=== PATIENT | male | born 1975 | race Caucasian/White ===

== ENCOUNTER 2017-01-30 21:54 | Inpatient (IN) | payer SELFPAY ==
[2017-01-30] MEDS ORDERED: Aspirin TAB* 325 MG PO ONE (22:00)
[2017-01-30] MEDS ORDERED: Ticagrelor* 90 MG TAB PO ONE ×2 (22:01→22:02)
[2017-01-30] MEDS ORDERED: Heparin for STEMI(*) 5,000 UNITS/ML 1 ML VIAL IV ONE ×2 (22:01→22:02)
[2017-01-30] MEDS ORDERED: Nitroglycerin TAB 0.4 MG* 0.4 MG TAB ONE (22:01)
[2017-01-30] MEDS ORDERED: Aspirin Low Dose CHEW TAB* 81 MG ONE (22:01)
[2017-01-30] MEDS ORDERED: nitroGLYCERIN DRIP* 250 ML ONE ×2 (22:02→22:19)
[2017-01-30 22:14] LABS: Hematocrit 49 % (42-52); Hemoglobin 16.2 g/dl (14.0-18.0); Mean Corpuscular HGB Conc 33 g/dl (31-36); Mean Corpuscular Hemoglobin 29 pg (27-31); Mean Corpuscular Volume 89 fL (80-94); Mean Platelet Volume 10 um3 (7.4-10.4); Red Blood Count 5.51 10^6/ul (4.0-5.4); Red Cell Distribution Width 13 % (10.5-15)
[2017-01-30] MEDS ORDERED: Iohexol 350 (CONTRAST) 200 ML MDV IV ONE ×2 (22:18→23:18)
[2017-01-30] MEDS ORDERED: fentaNYL* 50 MCG/ML 2 ML VIAL (100 MCG VIAL) ONE (22:18)
[2017-01-30] MEDS ORDERED: Heparin 2 UNITS/ML IVPREMIX* 3,000 ML IV ONE (22:18)
[2017-01-30] MEDS ORDERED: Lidocaine 1% INJ* 10 MG/ML 30 ML SDV ONE (22:18)
[2017-01-30] MEDS ORDERED: Midazolam* 1 MG/ML 5 ML VIAL (5 MG) ONE (22:18)
[2017-01-30] MEDS ORDERED: Ondansetron INJ* 2 MG/ML VIAL IV ONE (22:26)
[2017-01-30] MEDS ORDERED: Morphine INJ* 4 MG/ML 1 ML SYRINGE IV ONE (22:26)
[2017-01-30 22:27] LABS: Albumin 4.3 g/dL (3.2-5.2); BUN/Creatinine Ratio 15.6 (8-20); Calcium 8.9 mg/dL (8.6-10.3); EGFR Non-African American 66.1 (>60); Globulin 2.6 g/dL (2-4); Potassium 3.5 mmol/L (3.5-5.0); Total Bilirubin 0.5 mg/dL (0.2-1.0); Total Protein 6.9 g/dL (6.4-8.9)
[2017-01-30 22:31] LABS: Troponin I 0.02 ng/mL (<0.04)
--- NOTE | 2017-01-30 22:52 | RAD ---
Indication: ST elevation myocardial infarction. Pain radiating to the LEFT arm. History of AK and stents. Comparison: January 21, 2016 CT. Technique: Upright AP 2225 hours Report: Prominent ill-defined central pulmonary vasculature, perihilar alveolar opacities, and prominence of the interstitial markings with subtle peripheral thickened interlobular septa. Clear LEFT costophrenic angle. The RIGHT costophrenic angle is incompletely included in the [id number] without gross abnormality. Negative for pneumothorax. Negative for cardiomegaly. IMPRESSION: Alveolar and interstitial pulmonary edema.
--- NOTE | 2017-01-30 22:53 | ED ---
Clau Rico Janilya, scribed for Nehal Mai MD on 01/30/17 at 2214 . HPI Chest Pain - HPI Summary HPI Summary: A 41 y/o male came in to [facility] presenting w/ a sudden onset of constant CP starting half an hour ago. Per nurse, pt was slumped over and started having severe sharp CP that radiated to his arm. FHx early MD. STEMI alert called at 2153 - History of Current Complaint Chief Complaint: EDChestPainROMI Hx Obtained From: Patient Onset/Duration: Started Minutes Ago, Atraumatic, Still Present Timing: Constant Initial Severity: Moderate Current Severity: Moderate Chest Pain Location: Diffuse Chest Pain Radiates: Yes Chest Pain Radiates To:: Arm Aggravating Factor(s): Nothing Alleviating Factor(s): Nothing Associated Signs and Symptoms: Positive: Chest Pain - Allergy/Home Medications Allergies/Adverse Reactions: Allergies Allergy/AdvReac Type Severity Reaction Status Date / Time No Known Allergies Allergy Verified 01/21/16 15:49 PMH/Surg Hx/FS Hx/Imm Hx Previously Healthy: Yes Endocrine/Hematology History: Denies: Hx Diabetes Cardiovascular History: Reports: Hx Angina, Hx Cardiac Arrest, Hx Coronary Artery Disease, Hx Hypercholesterolemia, Hx Hypertension - W/MEDS PER PT.HASN'T TAKEN MEDS IN QUITE A WHILE, Hx Myocardial Infarction - 2009 Respiratory History: Denies: Hx Asthma, Hx Chronic Obstructive Pulmonary Disease (COPD) GI History: Reports: Hx Hiatal Hernia - maybe Musculoskeletal History: Reports: Hx Arthritis, Hx Back Problems, Hx Orthopedic Injury - R arm, right ankle Neurological History: Denies: Hx Spinal Cord Injury Psychiatric History: Reports: Hx Depression, Hx Substance Abuse - ETOH - Surgical History Surgery Procedure, Year, and Place: appendectomy, left thumb reattached, left zygomatic bone and occipital bone fractured, repaired. - Immunization History Date of Tetanus Vaccine: unknown Infectious Disease History: Denies: Traveled Outside the [place] in Last 30 Days - Family History Known Family History: Positive: Cardiac Disease - early MD - Social History Alcohol Use: Occasionally Substance Use Type: Reports: Marijuana Substance Use Comment - Amount & Last Used: occasionally Hx Tobacco Use: Yes Smoking Status (MU): Heavy Every Day Tobacco Smoker Type: Cigarettes Amount Used/How Often: 1 PPD Length of Time of Smoking/Using Tobacco: 22 years Have You Smoked in the Last Year: No Review of Systems Positive: Chest Pain Positive: Arthralgia - arm pain, Myalgia - arm pain All Other Systems Reviewed And Are Negative: Yes Physical Exam Triage Information Reviewed: Yes Vital Signs On Initial Exam: Vital Signs (72 hours) 01/30/17 01/30/17 21:59 22:09 Temperature 97.3 F Pulse Rate 96 94 Respiratory 18 Rate Blood Pressure 149/97 (mmHg) O2 Sat by Pulse 99 Oximetry Vital Signs Reviewed: Yes Appearance: Positive: No Pain Distress, Ill-Appearing, Obese Skin: Positive: Warm, Skin Color Reflects Adequate Perfusion, Diaphoretic Eyes: Positive: EOMI, RUSSELL ENT: Positive: Pharynx normal, TMs normal Neck: Positive: Supple, Nontender Respiratory/Lung Sounds: Positive: Clear to Auscultation, Breath Sounds Present. Negative: Rales, Rhonchi, Wheezes Cardiovascular: Positive: RRR. Negative: Murmur, Rub, Other - no gallops Abdomen Description: Positive: Nontender, Soft. Negative: Distended, Guarding, Other: - no rebound Bowel Sounds: Positive: Present Musculoskeletal: Positive: Strength/ROM Intact. Negative: Edema Left, Edema Right Neurological: Positive: Sensory/Motor Intact, Alert, Oriented to Person Place, Time, CN Intact II-III Psychiatric: Positive: Affect/Mood Appropriate Diagnostics - Vital Signs Vital Signs Temp Pulse Resp BP Pulse Ox 01/30/17 22:37 95 22 146/100 98 01/30/17 22:30 22 01/30/17 22:25 18 99 01/30/17 22:09 94 01/30/17 21:59 97.3 F 96 18 149/97 99 - Laboratory Lab Results: Lab Results 01/30/17 01/30/17 01/30/17 Range/Units 22:00 22:00 22:00 WBC 12.0 H (3.5-10.8) 10^3/ul RBC 5.51 H (4.0-5.4) 10^6/ul Hgb 16.2 (14.0-18.0) g/dl Hct 49 (42-52) % MCV 89 (80-94) fL MCH 29 (27-31) pg MCHC 33 (31-36) g/dl RDW 13 (10.5-15) % Plt Count 237 (150-450) 10^3/ul MPV 10 (7.4-10.4) um3 Neut % (Auto) 61.4 (38-83) % Lymph % (Auto) 27.5 (25-47) % Vance % (Auto) 8.7 (1-9) % Eos % (Auto) 1.4 (0-6) % Baso % (Auto) 1.0 (0-2) % Absolute Neuts (auto) 7.3 (1.5-7.7) 10^3/ul Absolute Lymphs (auto) 3.3 (1.0-4.8) 10^3/ul Absolute Monos (auto) 1.0 H (0-0.8) 10^3/ul Absolute Eos (auto) 0.2 (0-0.6) 10^3/ul Absolute Basos (auto) 0.1 (0-0.2) 10^3/ul Absolute Nucleated RBC 0.01 10^3/ul Nucleated RBC % 0.1 INR (Anticoag Therapy) 0.82 L (0.89-1.11) APTT 25.7 L (26.0-36.3) seconds Sodium 136 (133-145) mmol/L Potassium 3.5 (3.5-5.0) mmol/L Chloride 101 (101-111) mmol/L Carbon Dioxide 25 (22-32) mmol/L Anion Gap 10 (2-11) mmol/L BUN 19 (6-24) mg/dL Creatinine 1.22 H (0.67-1.17) mg/dL Est GFR ( Amer) 85.0 (>60) Est GFR (Non-Af Amer) 66.1 (>60) BUN/Creatinine Ratio 15.6 (8-20) Glucose 153 H (70-100) mg/dL Lactic Acid (0.5-2.0) mmol/L Calcium 8.9 (8.6-10.3) mg/dL Total Bilirubin 0.50 (0.2-1.0) mg/dL AST 22 (13-39) U/L ALT 26 (7-52) U/L Alkaline Phosphatase 83 (34-104) U/L Total Creatine Kinase 161 (10-223) U/L CK-MB (CK-2) 3.2 (0.6-6.3) ng/mL Myoglobin 42.9 (17.4-105.7) ng/mL Troponin I 0.02 (<0.04) ng/mL B-Natriuretic Peptide ( - 100) pg/mL Total Protein 6.9 (6.4-8.9) g/dL Albumin 4.3 (3.2-5.2) g/dL Globulin 2.6 (2-4) g/dL Albumin/Globulin Ratio 1.7 (1-3) LDL Cholesterol Direct 146 mg/dL Blood Type Antibody Screen 01/30/17 01/30/17 01/30/17 Range/Units 22:00 22:00 22:00 WBC (3.5-10.8) 10^3/ul RBC (4.0-5.4) 10^6/ul Hgb (14.0-18.0) g/dl Hct (42-52) % MCV (80-94) fL MCH (27-31) pg MCHC (31-36) g/dl RDW (10.5-15) % Plt Count (150-450) 10^3/ul MPV (7.4-10.4) um3 Neut % (Auto) (38-83) % Lymph % (Auto) (25-47) % Vance % (Auto) (1-9) % Eos % (Auto) (0-6) % Baso % (Auto) (0-2) % Absolute Neuts (auto) (1.5-7.7) 10^3/ul Absolute Lymphs (auto) (1.0-4.8) 10^3/ul Absolute Monos (auto) (0-0.8) 10^3/ul Absolute Eos (auto) (0-0.6) 10^3/ul Absolute Basos (auto) (0-0.2) 10^3/ul Absolute Nucleated RBC 10^3/ul Nucleated RBC % INR (Anticoag Therapy) (0.89-1.11) APTT (26.0-36.3) seconds Sodium (133-145) mmol/L Potassium (3.5-5.0) mmol/L Chloride (101-111) mmol/L Carbon Dioxide (22-32) mmol/L Anion Gap (2-11) mmol/L BUN (6-24) mg/dL Creatinine (0.67-1.17) mg/dL Est GFR ( Amer) (>60) Est GFR (Non-Af Amer) (>60) BUN/Creatinine Ratio (8-20) Glucose (70-100) mg/dL Lactic Acid 2.8 H* (0.5-2.0) mmol/L Calcium (8.6-10.3) mg/dL Total Bilirubin (0.2-1.0) mg/dL AST (13-39) U/L ALT (7-52) U/L Alkaline Phosphatase (34-104) U/L Total Creatine Kinase (10-223) U/L CK-MB (CK-2) (0.6-6.3) ng/mL Myoglobin (17.4-105.7) ng/mL Troponin I (<0.04) ng/mL B-Natriuretic Peptide 44 ( - 100) pg/mL Total Protein (6.4-8.9) g/dL Albumin (3.2-5.2) g/dL Globulin (2-4) g/dL Albumin/Globulin Ratio (1-3) LDL Cholesterol Direct mg/dL Blood Type A Positive Antibody Screen Pending Result Diagrams: 01/30/17 22:00 01/30/17 22:00 Lab Statement: Any lab studies that have been ordered have been reviewed, and results considered in the medical decision making process. - EKG 215 Cardiac Rate: NL - 89 bpm EKG Rhythm: Sinus Rhythm EKG Interpretation: ST elevated in V1-V6 anterior laterally w/ mild depression inferiorly. EKG Comparison: Other - No ST elevations in 12/13/2014 2207 Cardiac Rate: NL - 92 bpm EKG Rhythm: Sinus Rhythm EKG Interpretation: ST elevated in V1-V6 anterior laterally w/ mild depression inferiorly. Chest Pain Course/Dx - Course Course Of Treatment: 41 yo with severe cad, arrived with 30 mins of cp with st elevations stemi called, heparin, brilinta and asa given. pt sent to [facility]. 30 mins of critical care time were spent - Diagnoses Provider Diagnoses: STEMI (ST elevation myocardial infarction) - Provider Notifications Discussed Care Of Patient With: Cardio at 2205: discussed pt care and EKG results. Discharge - Discharge Plan Condition: Stable Disposition: ADMITT[facility] TO [facility] The documentation as recorded by the Clau brice Janilya accurately reflects the service I personally performed and the decisions made by me, Nheal Mai MD.
[2017-01-30] MEDS ORDERED: Bivalirudin(*) 250 MG VIAL ONE (22:55)
--- NOTE | 2017-01-30 22:58 | CONSULT ---
Consult Consult: PCP: none Date/Time of Evaluation: 01/30/2017 0833 Reason for Consult: management of alcoholism & assistance w/ STEMI management HPI: Mr Guzman is a morbidly obese white male HX CAD/PA/stent x2, HTN, tobacco use disorder, & active alcoholism who reports sudden onset severe chest pressure while walking out of the [employer] in [place] at 2100. This was associated with nausea, SOB, and sweating. It felt like his previous PA and so he took a nitro and presented to [facility] where ECG confirmed anterolateral STEMI. Elio Vital MD interventional cardiology took him to cardiac cath finding the culprit lesion to be 100% occluded proximal LAD, now s/p stent. For details , see cardiac cath report. Mr Guzman self-D/C'd all of his medications >1 year ago because "they were making me sick and interfering with my drinking". He fired his PCP at the time and has not re-established with anyone. PMedHx CAD/stent x2 HTN pure hypercholesterolemia alcoholism, active w/ HX withdrawal w/o seizure morbid obesity tobacco use disorder Ambulatory Orders Nursing to reconcile. Cyclobenzaprine TAB* [Flexeril TAB*] 10 mg PO TID PRN #10 tab 01/21/16 HYDROcodone/ACETAMIN 5-325 MG* [[place]rie 5-325 TAB*] 1 tab PO Q6H PRN #10 tab MDD 5 01/21/16 Allergies No Known Allergies Allergy (Verified 01/21/16 15:49) PSurgHx cardiac stent x2 appendectomy SocHx: 1-2PPD cigarettes, 12 beers/day and 1-2 pints moonshine/week, occasional marijuana; works in [employer]; full code status FamHx: Mother: DM2; Father: pacer; strongly positive for early onset CAD ROS: as above, otherwise reviewed and all were negative Constitutional: NAD, normally developed, morbidly obese unkempt malodorous white male vitals: Vital Signs Temp 36.3 C 01/30/17 21:59 Pulse 95 01/30/17 22:37 Resp 22 01/30/17 22:37 BP 146/100 01/30/17 22:37 Pulse Ox 98 01/30/17 22:37 Intake & Output 01/29/17 01/30/17 01/30/17 23:59 11:59 23:59 Weight 122.47 kg HEENM: atraumatic; sclera/conjunctiva: non-icteric/clear; hearing: clinically intact; oropharynx: clear, mucosa moist Neck: soft tissue: non-tender; thyroid: normal Pulmonary: clear to auscultation bilaterally, good aeration, no accessory muscle use CV: RR/RR, normal S1S2, no carotid bruit, no jugular venous distention, 2+ B DP/ PT, no edema Abdominal: soft, non-distended, non-tender, no rebound/guarding/rigidity, normoactive bowel sounds, no hepatosplenomegaly or masses, no costovertebral angle tenderness Musculoskeletal: general: grossly intact; gait: currently non-ambulatory s/p cardiac cath Integumental: dirt crusting on hands, around navel, & on feet; otherwise normal appearance and texture Psychiatric orientation: AA&O to PPS affect: calm mood: cooperative eye contact: fair content: reliable responses: timely insight: poor Testing: Lab Results 01/30/17 01/30/17 01/30/17 Range/Units 22:00 22:00 22:00 WBC 12.0 H (3.5-10.8) 10^3/ul RBC 5.51 H (4.0-5.4) 10^6/ul Hgb 16.2 (14.0-18.0) g/dl Hct 49 (42-52) % MCV 89 (80-94) fL MCH 29 (27-31) pg MCHC 33 (31-36) g/dl RDW 13 (10.5-15) % Plt Count 237 (150-450) 10^3/ul MPV 10 (7.4-10.4) um3 Neut % (Auto) 61.4 (38-83) % Lymph % (Auto) 27.5 (25-47) % [place] % (Auto) 8.7 (1-9) % Eos % (Auto) 1.4 (0-6) % Baso % (Auto) 1.0 (0-2) % Absolute Neuts (auto) 7.3 (1.5-7.7) 10^3/ul Absolute Lymphs (auto) 3.3 (1.0-4.8) 10^3/ul Absolute Monos (auto) 1.0 H (0-0.8) 10^3/ul Absolute Eos (auto) 0.2 (0-0.6) 10^3/ul Absolute Basos (auto) 0.1 (0-0.2) 10^3/ul Absolute Nucleated RBC 0.01 10^3/ul Nucleated RBC % 0.1 INR (Anticoag Therapy) 0.82 L (0.89-1.11) APTT 25.7 L (26.0-36.3) seconds Sodium 136 (133-145) mmol/L Potassium 3.5 (3.5-5.0) mmol/L Chloride 101 (101-111) mmol/L Carbon Dioxide 25 (22-32) mmol/L Anion Gap 10 (2-11) mmol/L BUN 19 (6-24) mg/dL Creatinine 1.22 H (0.67-1.17) mg/dL Est GFR ( Amer) 85.0 (>60) Est GFR (Non-Af Amer) 66.1 (>60) BUN/Creatinine Ratio 15.6 (8-20) Glucose 153 H (70-100) mg/dL Lactic Acid (0.5-2.0) mmol/L Calcium 8.9 (8.6-10.3) mg/dL Total Bilirubin 0.50 (0.2-1.0) mg/dL AST 22 (13-39) U/L ALT 26 (7-52) U/L Alkaline Phosphatase 83 (34-104) U/L Total Creatine Kinase 161 (10-223) U/L CK-MB (CK-2) 3.2 (0.6-6.3) ng/mL Myoglobin 42.9 (17.4-105.7) ng/mL Troponin I 0.02 (<0.04) ng/mL B-Natriuretic Peptide ( - 100) pg/mL Total Protein 6.9 (6.4-8.9) g/dL Albumin 4.3 (3.2-5.2) g/dL Globulin 2.6 (2-4) g/dL Albumin/Globulin Ratio 1.7 (1-3) LDL Cholesterol Direct 146 mg/dL Blood Type Antibody Screen 01/30/17 01/30/17 01/30/17 Range/Units 22:00 22:00 22:00 WBC (3.5-10.8) 10^3/ul RBC (4.0-5.4) 10^6/ul Hgb (14.0-18.0) g/dl Hct (42-52) % MCV (80-94) fL MCH (27-31) pg MCHC (31-36) g/dl RDW (10.5-15) % Plt Count (150-450) 10^3/ul MPV (7.4-10.4) um3 Neut % (Auto) (38-83) % Lymph % (Auto) (25-47) % [place] % (Auto) (1-9) % Eos % (Auto) (0-6) % Baso % (Auto) (0-2) % Absolute Neuts (auto) (1.5-7.7) 10^3/ul Absolute Lymphs (auto) (1.0-4.8) 10^3/ul Absolute Monos (auto) (0-0.8) 10^3/ul Absolute Eos (auto) (0-0.6) 10^3/ul Absolute Basos (auto) (0-0.2) 10^3/ul Absolute Nucleated RBC 10^3/ul Nucleated RBC % INR (Anticoag Therapy) (0.89-1.11) APTT (26.0-36.3) seconds Sodium (133-145) mmol/L Potassium (3.5-5.0) mmol/L Chloride (101-111) mmol/L Carbon Dioxide (22-32) mmol/L Anion Gap (2-11) mmol/L BUN (6-24) mg/dL Creatinine (0.67-1.17) mg/dL Est GFR ( Amer) (>60) Est GFR (Non-Af Amer) (>60) BUN/Creatinine Ratio (8-20) Glucose (70-100) mg/dL Lactic Acid 2.8 H* (0.5-2.0) mmol/L Calcium (8.6-10.3) mg/dL Total Bilirubin (0.2-1.0) mg/dL AST (13-39) U/L ALT (7-52) U/L Alkaline Phosphatase (34-104) U/L Total Creatine Kinase (10-223) U/L CK-MB (CK-2) (0.6-6.3) ng/mL Myoglobin (17.4-105.7) ng/mL Troponin I (<0.04) ng/mL B-Natriuretic Peptide 44 ( - 100) pg/mL Total Protein (6.4-8.9) g/dL Albumin (3.2-5.2) g/dL Globulin (2-4) g/dL Albumin/Globulin Ratio (1-3) LDL Cholesterol Direct mg/dL Blood Type A Positive Antibody Screen Pending ECG, personally reviewed: acute anterolateral STEMI CXR, personally reviewed: IMPRESSION: Alveolar and interstitial pulmonary edema. Impression: 41M HX CAD/stent x2, HTN, morbid obesity, alcoholism, medication non -adherence presents with anterolateral STEMI DIAGNOSIS & PLAN Primary anterolateral STEMI : Elio Vital MD interventional cardiology to manage : dexmedetomidine GTT for light sedation particularly given heavy alcohol use, titrate to RASS zero hyperglycemia 2nd stress of STEMI : A1c 5.5 : ACHS glucometry and low dose correctional insulin to prevent further hyperglycemia in acute setting Secondary HTN : prevent tachycardia : goal to keep pressures low normal : co-management w/ cardiology alcoholism, active : last drank ~0300 Wednesday : WAM protocol with prophylaxis taper tobacco use disorder : cessation advised, low motivation Admission Rational: inpatient ICU for STEMI inappropriate for outpatient setting DVTp: heparin GTT Code Status: full
[2017-01-30] MEDS ORDERED: Acetaminophen TAB* 325 MG PO PRN (23:09)
[2017-01-30] MEDS ORDERED: Thiamine IV* 100 MG/ML 2 ML VIAL IM ONE (23:09)
[2017-01-30] MEDS ORDERED: Furosemide IV* 10 MG/ML VIAL (40 MG) ONE (23:15)
[2017-01-30] MEDS ORDERED: LORazepam INJ* 2 MG/ML 1 ML VIAL IV SCH (23:45)
[2017-01-31] MEDS ORDERED: Nitroglycerin TAB 0.4 MG* 0.4 MG TAB SL PRN (00:17)
[2017-01-31] MEDS ORDERED: Atorvastatin* 80 MG TAB PO ONE (00:28)
[2017-01-31] MEDS ORDERED: NS 0.9% 1000 ML* 1,000 ML IV SCH (00:30)
[2017-01-31] MEDS: LORazepam INJ* 2 MG/ML 1 ML VIAL IV SCH ×2 (00:35→09:33)
[2017-01-31] MEDS ORDERED: Captopril TAB* 12.5 MG PO ONE (00:40)
[2017-01-31] MEDS: Captopril TAB* 12.5 MG PO ONE ×2 (00:42→01:08)
[2017-01-31] MEDS: Dexmedetomidine* 50 ML IVPB SCH ×3 (01:13→07:23)
[2017-01-31 01:47] LABS: Urine Bacteria Absent (Absent); Urine Bilirubin Negative (Negative); Urine Glucose Negative (Negative); Urine Nitrite Negative (Negative)
[2017-01-31 01:59] LABS: Benzodiazepine Urine Screen None Detected (None Detect)
[2017-01-31] MEDS ORDERED: Metoprolol Tartrate TAB* 25 MG PO ONE (02:00)
[2017-01-31 06:44] LABS: Hematocrit 46 % (42-52); Hemoglobin 15.6 g/dl (14.0-18.0); Mean Corpuscular HGB Conc 34 g/dl (31-36); Mean Corpuscular Hemoglobin 30 pg (27-31); Mean Corpuscular Volume 89 fL (80-94); Mean Platelet Volume 10 um3 (7.4-10.4); Red Blood Count 5.22 10^6/ul (4.0-5.4); Red Cell Distribution Width 12 % (10.5-15); White Blood Count 12.5 10^3/ul (3.5-10.8)
[2017-01-31 06:45] LABS: Add Diff/Slide Review? Slide Review Added; Comments Flag Yes
[2017-01-31 07:17] LABS: ALT 131 U/L (7-52); AST 599 U/L (13-39); Albumin 3.8 g/dL (3.2-5.2); Alkaline Phosphatase 83 U/L (34-104); Anion Gap 9 mmol/L (2-11); BUN/Creatinine Ratio 16.2 (8-20); Blood Urea Nitrogen 19 mg/dL (6-24); CO2 Carbon Dioxide 25 mmol/L (22-32); Calcium 8.5 mg/dL (8.6-10.3); Chloride 103 mmol/L (101-111); Cholesterol 210 mg/dL; EGFR African American 89.3 (>60); EGFR Non-African American 69.4 (>60); Globulin 2.4 g/dL (2-4); Glucose 133 mg/dL (70-100); HDL Cholesterol 30.7 mg/dL; LDL Cholesterol 144 mg/dL; Potassium 4.5 mmol/L (3.5-5.0); Sodium 137 mmol/L (133-145); Total Protein 6.2 g/dL (6.4-8.9); Triglycerides 175 mg/dL
[2017-01-31] MEDS ORDERED: Insulin LISPRO* 1 UNITS UNIT SUBCUT SCH (07:30)
[2017-01-31 07:31] LABS: Troponin I > 85.00 ng/mL (<0.04)
[2017-01-31] MEDS ORDERED: Multivitamins/Minerals TAB PO SCH (09:00)
[2017-01-31] MEDS ORDERED: Captopril TAB* 12.5 MG PO SCH (09:00)
[2017-01-31 09:14] LABS: Creatine Kinase 7415 U/L (10-223)
[2017-01-31] MEDS: Ticagrelor* 90 MG TAB PO SCH ×2 (09:58→20:54)
[2017-01-31] MEDS: Aspirin Low Dose CHEW TAB* 81 MG PO SCH (09:58)
[2017-01-31] MEDS: Folic Acid TAB* 1 MG PO SCH (09:58)
[2017-01-31] MEDS: Thiamine TAB* 100 MG TAB PO SCH (09:58)
[2017-01-31] MEDS: Metoprolol Tartrate TAB* 25 MG PO SCH ×3 (09:59→20:54)
[2017-01-31] MEDS: Captopril TAB* 12.5 MG PO SCH ×3 (10:00→20:54)
--- NOTE | 2017-01-31 11:06 | RAD ---
Indication: CHF. Anterior OR. Comparison: January 21, 2016 CT and January 30, 2017 chest radiograph. Technique: Upright AP 1040 hours Report: Upper normal heart size. Prominent ill-defined central pulmonary vasculature and perihilar alveolar opacities as well as prominence of the interstitial markings. Grossly clear pleural spaces. Negative for pneumothorax. IMPRESSION: Persistent finding of alveolar and interstitial pulmonary edema without significant change.
[2017-01-31] MEDS ORDERED: LORazepam INJ* 2 MG/ML 1 ML VIAL IV PRN (11:14)
[2017-01-31 11:31] LABS: Magnesium 2.2 mg/dL (1.9-2.7)
[2017-01-31] MEDS ORDERED: Furosemide IV* 10 MG/ML 2 ML VIAL (20 MG) IV SLOW PU ONE (12:55)
[2017-01-31 13:12] LABS: Troponin I > 85.00 ng/mL (<0.04)
[2017-01-31 13:22] LABS: Creatine Kinase 5510 U/L (10-223)
--- NOTE | 2017-01-31 15:08 | HP ---
ADMISSION HISTORY AND PHYSICAL: DATE OF ADMISSION: 01/30/2017 CHIEF COMPLAINT: The patient presents with massive anterior wall myocardial infarction with history of coronary artery disease. HISTORY OF PRESENT ILLNESS: The patient is a 41-year-old gentleman with an extensive cardiac history (see below). He now presents stating that he has not been feeling well for the past couple of weeks with exertion-related chest discomfort. On the day of admission, he developed the onset of chest discomfort on and off becoming more persistent in nature with shortness of breath, diaphoresis, and nauseousness. A family relative was with him noticed that he was not doing well and at that point drove him to the emergency room. In the emergency room, an electrocardiogram was performed emergently revealing ST-segment elevation across the precordium and 1 and aVL with reciprocal depression in III and aVF with development of a right bundle branch block with Q waves already noted to some degree in V1 and V2 and minimally in V3. A STEMI alert was called. I came to see the patient, he was in acute distress, diaphoretic, short of breath, coughing. The risks and benefits of cardiac catheterization were explained to him. Prior to my arrival, he had received 4000 units of heparin. He had gotten Brilinta 180 mg and aspirin. He understood the risks and benefits and wished to proceed to the cardiovascular laboratory. The patient's prior cardiac history dates back to 2009 when he had a non-ST- segment elevation myocardial infarction at [facility]. At that point in time, on 03/02/10, he had coronary angiography revealing the left anterior descending artery to have [id number]-[id number] disease, the left circumflex was a trivial non- dominant vessel that tapered into a very small branch relatively short in distance. There was a moderate size ramus artery branch without significant disease. The right coronary artery was dominant, the proximal right coronary artery had an 80% focal lesion, beyond that there was short segment in the aorta with mild-to- moderate disease, the distal right coronary artery had a 70% stenosis. Balloon angioplasty and stenting of the proximal right coronary artery was carried out with placement of a 3.5 x 28 mm long Xience drug-eluting stent. The distal lesion was assessed by fractional flow reserve analysis and found to have a value of 0.75 and was stented with a 3.0 x 28 mm long drug-eluting stent. In 2014, the patient underwent cardiac catheterization after presenting with a non- ST elevation myocardial infarction. Cardiac catheterization was performed by Dr. Miri Salazar, who saw him in consultation at that time. At that point in time, the distal left main had a 10% to 15% narrowing. The left anterior descending artery had a 30% narrowing. There was a 55% non-critical lesion seen in the proximal to mid segment. Ramus intermediate branch had no disease, circumflex was a very small caliber vessel, diffusely diseased with 85 % stenosis, but supplying a very small trivial vessel. The right coronary artery was very large, it was dominant, and just after the initial proximal stent, was a mid 90% stenosis seen, the distal stent had up to 50% in-stent restenosis. He underwent successful stenting of the mid lesion with balloon angioplasty and placement of 3.0 x 38 mm long Promus PREMIER drug-eluting stent post dilated to 3.2 mm. PAST MEDICAL HISTORY: Other past medical history includes hyperlipidemia, triglyceridemia, obesity, alcohol excess, and smoking. CURRENT MEDICATIONS: None (the patient states that he was not compliant with the medications following last intervention). ALLERGIES: No known allergies. SOCIAL HISTORY: He smokes at least 1 pack a day. He drinks significantly on a routine basis. REVIEW OF SYSTEMS: Pertinent to proceeding with emergent procedure, includes no history of TIA or stroke, no history of excessive bleeding, no known history of renal insufficiency, and he is not allergic to dye. PHYSICAL EXAMINATION GENERAL: When I saw him in the emergency room revealed a gentleman in extreme distress. VITAL SIGNS: Reveal blood pressure 149/97, heart rate was 96, respirations 18, O2 saturation 99% on room air. Afebrile. NECK: Supple. I cannot assess for increased JVP. Thick neck. Carotids had no significant bruit, but was difficult to appreciate due to coarse breath sounds. LUNGS: Had marked decreased breath sounds bilaterally. Has a question of minimal crackles in the bases. HEART: Revealed no visible heaves, no palpable heaves or thrills. Heart sounds were markedly distant with no significant systolic or diastolic murmur. ABDOMEN: Soft, nontender without organomegaly, obese in nature. EXTREMITIES: Without pitting edema. Peripheral pulses were intact. Femoral pulses deep, but present without bruit. NEURO: Alert and oriented with normal mentation. MUSCULOSKELETAL: The patient moves all extremities appropriate. PSYCHOLOGICAL: The patient is appropriately anxious. DIAGNOSTIC STUDIES/LAB DATA: Laboratory results pending at this time. EKG revealed diffuse ST elevation throughout all the precordial leads with right bundle branch block with small Q waves noted in V1 and V2 as described above, ST elevation in 1 and aVL. OVERALL ASSESSMENT: Mr. Guzman presents with an acute massive anterior wall myocardial infarction in progress with probable congestive heart failure. Chest x- ray reveals mild congestive heart failure present as well. At this point in time, the risks and benefits were explained, he understood and wished to proceed to the cardiovascular laboratory. The patient had received heparin, Brilinta, and aspirin therapy. Further management will be made pending results of the cardiac catheterization. Of note, he has multiple issues that need to be addressed including medication compliance, alcohol cessation, smoking cessation, and these will be addressed in the postprocedure state. CC: Dr. Jerrod Fuentes, Dr. Miri Salazar* [id number]/CPS #: [id number] [facility]
--- NOTE | 2017-01-31 16:39 | CATH ---
CARDIAC CATHETERIZATION AND INTERVENTIONAL REPORT: DATE OF PROCEDURE/DICTATION: 01/31/17 - ROOM #ICU-05 INDICATION FOR THE PROCEDURE: The patient with a massive anterior wall myocardial infarction with a history of significant coronary artery disease. PROCEDURE: The procedure was coronary arteriography, thrombectomy and placement of a 4.0 x 16 mm long Synergy drug-eluting stent in proximal LAD with balloon angioplasty of the diagonal branch through the stent, left heart catheterization. DESCRIPTION OF PROCEDURE: The patient was interviewed and examined in the emergency room where he was in extreme distress. The risks and benefits were explained, he understood them and wished to proceed. He was brought to the cardiovascular laboratory where a formal time-out was performed. The patient was prepped and draped in the sterile fashion. The right groin area was anesthetized with 1% lidocaine. Right femoral artery was cannulated and a 6.5- curved Merit sheath was placed. Coronary arteriography was performed using a 5- [place] 4-Matty right coronary catheter and the left coronary artery was injected utilizing 6- [place] VL 3.5 curved catheter. Following this the decision was made to intervene into the subtotally occluded proximal LAD with UBALDO-1 flow. The patient had received 4000 units of heparin in the emergency room. The ACT was found to be subtherapeutic as such he was bloused with Angiomax and Angiomax drip was started. An 0.014 All Star wire was advanced down the left anterior descending artery. A Pronto extraction catheter was utilized to make passes to improve flow to the LAD. Of note attempts were then made to wire the diagonal branch but it had a retrograde take off and were unsuccessful. Decision was made to then stent the LAD with a 4.0 x 16 mm long Synergy drug-eluting stent. This was deployed and with it the first diagonal branch became totally occluded. After many different wires, the diagonal branch was able to be successfully rewired and balloon angioplasty was performed utilizing a 2.0 x 18 mm long Emerge balloon to the ostium where the point of obstruction was. Following this the artery was assessed both with wires in place and wires removed. Left heart catheterization was then performed utilizing a 5-[place] pigtail catheter advanced the ascending aorta with central air pressure was recorded. Catheter was then passed across the aortic valve and to the left ventricle where left ventricular pressure was recorded. Pull back was then obtained. Following this, an injection was made into the right femoral sheath to assess the eligibility to utilize a closure device. It was found to be acceptable for this and as such a 6/7 [place] Mynx closure device was deployed with good hemostasis. The patient was transported to the intensive care unit. The total contrast used was 300 cc of Omnipaque dye. The radiation exposure included 32.7 minutes of fluoro time. The air kerma radiation was 4490 milligray. The DAP radiation was 24,099 microgray per m2. Medication given during the cath labs have included the Angiomax bolus, the Angiomax drip, and 20 mg of Lasix in addition to intercoronary nitroglycerin. The patient had already received heparin therapy, aspirin, and Brilinta in the emergency room. RESULTS: HEMODYNAMIC DATA: Left heart catheterization - central aortic pressure recorded at 128/91 with a mean of 110 left ventricular pressure, 120 of left ventricular end- diastolic pressure of 22. CORONARY ARTERIOGRAPHY: A. Left coronary artery: 1. Left main - there was distal narrowing of the left main of 20% with calcium. 2. Left anterior descending artery - the left anterior descending artery had an ostial narrowing of what appeared to be a 35% to 40%. There was subtotal occlusion of the proximal LAD at the point of the first diagonal branch which appeared to have a retrograde take off to it. UBALDO-1 flow was noted. 3. Circumflex artery - a nondominant vessel with a high trifurcation marginal branch which traversed across the posterior wall. This may actually be a first diagonal branch. There was no significant lesion throughout this vessel although it did have compromise with a 40% ostial LAD narrowing. The circumflex proper with a small caliber mid to distal vessel with thread like vessels with diffuse narrowing noted. B. Right coronary artery - a dominant vessel supplying the PDA and a posterior left ventricular branch with extensive stenting noted throughout the vessel in its proximal and mid and distal segment. Of note there is mild areas of instent restenosis of about 20% seen in the mid stent. The distal right coronary artery just prior to the PDA had what appeared to be as much as a 60% to 65% narrowing noted. UBALDO-3 flow was seen throughout the vessel. INTERVENTION INTO PROXIMAL LAD AND FIRST DIAGONAL BRANCH: 1. Proximal LAD. Successful recannulization of subtotally occluded proximal LAD reducing 99% lesion to 0% with UBALDO-3 flow. No dissection seen. Utilizing thrombectomy and placement of a 4.0 x 16 mm Synergy drug-eluting stent post- dilated 4.2 mm with high pressure balloon inflations. 2. Successful balloon angioplasty of totally occluded first diagonal branch with ostial critical lesion utilizing a 2.0 x 8 mm long Emerge balloon with 20% residual narrowing noted at ostium area. OVERALL ASSESSMENT: Successful intervention into a subtotally occluded proximal LAD as described above. Of note on taking the patient's history it appears that this patient was significantly noncompliant in the past with medications. This will take a lengthy discussion with the patient as to how to proceed. We did discuss prior to placing a drug-eluting stent whether or not he would be willing to pursue one year minimum of dual antiplatelet and he said he would. We will work with him on this and we will have social service work as well with financial assistance as to how to get the medications and work with drug companies as well. In the meantime given this LV dysfunction, we will also plan on THOMAS inhibition, beta-dustin therapy. We did give furosemide in the cardiac cath rn to promote diuresis as the patient clearly has some degree of congestive heart failure on board at this time. Dual antiplatelet therapy is mandatory most likely for as long as 30 months. Smoking cessation will be critical as well. He does drink excessively and that will have to be addressed as well and I have consulted the hospitalist to provide management for his potential alcohol withdrawal. CC: Dr. Salazar; Dr. Wero Vital * [id number]/[facility] #: [id number] MTDD
[2017-01-31] MEDS: Atorvastatin* 80 MG TAB PO SCH (18:31)
[2017-01-31 19:02] LABS: Troponin I > 85.00 ng/mL (<0.04)
[2017-01-31 19:18] LABS: Creatine Kinase 3795 U/L (10-223)
[2017-02-01] MEDS ORDERED: LORazepam INJ* 2 MG/ML 1 ML VIAL IV PUSH PRN (02:14)
[2017-02-01 06:07] LABS: Hematocrit 46 % (42-52); Hemoglobin 15.3 g/dl (14.0-18.0); Mean Corpuscular HGB Conc 34 g/dl (31-36); Mean Corpuscular Hemoglobin 30 pg (27-31); Mean Corpuscular Volume 88 fL (80-94); Mean Platelet Volume 10 um3 (7.4-10.4); Red Cell Distribution Width 12 % (10.5-15); White Blood Count 14.5 10^3/ul (3.5-10.8)
[2017-02-01 07:16] LABS: Albumin 3.8 g/dL (3.2-5.2); BUN/Creatinine Ratio 15.5 (8-20); Calcium 8.8 mg/dL (8.6-10.3); EGFR African American 95.8 (>60); EGFR Non-African American 74.5 (>60); Globulin 2.7 g/dL (2-4); Potassium 3.8 mmol/L (3.5-5.0); Total Bilirubin 1.7 mg/dL (0.2-1.0); Total Protein 6.5 g/dL (6.4-8.9)
[2017-02-01] MEDS: Folic Acid TAB* 1 MG PO SCH (08:52)
[2017-02-01] MEDS: Metoprolol Tartrate TAB* 25 MG PO SCH ×3 (08:52→21:49)
[2017-02-01] MEDS: Captopril TAB* 12.5 MG PO SCH ×3 (08:53→21:48)
[2017-02-01] MEDS: Ticagrelor* 90 MG TAB PO SCH (08:53)
[2017-02-01] MEDS: Thiamine TAB* 100 MG TAB PO SCH (08:54)
[2017-02-01] MEDS: Aspirin Low Dose CHEW TAB* 81 MG PO SCH (08:54)
--- NOTE | 2017-02-01 11:51 | ECHO ---
Patient: JONNATHAN VASQUEZ [facility] Rec#: [id number] : 1975 Date: 02/01/2017 Age: 41y Height: 172.72 cm / 68.0 in Weight: 122.47 kg / 269.9 lbs Sex: M BSA: 2.32 Room#: [facility] Admit Date#: 01/30/2017 Type: Inpatient Referring: Wero Vital MD Reading: Pedro Dillard MD Wellness Guide: Jocelyne Mayes [facility] Wellness Guide: Kathy Diaz Transthoracic Echocardiogram Indication: S/P PCI BP: 112/71 HR: 116 Rhythm: Tachycardia Findings History: Anterior wall STEMI S/P PCI 01/31/17 and 2009, CAD, angina, cardiac arrest, HTN, HLD, Smoker, ETOH use. Technical Comments: The study quality is fair. The study is technically limited due to patient body habitus. Completed at 0845. Left Ventricle: The left ventricular chamber size is normal. There is no left ventricular hypertrophy. There is a focal wall motion abnormality present. There is moderately decreased left ventricular systolic function. The estimated ejection fraction is 30-35%. There is no consistent Doppler evidence of clinically significant diastolic dysfunction. The mid anteroseptal, mid anterior, mid anterolateral, apical septal, and apical lateral wall segments are hypokinetic (score 2). The apical anterior, and apical inferior wall segments are akinetic (score 3). Overall wallmotion score index is 2.29 Left Atrium: The left atrium is slightly dilated. Right Ventricle: Moderator Band present. The right ventricular cavity size is normal. The right ventricular global systolic function is mildly reduced. Right Atrium: The right atrial cavity size is normal. Aortic Valve: The aortic valve is trileaflet. There is no evidence of aortic valve thickening. There is no evidence of aortic regurgitation. There is no evidence of aortic stenosis. Mitral Valve: The mitral valve leaflets appear normal. There is a trace of mitral regurgitation. There is no evidence of mitral stenosis. Tricuspid Valve: The tricuspid valve leaflets are normal. There is a physiologic tricuspid regurgitation. No pulmonary hypertension is noted. There is no tricuspid stenosis. Pulmonic Valve: The pulmonic valve structure is not well visualized. There is no evidence of pulmonic regurgitation. There is no pulmonic stenosis. Pericardium: There is no significant pericardial effusion. Aorta: There is no dilatation of the ascending aorta. There is no dilatation of the aortic arch. There is no dilation of the aortic root. Pulmonary Artery: The main pulmonary artery is not well visualized. Venous: The inferior vena cava appears normal in size. There is a greater than 50% respiratory change in the inferior vena cava dimension. Conclusions There is moderately decreased left ventricular systolic function. The estimated ejection fraction is 30-35%. The mid anteroseptal, mid anterior, mid anterolateral, apical septal, and apical lateral wall segments are hypokinetic (score 2). The apical anterior, and apical inferior wall segments are akinetic (score 3). The right ventricular global systolic function is mildly reduced. There is no evidence of aortic regurgitation. There is no evidence of aortic stenosis. There is a trace of mitral regurgitation. There is a physiologic tricuspid regurgitation. No pulmonary hypertension is noted. There is no significant pericardial effusion. Compared to study of 12/14/14, the LV dysfunction is new. Valve structures are the same Measurements Name Value Normal Range RVIDd (AP) 2D 3.3 cm (0.9 - 2.6) RVDdMajor (2D) 3.9 cm (2.2 - 4.4) RAd ISD 4CH 4.8 cm (3.4 - 4.9) RA (A4C)W 4.3 cm (2.9 - 4.6) IVSd (2D) 0.9 cm (0.6 - 1) LVPWd (2D) 0.8 cm (0.6 - 1) LVIDd (2D) 4.7 cm (3.6 - 5.4) LVIDs (2D) 3.5 cm - LV FS (2D) 26 % (25 - 45) Aortic Annulus 2.3 cm (1.4 - 2.6) Ao root diameter (2D) 3 cm (2.1 - 3.5) Ascending Ao 2.9 cm (2.1 - 3.4) Aortic arch 2.6 cm (1.8 - 3.4) LA dimension (AP) 2D 4.4 cm (2.3 - 3.8) LAd ISD 4CH 5.8 cm (2.9 - 5.3) LA ISD 4CH W 4.6 cm (2.5 - 4.5) Name Value Normal Range LA ESV SP 4CH (A/L) 57 ml - LA ESV SP 2CH (A/L) 75 ml - LA ESV BP (A/L) 67 ml - LA ESV BP (A/L) index 28.93 ml/m2 - LA ESV SP 4CH (MOD) 53 ml - LA ESV SP 2CH (MOD) 72 ml - Name Value Normal Range MV E-wave Vmax 1.08 m/sec - MV deceleration time 110 msec - MV A-wave Vmax 0.61 m/sec - MV E:A ratio 1.77 ratio - LV septal e' Vmax 0.08 m/sec - LV lateral e' Vmax 0.07 m/sec - LV E:e' septal ratio 13.5 ratio - LV E:e' lateral ratio 15.43 ratio - Name Value Normal Range AV Vmax 1.14 m/sec - AV VTI 15.4 cm - AV peak gradient 5.15 mmHg - AV mean gradient 2.77 mmHg - LVOT Vmax 1 m/sec - LVOT VTI 16.5 cm - LVOT peak gradient 4.3 mmHg - LVOT mean gradient 2.34 mmHg - PARMJIT Vmax 0.56 m/sec - Name Value Normal Range TR Vmax 1.6 m/sec - TR peak gradient 10 mmHg - RAP 3 mmHg - RVSP 13 mmHg - IVC diameter 1.5 cm - Name Value Normal Range PV Vmax 0.79 m/sec - PV peak gradient 2.51 mmHg - Wallmotion BAS Not Seen BA Not Seen BAL Not Seen DEONTE Not Seen BI Not Seen BIS Not Seen MAS Hypokinetic MA Hypokinetic MAL Hypokinetic MIL Not Seen NE Not Seen MIS Not Seen Hypokinetic AA Akinetic AL Hypokinetic AI Akinetic APEX Akinetic
[2017-02-01] MEDS ORDERED: Furosemide IV* 10 MG/ML VIAL (40 MG) IV ONE (14:00)
[2017-02-01] MEDS: CMCS - Prasugrel (NF) 10 MG PO SCH (16:42)
[2017-02-01] MEDS: Atorvastatin* 80 MG TAB PO SCH (16:42)
[2017-02-01] MEDS: Nicotine PATCH 14 MG/24 HR* PATCH TRANSDERM SCH (16:42)
[2017-02-02] MEDS: Metoprolol Tartrate TAB* 25 MG PO SCH ×2 (03:07→08:53)
[2017-02-02] MEDS: Nicotine Patch Removal NOTE PATCH OFF SCH ×2 (07:26→20:57)
[2017-02-02] MEDS: Aspirin Low Dose CHEW TAB* 81 MG PO SCH (08:53)
[2017-02-02] MEDS: Thiamine TAB* 100 MG TAB PO SCH (08:54)
[2017-02-02] MEDS: Folic Acid TAB* 1 MG PO SCH (08:54)
[2017-02-02] MEDS: CMCS - Prasugrel (NF) 10 MG PO SCH (08:54)
[2017-02-02] MEDS: Nicotine PATCH 14 MG/24 HR* PATCH TRANSDERM SCH (08:54)
[2017-02-02] MEDS: Captopril TAB* 12.5 MG PO SCH ×4 (08:54→20:55)
[2017-02-02] MEDS: Metoprolol Tartrate TAB* 50 mg PO SCH ×2 (14:22→20:55)
[2017-02-02] MEDS: Atorvastatin* 80 MG TAB PO SCH (17:03)
[2017-02-03] MEDS: Metoprolol Tartrate TAB* 50 mg PO SCH ×3 (09:04→21:18)
[2017-02-03] MEDS: Captopril TAB* 12.5 MG PO SCH ×3 (09:05→21:18)
[2017-02-03] MEDS: Folic Acid TAB* 1 MG PO SCH (09:05)
[2017-02-03] MEDS: Thiamine TAB* 100 MG TAB PO SCH (09:05)
[2017-02-03] MEDS: Aspirin Low Dose CHEW TAB* 81 MG PO SCH (09:06)
[2017-02-03] MEDS: Nicotine PATCH 14 MG/24 HR* PATCH TRANSDERM SCH (09:06)
[2017-02-03] MEDS: CMCS - Prasugrel (NF) 10 MG PO SCH (10:01)
--- NOTE | 2017-02-03 13:37 | ECHO ---
Patient: JONNATHAN VASQUEZ [facility] Rec#: [id number] : 1975 Date: 02/03/2017 Age: 41y Height: 173 cm / 68.1 in Weight: 133.87 kg / 295.0 lbs Sex: M BSA: 2.41 Room#: 432 Admit Date#: 01/30/2017 Type: Inpatient Referring: Anabella Acuña MD Reading: Shonda Tabares MD Quality Assurance Monitor Chassis: Jocelyne Hutton RD,RDMS Quality Assurance Monitor Chassis: Kathy Diaz CC: Jerrod Fuentes MD Transthoracic Echocardiogram Indication: STEMI, s/p PCI BP: 112/63 HR: 95 Rhythm: NSR Indications Cardiac Disease Findings History: Anterior wall STEMI s/p PCI 01/31/17 and 2009, CAD, cardiac arrest, HTN, HLD, smoker, ETOH use. This is a LIMITED study to evaluate LV function. Technical Comments: The study quality is fair. The study is technically limited due to patient body habitus. Completed at 1235. Left Ventricle: The left ventricular chamber size is normal. There is global hypokinesis of the left ventricle with minor regional variation.Anterior wall and apex severely hypokinetic and akinetic. Lateral wall involved on short axis view, but in 4 chamber view lateral wall moves at the base. Septum hypokinetic. Base of the interior and posterior wall severely hypokinetic, apical portion of the inferior and posterior pack moves well. There is moderate to severely decreased left ventricular systolic function. Visually estimated EF: 30%. Right Ventricle: The right ventricular cavity size is normal. The right ventricular global systolic function is mildly to moderately reduced. Conclusions There is global hypokinesis of the left ventricle with minor regional variation.Anterior wall and apex severely hypokinetic and akinetic. Lateral wall involved on short axis view, but in 4 chamber view lateral wall moves at the base. Septum hypokinetic. Base of the interior and posterior wall severely hypokinetic, apical portion of the inferior and posterior pack moves well. There is moderate to severely decreased left ventricular systolic function. Visually estimated EF: 30%. The right ventricular global systolic function is mildly to moderately reduced.
[2017-02-03 14:50] LABS: BUN/Creatinine Ratio 17.9 (8-20); Calcium 9.3 mg/dL (8.6-10.3); EGFR African American 89.3 (>60); EGFR Non-African American 69.4 (>60); Magnesium 2.3 mg/dL (1.9-2.7); Potassium 4.3 mmol/L (3.5-5.0)
[2017-02-03] MEDS: Atorvastatin* 80 MG TAB PO SCH (16:54)
[2017-02-03] MEDS: Nicotine Patch Removal NOTE PATCH OFF SCH (21:25)
[2017-02-04] MEDS: CMCS - Prasugrel (NF) 10 MG PO SCH (08:58)
[2017-02-04] MEDS: Thiamine TAB* 100 MG TAB PO SCH (08:58)
[2017-02-04] MEDS: Aspirin Low Dose CHEW TAB* 81 MG PO SCH (08:58)
[2017-02-04] MEDS: Nicotine PATCH 14 MG/24 HR* PATCH TRANSDERM SCH ×2 (08:58→09:59)
[2017-02-04] MEDS: Folic Acid TAB* 1 MG PO SCH (08:58)
[2017-02-04] MEDS ORDERED: Metoprolol Tartrate TAB* 100 MG TAB PO SCH (09:00)
[2017-02-04] MEDS ORDERED: Lisinopril TAB* 10 MG PO SCH (09:00)
[2017-02-04] MEDS: Atorvastatin* 80 MG TAB PO SCH (16:52)
[2017-02-04 17:03] VITALS: BP 132/76
--- NOTE | 2017-02-05 03:10 | DS ---
DISCHARGE SUMMARY: DATE OF ADMISSION: 01/30/17 DATE OF DISCHARGE: 02/04/17 PRIMARY: Dr. Jerrod Fuentes. ELECTRICAL PROSPECTING OPERATOR: Dr. Salazar. DISCHARGE DIAGNOSES: 1. Anterior wall ST-elevation myocardial infarction. 2. Congestive heart failure, systolic, acute. 3. Morbid obesity. 4. Nonsustained ventricular tachycardia. 5. Hyperlipidemia. 6. Tobacco use. 7. Prior medication noncompliance. PROCEDURES: Cardiac cath; stent placement, LAD, 4.0 x 16 Synergy drug-eluting stent; balloon angioplasty of the jailed diagonal branch; echocardiography; telemetry. HISTORY: See the H and P. LABORATORY DATA: During his hospitalization, CBC remained stable, hemoglobin 15.3 on the 01 of February. Chemistry panel demonstrated a stable creatinine, 1.17 on Februaryh with GFR of 69.4. His admission creatinine was 1.22. His lactate normalized post admission. Direct LDL was 146, cholesterol 210, triglycerides 175, HDL 30.7. His CPK-MB peaked at 679.6 on the with a total CPK peak of 7415 on the . His LFTs elevated and then trended downward. On the 03 of February, electrolytes were normal, creatinine 1.17. His blood sugars ranged in the 117 to 133 range. BNP on admission was normal at 44. HOSPITAL COURSE: He presented with an extensive anterolateral ST elevation infarct with history of previous coronary artery disease with stenting. Previous right coronary intervention in [place]. He then had cath by Dr. Salazar in 2014, the RCA then was stented with a 3 x 38 Promus PREMIER drug- eluting stent. He subsequently, apparently, stopped all his medications. During his hospital stay, he was diuresed, continued on dual-antiplatelet therapy. There were no groin complications, he had no further angina. He had occasional PVCs, and had episodes of nonsustained VT. On February 03, he had a 4- beat run of nonsustained VT, on February 04, he had a 7-beat run of nonsustained VT with normal magnesium and electrolytes. Echocardiogram post infarct initially showed LVEF of 30% to 35% on February 01 with an anteroapical and anterolateral large area of hypokinesis. Repeat echo on started afterload reduction and beta blockade revealed persisting LV systolic dysfunction with LVEF of 30% on February 03. He, therefore, met criteria for LifeVest, even though there was some difficulty arranging the LifeVest because of problems with arranging Medicaid coverage, this was accomplished. He will be discharged with a LifeVest, with close outpatient followup. He during his stay was ambulatory, did have exertional dyspnea, but his resting dyspnea resolved with diuresis. On the day of discharge, he has no physical evidence of volume overload with clear lungs, no JVD, his S3 gallop has resolved. He has no murmur. He has no pitting edema , the right groin site is stable. His blood pressure is 95/49 with a heart rate in the 80s, sinus rhythm. He will weigh himself daily and follow his weights and call if he has more than a 3-pound weight gain with fluid retention , in which case, he may need a diuretic. I have emphasized him the need for dual-antiplatelet therapy without interruption, I provided him a card for a 30- day free supply, emphasized to him the importance of not interrupting dual- antiplatelet therapy. We also discussed repeatedly the critical importance of his afterload reduction and beta blockade to treat his LV systolic dysfunction, with close followup for medication titration with Dr. Salazar. We discussed smoking cessation, curtailing strenuous activity. He is disabled indefinitely until LV function compensates and he is stable from an electrophysiologic perspective. He does normally strenuous physical work. CC: Dr. Jerrod Fuentes; Dr. Salazar* [id number]/[facility] #: [id number] [facility]
== END 2017-02-04 18:00 | disposition home or self-care (01) | DRG 246 ==
LOC: ED 21:54 → ICU 22:47 → MEDTELE 02-02 14:35
PROVIDERS: ADMIT Internal Medicine Cardiovascular Disease; ATTEND Internal Medicine Cardiovascular Disease
PROC: 027034Z Dilation of Coronary Artery, One Artery with Drug-eluting Intraluminal Device, Percutaneous Approach (ICD-10-PCS; 2017-01-30)
PROC: 02703ZZ Dilation of Coronary Artery, One Artery, Percutaneous Approach (ICD-10-PCS; 2017-01-30)
PROC: 02C03ZZ Extirpation of Matter from Coronary Artery, One Artery, Percutaneous Approach (ICD-10-PCS; 2017-01-30)
PROC: 4A023N7 Measurement of Cardiac Sampling and Pressure, Left Heart, Percutaneous Approach (ICD-10-PCS; 2017-01-30)
PROC: 3E033PZ Introduction of Platelet Inhibitor into Peripheral Vein, Percutaneous Approach (ICD-10-PCS; 2017-01-30)
PROC: B2111ZZ Fluoroscopy of Multiple Coronary Arteries using Low Osmolar Contrast (ICD-10-PCS; principal; 2017-01-30 15:00)
DX: I21.09 ST elevation (STEMI) myocardial infarction involving other coronary artery of anterior wall (principal); I50.21 Acute systolic (congestive) heart failure; I47.2 Ventricular tachycardia; T82.855A Stenosis of coronary artery stent, initial encounter; Z68.41 Body mass index [BMI] 40.0-44.9, adult; I25.10 Atherosclerotic heart disease of native coronary artery without angina pectoris; E78.00 Pure hypercholesterolemia, unspecified; K44.9 Diaphragmatic hernia without obstruction or gangrene; M19.90 Unspecified osteoarthritis, unspecified site; F32.9 Major depressive disorder, single episode, unspecified; F17.210 Nicotine dependence, cigarettes, uncomplicated; F12.90 Cannabis use, unspecified, uncomplicated; E78.5 Hyperlipidemia, unspecified; E78.1 Pure hyperglyceridemia; I11.0 Hypertensive heart disease with heart failure; E66.01 Morbid (severe) obesity due to excess calories; I49.3 Ventricular premature depolarization; R73.9 Hyperglycemia, unspecified; F10.20 Alcohol dependence, uncomplicated; Y71.1 Therapeutic (nonsurgical) and rehabilitative cardiovascular devices associated with adverse incidents; Z82.49 Family history of ischemic heart disease and other diseases of the circulatory system; I25.2 Old myocardial infarction; Z83.3 Family history of diabetes mellitus; Z91.14 Patient's other noncompliance with medication regimen; Y92.9 Unspecified place or not applicable
CPT/HCPCS: 36415; 71010; 80048; 80053; 80061; 80307; 81003; 81015; 82550; 82553; 83036; 83605; 83721; 83735; 83874; 83880; 84484; 85025; 85610; 85730; 86850; 86900; 86901; 87641; 93005; 93306; 93308; A9270-GY; C1725; C1757; C1760; C1769; C1876; C1887; C9606-LD; J1644; J1940; J2001; J2060; J2250; J2270; J2405; J3010

== ENCOUNTER 2017-07-27 19:21 | Emergency (ER) | payer BC ==
[2017-07-28] MEDS ORDERED: Furosemide IV* 10 MG/ML VIAL (40 MG) IV ONE (04:30)
[2017-07-28 06:53] LABS: Hematocrit 41 % (42-52); Hemoglobin 13.1 g/dl (14.0-18.0); Mean Corpuscular HGB Conc 32 g/dl (31-36); Mean Corpuscular Hemoglobin 29 pg (27-31); Mean Corpuscular Volume 88 fL (80-94); Mean Platelet Volume 13 um3 (7.4-10.4); Red Blood Count 4.61 10^6/ul (4.0-5.4); Red Cell Distribution Width 13 % (10.5-15); White Blood Count 8.6 10^3/ul (3.5-10.8)
[2017-07-28 06:55] LABS: Comments Flag Yes
[2017-07-28 06:57] LABS: Add Diff/Slide Review? Slide Review Added
[2017-07-28 07:05] LABS: Albumin 3.8 g/dL (3.2-5.2); BUN/Creatinine Ratio 10.7 (8-20); C Reactive Protein 10.13 mg/L (< 5.00); Calcium 9.1 mg/dL (8.6-10.3); EGFR African American 84.6 (>60); EGFR Non-African American 65.8 (>60); Globulin 2.4 g/dL (2-4); Total Bilirubin 1.5 mg/dL (0.2-1.0); Total Protein 6.2 g/dL (6.4-8.9)
[2017-07-28 07:06] LABS: Troponin I 0.01 ng/mL (<0.04)
--- NOTE | 2017-07-28 07:58 | ED ---
Geoff Rico Abhishek, scribed for Julio Sanchez MD on 07/28/17 at 0308 . Complex/Multi-Sys Presentation - HPI Summary HPI Summary: This patient is a 42 year old M presenting [facility] accompanied by female with a chief complaint of edema in the LLE since about a week. The CC is described as bilateral. The patient rates the pain 8/10 in severity. Symptoms aggravated by nothing. Symptoms alleviated by nothing. Patient reports abd pain (bloating ) and SOB intermittent. Patient denies chest pain. PMHx includes [place], and CAD and disease kidney disease. - History Of Current Complaint Chief Complaint: EDGeneral Hx Obtained From: Patient Onset/Duration: Gradual Onset, Lasting Weeks - one week, Still Present Timing: Constant Severity Currently: Severe Severity Initially: Severe Aggravating Factor(s): nothing Alleviating Factor(s): nothing Associated Signs And Symptoms: Positive: SOB - intermittent, Abdominal Pain - ( "bloating"). Negative: Chest Pain - Allergies/Home Medications Allergies/Adverse Reactions: Allergies Allergy/AdvReac Type Severity Reaction Status Date / Time No Known Allergies Allergy Verified 07/27/17 20:03 PMH/Surg Hx/FS Hx/Imm Hx Endocrine/Hematology History: Denies: Hx Diabetes Cardiovascular History: Reports: Hx Angina, Hx Cardiac Arrest, Hx Congestive Heart Failure, Hx Coronary Artery Disease, Hx Hypercholesterolemia, Hx Hypertension - W/MEDS PER PT.HASN'T TAKEN MEDS IN QUITE A WHILE, Hx Myocardial Infarction - 2009 Respiratory History: Denies: Hx Asthma, Hx Chronic Obstructive Pulmonary Disease (COPD) GI History: Reports: Hx Hiatal Hernia - maybe Musculoskeletal History: Reports: Hx Arthritis, Hx Back Problems, Hx Orthopedic Injury - R arm, right ankle Sensory History: Denies: Hx Contacts or Glasses, Hx Hearing Aid Opthamlomology History: Denies: Hx Contacts or Glasses Neurological History: Denies: Hx Spinal Cord Injury Psychiatric History: Reports: Hx Depression, Hx Substance Abuse - ETOH - Surgical History Surgery Procedure, Year, and Place: appendectomy, left thumb reattached, left zygomatic bone and occipital bone fractured, repaired. - Immunization History Date of Tetanus Vaccine: 2010 Infectious Disease History: No Infectious Disease History: Denies: Traveled Outside the [place] in Last 30 Days - Family History Known Family History: Positive: Cardiac Disease - early [place];, Other - Social History Alcohol Use: Occasionally Alcohol Amount: last drink 2 nights ago Substance Use Type: Reports: Marijuana Substance Use Comment - Amount & Last Used: 07/27/2014 Hx Tobacco Use: Yes Smoking Status (MU): Former Smoker Type: Cigarettes Amount Used/How Often: 1 PPD Length of Time of Smoking/Using Tobacco: 22 years Have You Smoked in the Last Year: No Review of Systems Constitutional: Negative Eyes: Negative ENT: Negative Negative: Chest Pain Positive: Shortness Of Breath - intemittent Positive: Abdominal Pain - "bloating" Genitourinary: Negative Musculoskeletal: Negative Skin: Negative Neurological: Negative Psychological: Normal All Other Systems Reviewed And Are Negative: Yes Physical Exam - Summary Physical Exam Summary: Appearance: Well-appearing, Well-nourished Skin: Warm Eyes: Normal ENT: Normal Neck: Supple, nontender Respiratory: Respiratory diminished breath sounds bilaterally; mildly tachypnea Cardiovascular: Normal S1 and S2 heart sounds No murmurs, Normal pulses bilaterally in the radial and pedal areas Abdomen: Soft, nontender Bowel: Present Musculoskeletal: 2 -3 + bilaterally pitting edema in the feet Neurological: Normal, Alert, Oriented to Person Psychiatric: Normal Triage Information Reviewed: Yes Vital Signs On Initial Exam: Initial Vitals Temp Pulse Resp BP Pulse Ox 99.9 F 105 16 141/101 99 07/27/17 19:55 07/27/17 19:55 07/27/17 19:55 07/27/17 19:55 07/27/17 19:55 Vital Signs Reviewed: Yes - Leonardo Coma Scale Coma Scale Total: 15 Diagnostics - Vital Signs Vital Signs Temp Pulse Resp BP Pulse Ox 07/28/17 03:00 100 146/104 99 07/28/17 02:54 106 99 07/28/17 02:52 133/104 07/28/17 00:00 98.5 F 97 16 122/93 97 07/27/17 21:40 98.8 F 100 16 126/97 100 07/27/17 19:55 99.9 F 105 16 141/101 99 - Laboratory Lab Results: Lab Results 07/28/17 07/28/17 07/28/17 Range/Units 05:25 05:25 05:25 WBC (3.5-10.8) 10^3/ul RBC (4.0-5.4) 10^6/ul Hgb (14.0-18.0) g/dl Hct (42-52) % MCV (80-94) fL MCH (27-31) pg MCHC (31-36) g/dl RDW (10.5-15) % Plt Count (150-450) 10^3/ul MPV (7.4-10.4) um3 Neut % (Auto) (38-83) % Lymph % (Auto) (25-47) % Hawkins % (Auto) (1-9) % Eos % (Auto) (0-6) % Baso % (Auto) (0-2) % Absolute Neuts (auto) (1.5-7.7) 10^3/ul Absolute Lymphs (auto) (1.0-4.8) 10^3/ul Absolute Monos (auto) (0-0.8) 10^3/ul Absolute Eos (auto) (0-0.6) 10^3/ul Absolute Basos (auto) (0-0.2) 10^3/ul Absolute Nucleated RBC 10^3/ul Nucleated RBC % INR (Anticoag Therapy) 1.16 H (0.89-1.11) APTT 27.4 (26.0-36.3) seconds Sodium 139 (133-145) mmol/L Potassium Pending Chloride 107 (101-111) mmol/L Carbon Dioxide 24 (22-32) mmol/L Anion Gap Pending BUN 13 (6-24) mg/dL Creatinine 1.22 H (0.67-1.17) mg/dL Est GFR ( Amer) 84.6 (>60) Est GFR (Non-Af Amer) 65.8 (>60) BUN/Creatinine Ratio 10.7 (8-20) Glucose 99 (70-100) mg/dL Calcium 9.1 (8.6-10.3) mg/dL Total Bilirubin 1.50 H (0.2-1.0) mg/dL AST Pending ALT 17 (7-52) U/L Alkaline Phosphatase 71 (34-104) U/L CK-MB (CK-2) 1.5 (0.6-6.3) ng/mL Troponin I 0.01 (<0.04) ng/mL C-Reactive Protein 10.13 H (< 5.00) mg/L B-Natriuretic Peptide 558 H ( - 100) pg/mL Total Protein 6.2 L (6.4-8.9) g/dL Albumin 3.8 (3.2-5.2) g/dL Globulin 2.4 (2-4) g/dL Albumin/Globulin Ratio 1.6 (1-3) 07/28/17 Range/Units 05:25 WBC 8.6 (3.5-10.8) 10^3/ul RBC 4.61 (4.0-5.4) 10^6/ul Hgb 13.1 L (14.0-18.0) g/dl Hct 41 L (42-52) % MCV 88 (80-94) fL MCH 29 (27-31) pg MCHC 32 (31-36) g/dl RDW 13 (10.5-15) % Plt Count 174 (150-450) 10^3/ul MPV 13 H (7.4-10.4) um3 Neut % (Auto) 70.1 (38-83) % Lymph % (Auto) 21.0 L (25-47) % Hawkins % (Auto) 6.5 (1-9) % Eos % (Auto) 0.4 (0-6) % Baso % (Auto) 2.0 (0-2) % Absolute Neuts (auto) 6.1 (1.5-7.7) 10^3/ul Absolute Lymphs (auto) 1.8 (1.0-4.8) 10^3/ul Absolute Monos (auto) 0.6 (0-0.8) 10^3/ul Absolute Eos (auto) 0 (0-0.6) 10^3/ul Absolute Basos (auto) 0.2 (0-0.2) 10^3/ul Absolute Nucleated RBC 0.01 10^3/ul Nucleated RBC % 0.1 INR (Anticoag Therapy) (0.89-1.11) APTT (26.0-36.3) seconds Sodium (133-145) mmol/L Potassium Chloride (101-111) mmol/L Carbon Dioxide (22-32) mmol/L Anion Gap BUN (6-24) mg/dL Creatinine (0.67-1.17) mg/dL Est GFR ( Amer) (>60) Est GFR (Non-Af Amer) (>60) BUN/Creatinine Ratio (8-20) Glucose (70-100) mg/dL Calcium (8.6-10.3) mg/dL Total Bilirubin (0.2-1.0) mg/dL AST ALT (7-52) U/L Alkaline Phosphatase (34-104) U/L CK-MB (CK-2) (0.6-6.3) ng/mL Troponin I (<0.04) ng/mL C-Reactive Protein (< 5.00) mg/L B-Natriuretic Peptide ( - 100) pg/mL Total Protein (6.4-8.9) g/dL Albumin (3.2-5.2) g/dL Globulin (2-4) g/dL Albumin/Globulin Ratio (1-3) Result Diagrams: 07/28/17 05:25 07/28/17 05:25 Lab Statement: Any lab studies that have been ordered have been reviewed, and results considered in the medical decision making process. - Ultrasound No standard instances Ultrasound Interpretation Completed By: Radiologist - US lower extremity reveals no evidence for DVT bilaterial lower extremities. ED physician has reviewed this radiology report and agrees. Complex Multi-Symp Course/Dx Course Of Treatment: given 40mg lasix iv push, admitted for further treatment - Diagnoses Provider Diagnoses: CHF exacerbation Discharge - Discharge Plan Condition: Stable Disposition: ADMITTED TO [facility] documentation as recorded by the Geoff brice Abhishek accurately reflects the service I personally performed and the decisions made by Daniel english Dong, MD.
[2017-07-28 08:05] LABS: Potassium 4.1 mmol/L (3.5-5.0)
--- NOTE | 2017-07-28 08:11 | RAD ---
HISTORY: Evaluate for CHF, leg swelling COMPARISONS: January 31, 2017 VIEWS: 1: frontal portable view of the chest at 4:36 AM FINDINGS: LINES AND TUBES: None. CARDIOMEDIASTINAL SILHOUETTE: The cardiac silhouette is enlarged. The cardiomediastinal silhouette is otherwise normal for portable technique. PLEURA: The costophrenic angles are sharp. No pleural abnormalities are noted. LUNG PARENCHYMA: There is a diffuse reticular pattern with indistinct pulmonary vessels. ABDOMEN: The upper abdomen is clear. There is no subphrenic gas. BONES AND SOFT TISSUES: No bone or soft tissue abnormalities are noted. IMPRESSION: CARDIOMEGALY WITH PULMONARY INTERSTITIAL EDEMA.
--- NOTE | 2017-07-28 08:16 | RAD ---
Indication: Bilateral leg edema Duplex Doppler sonography of the deep venous system of both lower extremities was performed. Bilaterally the common femoral veins, proximal greater saphenous veins, proximal deep femoral veins, femoral veins, popliteal veins, posterior tibial veins and peroneal veins appear patent and compressible. IMPRESSION: NO EVIDENCE OF DEEP VENOUS THROMBOSIS OF EITHER LOWER EXTREMITY IS PRESENT. PERONEAL VEINS ARE NOT VISUALIZED BILATERALLY.
--- NOTE | 2017-07-28 11:00 | ED ---
Progress - Progress Note Progress Note: pt seen by hospitalist Dr. Bravo with a consult, pt ready to be discharged. Course/Dx - Course Course Of Treatment: given 40mg lasix iv push, admitted for further treatment - Diagnoses Provider Diagnoses: CHF exacerbation
[2017-07-28 11:35] VITALS: BP 138/100
--- NOTE | 2017-07-28 23:46 | CONS ---
CC: Dr. Salazar* CONSULTATION REPORT: DATE OF CONSULT: 07/28/2017. CHIEF COMPLAINT: Lower extremity swelling. HISTORY OF PRESENT ILLNESS: The patient is a 42-year-old gentleman who has a significant history of coronary artery disease, who presents today with a chief complaint of lower extremity swelling that has started over the last week. He admits he has not been taking his medications for the last couple of weeks because at one point he vomited up and it hurt his lips and throat. He feels his stomach has swollen up and his legs have swollen up at the same time. Apparently every time he eats, his belly gets swollen, but then it does eventually come down again. He feels bloated. He does get into shortness of breath with abdominal and leg swelling. He states he lives with chest pain all the time, so he does not think he has any new chest pain. He is also always short of breath, so that is not new either. He has put on some weight. The patient has in the past history of coronary artery disease and readily admits he does not take his medications as he is supposed to. PAST MEDICAL HISTORY: Significant for: 1. Non-STEMI in 2009, 2014 with STEMI in 2017. 2. He has had stents placed to the proximal RCA, distal RCA in 2009. Another stent to the RCA in 2014 and a stent placed in 2017 to the LAD. 3. Hyperlipidemia. 4. Triglyceridemia. 5. Obesity. 6. Alcohol abuse. 7. Tobacco abuse. MEDICATIONS: He is supposed to be on include: 1. Effient 10 mg daily. 2. Nicotine patch q.24. 3. Metoprolol tartrate 100 mg twice daily. 4. Lisinopril 20 mg daily. 5. Atorvastatin 80 mg daily. 6. Aspirin 81 mg daily. ALLERGIES: He has no known drug allergies. SOCIAL HISTORY: He did quit tobacco right before his last heart attack and he has not started again since. Alcohol, he still drinks a little. He is trying to get disability currently. He use no recreational drugs. He has 2 children. He has a girlfriend. FAMILY HISTORY: His mother had diabetes. Father had a pacemaker placed. REVIEW OF SYSTEMS: A 14-point review of systems was completed with the patient. All pertinent positives and negatives are in the history of present illness, otherwise is negative. PHYSICAL EXAMINATION: General: A pleasant gentleman, lying in bed, in no acute distress. Vital Signs: Heart rate 97 beats per minute, respiratory rate 26 breaths per minute, pulse ox 100% on room air, blood pressure 118/92, temperature 98.2 degrees. HEENT: Normocephalic, atraumatic. Pupils equal, round, reactive to light. He has got moist mucous membranes. Neck: Supple. No JVD, bruits, palpable thyroid, or lymphadenopathy. His chest is clear to auscultation and percussion bilaterally. Cardiovascular Exam: S1, S2 appreciated. Abdominal Exam: Positive bowel sounds in all 4 quadrants. Soft, nontender, and nondistended. Extremities: He has got bilateral lower extremity pitting edema. Neuro: He is alert and oriented x3. He moves all extremities. Skin: No rashes or abnormalities. DIAGNOSTIC STUDIES/LAB DATA: White count 8.6, hemoglobin 13.1, hematocrit 41, and platelets of 174. Sodium 139, potassium 4.1, chloride 107, CO2 24, BUN 13, creatinine 1.22, glucose 99. BNP is 558. Troponin 0.01. INR 1.16. Venous duplex was interpreted by Radiology as no evidence of DVT of either lower extremity present. Peroneal veins are not visualized bilaterally. Chest x-ray was interpreted by Radiology as cardiomegaly with pulmonary interstitial edema. ASSESSMENT AND PLAN: Likely congestive heart failure with some pulmonary edema and lower extremity edema. The patient does prefers not to stay and he is only diuresed quite a bit with just one dose of Lasix. He states his edema is way down. He is not short of breath at this time, surely no more so than unusual. He is oxygenating at 100% on room air. We attempted to contact his cotton chopper to make a followup appointment with him in 1-week, but unfortunately that they were unable to do so. The patient was instructed he needs to see his cotton chopper within 1 week. Furthermore, I was emphasized to the patient that it is critical that he takes all of his cardiac meds because he is literally putting his life in danger. He understands this now and says he will comply. We will give him a prescription for 40 mg of p.o. Lasix to take daily. He was instructed to keep his legs elevated when he is sitting down and it was also emphasized he needs to be more compliant not just with his meds, but will follow up with his PCP and cotton chopper, which he will do. The patient is anxious to be discharged and will be discharged home with close followup. TIME SPENT: Over 75 minutes were spent on this consult and more than 50 minutes were spent in direct [id number] contact with the patient in evaluation , physical exam, and counseling and coordination of care. Thank you very much for this consult. [id number] #: [id number] BRI
== END 2017-07-28 11:34 | disposition home or self-care (01) ==
LOC: ED 19:21
DX: I50.9 Heart failure, unspecified (principal); R60.0 Localized edema; R06.02 Shortness of breath; R14.0 Abdominal distension (gaseous); I25.119 Atherosclerotic heart disease of native coronary artery with unspecified angina pectoris; I10 Essential (primary) hypertension; I25.2 Old myocardial infarction; Z86.74 Personal history of sudden cardiac arrest; F32.9 Major depressive disorder, single episode, unspecified; Z87.891 Personal history of nicotine dependence
CPT/HCPCS: 36415; 71010; 80053; 82553; 83880; 84484; 85025; 85610; 85730; 86140; 93005; 93970; 96374; 99284; J1940

== ENCOUNTER 2017-09-07 15:11 | Emergency (ER) | payer BC ==
[2017-09-07 15:51] VITALS: BP 130/99
--- NOTE | 2017-09-07 16:09 | UC ---
UC General HPI - HPI Summary HPI Summary: 1.5 MONTHS OF WORSENING ABDOMINAL SWELLING AND BILATERAL LEG SWELING. PATIENT IS FREQUENTLY SHORT OF BREATH. WAS PRESCRIBED LASIX BUT HAS NOT BEEN TAKING THE MEDICATION DUE TO NAUSEA. NO FEVER. OCCASIONAL PAIN IN ABDOMEN. PAIN IN SHOULDERS AND THROAT WITH SUPINE POSITION. NO FEVER. - History of Current Complaint Hx Obtained From: Patient, Family/Rhinestone Setter Onset/Duration: Gradual Onset, Lasting Weeks, Worse Since - LAST TWO DAYS Timing: Constant Onset Severity: Moderate Current Severity: Severe Associated Signs & Symptoms: Positive: Edema, Other - ABDOMINAL DISTENSION; LEG EDEMA ; DYSPNEA, TACHYCARDIA. Negative: Fever <George Chan - Last Filed: 09/07/17 16:04> <Elisabeth Ryan - Last Filed: 09/07/17 16:48> - History of Current Complaint Chief Complaint: UCGeneralIllness Stated Complaint: abdominal and leg swelling Time Seen by Provider: 09/07/17 15:48 - Allergy/Home Medications Allergies/Adverse Reactions: Allergies Allergy/AdvReac Type Severity Reaction Status Date / Time No Known Allergies Allergy Verified 09/07/17 15:35 PMH/Surg Hx/FS Hx/Imm Hx Previously Healthy: Yes - Surgical History Surgical History: Yes Surgery Procedure, Year, and Place: appendectomy, left thumb reattached, left zygomatic bone and occipital bone fractured, repaired. - Family History Known Family History: Positive: Cardiac Disease - early [place];, Other - Social History Occupation: Employed Full-time Lives: With Family Alcohol Use: Weekly Alcohol Amount: 6-8 beers a week states "all in one night" Substance Use Type: Marijuana Substance Use Comment - Amount & Last Used: 07/27/2014 Smoking Status (MU): Former Smoker Type: Cigarettes Amount Used/How Often: 1 can a day Length of Time of Smoking/Using Tobacco: 22 years Have You Smoked in the Last Year: No Household Exposure Type: Cigarettes - Immunization History Most Recent Influenza Vaccination: 2013 Most Recent Tetanus Shot: 2012 Most Recent Pneumonia Vaccination: never <George Chan - Last Filed: 09/07/17 16:04> Review of Systems Constitutional: Negative Skin: Negative Eyes: Negative ENT: Negative Respiratory: Shortness Of Breath Cardiovascular: Negative Gastrointestinal: Abdominal Pain, Other - ABDOMINAL DISTENSION Genitourinary: Negative Motor: Negative Neurovascular: Negative Musculoskeletal: Edema - BILATERAL LEGS Neurological: Negative Psychological: Negative Is Patient Immunocompromised?: No All Other Systems Reviewed And Are Negative: Yes <George Chan - Last Filed: 09/07/17 16:04> Physical Exam Triage Information Reviewed: Yes Appearance: No Pain Distress, Well-Nourished, Ill-Appearing Vital Signs: Initial Vital Signs Temp 98.9 F 09/07/17 15:42 Pulse 101 09/07/17 15:42 Resp 26 09/07/17 15:42 BP 130/99 09/07/17 15:42 Pulse Ox 100 09/07/17 15:42 Vital Signs Reviewed: Yes Eye Exam: Normal ENT Exam: Normal ENT: Positive: Normal ENT inspection, Hearing grossly normal, Pharynx normal, TMs normal Dental Exam: Normal Neck exam: Normal Neck: Positive: Supple, Nontender, No Lymphadenopathy Respiratory Exam: Other - TACHYPNEA Respiratory: Positive: Chest non-tender, Lungs clear Cardiovascular: Positive: No Murmur, Pulses Normal, Brisk Capillary Refill, Tachycardia Abdomen Description: Positive: Distended. Negative: Nontender - RLQ TENDERNESS Musculoskeletal: Positive: Strength Intact, ROM Intact, Edema @ - BILATERAL 2+ PITTING EDEMA Neurological Exam: Normal Psychological Exam: Normal Psychological: Positive: Normal Response To Family Skin Exam: Normal <George Chan - Last Filed: 09/07/17 16:04> Vital Signs: Initial Vital Signs Temp 98.9 F 09/07/17 15:42 Pulse 101 09/07/17 15:42 Resp 26 09/07/17 15:42 BP 130/99 09/07/17 15:42 Pulse Ox 100 09/07/17 15:42 <Elisabeth Ryan - Last Filed: 09/07/17 16:48> Course/Dx - Course Course Of Treatment: PATIENT ADVISED TO SEEK HIGHER LEVEL OF CARE AT EMERGENCY DEPARTMENT. PATIENT REFUSED THE OFFER OF AMBULANCE TRANSPORT AND ELECTED TO GO TO THE EMERGENCY DEPARTMENT BY PRIVATE CAR. - Differential Dx - Multi-Symptom Differential Diagnoses: Metabolic Abnormality, Sepsis, Other - CHF; Provider Diagnoses: ABDOMINAL DISTENSION; BILATERAL LEG EDEMA; TACHYPNEA, DYSPNEA. - Physician Notifications Instructed by Provider To: MD Will See In ED <George Chan - Last Filed: 09/07/17 16:04> Discharge - Discharge Plan Discharge Disposition Comment: ADVISED TO GO TO ED, REFUSED AMBULANCE <George Chan - Last Filed: 09/07/17 16:04> - Discharge Plan Discharge Disposition Comment: ADVISED TO GO TO ED, REFUSED AMBULANCE <Elisabeth Ryan - Last Filed: 09/07/17 16:48> - Discharge Plan Condition: Stable Disposition: TRANS HIGHER LVL OF CARE FAC Patient Education Materials: Leg Edema (ED), Abdominal Pain (ED), Dyspnea (ED) , Tachycardia (ED) Referrals: Gina BARTON,Jerrod Johnson [Medical Doctor] - Additional Instructions: YOU HAVE REFUSED THE OFFER OF AMBULANCE TRANSPORT AND HAVE ELECTED TO GO TO THE EMERGENCY DEPARTMENT BY PRIVATE CAR. YOU ARE ADVISED TO PROCEED SAFELY, BUT DIRECTLY TO THE EMERGENCY DEPARTMENT FOR CONTINUED EVALUATION. Attestation Statement User Type: Provider - I was available for consult. This patient was seen by the YULIYA. The patient was not presented to, seen by, or examined by me. -Leah <Elisabeth Ryan - Last Filed: 09/07/17 16:48>
== END 2017-09-07 16:07 | disposition short-term general hospital (02) ==
LOC: UCEAST 15:11
DX: R14.0 Abdominal distension (gaseous) (principal); R60.0 Localized edema; R06.82 Tachypnea, not elsewhere classified; R06.00 Dyspnea, unspecified; Z87.891 Personal history of nicotine dependence
CPT/HCPCS: 99211; G0463

== ENCOUNTER 2017-09-07 16:37 | Inpatient (IN) | payer BC ==
[2017-09-07] MEDS ORDERED: Furosemide IV* 10 MG/ML VIAL (40 MG) IV ONE ×2 (16:55→16:58)
[2017-09-07] MEDS ORDERED: Furosemide IV* 10 MG/ML VIAL (40 MG) ONE (16:58)
[2017-09-07 17:27] LABS: Hematocrit 47 % (42-52); Hemoglobin 15.2 g/dl (14.0-18.0); Mean Corpuscular HGB Conc 32 g/dl (31-36); Mean Corpuscular Hemoglobin 28 pg (27-31); Mean Corpuscular Volume 87 fL (80-94); Mean Platelet Volume 12 um3 (7.4-10.4); Red Blood Count 5.47 10^6/ul (4.0-5.4); Red Cell Distribution Width 16 % (10.5-15)
[2017-09-07 17:28] LABS: Add Diff/Slide Review? Slide Review Added; Comments Flag Yes
--- NOTE | 2017-09-07 17:32 | RAD ---
Indication: Shortness of breath. Single frontal view of the chest performed at 1709 hours was reviewed. Comparison is made with previous exam dated July 28, 2017. No mediastinal shift is noted. Heart is enlarged. Lung clarke are clear. IMPRESSION: NO ACTIVE CARDIOPULMONARY DISEASE IS NOTED.
[2017-09-07 17:37] LABS: Albumin 4.3 g/dL (3.2-5.2); BUN/Creatinine Ratio 10.9 (8-20); Calcium 9.3 mg/dL (8.6-10.3); EGFR Non-African American 57.5 (>60); Globulin 2.4 g/dL (2-4); Potassium 4.1 mmol/L (3.5-5.0); Total Bilirubin 3.2 mg/dL (0.2-1.0); Total Protein 6.7 g/dL (6.4-8.9)
[2017-09-07 17:38] LABS: Troponin I 0.02 ng/mL (<0.04)
[2017-09-07 17:44] LABS: Platelet Morphology Large; RBC Morphology Normal (Normal)
[2017-09-07 18:10] LABS: T4 8.33 mcg/mL (6.09-12.23)
[2017-09-07 18:14] LABS: TSH (Thyroid Stimulating Horm) 7.62 mcIU/mL (0.34-5.60)
[2017-09-07] MEDS ORDERED: cefTRIAXone VIAL(*) 1,000 MG in NS 0.9% 50 ML* 50 ML IVPB ONE (18:48)
[2017-09-07] MEDS ORDERED: Iodixanol* (CONTRAST) 320 MG/ML 100 ML SDV IV ONE (19:08)
[2017-09-07] MEDS ORDERED: cefTRIAXone(*) 1 GM ADVAN/BAG ONE (19:22)
[2017-09-07] MEDS ORDERED: diPHENhydraMINE IV* 50 MG/ML 1 ml VIAL (BENADRYL) IV ONE (19:39)
[2017-09-07 19:58] LABS: Urine Bacteria Absent (Absent); Urine Bilirubin Negative (Negative); Urine Glucose Negative (Negative); Urine Nitrite Negative (Negative)
--- NOTE | 2017-09-07 21:48 | RAD ---
Indication: Abdominal pain. Contrast: Administered 141.0 ml of VISAPAQUE 320 mg/ml CT of the abdomen and pelvis was performed after oral and IV contrast administration. Coronal and sagittal reconstructed images were obtained. The lung bases demonstrate no pleural fluid, nodules or masses. Heart is normal size without evidence of pericardial effusion. Liver is normal in size. No focal lesions or intrahepatic duct dilatation is noted. The spleen is normal in size. There is ascites noted. The gallbladder demonstrates gallstones. No pericholecystic fluid is noted. Pancreas demonstrates no mass or pancreatic duct dilatation. Common duct is not dilated. No adrenal masses are noted. The kidneys demonstrate symmetric nephrograms without hydronephrosis. No retroperitoneal lymphadenopathy is noted. Contrast is noted in the colon. Diverticulosis without evidence of diverticulitis is noted. IMPRESSION: Moderate amount of ascites is noted. Cholelithiasis without biliary ductal dilatation
--- NOTE | 2017-09-07 22:13 | ED ---
Dino Rico Benjamin, scribed for Juliana Miller MD on 09/07/17 at 2154 . Progress - Progress Note Progress Note: Signout pt from Dr. Mckeon pending CT report. Pt is a 42 to male presenting to ED c/o SOB and LE swelling for the last few days. - Results/Orders Results/Orders: CT A/P W IMPRESSION: Moderate amount of ascites is noted. Cholelithiasis without biliary ductal dilatation ED physician has reviewed this radiology report and agrees. Course/Dx - Course Course Of Treatment: Consulted Dr. Bourgeois (Hospitalist) at 2205 hour regardin pt's case. Pt will be admitted for CHF and ascites. - Diagnoses Provider Diagnoses: CHF exacerbation, Ascites The documentation as recorded by the Dino brice Benjamin accurately reflects the service I personally performed and the decisions made by me, Juliana Miller MD.
[2017-09-07] MEDS ORDERED: Albuterol 2.5 MG/3 ML NEB.SOL* (0.083%) INH PRN (23:05)
[2017-09-07] MEDS ORDERED: Acetaminophen TAB* 325 MG PO PRN (23:05)
[2017-09-07] MEDS ORDERED: Ondansetron INJ* 2 MG/ML VIAL IV PRN (23:05)
[2017-09-07] MEDS ORDERED: CMCS: Melatonin (NF) 3 MG TAB PO PRN (23:05)
--- NOTE | 2017-09-07 23:11 | HP ---
H&P (Free Text) History and Physical: PCP: none Cardiology: Samantha Salazar MD Date/Time of Evaluation: 09/07/2017 2230 CC: SOB HPI: Mr Guzman is a morbidly obese white male HX CAD/TX/stent x2, HTN, tobacco use disorder, & active alcoholism who reports BLE swelling and cramping, abdominal swelling, & SOB over the last month. He admits to medication non- adherence and dietary sodium indiscretion, eating out daily. He has been prescribed furosemide at a previous ED visit, but states it only worked for a short while. He denies chest pain, N/V, palpitations, sweats, and light- headedness. PMedHx CAD/stent x2 ischemic cardiomyopathy EF 30% HTN pure hypercholesterolemia alcoholism, active w/ HX withdrawal w/o seizure morbid obesity tobacco use disorder Ambulatory Orders Nursing to reconcile. Aspirin Low Dose CHEW TAB* [Aspirin Low Dose TAB*] 81 mg PO DAILY tab.chew 01/18 Atorvastatin* [Lipitor 80 MG*] 80 mg PO 1700 #30 tab 02/04/17 Lisinopril TAB* [Prinivil TAB 10 MG*] 20 mg PO DAILY #30 tab 02/04/17 Metoprolol Tartrate TAB* [Lopressor TAB*] 100 mg PO BID #60 tab 02/04/17 Nicotine PATCH 14 MG/24 HR* 1 patch TRANSDERM Q24HR #30 patch 02/04/17 Prasugrel (NF) [Effient (NF)] 10 mg PO DAILY #30 tab 02/04/17 Furosemide TAB* [Lasix TAB*] 40 mg PO DAILY #30 tab 07/28/17 Allergies No Known Allergies Allergy (Verified 09/07/17 15:35) PSurgHx cardiac stent x2 appendectomy SocHx: 1-2PPD cigarettes, 12 beers/day and 1-2 pints moonshine/week, occasional marijuana; 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; 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 status FamHx: Mother: DM2; Father: pacer; strongly positive for early onset CAD ROS: as above, otherwise reviewed and all were negative Constitutional: NAD, normally developed, morbidly obese white male vitals: Vital Signs Temp 36.6 C 09/07/17 16:40 Pulse 97 09/07/17 20:30 Resp 15 09/07/17 20:30 BP 137/91 09/07/17 20:30 Pulse Ox 100 09/07/17 20:30 Intake & Output 09/06/17 09/07/17 09/07/17 23:59 11:59 23:59 Weight 133.81 kg HEENM: atraumatic; sclera/conjunctiva: non-icteric/clear; hearing: clinically intact; oropharynx: clear, mucosa moist Neck: soft tissue: non-tender; thyroid: normal Pulmonary: diminished but clear to auscultation bilaterally, fair to good aeration, no accessory muscle use CV: RR/RR, normal S1S2, no carotid bruit, jugular venous distention to the angle of the jaw at 45 degrees, 2+ B DP/PT, no edema Abdominal: soft, non-distended, non-tender, no rebound/guarding/rigidity, normoactive bowel sounds, no hepatosplenomegaly or masses, no costovertebral angle tenderness Musculoskeletal: general: grossly intact; gait: stable Integumental: normal appearance and texture of exposed skin Psychiatric orientation: AA&O to PPS affect: calm mood: cooperative eye contact: fair content: reliable responses: timely insight: poor Testing: Lab Results 09/07/17 09/07/17 09/07/17 Range/Units 17:09 17:09 17:09 WBC 10.0 (3.5-10.8) 10^3/ul RBC 5.47 H (4.0-5.4) 10^6/ul Hgb 15.2 (14.0-18.0) g/dl Hct 47 (42-52) % MCV 87 (80-94) fL MCH 28 (27-31) pg MCHC 32 (31-36) g/dl RDW 16 H (10.5-15) % Plt Count 182 (150-450) 10^3/ul MPV 12 H (7.4-10.4) um3 Neut % (Auto) 73.7 (38-83) % Lymph % (Auto) 14.8 L (25-47) % [place] % (Auto) 9.1 H (1-9) % Eos % (Auto) 1.4 (0-6) % Baso % (Auto) 1.0 (0-2) % Absolute Neuts (auto) 7.4 (1.5-7.7) 10^3/ul Absolute Lymphs (auto) 1.5 (1.0-4.8) 10^3/ul Absolute Monos (auto) 0.9 H (0-0.8) 10^3/ul Absolute Eos (auto) 0.1 (0-0.6) 10^3/ul Absolute Basos (auto) 0.1 (0-0.2) 10^3/ul Absolute Nucleated RBC 0.01 10^3/ul Nucleated RBC % 0.1 Platelet Morphology Large Normal RBC Morphology Normal (Normal) INR (Anticoag Therapy) 1.21 H (0.77-1.02) APTT 29.0 (26.0-36.3) seconds Sodium 136 (133-145) mmol/L Potassium 4.1 (3.5-5.0) mmol/L Chloride 102 (101-111) mmol/L Carbon Dioxide 25 (22-32) mmol/L Anion Gap 9 (2-11) mmol/L BUN 15 (6-24) mg/dL Creatinine 1.37 H (0.67-1.17) mg/dL Est GFR ( Amer) 74.0 (>60) Est GFR (Non-Af Amer) 57.5 (>60) BUN/Creatinine Ratio 10.9 (8-20) Glucose 121 H (70-100) mg/dL Lactic Acid (0.5-2.0) mmol/L Calcium 9.3 (8.6-10.3) mg/dL Total Bilirubin 3.20 H (0.2-1.0) mg/dL AST 20 (13-39) U/L ALT 18 (7-52) U/L Alkaline Phosphatase 80 (34-104) U/L Total Creatine Kinase 62 (10-223) U/L CK-MB (CK-2) 3.3 (0.6-6.3) ng/mL Troponin I 0.02 (<0.04) ng/mL B-Natriuretic Peptide ( - 100) pg/mL Total Protein 6.7 (6.4-8.9) g/dL Albumin 4.3 (3.2-5.2) g/dL Globulin 2.4 (2-4) g/dL Albumin/Globulin Ratio 1.8 (1-3) TSH 7.62 H (0.34-5.60) mcIU/mL Thyroxine (T4) 8.33 (6.09-12.23) mcg/mL Urine Color Urine Appearance Urine pH (5-9) Ur Specific [place] (1.010-1.030) Urine Protein (Negative) Urine Ketones (Negative) Urine Blood (Negative) Urine Nitrate (Negative) Urine Bilirubin (Negative) Urine Urobilinogen (Negative) Ur Leukocyte Esterase (Negative) Urine WBC (Auto) (Absent) Urine RBC (Auto) (Absent) Urine Bacteria (Absent) Urine Glucose (Negative) 09/07/17 09/07/17 09/07/17 Range/Units 17:09 17:09 19:40 WBC (3.5-10.8) 10^3/ul RBC (4.0-5.4) 10^6/ul Hgb (14.0-18.0) g/dl Hct (42-52) % MCV (80-94) fL MCH (27-31) pg MCHC (31-36) g/dl RDW (10.5-15) % Plt Count (150-450) 10^3/ul MPV (7.4-10.4) um3 Neut % (Auto) (38-83) % Lymph % (Auto) (25-47) % [place] % (Auto) (1-9) % Eos % (Auto) (0-6) % Baso % (Auto) (0-2) % Absolute Neuts (auto) (1.5-7.7) 10^3/ul Absolute Lymphs (auto) (1.0-4.8) 10^3/ul Absolute Monos (auto) (0-0.8) 10^3/ul Absolute Eos (auto) (0-0.6) 10^3/ul Absolute Basos (auto) (0-0.2) 10^3/ul Absolute Nucleated RBC 10^3/ul Nucleated RBC % Platelet Morphology Normal RBC Morphology (Normal) INR (Anticoag Therapy) (0.77-1.02) APTT (26.0-36.3) seconds Sodium (133-145) mmol/L Potassium (3.5-5.0) mmol/L Chloride (101-111) mmol/L Carbon Dioxide (22-32) mmol/L Anion Gap (2-11) mmol/L BUN (6-24) mg/dL Creatinine (0.67-1.17) mg/dL Est GFR ( Amer) (>60) Est GFR (Non-Af Amer) (>60) BUN/Creatinine Ratio (8-20) Glucose (70-100) mg/dL Lactic Acid 1.8 (0.5-2.0) mmol/L Calcium (8.6-10.3) mg/dL Total Bilirubin (0.2-1.0) mg/dL AST (13-39) U/L ALT (7-52) U/L Alkaline Phosphatase (34-104) U/L Total Creatine Kinase (10-223) U/L CK-MB (CK-2) (0.6-6.3) ng/mL Troponin I (<0.04) ng/mL B-Natriuretic Peptide 639 H ( - 100) pg/mL Total Protein (6.4-8.9) g/dL Albumin (3.2-5.2) g/dL Globulin (2-4) g/dL Albumin/Globulin Ratio (1-3) TSH (0.34-5.60) mcIU/mL Thyroxine (T4) (6.09-12.23) mcg/mL Urine Color Straw Urine Appearance Clear Urine pH 5.0 (5-9) Ur Specific [place] 1.003 L (1.010-1.030) Urine Protein Negative (Negative) Urine Ketones Negative (Negative) Urine Blood 1+ H (Negative) Urine Nitrate Negative (Negative) Urine Bilirubin Negative (Negative) Urine Urobilinogen Negative (Negative) Ur Leukocyte Esterase Negative (Negative) Urine WBC (Auto) Absent (Absent) Urine RBC (Auto) Trace(0-2/hpf) (Absent) Urine Bacteria Absent (Absent) Urine Glucose Negative (Negative) 09/07/17 Range/Units 20:42 WBC (3.5-10.8) 10^3/ul RBC (4.0-5.4) 10^6/ul Hgb (14.0-18.0) g/dl Hct (42-52) % MCV (80-94) fL MCH (27-31) pg MCHC (31-36) g/dl RDW (10.5-15) % Plt Count (150-450) 10^3/ul MPV (7.4-10.4) um3 Neut % (Auto) (38-83) % Lymph % (Auto) (25-47) % [place] % (Auto) (1-9) % Eos % (Auto) (0-6) % Baso % (Auto) (0-2) % Absolute Neuts (auto) (1.5-7.7) 10^3/ul Absolute Lymphs (auto) (1.0-4.8) 10^3/ul Absolute Monos (auto) (0-0.8) 10^3/ul Absolute Eos (auto) (0-0.6) 10^3/ul Absolute Basos (auto) (0-0.2) 10^3/ul Absolute Nucleated RBC 10^3/ul Nucleated RBC % Platelet Morphology Normal RBC Morphology (Normal) INR (Anticoag Therapy) (0.77-1.02) APTT (26.0-36.3) seconds Sodium (133-145) mmol/L Potassium (3.5-5.0) mmol/L Chloride (101-111) mmol/L Carbon Dioxide (22-32) mmol/L Anion Gap (2-11) mmol/L BUN (6-24) mg/dL Creatinine (0.67-1.17) mg/dL Est GFR ( Amer) (>60) Est GFR (Non-Af Amer) (>60) BUN/Creatinine Ratio (8-20) Glucose (70-100) mg/dL Lactic Acid (0.5-2.0) mmol/L Calcium (8.6-10.3) mg/dL Total Bilirubin (0.2-1.0) mg/dL AST (13-39) U/L ALT (7-52) U/L Alkaline Phosphatase (34-104) U/L Total Creatine Kinase (10-223) U/L CK-MB (CK-2) (0.6-6.3) ng/mL Troponin I 0.02 (<0.04) ng/mL B-Natriuretic Peptide ( - 100) pg/mL Total Protein (6.4-8.9) g/dL Albumin (3.2-5.2) g/dL Globulin (2-4) g/dL Albumin/Globulin Ratio (1-3) TSH (0.34-5.60) mcIU/mL Thyroxine (T4) (6.09-12.23) mcg/mL Urine Color Urine Appearance Urine pH (5-9) Ur Specific [place] (1.010-1.030) Urine Protein (Negative) Urine Ketones (Negative) Urine Blood (Negative) Urine Nitrate (Negative) Urine Bilirubin (Negative) Urine Urobilinogen (Negative) Ur Leukocyte Esterase (Negative) Urine WBC (Auto) (Absent) Urine RBC (Auto) (Absent) Urine Bacteria (Absent) Urine Glucose (Negative) ECG, personally reviewed: sinus tachycardia rate 103, no ischemia CXR, personally reviewed: IMPRESSION: NO ACTIVE CARDIOPULMONARY DISEASE IS NOTED. CT abd/pel W, personally reviewed: IMPRESSION: Moderate amount of ascites is noted. Cholelithiasis without biliary ductal dilatation ECHO (02/03/2017): Conclusions: There is global hypokinesis of the left ventricle with minor regional variation.Anterior wall and apex severely hypokinetic and akinetic. Lateral wall involved on short axis view, but in 4 chamber view lateral wall moves at the base. Septum hypokinetic. Base of the interior and posterior wall severely hypokinetic, apical portion of the inferior and posterior pack moves well. There is moderate to severely decreased left ventricular systolic function. Visually estimated EF: 30%. The right ventricular global systolic function is mildly to moderately reduced. Impression: 42M HX CAD/stent x2, HTN, morbid obesity, alcoholism, medication non -adherence presents with acute on chronic CHF 2nd medication non-adherence DIAGNOSIS & PLAN Primary acute on chronic systolic HF : telemetry : trend troponin : furosemide diuresis : strict I&Os : daily weights : supplemental oxygen : update ECHO in AM : supportive care Secondary HTN : prevent tachycardia : goal to keep pressures low normal : co-management w/ cardiology CAD : review meds once reconciled, plan to re-start alcoholism, active : WA protocol tobacco use disorder : cessation advised, low motivation Admission Rational: inpatient for HF not anticipated to be adequately resolved w /i 48h to allow for discharge DVTp: SCDs & heparin SQ Code Status: full
[2017-09-08] MEDS: traMADol TAB* 50 MG PO PRN ×2 (01:52→22:21)
[2017-09-08] MEDS ORDERED: diPHENhydraMINE IV* 50 MG/ML 1 ml VIAL (BENADRYL) SLOW PUSH ONE (01:54)
[2017-09-08] MEDS ORDERED: diPHENhydraMINE IV* 25 MG in NS 0.9% 50 ML* 50 ML IVPB ONE (01:54)
[2017-09-08] MEDS ORDERED: Thiamine IV* 100 MG/ML 2 ML VIAL IM ONE (04:17)
[2017-09-08] MEDS ORDERED: LORazepam INJ* 2 MG/ML 1 ML VIAL IM SCH (05:00)
[2017-09-08] MEDS ORDERED: Omeprazole CAP* 20 MG PO SCH (06:00)
[2017-09-08] MEDS: Heparin VIAL(*) 5000 UNITS/ML VIAL (FIVE THOUSAND) SUBCUT SCH ×3 (06:09→22:21)
[2017-09-08 07:28] LABS: BUN/Creatinine Ratio 9.9 (8-20); Calcium 9.2 mg/dL (8.6-10.3); EGFR African American 66.2 (>60); EGFR Non-African American 51.4 (>60); Potassium 3.7 mmol/L (3.5-5.0)
[2017-09-08] MEDS ORDERED: Perflutren Lipid Microsphere* 3 ML VIAL ONE (07:42)
[2017-09-08] MEDS ORDERED: Furosemide IV* 10 MG/ML VIAL (40 MG) IV SCH (08:00)
[2017-09-08] MEDS: Folic Acid TAB* 1 MG PO SCH (08:15)
[2017-09-08] MEDS: Multivitamins/Minerals TAB PO SCH (08:15)
[2017-09-08] MEDS: Thiamine TAB* 100 MG TAB PO SCH (08:15)
[2017-09-08] MEDS: Docusate CAP* 100 MG PO SCH ×3 (08:17→22:26)
[2017-09-08] MEDS ORDERED: Aspirin EC Low Dose* 81 MG TAB.EC PO SCH (14:00)
[2017-09-08] MEDS ORDERED: Clopidogrel TAB* 75 MG PO SCH (14:00)
--- NOTE | 2017-09-08 14:02 | ECHO ---
Patient: JONNATHAN VASQUEZ [facility] Rec#: [id number] : 1975 Date: 09/08/2017 Age: 42y Height: 172.72 cm / 68.0 in Weight: 132 kg / 290.9 lbs Sex: M BSA: 2.4 Room#: 408 Admit Date#: 09/07/2017 Type: Inpatient Referring: Chip Bourgeois MD Reading: Miri Salazar MD Division Merchandise Manager: Jocelyne Mayes [facility] Transthoracic Echocardiogram Indication: Systolic heart failure BP: 115/74 HR: 102 Rhythm: Tachycardia Findings History: CAD with CA and PCI in the past,HTN,smoker,bilateral lower extremity edema, ischemic cardiomyopathy,obesity,HLD,ETOH use, noncompliant with medications. Technical Comments: The study is technically limited due to patient body habitus. Completed at 0839. The study is technically limited due to the patient's smoking history. Definity was used to enhance images. Left Ventricle: The left ventricular chamber size is normal. There is evidence of an ischemic cardiomyopathy. The estimated ejection fraction is 20-25%. globally Abnormal left ventricular diastolic function is observed. Left Atrium: The left atrium is mildly dilated. Right Ventricle: The right ventricular cavity size is normal. The right ventricular global systolic function is moderately reduced. Right Atrium: The right atrium is mild to moderately dilated. Aortic Valve: The aortic valve is trileaflet. There is no evidence of aortic regurgitation. There is no evidence of aortic stenosis. Mitral Valve: The mitral valve leaflets are mildly thickened. There is mild mitral regurgitation. There is no evidence of mitral stenosis. Tricuspid Valve: The tricuspid valve leaflets are normal. There is no evidence of tricuspid valve regurgitation. Unable to estimate the right ventricular systolic pressure. Pulmonic Valve: The pulmonic valve appears normal. There is a trace pulmonic regurgitation. There is no pulmonic stenosis. Pericardium: The pericardium appears normal. Aorta: There is no dilatation of the ascending aorta. There is mild dilatation of the aortic arch. There is no dilation of the aortic root. Pulmonary Artery: The main pulmonary artery appears normal. Venous: The venous system is not well visualized. Contrast: Definity was used to optimize study. 4.5 ml used. Intravenous contrast was used to enhance endocardial border definition. Summary: There are changes noted when compared to the previous study done on 02/03/2017, LV EF still severly reduced , now 20-25 % , from 30% then.MR is mild instead of trace then. Conclusions The estimated ejection fraction is 20-25%. globally The left atrium is mildly dilated. The right atrium is mild to moderately dilated. There is mild mitral regurgitation. There is mild dilatation of the aortic arch. Measurements Name Value Normal Range RVIDd (AP) 2D 3.9 cm (0.9 - 2.6) RVDdMajor (2D) 3.9 cm (2.2 - 4.4) RAd ISD 4CH 5.9 cm (3.4 - 4.9) RA (A4C)W 5.9 cm (2.9 - 4.6) IVSd (2D) 0.9 cm (0.6 - 1) LVPWd (2D) 0.9 cm (0.6 - 1) LVIDd (2D) 5.1 cm (3.6 - 5.4) LVIDs (2D) 4.8 cm - LV FS (2D) 7 % (25 - 45) Aortic Annulus 2 cm (1.4 - 2.6) Ao root diameter (2D) 3.3 cm (2.1 - 3.5) Ascending Ao 2.8 cm (2.1 - 3.4) Aortic arch 3.5 cm (1.8 - 3.4) Descending Ao 0.5 cm - LA dimension (AP) 2D 5.2 cm (2.3 - 3.8) LAd ISD 4CH 6.6 cm (2.9 - 5.3) LA ISD 4CH W 5.2 cm (2.5 - 4.5) Name Value Normal Range LA ESV SP 4CH (A/L) 110 ml - LA ESV SP 2CH (A/L) 46 ml - LA ESV BP (A/L) 74 ml - LA ESV BP (A/L) index 30.73 ml/m2 - LA ESV SP 4CH (MOD) 100 ml - LA ESV SP 2CH (MOD) 44 ml - Name Value Normal Range MV E-wave Vmax 1 m/sec - MV deceleration time 80 msec - MV A-wave Vmax 0.4 m/sec - MV E:A ratio 2.56 ratio - Name Value Normal Range AV Vmax 0.9 m/sec - AV VTI 13.8 cm - AV peak gradient 3.54 mmHg - AV mean gradient 1.69 mmHg - LVOT Vmax 0.8 m/sec - LVOT VTI 11.2 cm - LVOT peak gradient 2.48 mmHg - LVOT mean gradient 1.24 mmHg - Name Value Normal Range MR Vmax 4.5 m/sec - MR VTI 112.9 cm - Name Value Normal Range PV Vmax 0.6 m/sec - PV peak gradient 1.61 mmHg -
[2017-09-08 14:43] LABS: Direct Bilirubin 0.7 mg/dL (0.03-0.18); Indirect Bilirubin 2.1 mg/dL (0.3-1.0); Total Bilirubin 2.8 mg/dL (0.2-1.0)
[2017-09-08 15:35] LABS: Hematocrit 45 % (42-52); Hemoglobin 14.6 g/dl (14.0-18.0); Mean Corpuscular HGB Conc 32 g/dl (31-36); Mean Corpuscular Hemoglobin 28 pg (27-31); Mean Corpuscular Volume 87 fL (80-94); Mean Platelet Volume 12 um3 (7.4-10.4); Red Cell Distribution Width 15 % (10.5-15); White Blood Count 8.2 10^3/ul (3.5-10.8)
[2017-09-08 15:36] LABS: Add Diff/Slide Review? Slide Review Added; Comments Flag Yes
[2017-09-08 15:50] LABS: Albumin 4.1 g/dL (3.2-5.2); BUN/Creatinine Ratio 10.7 (8-20); Calcium 8.9 mg/dL (8.6-10.3); EGFR African American 66.7 (>60); EGFR Non-African American 51.8 (>60); Globulin 2.5 g/dL (2-4); Total Bilirubin 2.2 mg/dL (0.2-1.0); Total Protein 6.6 g/dL (6.4-8.9)
[2017-09-08] MEDS ORDERED: Carvedilol TAB* 3.125 MG PO ONE (16:37)
[2017-09-08] MEDS ORDERED: Furosemide IV* 10 MG/ML 2 ML VIAL (20 MG) IV ONE (16:39)
[2017-09-08] MEDS ORDERED: Atorvastatin* 80 MG TAB PO SCH (17:00)
[2017-09-08] MEDS: Clopidogrel TAB* 75 MG PO SCH (17:05)
--- NOTE | 2017-09-08 17:26 | PN ---
Subjective Date of Service: 09/08/17 Interval History: Patient has significant SOB with a clear lung exam. Patient states that he drinks only 7-8 beers a week, and that he hasn't smoked cigarettes in 7 months. Patient stopped taking his medications several months ago due to nausea and severe vomiting while taking them and afterwards. Patient states that he has been having episodes where he vomits up mucus several times, then he starts vomiting green material, and after several episodes of green material he feels much better and his appetite is even restored. Patient states that he currently can't walk 20 feet without needing to catch his breath for several minutes. Patient states that he has been having increased swelling of his legs and abdomen and that his abdomen is now very swollen and painful superficially. Patient also complains of intermittent pain in upper abdomen. Patient denies dysuria, F/C, dizziness. Patient has had only 300ml dark tea colored urine out since he was in the ED yesterday despite 80mg IV lasix yesterday/today. Patient not interested in a pacemaker or otehr invasive procedure. Patient willing to reintroduce coreg and plavix tonight to see if he becomes nauseated and amenable to add on Lisinopril, Digoxin, and aspirin sequentially to try to isolate the cause of N/V and try alternative therapy. Family History: Unchanged from Admission Social History: Unchanged from Admission Past Medical History: Unchanged from Admission Objective Active Medications: Acetaminophen (Tylenol Tab*) 650 mg PO Q6H PRN PRN Reason: FEVER/PAIN Albuterol (Ventolin 2.5 Mg/3 Ml Neb.Janay*) 2.5 mg INH Q2H PRN PRN Reason: SOB/WHEEZING Carvedilol (Coreg Tab*) 3.125 mg PO BID [facility] Clopidogrel Bisulfate (Plavix Tab*) 75 mg PO DAILY [facility] Last Admin: 09/08/17 17:05 Dose: 75 mg Docusate Sodium (Colace Cap*) 200 mg PO BID [facility] Last Admin: 09/08/17 08:17 Dose: Not Given Folic Acid (Folvite Tab*) 1 mg PO DAILY [facility] Last Admin: 09/08/17 08:15 Dose: 1 mg Heparin Sodium (Porcine) (Heparin Vial(*)) 5,000 units SUBCUT Q8HR [facility] Last Admin: 09/08/17 14:55 Dose: 5,000 units Lorazepam (Ativan Inj*) 0 - 6 mg IM .PER [facility] PROTOCOL [facility] PRN Reason: Protocol Melatonin (Melatonin (Nf)) 3 mg PO BEDTIME PRN; Protocol PRN Reason: Sleep Multivitamins/Minerals (Theragran/Minerals Tab*) 1 tab PO DAILY [facility] Last Admin: 09/08/17 08:15 Dose: 1 tab Ondansetron HCl (Zofran Inj*) 4 mg IV Q6H PRN PRN Reason: NAUSEA Thiamine HCl (Vitamin B-1 Tab*) 100 mg PO DAILY [facility] Last Admin: 09/08/17 08:15 Dose: 100 mg Tramadol HCl (Ultram*) 50 mg PO Q6H PRN PRN Reason: PAIN Last Admin: 09/08/17 01:52 Dose: 50 mg Vital Signs - 8 hr 09/08/17 13:20 Pulse Rate 98 Respiratory 30 Rate Blood Pressure 138/100 (mmHg) Oxygen Devices in Use Now: None Appearance: Patient is a 42yo male who appears older than stated age and is sitting in the bed with mild increase in WOB. Eyes: No Scleral Icterus, PERRLA Ears/Nose/Mouth/Throat: NL Teeth, Lips, Gums, Clear Oropharnyx, Mucous Membranes Moist Neck: Trachea Midline, - - JVP to angle of jaw at 60 degrees. Respiratory: Symmetrical Chest Expansion and Respiratory Effort, Clear to Auscultation Cardiovascular: NL Sounds; No Murmurs; No JVD, - - Tachycardic, 1+ pitting edema in B/L LE Pulses 2+ in B/L Radial, DP/PT areas. Abdominal: No Hepatosplenomegaly, - - tender to palpation over lower abdomen without guarding. Describes as superficial. Sclerosis and warmth of skin in lower abdomen. Lymphatic: No Cervical Adenopathy Extremities: No Clubbing, Cyanosis Skin: No Nodules or Sclerosis, - - Rash with striae and erythema on lower abdomen. Neurological: Alert and Oriented x 3, NL Sensation, NL Gait, NL Muscle Strength and Tone, - - CN II-XII intact. Result Diagrams: 09/08/17 15:10 09/08/17 15:10 Assess/Plan/Problems-Billing Assessment: Patient is a 42yo male with a PMH significant for obesity, CHF with EF of 20-25 , alcohol and tobacco abuse, medical non-compliance who presents with increasing SOB and LE edema in the setting of paroxysms of N/V closely associated with his medications but continuing after they were discontinued. - Patient Problems (1) Systolic heart failure secondary to coronary artery disease Current Visit: Yes Status: Acute Code(s): I50.20 - UNSPECIFIED SYSTOLIC ( CONGESTIVE) HEART FAILURE; I25.10 - ATHSCL HEART DISEASE OF [place] CORONARY ARTERY W/O ANG PCTRS SNOMED Code(s): 440500204 Comment: Appreciate Cardiology consult. Patient has SOB and leg swelling in the setting of drastically reduced EF at 20-25% on most recent echo. Patient has been non- compliant with medications recently except for lasix 40mg daily. Patient claims severe N/V with medication administration leading to non- compliance. Will reintroduce Coreg and Plaxiv now. Will plan to reintroduce Lisinopril, Digoxin and Aspirin sequentially tomorrow to assess for cause of nausea. 90mg IV lasix to this point, only 300ml urine. Lungs sounds clear, but there is widespread edema in the LE and abdomen. Cret increased from 1.37 to 1.51. Will continue with Lasix and monitor cret tomorrow. (2) Nausea & vomiting Current Visit: Yes Status: Acute Code(s): R11.2 - NAUSEA WITH VOMITING, UNSPECIFIED SNOMED Code(s): 15004674 Comment: Unknown cause. Comes in paroxysms with upper abdominal pain which resolves after many episodes of vomiting with first mucus then green material followed by relief. Patient also complains of sticky and acholic stools. No LFT abnormalities except for unconjugated hyperbilirubinemia likely due to Gilbert' s syndrome which is improving. Cholelithiasis on CT, will order abdominal US to assess GB, Liver, and spleen in AM. (3) Hx of heart artery stent Current Visit: No Status: Chronic Priority: Medium Code(s): Z95.5 - PRESENCE OF CORONARY ANGIOPLASTY IMPLANT AND GRAFT SNOMED Code(s): 644935953 Comment: Drug Eluting stent in 01/2017. Non-compliant with plavix and asa. Will reintroduce. No Troponin elevation or ST changes on EKG. (4) Tobacco abuse Current Visit: No Status: Acute Priority: Medium Onset Date: 12/14/14 Code(s): Z72.0 - TOBACCO USE SNOMED Code(s): 952466339 Comment: Patient claims not to have smoked in 7 months. (5) Hx of coronary artery disease Current Visit: No Status: Chronic Priority: Medium Code(s): Z86.79 - PERSONAL HISTORY OF OTHER DISEASES OF THE CIRCULATORY SYSTEM SNOMED Code(s): 203901294 Comment: Several MIs with stenting and now severe CHF. (6) Alcohol abuse Current Visit: Yes Status: Acute Code(s): F10.10 - ALCOHOL ABUSE, UNCOMPLICATED SNOMED Code(s): 49786712 Comment: Previous heavy drinker, now drinks 8 beers a week. (7) DVT prophylaxis Current Visit: No Status: Acute Priority: Medium Onset Date: 12/14/14 Code(s): DVG9204 - SNOMED Code(s): 341571270 (8) Full code status Current Visit: No Status: Acute Priority: High Onset Date: 12/14/14 Code (s): Z78.9 - OTHER SPECIFIED HEALTH STATUS SNOMED Code(s): 365166223 Status and Disposition: Patient is admitted inpatient. Will discharge when medically stable.
--- NOTE | 2017-09-08 20:16 | CONS ---
CC: Hospitalist Service; Dr. Salazar; Dr. Jones * CARDIOLOGY CONSULT: DATE OF CONSULT: 09/08/17 HISTORY OF PRESENT ILLNESS: I was asked by hospitalist service to see this 42- year-old male patient who presented to the hospital with symptoms of 2 months or more of shortness of breath, abdominal swelling, and swelling of the lower extremities. The patient does have significant coronary artery disease, severe in nature and significant comorbidities. He is noncompliant with following up with his physicians, with his doctors and with his medications. He said 2 months ago, he started to not feeling well, having nausea and vomiting and he stopped all his medications on his own. He said he was a few ago one visit to the emergency room with shortness of breath, he was prescribed Lasix to be taken as an outpatient. His medical history is extensive including severe history of coronary artery disease. 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 Vital after he had ST elevation massive myocardial infarction. He had known history of coronary artery disease. He was found to have multivessel disease, subtotally occluded LAD and 20% distal left main and some in-stent restenosis of the RCA for medical treatment. He underwent successful angioplasty and stenting of subtotally occluded LAD with thrombectomy and also balloon angioplasty of the first diagonal. His EF in the hospital was 30%. He does have a history of drinking alcohol and tobacco consumption. He said for 2 months, he had no chest pain, but he had been having shortness of breath, abdominal swelling, nausea, vomiting, and swelling of the lower extremities. He stopped his medications on his own. He gives at the present time, no fever, no chills, no hematochezia, no skin rash. He has some abdominal pain. He has swelling of the lower extremities. He does have history of systemic arterial hypertension, hyperlipidemia, alcoholism. He is still doing active and morbid obesity and tobacco disorder. He was admitted to the hospital for a treatment of congestive heart failure. His BNP was in the 600 rage. His chest x- ray was reported to have no active cardiopulmonary disease. PAST MEDICAL HISTORY: As outlined above. His other medical history include right bundle-branch block. PAST SURGICAL HISTORY: He had a cardiac cath in December 2014 and January 2017. MEDICATIONS: His medications as an outpatient were supposed to be: 1. Lipitor 80 mg daily. 2. Lisinopril 20 mg daily. 3. Metoprolol 100 mg twice a day. 4. Effient 10 mg daily. 5. Aspirin 81 mg daily. ALLERGIES: He has no known drug allergies. FAMILY HISTORY: No family history of premature coronary artery disease. SOCIAL HISTORY: He is single. He lives alone. He is unemployed. He is still drinking alcohol at least moderately. He said he quit cigarettes. No drug abuse. REVIEW OF SYSTEMS: His review of all other systems essentially is negative. PHYSICAL EXAMINATION: On exam, he is awake, alert, and oriented. He had no symptoms of chest pain. He is complaining of some nausea and some abdominal pain and swelling of the abdomen. Vitals: Blood pressure is 122/87, pulse is 90, temperature 97.6. Head and Neck Exam: Ears, nose, and throat essentially benign. Neck is supple. JVP is not elevated. No carotid bruits. Chest: Diminished air entry at the bases. Heart: Normal. S1, S2. No added sounds. No gallops, no rubs. Abdomen: Obese, distended, normoactive bowel sounds. Extremities: +2 pitting edema. TURN SUPERVISOR: No focal deficits. Skin Exam: No acute disease. Psych: Normal affect and mood. DIAGNOSTIC STUDIES/LAB DATA: His echo from today showed his EF to be 20% to 25 % globally. White blood cells 8.2, hemoglobin 14.6, hematocrit 45, and platelets 157. Chemistry: Sodium 135, potassium 4, chloride 102, total CO2 23, BUN 16, creatinine 1.5, troponin 0.02, BNP 639. TSH 7.62. His echo showed him to have a global EF of 20% to 25%, severe in nature and mild mitral insufficiency, mild dilatation of the aortic arch. His EKG from today, sinus rhythm, heart rate 103, poor R-wave progression, nonspecific ST-T changes. He had a CTA of the abdomen and pelvis. CT scan that was reported moderate ascites is noted. Cholelithiasis without biliary ductal dilatation. Diverticulosis is appreciated. IMPRESSION: The patient is a 42-year-old male patient with extensive comorbidities and medical history with: 1. Known history of severe coronary artery disease, massive myocardial infarction in January 2017. 2. Angioplasty and stenting. Drug-eluting stent to the LAD. 3. History of alcoholism, active. 4. Abnormal EKG as described. 5. Obesity. 6. History of tobacco consumption. 7. Hyperlipidemia. 8. Severe ischemic cardiomyopathy with EF of 20% to 25%. 9. Mild mitral insufficiency. 10. Ascites. 11. Known history of stenting to the RCA in the past. 12. Noncompliance with medications on followup with his doctors. PLAN: I was very karl with the patient that he has to be compliant. I made him aware of his seriousness of his cardiac disease. At the present time, I have discussed him with the hospitalists. We will reinitiate his outpatient medications, especially low-dose beta-dustin, low-dose THOMAS and low-dose Lasix. I would add digoxin for his severe cardiomyopathy and watch him very closely for vitals as well as for his electrolytes and renal function. GI evaluation as per hospitalists recommendation. I have discussed frankly about ventricular arrhythmia, sudden , myocardial infarction, in-stent restenosis given he has stopped his medications for 2 months. I made him aware of the risks and sudden . I recommended ICD implantation, he declined. He is aware of the benefits and risks. He is definitely needs to quit smoking and to stop alcohol drinking. He is not overtly in congestive heart failure. I answered all his concerns and questions up to his satisfaction. TIME SPENT: More than half of at least 60 plus minutes was in the education and counseling mode, discussing all of the above [id number] with the patient as well as with the hospitalists service. [id number]/[facility] #: [id number] BRI
[2017-09-08] MEDS ORDERED: Metoprolol Tartrate TAB* 25 MG PO SCH (21:00)
[2017-09-09] MEDS: Heparin VIAL(*) 5000 UNITS/ML VIAL (FIVE THOUSAND) SUBCUT SCH ×3 (05:30→21:49)
[2017-09-09 06:27] LABS: Hematocrit 45 % (42-52); Hemoglobin 14.5 g/dl (14.0-18.0); Mean Corpuscular HGB Conc 33 g/dl (31-36); Mean Corpuscular Hemoglobin 28 pg (27-31); Mean Corpuscular Volume 86 fL (80-94); Mean Platelet Volume 13 um3 (7.4-10.4); Red Blood Count 5.18 10^6/ul (4.0-5.4); Red Cell Distribution Width 15 % (10.5-15); White Blood Count 7.8 10^3/ul (3.5-10.8)
[2017-09-09 06:29] LABS: Add Diff/Slide Review? Slide Review Added; Comments Flag Yes
[2017-09-09 06:38] LABS: Albumin 4.1 g/dL (3.2-5.2); BUN/Creatinine Ratio 11.6 (8-20); Calcium 9.6 mg/dL (8.6-10.3); EGFR African American 56.5 (>60); Globulin 2.5 g/dL (2-4); Magnesium 2.3 mg/dL (1.9-2.7); Total Bilirubin 1.7 mg/dL (0.2-1.0); Total Protein 6.6 g/dL (6.4-8.9)
[2017-09-09 07:04] LABS: Platelet Morphology Large
--- NOTE | 2017-09-09 08:12 | ED ---
Ben Rico Angela, scribed for Romeo Mckeon MD on 09/07/17 at 1652 . Shortness of Breath - HPI Summary HPI Summary: This pt is a 42 y/o male presenting [facility] c/o SOB and LE swelling for the last few days. Pt notes he has had LE swelling and abd swelling. He reports that he had a third heart surgery 6 months ago and had a stent put on his groin. 1.5 months ago pt noticed he was swollen and was given Lasix. Pt reports Lasix was working well for the first 3 weeks but a few days ago it has stopped working for him. He additionally c/o difficulty sleeping and has to sleep in sitting position. His SOB is aggravated in a supine position. PMHx includes CHF, HTN, IA, CAD. - History of Current Complaint Chief Complaint: EDShortnessOfBreath Time Seen by Provider: 09/07/17 16:47 Hx Obtained From: Patient Onset/Duration: Lasting Days, Still Present Timing: Constant Dyspnea At: Rest Aggrevating Factors: Recumbent Position Associated Signs & Symptoms: Edema - in bilateral legs and abd - Allergy/Home Medications Allergies/Adverse Reactions: Allergies Allergy/AdvReac Type Severity Reaction Status Date / Time No Known Allergies Allergy Verified 09/07/17 23:04 PMH/Surg Hx/FS Hx/Imm Hx Endocrine/Hematology History: Denies: Hx Diabetes Cardiovascular History: Reports: Hx Angina, Hx Cardiac Arrest, Hx Congestive Heart Failure, Hx Coronary Artery Disease, Hx Hypercholesterolemia, Hx Hypertension - W/MEDS PER PT.HASN'T TAKEN MEDS IN QUITE A WHILE, Hx Myocardial Infarction - 2009 Respiratory History: Denies: Hx Asthma, Hx Chronic Obstructive Pulmonary Disease (COPD) GI History: Reports: Hx Hiatal Hernia - maybe Musculoskeletal History: Reports: Hx Arthritis, Hx Back Problems, Hx Orthopedic Injury - R arm, right ankle Sensory History: Denies: Hx Contacts or Glasses, Hx Hearing Aid Opthamlomology History: Denies: Hx Contacts or Glasses Neurological History: Denies: Hx Spinal Cord Injury Psychiatric History: Reports: Hx Depression, Hx Substance Abuse - ETOH - Surgical History Surgery Procedure, Year, and Place: appendectomy, left thumb reattached, left zygomatic bone and occipital bone fractured, repaired. - Immunization History Date of Tetanus Vaccine: 2010 Infectious Disease History: No Infectious Disease History: Denies: Traveled Outside the [place] in Last 30 Days - Family History Known Family History: Positive: Cardiac Disease - early IA - Social History Alcohol Use: Weekly Alcohol Amount: 6-8 beers a week states "all in one night" Substance Use Type: Reports: Marijuana Substance Use Comment - Amount & Last Used: 07/27/2014 Hx Tobacco Use: Yes Smoking Status (MU): Former Smoker Type: Cigarettes Amount Used/How Often: 1 can a day Length of Time of Smoking/Using Tobacco: 22 years Have You Smoked in the Last Year: No Review of Systems Constitutional: Other - difficulty sleeping Negative: Fever, Chills Negative: Chest Pain Positive: Shortness Of Breath Genitourinary: Negative Positive: Edema - in bilateral legs and abd Skin: Negative Neurological: Negative All Other Systems Reviewed And Are Negative: Yes Physical Exam - Summary Physical Exam Summary: VITAL SIGNS: Reviewed. GENERAL: Patient is an obese male with respiratory distress, however he is able to speak in full sentences. HEAD AND FACE: No signs of trauma. No ecchymosis, hematomas or skull depressions. No sinus tenderness. EYES: PERRLA, EOMI x 2, No injected conjunctiva, no nystagmus. EARS: Hearing grossly intact. Ear canals and tympanic membranes are within normal limits. MOUTH: Oropharynx within normal limits. NECK: Supple, trachea is midline, no adenopathy, no JVD, no carotid bruit, no c- spine tenderness, neck with full ROM. CHEST: Symmetric, no tenderness at palpation LUNGS: Both lungs has crackles, slight wheezing in the apices of the lungs. CVS: Regular rate and rhythm, S1 and S2 present, no murmurs or gallops appreciated. ABDOMEN: Soft, non-tender. No signs of distention. No rebound no guarding, and no masses palpated. Bowel sounds are normal. EXTREMITIES: FROM in all major joints, no cyanosis or clubbing. Bilateral lower extremity edema 1+. NEURO: Alert and oriented x 3. No acute neurological deficits. Speech is normal and follows commands. SKIN: Dry and warm. There is abdominal erythema with a little bit of induration in the skin. Triage Information Reviewed: Yes Vital Signs On Initial Exam: Initial Vitals Temp Pulse Resp BP Pulse Ox 97.9 F 105 24 139/112 100 09/07/17 16:40 09/07/17 16:40 09/07/17 16:40 09/07/17 16:40 09/07/17 16:40 Vital Signs Reviewed: Yes Diagnostics - Vital Signs Vital Signs Temp Pulse Resp BP Pulse Ox 09/07/17 16:40 97.9 F 105 24 139/112 100 - Laboratory Lab Results: Lab Results 09/07/17 09/07/17 09/07/17 Range/Units 17:09 17:09 17:09 WBC 10.0 (3.5-10.8) 10^3/ul RBC 5.47 H (4.0-5.4) 10^6/ul Hgb 15.2 (14.0-18.0) g/dl Hct 47 (42-52) % MCV 87 (80-94) fL MCH 28 (27-31) pg MCHC 32 (31-36) g/dl RDW 16 H (10.5-15) % Plt Count 182 (150-450) 10^3/ul MPV 12 H (7.4-10.4) um3 Neut % (Auto) 73.7 (38-83) % Lymph % (Auto) 14.8 L (25-47) % Alcorn % (Auto) 9.1 H (1-9) % Eos % (Auto) 1.4 (0-6) % Baso % (Auto) 1.0 (0-2) % Absolute Neuts (auto) 7.4 (1.5-7.7) 10^3/ul Absolute Lymphs (auto) 1.5 (1.0-4.8) 10^3/ul Absolute Monos (auto) 0.9 H (0-0.8) 10^3/ul Absolute Eos (auto) 0.1 (0-0.6) 10^3/ul Absolute Basos (auto) 0.1 (0-0.2) 10^3/ul Absolute Nucleated RBC 0.01 10^3/ul Nucleated RBC % 0.1 Platelet Morphology Large Normal RBC Morphology Normal (Normal) INR (Anticoag Therapy) 1.21 H (0.77-1.02) APTT 29.0 (26.0-36.3) seconds Sodium 136 (133-145) mmol/L Potassium 4.1 (3.5-5.0) mmol/L Chloride 102 (101-111) mmol/L Carbon Dioxide 25 (22-32) mmol/L Anion Gap 9 (2-11) mmol/L BUN 15 (6-24) mg/dL Creatinine 1.37 H (0.67-1.17) mg/dL Est GFR ( Amer) 74.0 (>60) Est GFR (Non-Af Amer) 57.5 (>60) BUN/Creatinine Ratio 10.9 (8-20) Glucose 121 H (70-100) mg/dL Lactic Acid (0.5-2.0) mmol/L Calcium 9.3 (8.6-10.3) mg/dL Total Bilirubin 3.20 H (0.2-1.0) mg/dL AST 20 (13-39) U/L ALT 18 (7-52) U/L Alkaline Phosphatase 80 (34-104) U/L Total Creatine Kinase 62 (10-223) U/L CK-MB (CK-2) 3.3 (0.6-6.3) ng/mL Troponin I 0.02 (<0.04) ng/mL B-Natriuretic Peptide ( - 100) pg/mL Total Protein 6.7 (6.4-8.9) g/dL Albumin 4.3 (3.2-5.2) g/dL Globulin 2.4 (2-4) g/dL Albumin/Globulin Ratio 1.8 (1-3) TSH 7.62 H (0.34-5.60) mcIU/mL Thyroxine (T4) 8.33 (6.09-12.23) mcg/mL Urine Color Urine Appearance Urine pH (5-9) Ur Specific [place] (1.010-1.030) Urine Protein (Negative) Urine Ketones (Negative) Urine Blood (Negative) Urine Nitrate (Negative) Urine Bilirubin (Negative) Urine Urobilinogen (Negative) Ur Leukocyte Esterase (Negative) Urine WBC (Auto) (Absent) Urine RBC (Auto) (Absent) Urine Bacteria (Absent) Urine Glucose (Negative) 09/07/17 09/07/17 09/07/17 Range/Units 17:09 17:09 19:40 WBC (3.5-10.8) 10^3/ul RBC (4.0-5.4) 10^6/ul Hgb (14.0-18.0) g/dl Hct (42-52) % MCV (80-94) fL MCH (27-31) pg MCHC (31-36) g/dl RDW (10.5-15) % Plt Count (150-450) 10^3/ul MPV (7.4-10.4) um3 Neut % (Auto) (38-83) % Lymph % (Auto) (25-47) % Alcorn % (Auto) (1-9) % Eos % (Auto) (0-6) % Baso % (Auto) (0-2) % Absolute Neuts (auto) (1.5-7.7) 10^3/ul Absolute Lymphs (auto) (1.0-4.8) 10^3/ul Absolute Monos (auto) (0-0.8) 10^3/ul Absolute Eos (auto) (0-0.6) 10^3/ul Absolute Basos (auto) (0-0.2) 10^3/ul Absolute Nucleated RBC 10^3/ul Nucleated RBC % Platelet Morphology Normal RBC Morphology (Normal) INR (Anticoag Therapy) (0.77-1.02) APTT (26.0-36.3) seconds Sodium (133-145) mmol/L Potassium (3.5-5.0) mmol/L Chloride (101-111) mmol/L Carbon Dioxide (22-32) mmol/L Anion Gap (2-11) mmol/L BUN (6-24) mg/dL Creatinine (0.67-1.17) mg/dL Est GFR ( Amer) (>60) Est GFR (Non-Af Amer) (>60) BUN/Creatinine Ratio (8-20) Glucose (70-100) mg/dL Lactic Acid 1.8 (0.5-2.0) mmol/L Calcium (8.6-10.3) mg/dL Total Bilirubin (0.2-1.0) mg/dL AST (13-39) U/L ALT (7-52) U/L Alkaline Phosphatase (34-104) U/L Total Creatine Kinase (10-223) U/L CK-MB (CK-2) (0.6-6.3) ng/mL Troponin I (<0.04) ng/mL B-Natriuretic Peptide 639 H ( - 100) pg/mL Total Protein (6.4-8.9) g/dL Albumin (3.2-5.2) g/dL Globulin (2-4) g/dL Albumin/Globulin Ratio (1-3) TSH (0.34-5.60) mcIU/mL Thyroxine (T4) (6.09-12.23) mcg/mL Urine Color Straw Urine Appearance Clear Urine pH 5.0 (5-9) Ur Specific [place] 1.003 L (1.010-1.030) Urine Protein Negative (Negative) Urine Ketones Negative (Negative) Urine Blood 1+ H (Negative) Urine Nitrate Negative (Negative) Urine Bilirubin Negative (Negative) Urine Urobilinogen Negative (Negative) Ur Leukocyte Esterase Negative (Negative) Urine WBC (Auto) Absent (Absent) Urine RBC (Auto) Trace(0-2/hpf) (Absent) Urine Bacteria Absent (Absent) Urine Glucose Negative (Negative) 09/07/17 Range/Units 20:42 WBC (3.5-10.8) 10^3/ul RBC (4.0-5.4) 10^6/ul Hgb (14.0-18.0) g/dl Hct (42-52) % MCV (80-94) fL MCH (27-31) pg MCHC (31-36) g/dl RDW (10.5-15) % Plt Count (150-450) 10^3/ul MPV (7.4-10.4) um3 Neut % (Auto) (38-83) % Lymph % (Auto) (25-47) % Alcorn % (Auto) (1-9) % Eos % (Auto) (0-6) % Baso % (Auto) (0-2) % Absolute Neuts (auto) (1.5-7.7) 10^3/ul Absolute Lymphs (auto) (1.0-4.8) 10^3/ul Absolute Monos (auto) (0-0.8) 10^3/ul Absolute Eos (auto) (0-0.6) 10^3/ul Absolute Basos (auto) (0-0.2) 10^3/ul Absolute Nucleated RBC 10^3/ul Nucleated RBC % Platelet Morphology Normal RBC Morphology (Normal) INR (Anticoag Therapy) (0.77-1.02) APTT (26.0-36.3) seconds Sodium (133-145) mmol/L Potassium (3.5-5.0) mmol/L Chloride (101-111) mmol/L Carbon Dioxide (22-32) mmol/L Anion Gap (2-11) mmol/L BUN (6-24) mg/dL Creatinine (0.67-1.17) mg/dL Est GFR ( Amer) (>60) Est GFR (Non-Af Amer) (>60) BUN/Creatinine Ratio (8-20) Glucose (70-100) mg/dL Lactic Acid (0.5-2.0) mmol/L Calcium (8.6-10.3) mg/dL Total Bilirubin (0.2-1.0) mg/dL AST (13-39) U/L ALT (7-52) U/L Alkaline Phosphatase (34-104) U/L Total Creatine Kinase (10-223) U/L CK-MB (CK-2) (0.6-6.3) ng/mL Troponin I 0.02 (<0.04) ng/mL B-Natriuretic Peptide ( - 100) pg/mL Total Protein (6.4-8.9) g/dL Albumin (3.2-5.2) g/dL Globulin (2-4) g/dL Albumin/Globulin Ratio (1-3) TSH (0.34-5.60) mcIU/mL Thyroxine (T4) (6.09-12.23) mcg/mL Urine Color Urine Appearance Urine pH (5-9) Ur Specific [place] (1.010-1.030) Urine Protein (Negative) Urine Ketones (Negative) Urine Blood (Negative) Urine Nitrate (Negative) Urine Bilirubin (Negative) Urine Urobilinogen (Negative) Ur Leukocyte Esterase (Negative) Urine WBC (Auto) (Absent) Urine RBC (Auto) (Absent) Urine Bacteria (Absent) Urine Glucose (Negative) Result Diagrams: 09/09/17 05:40 09/09/17 05:40 Lab Statement: Any lab studies that have been ordered have been reviewed, and results considered in the medical decision making process. - Radiology Chest XR Xray Interpretation: No Acute Changes - IMPRESSION: No active cardiopulmonary disease is noted. ED physician has reviewed this radiology report and agrees. Radiology Interpretation Completed By: Radiologist - EKG 1657 Cardiac Rate: Tachycardia EKG Rhythm: Sinus Rhythm - at 103 bpm EKG Interpretation: No ST elevation EKG Comparison: No Significant Change - similar to prior EKG done on 07/28/17. Course/Dx - Course Assessment/Plan: This pt is a 42 y/o male presenting to [facility] c/o SOB and LE swelling for the last few days. Pt notes he has had LE swelling and abd swelling. He reports that he had a third heart surgery 6 months ago and had a stent put on his groin. 1.5 months ago pt noticed he was swollen and was given Lasix. Pt reports Lasix was working well for the first 3 weeks but a few days ago it has stopped working for him. He additionally c/o difficulty sleeping and has to sleep in sitting position. His SOB is aggravated in a supine position. PMHx includes CHF, HTN, IA, CAD. Test results without any significant abnormalities except for creatinine of 1.37, BNP 639,. Chest XR shows no active cardiopulmonary disease is noted. EKG shows sinus tachycardia at [address] elevations. The pt is saturated at 100%. Heart rate has decreased to 90 bpm. Blood pressure maintains well. Therefore, I believe the pt had a slight CHF exacerbation. I do not believe the pt has a PE since the pt is not hypoxic or tachycardic at this point. Im going to do an abdomen/pelvis CT to rule out an infection, Talisha Gangrene vs cellulitis. He will be started on Rocephin and is awaiting the abdomen/pelvis CT. The pt will be signed out to Dr. Miller to follow up on the abdomen/pelvis CT. - Diagnoses Differential Diagnosis/HQI/PQRI: Positive: Asthma, CHF, Chest Wall Pain, COPD Exacerbation, Pneumonia Provider Diagnoses: CHF exacerbation Discharge - Discharge Plan Condition: Stable Disposition: ADMITTED TO [facility] Discharge Disposition Comment: signed out to Dr. Miller, pending dispo, awaiting CT abd/pel The documentation as recorded by the Ben brice Angela accurately reflects the service I personally performed and the decisions made by me, Romeo Mckeon MD.
[2017-09-09] MEDS ORDERED: Furosemide IV* 10 MG/ML 2 ML VIAL (20 MG) IV ONE (09:45)
[2017-09-09] MEDS: Clopidogrel TAB* 75 MG PO SCH (11:33)
[2017-09-09] MEDS: Multivitamins/Minerals TAB PO SCH (11:33)
[2017-09-09] MEDS: Carvedilol TAB* 3.125 MG PO SCH ×2 (11:33→21:01)
[2017-09-09] MEDS: Folic Acid TAB* 1 MG PO SCH (11:34)
[2017-09-09] MEDS: traMADol TAB* 50 MG PO PRN ×2 (11:34→21:00)
[2017-09-09] MEDS: Thiamine TAB* 100 MG TAB PO SCH (11:34)
[2017-09-09] MEDS: Docusate CAP* 100 MG PO SCH ×2 (11:35→21:01)
[2017-09-09] MEDS: Digoxin TAB* 0.125 MG PO SCH (12:33)
--- NOTE | 2017-09-09 12:47 | RAD ---
HISTORY: Acholic stool COMPARISONS: CT dated September 07, 2017 TECHNIQUE: Multiple transverse and longitudinal ultrasound images were obtained of the abdomen using grayscale, color Doppler, and spectral Doppler imaging. FINDINGS: The study is limited by patient body habitus. LIVER: The liver is normal in shape, size, contour, and echogenicity. The liver measures up to 18.1 cm as. There are no focal parenchymal masses. There is normal hepatopedal flow of the portal vein on Doppler imaging. BILIARY TREE: There is no intrahepatic or extrahepatic biliary dilatation. The common duct measures 0.5 cm. GALLBLADDER: The gallbladder is distended. Multiple shadowing echogenic foci consistent with gallstones are noted. The gallbladder wall is thickened up to 0.8 cm. There is no sonographic Burger sign.. PANCREAS: The head of the pancreas is unremarkable. The tail of the pancreas is not well visualized secondary to overlying bowel gas. SPLEEN: The spleen is normal in shape, size, contour, and echotexture. A splenule is noted. The spleen measures 12.6 x 5.9 x 5.8 cm. RIGHT KIDNEY: The right kidney is normal in shape, size, contour, and echogenicity. There is no hydronephrosis or nephrolithiasis. The right kidney measures 12.2 x 5 x 6.1 cm. LEFT KIDNEY: The left kidney is normal in shape, size, contour, and echogenicity. The cyst reported on the technologist's notes is felt to represent an extrarenal pelvis, and corresponds to the CT appearance. There is no hydronephrosis or nephrolithiasis. The left kidney measures 12.2 x 5.2 x 4.6 cm. AORTA AND IVC: The aorta and IVC are unremarkable. Normal arterial waveforms are noted within the aorta on spectral Doppler imaging. FLUID: There are no pleural effusions. There is no free fluid within the hepatorenal recess. OTHER FINDINGS: There is a small area of ascites. IMPRESSION: 1. ASCITES. 2. CHOLELITHIASIS WITH GALLBLADDER WALL THICKENING.
--- NOTE | 2017-09-09 15:53 | PN ---
Subjective Date of Service: 09/09/17 Interval History: Patient states he was not nauseated with the PM administration of his medications yesterday. However, he did vomit later in the night last night. Patient states that he often got nauseated with lying flat and exercise, but cannot identify any other triggers for nausea/vomiting. States he usually feels much better after vomiting. Patient states that he had 3 days without nausea or vomiting before he came into the hospital. Patient denies CP, dysuria, oliguria , F/C, or other pain. Patient able to tolerate digoxin without nausea. Family History: Unchanged from Admission Social History: Unchanged from Admission Past Medical History: Unchanged from Admission Objective Active Medications: Acetaminophen (Tylenol Tab*) 650 mg PO Q6H PRN PRN Reason: FEVER/PAIN Albuterol (Ventolin 2.5 Mg/3 Ml Neb.Janay*) 2.5 mg INH Q2H PRN PRN Reason: SOB/WHEEZING Aspirin (Aspirin Ec Low Dose*) 81 mg PO DAILY [facility] Carvedilol (Coreg Tab*) 3.125 mg PO BID [facility] Last Admin: 09/09/17 11:33 Dose: 3.125 mg Clopidogrel Bisulfate (Plavix Tab*) 75 mg PO DAILY [facility] Last Admin: 09/09/17 11:33 Dose: 75 mg Digoxin (Lanoxin Tab*) 0.125 mg PO DAILY [facility] Last Admin: 09/09/17 12:33 Dose: 0.125 mg Docusate Sodium (Colace Cap*) 200 mg PO BID [facility] Last Admin: 09/09/17 11:35 Dose: Not Given Folic Acid (Folvite Tab*) 1 mg PO DAILY [facility] Last Admin: 09/09/17 11:34 Dose: 1 mg Heparin Sodium (Porcine) (Heparin Vial(*)) 5,000 units SUBCUT Q8HR [facility] Last Admin: 09/09/17 12:36 Dose: Not Given Melatonin (Melatonin (Nf)) 3 mg PO BEDTIME PRN; Protocol PRN Reason: Sleep Multivitamins/Minerals (Theragran/Minerals Tab*) 1 tab PO DAILY [facility] Last Admin: 09/09/17 11:33 Dose: 1 tab Ondansetron HCl (Zofran Inj*) 4 mg IV Q6H PRN PRN Reason: NAUSEA Last Admin: 09/08/17 23:53 Dose: 4 mg Thiamine HCl (Vitamin B-1 Tab*) 100 mg PO DAILY [facility] Last Admin: 09/09/17 11:34 Dose: 100 mg Tramadol HCl (Ultram*) 50 mg PO Q6H PRN PRN Reason: PAIN Last Admin: 09/09/17 11:34 Dose: 50 mg Vital Signs - 8 hr 09/09/17 09/09/17 09/09/17 08:17 11:34 12:33 Temperature 98.0 F Pulse Rate 90 88 Respiratory 18 14 Rate Blood Pressure 119/81 (mmHg) O2 Sat by Pulse 98 Oximetry 09/09/17 14:00 Temperature Pulse Rate 100 Respiratory 26 Rate Blood Pressure 138/90 (mmHg) O2 Sat by Pulse Oximetry Oxygen Devices in Use Now: None Appearance: Patient is a 42yo male who appears older than stated age and is sitting in the bed with mild increased WOB. Eyes: No Scleral Icterus, PERRLA Ears/Nose/Mouth/Throat: NL Teeth, Lips, Gums, Clear Oropharnyx, Mucous Membranes Moist Neck: NL Appearance and Movements; NL JVP, Trachea Midline Respiratory: Symmetrical Chest Expansion and Respiratory Effort, Clear to Auscultation, - - Single wheeze in RUL Cardiovascular: RRR, - - JVD to angle of jaw at 60 degrees. Stable 2+ pitting edema in B/L LE. Pulses 2+ in B/L radial, PT/DP areas. Abdominal: No Hepatosplenomegaly, - - BS present and normoactive in all 4 quadrants. Dull to percussion throughout. Obese without fluid wave. Striae in Lower abdomen with skin thickening and mild warmth. superficial pain with palpation. Burger's sign positive. Pain with deep palpation over RUQ and LUQ. Lymphatic: No Cervical Adenopathy Extremities: No Clubbing, Cyanosis Skin: No Nodules or Sclerosis Neurological: Alert and Oriented x 3, NL Sensation, NL Gait, NL Muscle Strength and Tone Result Diagrams: 09/09/17 05:40 09/09/17 05:40 Additional Lab and Data: Lab Results Assess/Plan/Problems-Billing Assessment: Patient is a 42yo male with a PMH significant for obesity, CHF with EF of 20-25 , alcohol and tobacco abuse, medical non-compliance who presents with increasing SOB and LE edema in the setting of paroxysms of N/V closely associated with his medications but continuing after they were discontinued. - Patient Problems (1) Systolic heart failure secondary to coronary artery disease Current Visit: Yes Status: Acute Code(s): I50.20 - UNSPECIFIED SYSTOLIC ( CONGESTIVE) HEART FAILURE; I25.10 - ATHSCL HEART DISEASE OF [place] CORONARY ARTERY W/O ANG PCTRS SNOMED Code(s): 465412427 Comment: Appreciate Cardiology consult. Patient has SOB and leg swelling in the setting of drastically reduced EF at 20-25% on most recent echo. Patient has been non- compliant with medications recently except for lasix 40mg daily. Patient claims severe N/V with medication administration leading to non- compliance. No Nausea temporally associated with medication administration. Now on Coreg, Plavix, Digoxin, and Aspirin without N/V at time of administration. 100mg IV lasix to this point, Cret up to 1.71. If continuing to rise in AM, consult nephrology. Will not begin Lasix at this time. Lungs sounds clear, but there is widespread edema in the LE and abdomen. (2) Nausea & vomiting Current Visit: Yes Status: Acute Code(s): R11.2 - NAUSEA WITH VOMITING, UNSPECIFIED SNOMED Code(s): 66657228 Comment: Unknown cause. Comes in paroxysms with upper abdominal pain which resolves after many episodes of vomiting with first mucus then green material followed by relief. Patient also complains of sticky and acholic stools. No LFT abnormalities except for unconjugated hyperbilirubinemia likely due to Gilbert' s syndrome which is improving. Cholelithiasis on CT. Admoninal US showed ascites and GB wall edema. Surgery consulted, HIDA ordered to assess for cholecystitis. Surgery saw no benefit to Paracentesis. (3) Hx of heart artery stent Current Visit: No Status: Chronic Priority: Medium Code(s): Z95.5 - PRESENCE OF CORONARY ANGIOPLASTY IMPLANT AND GRAFT SNOMED Code(s): 999734513 Comment: Drug Eluting stent in 01/2017. Back on Plavix and ASA. No Troponin elevation or ST changes on EKG. (4) Tobacco abuse Current Visit: No Status: Acute Priority: Medium Onset Date: 12/14/14 Code(s): Z72.0 - TOBACCO USE SNOMED Code(s): 622415560 Comment: Patient claims not to have smoked in 7 months. (5) Hx of coronary artery disease Current Visit: No Status: Chronic Priority: Medium Code(s): Z86.79 - PERSONAL HISTORY OF OTHER DISEASES OF THE CIRCULATORY SYSTEM SNOMED Code(s): 831279226 Comment: Several MIs with stenting and now severe CHF. (6) Alcohol abuse Current Visit: Yes Status: Acute Code(s): F10.10 - ALCOHOL ABUSE, UNCOMPLICATED SNOMED Code(s): 07568578 Comment: Previous heavy drinker, now drinks 8 beers a week. WAM protocol discontinued. (7) DVT prophylaxis Current Visit: No Status: Acute Priority: Medium Onset Date: 12/14/14 Code(s): PPH0791 - SNOMED Code(s): 893320383 Comment: Heparin SubQ (8) Full code status Current Visit: No Status: Acute Priority: High Onset Date: 12/14/14 Code (s): Z78.9 - OTHER SPECIFIED HEALTH STATUS SNOMED Code(s): 131502454 Status and Disposition: Patient is admitted inpatient. Will discharge when medically stable.
[2017-09-09] MEDS: Aspirin EC Low Dose* 81 MG TAB.EC PO SCH (16:36)
[2017-09-09] MEDS: diPHENhydraMINE PO* 25 MG PO PRN ×2 (16:52→21:02)
[2017-09-10] MEDS: diPHENhydraMINE PO* 25 MG PO PRN ×2 (03:08→09:05)
[2017-09-10] MEDS: Heparin VIAL(*) 5000 UNITS/ML VIAL (FIVE THOUSAND) SUBCUT SCH ×3 (06:25→21:34)
[2017-09-10 08:05] LABS: Hematocrit 45 % (42-52); Hemoglobin 14.5 g/dl (14.0-18.0); Mean Corpuscular HGB Conc 32 g/dl (31-36); Mean Corpuscular Hemoglobin 28 pg (27-31); Mean Corpuscular Volume 86 fL (80-94); Mean Platelet Volume 12 um3 (7.4-10.4); Red Blood Count 5.22 10^6/ul (4.0-5.4); Red Cell Distribution Width 15 % (10.5-15); White Blood Count 8.9 10^3/ul (3.5-10.8)
[2017-09-10 08:06] LABS: Add Diff/Slide Review? Slide Review Added; Comments Flag Yes
[2017-09-10 08:09] LABS: BUN/Creatinine Ratio 13.2 (8-20); Calcium 9.5 mg/dL (8.6-10.3); EGFR African American 56.2 (>60); EGFR Non-African American 43.7 (>60); Magnesium 2.2 mg/dL (1.9-2.7); Potassium 4.6 mmol/L (3.5-5.0)
[2017-09-10 09:00] LABS: Platelet Morphology Large; Polychromasia 1+
[2017-09-10] MEDS: Thiamine TAB* 100 MG TAB PO SCH (09:04)
[2017-09-10] MEDS: Multivitamins/Minerals TAB PO SCH (09:04)
[2017-09-10] MEDS: Docusate CAP* 100 MG PO SCH ×2 (09:04→21:32)
[2017-09-10] MEDS: Clopidogrel TAB* 75 MG PO SCH (09:04)
[2017-09-10] MEDS: Folic Acid TAB* 1 MG PO SCH (09:05)
[2017-09-10] MEDS: Aspirin EC Low Dose* 81 MG TAB.EC PO SCH (09:05)
[2017-09-10] MEDS: Carvedilol TAB* 3.125 MG PO SCH ×2 (09:06→21:31)
[2017-09-10] MEDS: traMADol TAB* 50 MG PO PRN ×2 (09:06→21:32)
[2017-09-10] MEDS: Digoxin TAB* 0.125 MG PO SCH (09:07)
--- NOTE | 2017-09-10 11:25 | PN ---
Subjective Date of Service: 09/10/17 Interval History: This is a 42 yo male with history of alcoholism and CAD who presented with c/o SOB, found to be in acute heart failure with severely depressed EF. Patient had discontinued his cardiac medications several months ago d/t c/o n/v. Patient has been c/o abd pain and diffuse itching with elevated Tbili. Surgery consult requested and HIDA ordered. Today, patient is still complaining of abd pain, rather diffuse and feels like a "pressure" sensation, he just "wants to poke a hole to relieve the pressure". Denies SOB at rest. He feels a pressure and pulsating sensation in his head. No CP. Still somewhat nauseated. Family History: Unchanged from Admission Social History: Unchanged from Admission Past Medical History: Unchanged from Admission Objective Active Medications: Acetaminophen (Tylenol Tab*) 650 mg PO Q6H PRN PRN Reason: FEVER/PAIN Albuterol (Ventolin 2.5 Mg/3 Ml Neb.Janay*) 2.5 mg INH Q2H PRN PRN Reason: SOB/WHEEZING Aspirin (Aspirin Ec Low Dose*) 81 mg PO DAILY [facility] Last Admin: 09/10/17 09:05 Dose: 81 mg Carvedilol (Coreg Tab*) 3.125 mg PO BID [facility] Last Admin: 09/10/17 09:06 Dose: 3.125 mg Clopidogrel Bisulfate (Plavix Tab*) 75 mg PO DAILY [facility] Last Admin: 09/10/17 09:04 Dose: 75 mg Digoxin (Lanoxin Tab*) 0.125 mg PO DAILY [facility] Last Admin: 09/10/17 09:07 Dose: 0.125 mg Diphenhydramine HCl (Benadryl Po*) 25 mg PO Q4H PRN PRN Reason: ITCHING Last Admin: 09/10/17 09:05 Dose: 25 mg Docusate Sodium (Colace Cap*) 200 mg PO BID [facility] Last Admin: 09/10/17 09:04 Dose: 200 mg Folic Acid (Folvite Tab*) 1 mg PO DAILY [facility] Last Admin: 09/10/17 09:05 Dose: 1 mg Furosemide (Lasix Iv*) 40 mg IV DAILY [facility] Heparin Sodium (Porcine) (Heparin Vial(*)) 5,000 units SUBCUT Q8HR [facility] Last Admin: 09/10/17 06:25 Dose: 5,000 units Melatonin (Melatonin (Nf)) 3 mg PO BEDTIME PRN; Protocol PRN Reason: Sleep Multivitamins/Minerals (Theragran/Minerals Tab*) 1 tab PO DAILY [facility] Last Admin: 09/10/17 09:04 Dose: 1 tab Ondansetron HCl (Zofran Inj*) 4 mg IV Q6H PRN PRN Reason: NAUSEA Last Admin: 09/08/17 23:53 Dose: 4 mg Thiamine HCl (Vitamin B-1 Tab*) 100 mg PO DAILY [facility] Last Admin: 09/10/17 09:04 Dose: 100 mg Tramadol HCl (Ultram*) 50 mg PO Q6H PRN PRN Reason: PAIN Last Admin: 09/10/17 09:06 Dose: 50 mg Vital Signs: Temp Pulse Resp BP Pulse Ox 97.8 F 88 18 134/102 100 09/10/17 07:21 09/10/17 11:11 09/10/17 09:06 09/10/17 11:11 09/10/17 11:11 Appearance: Mildly ill appearing middle aged gentleman who appears somewhat anxious. Respiratory: Symmetrical Chest Expansion and Respiratory Effort, Clear to Auscultation Cardiovascular: NL Sounds; No Murmurs; No JVD, RRR Abdominal: - - distended abdomen, diffusely tender to palpation Extremities: - - 2+ LE edema bilaterally Skin: - - skin over abd is thickened with extensive excoriation Neurological: Alert and Oriented x 3 Result Diagrams: 09/10/17 07:25 09/10/17 07:25 Additional Lab and Data: Lab Results Assess/Plan/Problems-Billing Assessment: Patient is a 42yo male with a PMH significant for obesity, CHF with EF of 20-25 , alcohol and tobacco abuse, medical non-compliance who presents with increasing SOB and LE edema in the setting of paroxysms of N/V closely associated with his medications but continuing after they were discontinued. - Patient Problems (1) Systolic heart failure secondary to coronary artery disease Comment: Acute on chronic Biventricular failure with LVEF 20-25% with moderately reduced RV function Patient declined ICD implantation Appreciate Cardiology consult Now on Coreg, Plavix, Digoxin, and Aspirin Lungs sounds clear, but there is widespread edema in the LE and abdomen, assume that his c/o abd pain and pruritis is atleast partially due to his gross edema Will trial continued diuresis with IV Lasix (2) Nausea & vomiting Comment: Unclear etiology HIDA pending and surgery consult appreciated Elevated Tbili noted without transaminitis which may be due to hepatic congestion Consider gastritis with his h/o alcoholism, start bid PPI therapy (3) Alcohol abuse Comment: H/o of abuse, reports moderate consumption prior to admission No evidence of active withdrawal (4) DVT prophylaxis Comment: Heparin SubQ (5) Full code status Status and Disposition: Inpatient. Anticipate additional 2-3d LOS
[2017-09-10] MEDS: Furosemide IV* 10 MG/ML VIAL (40 MG) IV SCH (12:07)
--- NOTE | 2017-09-10 13:38 | CONS ---
CONSULTATION REPORT: DATE OF CONSULT: 09/10/17 PATIENT OF: Chip Bourgeois MD. REFERRED TO: Joey Herbert MD REASON FOR CONSULTATION: Right upper quadrant pain. HISTORY OF PRESENT ILLNESS: Mr. Guzman is a pleasant 42-year-old gentleman who was admitted to the [facility] 3 days ago with what appears to be a congestive heart failure. The patient has a known medic al history of coronary artery disease, myocardial infarction with 2 placement of stents, as well as h ypertension and morbid obesity. He has been admitted before due to a congestive heart failure and he continues to consume alcohol and smoke on a daily basis. Apparently, the patient had noticed bilate ral lower extremity swelling and cramping as well as abdominal distention, for which he presented to the emergency room. He was found to be in congestive heart failure for which he was admitted under edical services. The patient describes some occasional abdominal discomfort, localized to the epigast carline and right upper quadrant area as well as chronic nausea and vomiting when he takes his blood pres sure and diuretics, for which he has been noncompliant with medication. He also described some episo kris of yellowish color sclerae, but denies any changes in the color of stool or urine. He had a righ t upper quadrant ultrasound yesterday that revealed evidence of cholelithiasis as well as thickening of the gallbladder wall and also increased amount of ascites fluid. The patient himself denies any f ever, chills or postprandial pain. Given his new complaints of upper abdominal pain, we were asked t o see the patient for further evaluation of possible gallbladder disease. PAST MEDICAL HISTORY: As mentioned above, significant for coronary artery disease, status post cardi ac catheterization with stent placement x2. He also had history of ischemic cardiomyopathy with ejec tion fraction as low as 25%. He also has history of hypertension, hypercholesterolemia, alcoholism, morbid obesity and tobacco use disorder. PAST SURGICAL HISTORY: Significant for appendectomy when he was a teenager. CURRENT MEDICATIONS: His medications at home include: 1. Aspirin 81 mg daily. 2. Lipitor 80 mg p.o. daily. 3. Lisinopril 20 mg p.o. daily. 4. Metoprolol 100 mg p.o. b.i.d. 5. Nicotine patch 14 mg q.24 hours 1 patch transdermal daily. 6. Effient 10 mg p.o. daily. 7. Lasix 40 mg p.o. daily. ALLERGIES: He has no known drug allergies. FAMILY HISTORY: He denies any family history of gallbladder disease or colorectal malignancies. SOCIAL HISTORY: The patient is on disability. He used to work in [employer] business. He smokes 1 to 2 packs of cigarettes per day and consumes on average 7 to 8 beers per week and this is down from 12 beers per day and 1 to 2 pints of moonshine per week. He also admits to occasional marijuana use. REVIEW OF SYSTEMS: See HPI. Otherwise negative. He denies any headache, dizziness, blurred vision or double vision. He reports dyspnea on exertion, orthopnea, and occasional wheezing. He denies any chest pain, palpitations, but admits to ankle swelling that gets worse upon standing for prolonged t britni. He denies any back pain, flank pain, dysuria, hematuria or urinary frequency. He admits to inc reased abdominal girth and distention as well as occasional generalized abdominal cramping and right upper quadrant abdominal discomfort. He also admits to occasional nausea and vomiting usually trigge red by taking his medication. He denies any fever, chills, night sweats or recent weight loss. PHYSICAL EXAM: General: He is a morbidly obese, middle aged gentleman sitting up on his bed, appear s comfortable and in no acute distress or discomfort at the time of consultation. Vitals: His vital s this morning revealed temperature of 97.8, pulse of 84, respirations of 16, blood pressure of 115/7 9, and O2 sat of 98% on room air. HEENT: Head is normocephalic, atraumatic. Sclerae anicteric. PE RRLA. EOMs intact. Oropharynx is pink, moist with no exudate. Neck: Supple. Trachea midline. No cervical adenopathy or thyromegaly. Lungs: Clear to auscultation bilaterally. There is decreased b reath sounds throughout. No rales, wheezes or rhonchi noted. Heart: Regular rate and rhythm. Norm al S1 and S2 without murmurs. Back with normal curvature. No CVA tenderness. Breasts exam deferred at this time. Abdomen: Soft and moderately distended. There is [id number] right upper quadra nt tenderness noted on deep palpation. There is no guarding, rigidity, or rebound tenderness. A sma ll healed scar at lower midline from prior appendectomy years ago. There is no hernia, masses or hep atosplenomegaly noted. Burger sign was slightly positive. Extremities: 2+ pitting edema was noted a t the bilateral lower extremities with some deeply pigmented skin along the tibial surface consistent with venous stasis. There is no clubbing noted. Neurologic: Grossly intact. Rectal exam deferred at this time. LABORATORY DATA: CBC today was normal white count of 9000, hemoglobin 14.5, hematocrit 45, and plate lets of 152,000. His LFTs yesterday revealed a total bilirubin of 1.7, normal AST and ALT and normal alkaline phosphatase. Sodium today is 134, potassium 4.6, chloride 100, CO2 27, BUN 23, and creatin ine of 1.7. His glucose has been running in 110 to 120 value. ACCESSORY DIAGNOSTIC DATA: The patient is scheduled to under a HIDA scan later this afternoon for fu rther evaluation of gallbladder disease. He had a right upper quadrant ultrasound that was consisten t with cholelithiasis and thickening of gallbladder wall. It also indicates the presence of ascites within the abdomen. IMPRESSION: A 42-year-old gentleman with multiple comorbidities and history of multiple medical prob lems who presented with acute on chronic heart failure and was found to have some upper abdominal ilene n as well as cholelithiasis and gallbladder wall thickening on ultrasound. PLAN: I went on and discussed with the patient his physical exam and ultrasound findings from yester day. He appears to be stable at this point from a surgical standpoint. His LFTs actually have been normal and total bilirubin has returned back to almost normal values today. We will await the result s of the HIDA scan for further evaluation. I also expressed to the patient that he is not the best s urgical candidate at this time given his multiple comorbidities and if anything needs to be done rega rding a cholecystitis management, he will likely need a cholecystostomy tube placement by IR if indic ated. The case will be discussed with Dr. Herbert regarding recommendation about his care and again, we will await the results of the HIDA scan later this afternoon. Thank you for this consultation. ZACARIAS COPE [id number]/[facility] #: [id number]
--- NOTE | 2017-09-10 15:36 | RAD ---
Indication: Nausea, RIGHT upper quadrant pain. Acholic stools. Comparison: September 09, 2017 RIGHT upper quadrant ultrasound. Technique: 6.100 mCi of Tc-99m Choletec was injected IV. Due to patient discomfort and atypical protocol was followed. Sequential anterior scintiphotos were obtained from 40 through 60 minutes postinjection on 5 minute intervals. Additional anterior images were obtained out to 90 minutes postinjection. Report: There is grossly normal hepatic uptake and excretion of the radiopharmaceutical. Bowel activity visualized on the initial anterior image at 40 minutes. No activity visualized at the gallbladder through 1.5 hours post injection at which time no significant remaining radiopharmaceutical evident at the liver. IMPRESSION: Normal hepatic uptake and excretion of radiopharmaceutical and patent common bile duct documented. Cystic duct obstruction consistent with acute cholecystitis in the appropriate clinical context.
[2017-09-10] MEDS ORDERED: Piperacillin/Tazobac ADVAN(*) 3.375 GM in NS 0.9% 100 ML* 100 ML IVPB ONE (15:55)
[2017-09-10] MEDS ORDERED: hydrOXYzine HCL TAB* 25 MG ONE (15:59)
[2017-09-10] MEDS ORDERED: Zosyn per Pharmacy* NOTE FOLLOW UP SCH (16:00)
[2017-09-10] MEDS: hydrOXYzine HCL TAB* 25 MG PO PRN ×2 (16:04→21:33)
[2017-09-10] MEDS ORDERED: Piperacillin/Tazobac ADVAN(*) 3.375 GM in D5W 100 ML BAG* 100 ML IVPB ONE (16:15)
[2017-09-10] MEDS: Piperacillin/Tazobac ADVAN(*) 3.375 GM in D5W 100 ML BAG* 100 ML IVPB SCH (21:28)
[2017-09-10] MEDS: CMCS:Pantoprazole TAB (NF) 40 MG TAB PO SCH (21:32)
[2017-09-11] MEDS: traMADol TAB* 50 MG PO PRN ×3 (02:48→20:33)
[2017-09-11] MEDS: hydrOXYzine HCL TAB* 25 MG PO PRN ×4 (02:49→20:33)
[2017-09-11] MEDS: Heparin VIAL(*) 5000 UNITS/ML VIAL (FIVE THOUSAND) SUBCUT SCH ×3 (04:37→21:17)
[2017-09-11] MEDS: Piperacillin/Tazobac ADVAN(*) 3.375 GM in D5W 100 ML BAG* 100 ML IVPB SCH ×2 (04:37→13:13)
[2017-09-11 07:56] LABS: Albumin 3.8 g/dL (3.2-5.2); BUN/Creatinine Ratio 15.9 (8-20); Calcium 9.4 mg/dL (8.6-10.3); EGFR African American 60.1 (>60); EGFR Non-African American 46.8 (>60); Globulin 2.2 g/dL (2-4); Potassium 4.1 mmol/L (3.5-5.0); Total Bilirubin 2.7 mg/dL (0.2-1.0)
[2017-09-11] MEDS: Clopidogrel TAB* 75 MG PO SCH (08:53)
[2017-09-11] MEDS: Digoxin TAB* 0.125 MG PO SCH (08:53)
[2017-09-11] MEDS: Aspirin EC Low Dose* 81 MG TAB.EC PO SCH (08:54)
[2017-09-11] MEDS: Multivitamins/Minerals TAB PO SCH (08:54)
[2017-09-11] MEDS: Carvedilol TAB* 3.125 MG PO SCH ×2 (08:54→21:11)
[2017-09-11] MEDS: Thiamine TAB* 100 MG TAB PO SCH (08:54)
[2017-09-11] MEDS: Docusate CAP* 100 MG PO SCH ×2 (08:54→21:11)
[2017-09-11] MEDS: Furosemide IV* 10 MG/ML VIAL (40 MG) IV SCH (08:55)
[2017-09-11] MEDS: CMCS:Pantoprazole TAB (NF) 40 MG TAB PO SCH ×2 (08:55→21:11)
[2017-09-11] MEDS: Folic Acid TAB* 1 MG PO SCH (08:55)
--- NOTE | 2017-09-11 10:23 | PN ---
Subjective Date of Service: 09/11/17 Interval History: Patient reports some improvement in abd pain and itching today. No further n/ v. Objective Active Medications: Acetaminophen (Tylenol Tab*) 650 mg PO Q6H PRN PRN Reason: FEVER/PAIN Albuterol (Ventolin 2.5 Mg/3 Ml Neb.Janay*) 2.5 mg INH Q2H PRN PRN Reason: SOB/WHEEZING Aspirin (Aspirin Ec Low Dose*) 81 mg PO DAILY [facility] Last Admin: 09/11/17 08:54 Dose: 81 mg Carvedilol (Coreg Tab*) 3.125 mg PO BID [facility] Last Admin: 09/11/17 08:54 Dose: 3.125 mg Clopidogrel Bisulfate (Plavix Tab*) 75 mg PO DAILY [facility] Last Admin: 09/11/17 08:53 Dose: 75 mg Digoxin (Lanoxin Tab*) 0.125 mg PO DAILY [facility] Last Admin: 09/11/17 08:53 Dose: 0.125 mg Docusate Sodium (Colace Cap*) 200 mg PO BID [facility] Last Admin: 09/11/17 08:54 Dose: 200 mg Folic Acid (Folvite Tab*) 1 mg PO DAILY [facility] Last Admin: 09/11/17 08:55 Dose: 1 mg Furosemide (Lasix Iv*) 40 mg IV DAILY [facility] Last Admin: 09/11/17 08:55 Dose: 40 mg Heparin Sodium (Porcine) (Heparin Vial(*)) 5,000 units SUBCUT Q8HR [facility] Last Admin: 09/11/17 04:37 Dose: 5,000 units Hydroxyzine HCl (Atarax Tab*) 25 mg PO Q4H PRN PRN Reason: itching Last Admin: 09/11/17 08:54 Dose: 25 mg Piperacillin Sod/Tazobactam (Sod 3.375 gm/ Dextrose) 100 mls @ 25 mls/hr IVPB Q8H [facility] Last Admin: 09/11/17 04:37 Dose: 25 mls/hr Melatonin (Melatonin (Nf)) 3 mg PO BEDTIME PRN; Protocol PRN Reason: Sleep Multivitamins/Minerals (Theragran/Minerals Tab*) 1 tab PO DAILY [facility] Last Admin: 09/11/17 08:54 Dose: 1 tab Ondansetron HCl (Zofran Inj*) 4 mg IV Q6H PRN PRN Reason: NAUSEA Last Admin: 09/08/17 23:53 Dose: 4 mg Pantoprazole Sodium (Protonix Tab (Nf)) 40 mg PO BID [facility] Last Admin: 09/11/17 08:55 Dose: 40 mg Pharmacy Consult (Zosyn Per Pharmacy*) 1 note FOLLOW UP .ZOSYN PER PHARMACY [facility] Thiamine HCl (Vitamin B-1 Tab*) 100 mg PO DAILY [facility] Last Admin: 09/11/17 08:54 Dose: 100 mg Tramadol HCl (Ultram*) 50 mg PO Q6H PRN PRN Reason: PAIN Last Admin: 09/11/17 02:48 Dose: 50 mg Vital Signs: Temp Pulse Resp BP Pulse Ox 97.6 F 87 25 114/79 100 09/10/17 23:53 09/11/17 08:53 09/11/17 04:37 09/10/17 23:53 09/10/17 23:53 Oxygen Devices in Use Now: None Appearance: Chronically ill appearing 42 yo male in NAD. Accompanied by his girlfriend Respiratory: Symmetrical Chest Expansion and Respiratory Effort, Clear to Auscultation Cardiovascular: NL Sounds; No Murmurs; No JVD, RRR Abdominal: - - mild distention, improved Extremities: - - 1-2+ non-pitting edema Skin: - - some hyperemia, skin thickness over his abdomen is improved Neurological: Alert and Oriented x 3 Result Diagrams: 09/10/17 07:25 09/11/17 07:21 Additional Lab and Data: Lab Results Assess/Plan/Problems-Billing Assessment: Patient is a 42yo male with a PMH significant for obesity, CHF with EF of 20-25 , alcohol and tobacco abuse, medical non-compliance who presents with increasing SOB and LE edema in the setting of paroxysms of N/V closely associated with his medications but continuing after they were discontinued. - Patient Problems (1) Systolic heart failure secondary to coronary artery disease Comment: Acute on chronic Biventricular failure with LVEF 20-25% with moderately reduced RV function Patient declined ICD implantation Appreciate Cardiology consult Now on Coreg, Plavix, Digoxin, and Aspirin Add low dose lisinopril Lungs sounds clear, but there is widespread edema in the LE and abdomen which does appear to be improving with diuresis Cont IV Lasix (2) Acute cholecystitis Comment: HIDA positive No fever or leukocytosis Surgery consult appreciated Poor surgical candidate due to current cardiac status Zosyn started New transaminitis noted this on repeat labs this am but clinically improving Plan to trend liver enzymes and consider cholecystostomy tube if no improvement (3) Alcohol abuse Comment: H/o of abuse, reports moderate consumption prior to admission No evidence of active withdrawal Stop WAM monitoring (4) DVT prophylaxis Comment: Heparin SubQ (5) Full code status Status and Disposition: Inpatient. Anticipate additional 2-3d LOS
--- NOTE | 2017-09-11 16:54 | PN ---
Progress Note - Progress Note Date of Service: 09/11/17 SOAP: Subjective: Pt seen and examined earlier today. Chart reviewed and case d/w hospitalist service Pt is feeling better, still with abdo pain. positive appetite. Objective: af vss abdo: soft/ obese/ tender diffusely, neg rebound; neg. Burger's Labs noted, LFT increasing Hida report reviewed Assessment: Cholecystitis with symptom improvement, but with obstructed cystic duct and increasing LFTs Plan: abx minimal diet repeat labs in am possible tube cholecystostomy if clinically worsens or LFTs remain elevated. will follow
[2017-09-11] MEDS: Piperacillin/Tazobac ADVAN(*) 3.375 GM in NS 0.9% 100 ML* 100 ML IVPB SCH (21:11)
--- NOTE | 2017-09-11 21:18 | RAD ---
INDICATION: RIGHT lower extremity edema. COMPARISON: July 28, 2017 TECHNIQUE: Bryant scale, color Doppler, and spectral analysis of the deep veins of the RIGHT lower extremity. Vessel compression, phasicity, and augmentation assessed. REPORT: The RIGHT common femoral, great saphenous, profunda femoral, femoral, popliteal, peroneal, and posterior tibial veins are patent. Patency of the LEFT common femoral vein documented. IMPRESSION: No evidence for RIGHT lower extremity deep venous thrombosis.
[2017-09-12] MEDS: hydrOXYzine HCL TAB* 25 MG PO PRN ×5 (01:23→20:49)
[2017-09-12 05:39] LABS: Hematocrit 42 % (42-52); Mean Corpuscular HGB Conc 33 g/dl (31-36); Mean Corpuscular Hemoglobin 28 pg (27-31); Mean Corpuscular Volume 86 fL (80-94); Mean Platelet Volume 12 um3 (7.4-10.4); Red Blood Count 4.95 10^6/ul (4.0-5.4); Red Cell Distribution Width 15 % (10.5-15); White Blood Count 7.7 10^3/ul (3.5-10.8)
[2017-09-12] MEDS: traMADol TAB* 50 MG PO PRN ×2 (05:40→13:21)
[2017-09-12] MEDS: Heparin VIAL(*) 5000 UNITS/ML VIAL (FIVE THOUSAND) SUBCUT SCH ×3 (05:41→21:48)
[2017-09-12] MEDS: Piperacillin/Tazobac ADVAN(*) 3.375 GM in NS 0.9% 100 ML* 100 ML IVPB SCH ×3 (05:41→21:35)
[2017-09-12 05:56] LABS: Albumin 3.7 g/dL (3.2-5.2); BUN/Creatinine Ratio 15.7 (8-20); Calcium 8.8 mg/dL (8.6-10.3); EGFR African American 59.3 (>60); EGFR Non-African American 46.1 (>60); Globulin 2.4 g/dL (2-4); Potassium 3.5 mmol/L (3.5-5.0); Total Bilirubin 1.9 mg/dL (0.2-1.0); Total Protein 6.1 g/dL (6.4-8.9)
[2017-09-12] MEDS: Carvedilol TAB* 3.125 MG PO SCH ×2 (08:58→20:50)
[2017-09-12] MEDS: Docusate CAP* 100 MG PO SCH ×2 (08:58→21:41)
[2017-09-12] MEDS: CMCS:Pantoprazole TAB (NF) 40 MG TAB PO SCH ×2 (08:58→20:50)
[2017-09-12] MEDS: Furosemide IV* 10 MG/ML VIAL (40 MG) IV SCH (08:58)
[2017-09-12] MEDS: Lisinopril TAB* 5 MG PO SCH (08:59)
[2017-09-12] MEDS: Multivitamins/Minerals TAB PO SCH (08:59)
[2017-09-12] MEDS: Folic Acid TAB* 1 MG PO SCH (08:59)
[2017-09-12] MEDS: Clopidogrel TAB* 75 MG PO SCH (08:59)
[2017-09-12] MEDS: Aspirin EC Low Dose* 81 MG TAB.EC PO SCH (08:59)
[2017-09-12] MEDS: Digoxin TAB* 0.125 MG PO SCH (08:59)
[2017-09-12] MEDS: Thiamine TAB* 100 MG TAB PO SCH (08:59)
--- NOTE | 2017-09-12 09:37 | PN ---
Subjective Date of Service: 09/12/17 Interval History: Patient continues to complain of abd pain, SOB. No n/v. No CP. Noted his oral liquid intake is quite large and his weight has not changed significantly despite diuresis. He complains of significant orthopnea. Objective Active Medications: Acetaminophen (Tylenol Tab*) 650 mg PO Q6H PRN PRN Reason: FEVER/PAIN Albuterol (Ventolin 2.5 Mg/3 Ml Neb.Janay*) 2.5 mg INH Q2H PRN PRN Reason: SOB/WHEEZING Aspirin (Aspirin Ec Low Dose*) 81 mg PO DAILY [facility] Last Admin: 09/12/17 08:59 Dose: 81 mg Carvedilol (Coreg Tab*) 3.125 mg PO BID [facility] Last Admin: 09/12/17 08:58 Dose: 3.125 mg Clopidogrel Bisulfate (Plavix Tab*) 75 mg PO DAILY [facility] Last Admin: 09/12/17 08:59 Dose: 75 mg Digoxin (Lanoxin Tab*) 0.125 mg PO DAILY [facility] Last Admin: 09/12/17 08:59 Dose: 0.125 mg Docusate Sodium (Colace Cap*) 200 mg PO BID [facility] Last Admin: 09/12/17 08:58 Dose: 200 mg Folic Acid (Folvite Tab*) 1 mg PO DAILY [facility] Last Admin: 09/12/17 08:59 Dose: 1 mg Furosemide (Lasix Iv*) 40 mg IV DAILY [facility] Last Admin: 09/12/17 08:58 Dose: 40 mg Heparin Sodium (Porcine) (Heparin Vial(*)) 5,000 units SUBCUT Q8HR [facility] Last Admin: 09/12/17 05:41 Dose: 5,000 units Hydroxyzine HCl (Atarax Tab*) 25 mg PO Q4H PRN PRN Reason: itching Last Admin: 09/12/17 08:59 Dose: 25 mg Piperacillin Sod/Tazobactam (Sod 3.375 gm/ Sodium Chloride) 100 mls @ 25 mls/ hr IVPB 0500,1300,2100 [facility] Last Admin: 09/12/17 05:41 Dose: 25 mls/hr Lisinopril (Prinivil Tab*) 5 mg PO DAILY [facility] Last Admin: 09/12/17 08:59 Dose: 5 mg Melatonin (Melatonin (Nf)) 3 mg PO BEDTIME PRN; Protocol PRN Reason: Sleep Multivitamins/Minerals (Theragran/Minerals Tab*) 1 tab PO DAILY [facility] Last Admin: 09/12/17 08:59 Dose: 1 tab Ondansetron HCl (Zofran Inj*) 4 mg IV Q6H PRN PRN Reason: NAUSEA Last Admin: 09/08/17 23:53 Dose: 4 mg Pantoprazole Sodium (Protonix Tab (Nf)) 40 mg PO BID [facility] Last Admin: 09/12/17 08:58 Dose: 40 mg Pharmacy Consult (Zosyn Per Pharmacy*) 1 note FOLLOW UP .ZOSYN PER PHARMACY [facility] Thiamine HCl (Vitamin B-1 Tab*) 100 mg PO DAILY [facility] Last Admin: 09/12/17 08:59 Dose: 100 mg Tramadol HCl (Ultram*) 50 mg PO Q6H PRN PRN Reason: PAIN Last Admin: 09/12/17 05:40 Dose: 50 mg Vital Signs: Temp Pulse Resp BP Pulse Ox 97.9 F 80 20 134/91 97 09/12/17 08:53 09/12/17 08:59 09/12/17 08:59 09/12/17 08:53 09/12/17 08:53 Oxygen Devices in Use Now: None Appearance: Chronically ill appearing, short of breath when lying flat for abd exam Respiratory: Symmetrical Chest Expansion and Respiratory Effort, Clear to Auscultation Cardiovascular: NL Sounds; No Murmurs; No JVD, RRR Abdominal: - - distended, seems slightly larger than yesterday with diffuse TTP Extremities: - - 2+ non-pitting LE edema Skin: - - hyperemeia, diffuse excoriation Neurological: Alert and Oriented x 3 Result Diagrams: 09/12/17 05:13 09/12/17 05:13 Additional Lab and Data: Lab Results Assess/Plan/Problems-Billing Assessment: Patient is a 42yo male with a PMH significant for obesity, CHF with EF of 20-25 , alcohol and tobacco abuse, medical non-compliance who presents with increasing SOB and LE edema in the setting of paroxysms of N/V closely associated with his medications but continuing after they were discontinued. - Patient Problems (1) Systolic heart failure secondary to coronary artery disease Comment: Acute on chronic Biventricular failure with LVEF 20-25% with moderately reduced RV function Patient declined ICD implantation Appreciate Cardiology consult Now on Coreg, Plavix, Digoxin, and Aspirin Added low dose lisinopril Lungs sounds clear, but there is widespread edema in the LE and abdomen Cont IV Lasix, start fluid restriction (2) Acute cholecystitis Comment: HIDA positive No fever or leukocytosis Surgery consult appreciated Poor surgical candidate due to current cardiac status Zosyn started Transaminitis improving Plan to trend liver enzymes and consider cholecystostomy tube if no improvement (3) Alcohol abuse Comment: H/o of abuse, reports moderate consumption prior to admission No evidence of active withdrawal Stop WAM monitoring (4) DVT prophylaxis Comment: Heparin SubQ (5) Full code status Status and Disposition: Inpatient. Anticipate additional 2-3d LOS
[2017-09-12] MEDS ORDERED: Alteplase (CATHFLO)* 2 MG VIAL IV ONE (17:20)
[2017-09-13] MEDS: hydrOXYzine HCL TAB* 25 MG PO PRN ×3 (02:35→13:08)
[2017-09-13] MEDS: Piperacillin/Tazobac ADVAN(*) 3.375 GM in NS 0.9% 100 ML* 100 ML IVPB SCH ×3 (04:51→21:35)
[2017-09-13] MEDS: Heparin VIAL(*) 5000 UNITS/ML VIAL (FIVE THOUSAND) SUBCUT SCH ×3 (05:52→21:29)
[2017-09-13] MEDS: CMCS:Pantoprazole TAB (NF) 40 MG TAB PO SCH ×2 (08:54→21:28)
[2017-09-13] MEDS: Folic Acid TAB* 1 MG PO SCH (08:55)
[2017-09-13] MEDS: Thiamine TAB* 100 MG TAB PO SCH (08:55)
[2017-09-13] MEDS: Digoxin TAB* 0.125 MG PO SCH (08:55)
[2017-09-13] MEDS: Lisinopril TAB* 5 MG PO SCH (08:55)
[2017-09-13] MEDS: Carvedilol TAB* 3.125 MG PO SCH ×2 (08:55→21:28)
[2017-09-13] MEDS: Multivitamins/Minerals TAB PO SCH (08:55)
[2017-09-13] MEDS: Docusate CAP* 100 MG PO SCH ×2 (08:55→21:27)
[2017-09-13] MEDS: Aspirin EC Low Dose* 81 MG TAB.EC PO SCH (08:55)
[2017-09-13] MEDS: Clopidogrel TAB* 75 MG PO SCH (08:55)
[2017-09-13] MEDS: Furosemide IV* 10 MG/ML VIAL (40 MG) IV SCH ×2 (09:02→16:09)
[2017-09-13] MEDS: traMADol TAB* 50 MG PO PRN ×3 (09:02→23:42)
[2017-09-13 11:07] LABS: Albumin 4.2 g/dL (3.2-5.2); BUN/Creatinine Ratio 14.7 (8-20); Calcium 9.4 mg/dL (8.6-10.3); EGFR African American 66.7 (>60); EGFR Non-African American 51.8 (>60); Globulin 2.6 g/dL (2-4); Potassium 3.4 mmol/L (3.5-5.0); Total Protein 6.8 g/dL (6.4-8.9)
[2017-09-13 11:26] LABS: Magnesium 2.1 mg/dL (1.9-2.7)
[2017-09-13] MEDS: Potassium Chlor TAB* 20 MEQ TAB.ER PO SCH (13:08)
[2017-09-13] MEDS ORDERED: Benzocaine/Menthol LOZ* 1 LOZENGE PO PRN (13:13)
--- NOTE | 2017-09-13 13:21 | PN ---
Progress Note - Progress Note Date of Service: 09/13/17 SOAP: Subjective: This is a 42 yo male with a history of CAD, CHF, obesity, and alcohol and tobacco use who presented to the ED on 09/07 c/o SOB and LE swelling. Patient has been non-compliant with medical therapy for CAD and CHF and states that the medications only worked initially. The patient was admitted for a CHF exacerbation. Today, the patient stated many frustrations and feels as though he's going backwards instead of getting better. The patient complains of orthopnea, discomfort associated with abdominal swelling as well as LE swelling, intermittent abdominal pain and nausea, and a significant pruritic rash. The patient denies chest pain, chest tightness, or palpitations. Denies vomiting or diarrhea. Objective: Vital Signs Temp Pulse Resp BP Pulse Ox 97.5 F 85 16 101/63 93 09/13/17 07:44 09/13/17 11:44 09/13/17 11:44 09/13/17 07:44 09/13/17 11:44 Laboratory Last Values WBC 7.7 10^3/ul (3.5-10.8) 09/12/17 05:13 RBC 4.95 10^6/ul (4.0-5.4) 09/12/17 05:13 Hgb 14.0 g/dl (14.0-18.0) 09/12/17 05:13 Hct 42 % (42-52) 09/12/17 05:13 MCV 86 fL (80-94) 09/12/17 05:13 MCH 28 pg (27-31) 09/12/17 05:13 MCHC 33 g/dl (31-36) 09/12/17 05:13 RDW 15 % (10.5-15) 09/12/17 05:13 Plt Count 140 10^3/ul (150-450) L 09/12/17 05:13 MPV 12 um3 (7.4-10.4) H 09/12/17 05:13 Neut % (Auto) 62.9 % (38-83) 09/12/17 05:13 Lymph % (Auto) 19.8 % (25-47) L 09/12/17 05:13 [place] % (Auto) 13.3 % (1-9) H 09/12/17 05:13 Eos % (Auto) 3.4 % (0-6) 09/12/17 05:13 Baso % (Auto) 0.6 % (0-2) 09/12/17 05:13 Absolute Neuts (auto) 4.8 10^3/ul (1.5-7.7) 09/12/17 05:13 Absolute Lymphs (auto) 1.5 10^3/ul (1.0-4.8) 09/12/17 05:13 Absolute Monos (auto) 1.0 10^3/ul (0-0.8) H 09/12/17 05:13 Absolute Eos (auto) 0.3 10^3/ul (0-0.6) 09/12/17 05:13 Absolute Basos (auto) 0 10^3/ul (0-0.2) 09/12/17 05:13 Absolute Nucleated RBC 0.01 10^3/ul 09/12/17 05:13 Nucleated RBC % 0.2 09/12/17 05:13 Platelet Morphology Large 09/10/17 07:25 Normal RBC Morphology Not Reportable 09/10/17 07:25 Polychromasia 1+ 09/10/17 07:25 INR (Anticoag Therapy) 1.21 (0.77-1.02) H 09/07/17 17:09 APTT 29.0 seconds (26.0-36.3) 09/07/17 17:09 Sodium 139 mmol/L (133-145) 09/13/17 09:59 Potassium 3.4 mmol/L (3.5-5.0) L 09/13/17 09:59 Chloride 98 mmol/L (101-111) L 09/13/17 09:59 Carbon Dioxide 32 mmol/L (22-32) 09/13/17 09:59 Anion Gap 9 mmol/L (2-11) 09/13/17 09:59 BUN 22 mg/dL (6-24) 09/13/17 09:59 Creatinine 1.50 mg/dL (0.67-1.17) H 09/13/17 09:59 Est GFR ( Amer) 66.7 (>60) 09/13/17 09:59 Est GFR (Non-Af Amer) 51.8 (>60) 09/13/17 09:59 BUN/Creatinine Ratio 14.7 (8-20) 09/13/17 09:59 Glucose 124 mg/dL (70-100) H 09/13/17 09:59 Hemoglobin A1c 5.7 % (4.0-5.6) H 09/08/17 15:10 Lactic Acid 1.8 mmol/L (0.5-2.0) 09/07/17 17:09 Calcium 9.4 mg/dL (8.6-10.3) 09/13/17 09:59 Magnesium 2.1 mg/dL (1.9-2.7) 09/13/17 09:59 Total Bilirubin 2.00 mg/dL (0.2-1.0) H 09/13/17 09:59 Direct Bilirubin 0.70 mg/dL (0.03-0.18) H 09/08/17 06:12 Indirect Bilirubin 2.1 mg/dL (0.3-1.0) H 09/08/17 06:12 AST 171 U/L (13-39) H 09/13/17 09:59 ALT 347 U/L (7-52) H 09/13/17 09:59 Alkaline Phosphatase 92 U/L (34-104) 09/13/17 09:59 Total Creatine Kinase 62 U/L (10-223) 09/07/17 17:09 CK-MB (CK-2) 3.3 ng/mL (0.6-6.3) 09/07/17 17:09 Troponin I 0.02 ng/mL (<0.04) 09/07/17 20:42 B-Natriuretic Peptide 639 pg/mL (-100) H 09/07/17 17:09 Total Protein 6.8 g/dL (6.4-8.9) 09/13/17 09:59 Albumin 4.2 g/dL (3.2-5.2) 09/13/17 09:59 Globulin 2.6 g/dL (2-4) 09/13/17 09:59 Albumin/Globulin Ratio 1.6 (1-3) 09/13/17 09:59 Lipase 29 U/L (11.0-82.0) 09/08/17 15:10 TSH 7.62 mcIU/mL (0.34-5.60) H 09/07/17 17:09 Thyroxine (T4) 8.33 mcg/mL (6.09-12.23) 09/07/17 17:09 Urine Color Straw 09/07/17 19:40 Urine Appearance Clear 09/07/17 19:40 Urine pH 5.0 (5-9) 09/07/17 19:40 Ur Specific [place] 1.003 (1.010-1.030) L 09/07/17 19:40 Urine Protein Negative (Negative) 09/07/17 19:40 Urine Ketones Negative (Negative) 09/07/17 19:40 Urine Blood 1+ (Negative) H 09/07/17 19:40 Urine Nitrate Negative (Negative) 09/07/17 19:40 Urine Bilirubin Negative (Negative) 09/07/17 19:40 Urine Urobilinogen Negative (Negative) 09/07/17 19:40 Ur Leukocyte Esterase Negative (Negative) 09/07/17 19:40 Urine WBC (Auto) Absent (Absent) 09/07/17 19:40 Urine RBC (Auto) Trace(0-2/hpf) (Absent) 09/07/17 19:40 Urine Bacteria Absent (Absent) 09/07/17 19:40 Urine Glucose Negative (Negative) 09/07/17 19:40 Active Medications Acetaminophen (Tylenol Tab*) 650 mg PO Q6H PRN PRN Reason: FEVER/PAIN Albuterol (Ventolin 2.5 Mg/3 Ml Neb.Janay*) 2.5 mg INH Q2H PRN PRN Reason: SOB/WHEEZING Aspirin (Aspirin Ec Low Dose*) 81 mg PO DAILY [facility] Last Admin: 09/13/17 08:55 Dose: 81 mg Carvedilol (Coreg Tab*) 3.125 mg PO BID [facility] Last Admin: 09/13/17 08:55 Dose: 3.125 mg Clopidogrel Bisulfate (Plavix Tab*) 75 mg PO DAILY [facility] Last Admin: 09/13/17 08:55 Dose: 75 mg Digoxin (Lanoxin Tab*) 0.125 mg PO DAILY [facility] Last Admin: 09/13/17 08:55 Dose: 0.125 mg Docusate Sodium (Colace Cap*) 200 mg PO BID [facility] Last Admin: 09/13/17 08:55 Dose: 200 mg Folic Acid (Folvite Tab*) 1 mg PO DAILY [facility] Last Admin: 09/13/17 08:55 Dose: 1 mg Furosemide (Lasix Iv*) 40 mg IV 0800,1500 [facility] Heparin Sodium (Porcine) (Heparin Vial(*)) 5,000 units SUBCUT Q8HR [facility] Last Admin: 09/13/17 05:52 Dose: 5,000 units Hydroxyzine HCl (Atarax Tab*) 25 mg PO Q4H PRN PRN Reason: itching Last Admin: 09/13/17 09:02 Dose: 25 mg Piperacillin Sod/Tazobactam (Sod 3.375 gm/ Sodium Chloride) 100 mls @ 25 mls/ hr IVPB 0500,1300,2100 [facility] Last Admin: 09/13/17 04:51 Dose: 25 mls/hr Lisinopril (Prinivil Tab*) 5 mg PO DAILY [facility] Last Admin: 09/13/17 08:55 Dose: 5 mg Melatonin (Melatonin (Nf)) 3 mg PO BEDTIME PRN; Protocol PRN Reason: Sleep Multivitamins/Minerals (Theragran/Minerals Tab*) 1 tab PO DAILY [facility] Last Admin: 09/13/17 08:55 Dose: 1 tab Ondansetron HCl (Zofran Inj*) 4 mg IV Q6H PRN PRN Reason: NAUSEA Last Admin: 09/08/17 23:53 Dose: 4 mg Pantoprazole Sodium (Protonix Tab (Nf)) 40 mg PO BID [facility] Last Admin: 09/13/17 08:54 Dose: 40 mg Pharmacy Consult (Zosyn Per Pharmacy*) 1 note FOLLOW UP .ZOSYN PER PHARMACY [facility] Potassium Chloride (Klor Con Er Tab*) 20 meq PO DAILY [facility] Thiamine HCl (Vitamin B-1 Tab*) 100 mg PO DAILY [facility] Last Admin: 09/13/17 08:55 Dose: 100 mg Tramadol HCl (Ultram*) 50 mg PO Q6H PRN PRN Reason: PAIN Last Admin: 09/13/17 09:02 Dose: 50 mg General: WDWN male in NAD. CV: RRR w/o MRG. Respiratory: CTA BL w/o RRW. GI: Abdomen is warm, erythematous, distended, and firm; tender to palpation throughout, especially in the umbilical area. LE: 2+ pitting edema BL. Skin: Diffuse pruritic rash with excoriation. Assessment: This is a 42 yo male with HTN, CAD, CHF, obesity, medical non- compliance, and tobacco and alcohol use who was admitted for a CHF exacerbation. Plan: 1. CHF: Cardiology consulted, pt. denied ICD implantation. Continue plavix, ASA , digoxin, carvedilol, lisinopril, lasix. Continue fluid restriction. 2. Acute cholecystitis: Liver enzymes are continuing to improve. No fever or leukocytosis. Surgery group consulted. Continue abx therapy. 3. DVT Prophylaxis: Heparin SQ.
--- NOTE | 2017-09-13 13:25 | PN ---
Subjective Date of Service: 09/13/17 Interval History: Patient reports no further episodes of n/v. Still complains of diffuse itching and feels that his edema is slightly worse despite a documented 1kg loss and significant diuresis. He still has abd pain, but symptoms are diffuse, not localizing to a specific area. Family History: Unchanged from Admission Social History: Unchanged from Admission Past Medical History: Unchanged from Admission Objective Active Medications: Acetaminophen (Tylenol Tab*) 650 mg PO Q6H PRN PRN Reason: FEVER/PAIN Albuterol (Ventolin 2.5 Mg/3 Ml Neb.Janay*) 2.5 mg INH Q2H PRN PRN Reason: SOB/WHEEZING Aspirin (Aspirin Ec Low Dose*) 81 mg PO DAILY [facility] Last Admin: 09/13/17 08:55 Dose: 81 mg Carvedilol (Coreg Tab*) 3.125 mg PO BID [facility] Last Admin: 09/13/17 08:55 Dose: 3.125 mg Clopidogrel Bisulfate (Plavix Tab*) 75 mg PO DAILY [facility] Last Admin: 09/13/17 08:55 Dose: 75 mg Digoxin (Lanoxin Tab*) 0.125 mg PO DAILY [facility] Last Admin: 09/13/17 08:55 Dose: 0.125 mg Docusate Sodium (Colace Cap*) 200 mg PO BID [facility] Last Admin: 09/13/17 08:55 Dose: 200 mg Folic Acid (Folvite Tab*) 1 mg PO DAILY [facility] Last Admin: 09/13/17 08:55 Dose: 1 mg Furosemide (Lasix Iv*) 40 mg IV 0800,1500 [facility] Heparin Sodium (Porcine) (Heparin Vial(*)) 5,000 units SUBCUT Q8HR [facility] Last Admin: 09/13/17 13:10 Dose: 5,000 units Hydrocortisone (Hytone Cream 1%*) 1 applic TOPICAL QID [facility] Hydroxyzine HCl (Atarax Tab*) 25 mg PO Q4H PRN PRN Reason: itching Last Admin: 09/13/17 13:08 Dose: 25 mg Piperacillin Sod/Tazobactam (Sod 3.375 gm/ Sodium Chloride) 100 mls @ 25 mls/ hr IVPB 0500,1300,2100 [facility] Last Admin: 09/13/17 13:10 Dose: 25 mls/hr Lisinopril (Prinivil Tab*) 5 mg PO DAILY [facility] Last Admin: 09/13/17 08:55 Dose: 5 mg Melatonin (Melatonin (Nf)) 3 mg PO BEDTIME PRN; Protocol PRN Reason: Sleep Multivitamins/Minerals (Theragran/Minerals Tab*) 1 tab PO DAILY [facility] Last Admin: 09/13/17 08:55 Dose: 1 tab Ondansetron HCl (Zofran Inj*) 4 mg IV Q6H PRN PRN Reason: NAUSEA Last Admin: 09/08/17 23:53 Dose: 4 mg Pantoprazole Sodium (Protonix Tab (Nf)) 40 mg PO BID [facility] Last Admin: 09/13/17 08:54 Dose: 40 mg Pharmacy Consult (Zosyn Per Pharmacy*) 1 note FOLLOW UP .ZOSYN PER PHARMACY [facility] Potassium Chloride (Klor Con Er Tab*) 20 meq PO DAILY [facility] Last Admin: 09/13/17 13:08 Dose: 20 meq Thiamine HCl (Vitamin B-1 Tab*) 100 mg PO DAILY [facility] Last Admin: 09/13/17 08:55 Dose: 100 mg Throat Lozenges (Chloraseptic Usama*) 1 usama PO Q2H PRN PRN Reason: SORE THROAT Tramadol HCl (Ultram*) 50 mg PO Q6H PRN PRN Reason: PAIN Last Admin: 09/13/17 09:02 Dose: 50 mg Zinc Acetate/Diphenhydramine (Banophen 2 % Cream (Nf)) 1 applic TOPICAL TID [facility] PRN Reason: Protocol Vital Signs: Temp Pulse Resp BP Pulse Ox 97.5 F 85 16 101/63 93 09/13/17 07:44 09/13/17 11:44 09/13/17 11:44 09/13/17 07:44 09/13/17 11:44 Oxygen Devices in Use Now: None Appearance: Relatively well appearing, chronically ill. Accompanied by girlfriend. In NAD Respiratory: Symmetrical Chest Expansion and Respiratory Effort, Clear to Auscultation Cardiovascular: NL Sounds; No Murmurs; No JVD, RRR Abdominal: - - slightly distended, diffusely TTP. Soft. BS present Extremities: - - 1-2+ non-pitting edema. Appears slightly improved Skin: - - diffuse hyperemeia and excoriation Neurological: Alert and Oriented x 3 Result Diagrams: 09/12/17 05:13 09/13/17 09:59 Additional Lab and Data: Lab Results Assess/Plan/Problems-Billing Assessment: Patient is a 42yo male with a PMH significant for obesity, CHF with EF of 20-25 , alcohol and tobacco abuse, medical non-compliance who presents with increasing SOB and LE edema in the setting of paroxysms of N/V closely associated with his medications but continuing after they were discontinued. - Patient Problems (1) Systolic heart failure secondary to coronary artery disease Comment: Acute on chronic Biventricular failure with LVEF 20-25% with moderately reduced RV function Patient declined ICD implantation Appreciate Cardiology consult Now on Coreg, Plavix, Digoxin, and Aspirin Added low dose lisinopril Lungs sounds clear, but there is widespread edema in the LE and abdomen Cont fluid restriction, increase Lasix to bid (2) Acute cholecystitis Comment: HIDA positive No fever or leukocytosis Surgery consult appreciated Poor surgical candidate due to current cardiac status Zosyn started Transaminitis improving, no need to consider cholecystostomy tube placement at this tme Cont to trend liver enzymes (3) Alcohol abuse Comment: H/o of abuse, reports moderate consumption prior to admission No evidence of active withdrawal Stop WAM monitoring (4) DVT prophylaxis Comment: Heparin SubQ (5) Full code status Status and Disposition: Inpatient. Anticipate additional 2-3d LOS
[2017-09-13] MEDS ORDERED: diPHENhydraMINE CREAM 2%(NF) 28 gm TUBE TOPICAL SCH (14:00)
[2017-09-13] MEDS: Hydrocortisone 1% CREAM* 30 GM TUBE TOPICAL SCH ×2 (16:09→21:39)
[2017-09-14] MEDS: Piperacillin/Tazobac ADVAN(*) 3.375 GM in NS 0.9% 100 ML* 100 ML IVPB SCH ×2 (06:04→17:40)
[2017-09-14] MEDS: Heparin VIAL(*) 5000 UNITS/ML VIAL (FIVE THOUSAND) SUBCUT SCH ×3 (06:05→21:53)
[2017-09-14 07:11] LABS: Albumin 3.7 g/dL (3.2-5.2); BUN/Creatinine Ratio 15.4 (8-20); EGFR African American 63.7 (>60); EGFR Non-African American 49.5 (>60); Globulin 2.3 g/dL (2-4); Potassium 3.6 mmol/L (3.5-5.0); Total Bilirubin 1.5 mg/dL (0.2-1.0)
[2017-09-14] MEDS: Clopidogrel TAB* 75 MG PO SCH (09:00)
[2017-09-14] MEDS: Digoxin TAB* 0.125 MG PO SCH (09:01)
[2017-09-14] MEDS: Docusate CAP* 100 MG PO SCH ×2 (09:01→22:31)
[2017-09-14] MEDS: Aspirin EC Low Dose* 81 MG TAB.EC PO SCH (09:01)
[2017-09-14] MEDS: Thiamine TAB* 100 MG TAB PO SCH (09:01)
[2017-09-14] MEDS: hydrOXYzine HCL TAB* 25 MG PO PRN ×3 (09:01→20:04)
[2017-09-14] MEDS: traMADol TAB* 50 MG PO PRN ×3 (09:02→21:52)
[2017-09-14] MEDS: Lisinopril TAB* 5 MG PO SCH (09:02)
[2017-09-14] MEDS: Carvedilol TAB* 3.125 MG PO SCH ×2 (09:02→20:04)
[2017-09-14] MEDS: CMCS:Pantoprazole TAB (NF) 40 MG TAB PO SCH ×2 (09:03→21:52)
[2017-09-14] MEDS: Multivitamins/Minerals TAB PO SCH (09:03)
[2017-09-14] MEDS: Furosemide IV* 10 MG/ML VIAL (40 MG) IV SCH ×2 (09:08→14:30)
[2017-09-14] MEDS: Folic Acid TAB* 1 MG PO SCH (09:08)
[2017-09-14] MEDS: Hydrocortisone 1% CREAM* 30 GM TUBE TOPICAL SCH ×4 (09:08→20:06)
[2017-09-14] MEDS: Potassium Chlor TAB* 20 MEQ TAB.ER PO SCH (09:08)
--- NOTE | 2017-09-14 11:38 | PN ---
Progress Note - Progress Note Date of Service: 09/14/17 SOAP: Subjective: Mr. Guzman is a 42 yo male with a history of CAD, CHF, obesity, and alcohol and tobacco use who presented to the ED on 09/07 c/o SOB and LE swelling. Patient has been non-compliant with medical therapy for CAD and CHF and states that the medications only worked initially. The patient was admitted for a CHF exacerbation. Today, the patient feels better and stated that he felt like a "million bucks" last night and explained that he hasn't felt that good in a long time. Patient still complains of orthopnea, and LE and abdominal swelling. Patient denies CP, chest tightness, SOB, coughing, wheezing, N/V/D. Objective: Vital Signs Temp Pulse Resp BP Pulse Ox 97.5 F 76 18 112/73 98 09/14/17 08:13 09/14/17 08:13 09/14/17 10:56 09/14/17 08:13 09/14/17 08:13 Laboratory Last Values WBC 7.7 10^3/ul (3.5-10.8) 09/12/17 05:13 RBC 4.95 10^6/ul (4.0-5.4) 09/12/17 05:13 Hgb 14.0 g/dl (14.0-18.0) 09/12/17 05:13 Hct 42 % (42-52) 09/12/17 05:13 MCV 86 fL (80-94) 09/12/17 05:13 MCH 28 pg (27-31) 09/12/17 05:13 MCHC 33 g/dl (31-36) 09/12/17 05:13 RDW 15 % (10.5-15) 09/12/17 05:13 Plt Count 140 10^3/ul (150-450) L 09/12/17 05:13 MPV 12 um3 (7.4-10.4) H 09/12/17 05:13 Neut % (Auto) 62.9 % (38-83) 09/12/17 05:13 Lymph % (Auto) 19.8 % (25-47) L 09/12/17 05:13 [place] % (Auto) 13.3 % (1-9) H 09/12/17 05:13 Eos % (Auto) 3.4 % (0-6) 09/12/17 05:13 Baso % (Auto) 0.6 % (0-2) 09/12/17 05:13 Absolute Neuts (auto) 4.8 10^3/ul (1.5-7.7) 09/12/17 05:13 Absolute Lymphs (auto) 1.5 10^3/ul (1.0-4.8) 09/12/17 05:13 Absolute Monos (auto) 1.0 10^3/ul (0-0.8) H 09/12/17 05:13 Absolute Eos (auto) 0.3 10^3/ul (0-0.6) 09/12/17 05:13 Absolute Basos (auto) 0 10^3/ul (0-0.2) 09/12/17 05:13 Absolute Nucleated RBC 0.01 10^3/ul 09/12/17 05:13 Nucleated RBC % 0.2 09/12/17 05:13 Platelet Morphology Large 09/10/17 07:25 Normal RBC Morphology Not Reportable 09/10/17 07:25 Polychromasia 1+ 09/10/17 07:25 INR (Anticoag Therapy) 1.21 (0.77-1.02) H 09/07/17 17:09 APTT 29.0 seconds (26.0-36.3) 09/07/17 17:09 Sodium 140 mmol/L (133-145) 09/14/17 06:12 Potassium 3.6 mmol/L (3.5-5.0) 09/14/17 06:12 Chloride 99 mmol/L (101-111) L 09/14/17 06:12 Carbon Dioxide 31 mmol/L (22-32) 09/14/17 06:12 Anion Gap 10 mmol/L (2-11) 09/14/17 06:12 BUN 24 mg/dL (6-24) 09/14/17 06:12 Creatinine 1.56 mg/dL (0.67-1.17) H 09/14/17 06:12 Est GFR ( Amer) 63.7 (>60) 09/14/17 06:12 Est GFR (Non-Af Amer) 49.5 (>60) 12/12/17 06:12 BUN/Creatinine Ratio 15.4 (8-20) 09/14/17 06:12 Glucose 93 mg/dL (70-100) 09/14/17 06:12 Hemoglobin A1c 5.7 % (4.0-5.6) H 09/08/17 15:10 Lactic Acid 1.8 mmol/L (0.5-2.0) 09/07/17 17:09 Calcium 9.0 mg/dL (8.6-10.3) 09/14/17 06:12 Magnesium 2.1 mg/dL (1.9-2.7) 09/13/17 09:59 Total Bilirubin 1.50 mg/dL (0.2-1.0) H 09/14/17 06:12 Direct Bilirubin 0.70 mg/dL (0.03-0.18) H 09/08/17 06:12 Indirect Bilirubin 2.1 mg/dL (0.3-1.0) H 09/08/17 06:12 AST 115 U/L (13-39) H 09/14/17 06:12 ALT 244 U/L (7-52) H 09/14/17 06:12 Alkaline Phosphatase 78 U/L (34-104) 09/14/17 06:12 Total Creatine Kinase 62 U/L (10-223) 09/07/17 17:09 CK-MB (CK-2) 3.3 ng/mL (0.6-6.3) 09/07/17 17:09 Troponin I 0.02 ng/mL (<0.04) 09/07/17 20:42 B-Natriuretic Peptide 639 pg/mL (-100) H 09/07/17 17:09 Total Protein 6.0 g/dL (6.4-8.9) L 09/14/17 06:12 Albumin 3.7 g/dL (3.2-5.2) 09/14/17 06:12 Globulin 2.3 g/dL (2-4) 09/14/17 06:12 Albumin/Globulin Ratio 1.6 (1-3) 09/14/17 06:12 Lipase 29 U/L (11.0-82.0) 09/08/17 15:10 TSH 7.62 mcIU/mL (0.34-5.60) H 09/07/17 17:09 Thyroxine (T4) 8.33 mcg/mL (6.09-12.23) 09/07/17 17:09 Urine Color Straw 09/07/17 19:40 Urine Appearance Clear 09/07/17 19:40 Urine pH 5.0 (5-9) 09/07/17 19:40 Ur Specific [place] 1.003 (1.010-1.030) L 09/07/17 19:40 Urine Protein Negative (Negative) 09/07/17 19:40 Urine Ketones Negative (Negative) 09/07/17 19:40 Urine Blood 1+ (Negative) H 09/07/17 19:40 Urine Nitrate Negative (Negative) 09/07/17 19:40 Urine Bilirubin Negative (Negative) 09/07/17 19:40 Urine Urobilinogen Negative (Negative) 09/07/17 19:40 Ur Leukocyte Esterase Negative (Negative) 09/07/17 19:40 Urine WBC (Auto) Absent (Absent) 09/07/17 19:40 Urine RBC (Auto) Trace(0-2/hpf) (Absent) 09/07/17 19:40 Urine Bacteria Absent (Absent) 09/07/17 19:40 Urine Glucose Negative (Negative) 09/07/17 19:40 Active Medications Acetaminophen (Tylenol Tab*) 650 mg PO Q6H PRN PRN Reason: FEVER/PAIN Albuterol (Ventolin 2.5 Mg/3 Ml Neb.Janay*) 2.5 mg INH Q2H PRN PRN Reason: SOB/WHEEZING Aspirin (Aspirin Ec Low Dose*) 81 mg PO DAILY [facility] Last Admin: 09/14/17 09:01 Dose: 81 mg Carvedilol (Coreg Tab*) 3.125 mg PO BID [facility] Last Admin: 09/14/17 09:02 Dose: 3.125 mg Clopidogrel Bisulfate (Plavix Tab*) 75 mg PO DAILY [facility] Last Admin: 09/14/17 09:00 Dose: 75 mg Digoxin (Lanoxin Tab*) 0.125 mg PO DAILY [facility] Last Admin: 09/14/17 09:01 Dose: 0.125 mg Docusate Sodium (Colace Cap*) 200 mg PO BID [facility] Last Admin: 09/14/17 09:01 Dose: 200 mg Folic Acid (Folvite Tab*) 1 mg PO DAILY [facility] Last Admin: 09/14/17 09:08 Dose: 1 mg Furosemide (Lasix Iv*) 40 mg IV 0800,1500 [facility] Last Admin: 09/14/17 09:08 Dose: 40 mg Heparin Sodium (Porcine) (Heparin Vial(*)) 5,000 units SUBCUT Q8HR [facility] Last Admin: 09/14/17 06:05 Dose: 5,000 units Hydrocortisone (Hytone Cream 1%*) 1 applic TOPICAL QID [facility] Last Admin: 09/14/17 09:08 Dose: 1 applic Hydroxyzine HCl (Atarax Tab*) 25 mg PO Q4H PRN PRN Reason: itching Last Admin: 09/14/17 09:01 Dose: 25 mg Piperacillin Sod/Tazobactam (Sod 3.375 gm/ Sodium Chloride) 100 mls @ 25 mls/ hr IVPB 0100,0900,1700 [facility] Lisinopril (Prinivil Tab*) 5 mg PO DAILY [facility] Last Admin: 09/14/17 09:02 Dose: 5 mg Melatonin (Melatonin (Nf)) 3 mg PO BEDTIME PRN; Protocol PRN Reason: Sleep Multivitamins/Minerals (Theragran/Minerals Tab*) 1 tab PO DAILY [facility] Last Admin: 09/14/17 09:03 Dose: 1 tab Ondansetron HCl (Zofran Inj*) 4 mg IV Q6H PRN PRN Reason: NAUSEA Last Admin: 09/08/17 23:53 Dose: 4 mg Pantoprazole Sodium (Protonix Tab (Nf)) 40 mg PO BID [facility] Last Admin: 09/14/17 09:03 Dose: 40 mg Pharmacy Consult (Zosyn Per Pharmacy*) 1 note FOLLOW UP .ZOSYN PER PHARMACY [facility] Potassium Chloride (Klor Con Er Tab*) 20 meq PO DAILY [facility] Last Admin: 09/14/17 09:08 Dose: 20 meq Thiamine HCl (Vitamin B-1 Tab*) 100 mg PO DAILY [facility] Last Admin: 09/14/17 09:01 Dose: 100 mg Throat Lozenges (Chloraseptic Usama*) 1 usama PO Q2H PRN PRN Reason: SORE THROAT Tramadol HCl (Ultram*) 50 mg PO Q6H PRN PRN Reason: PAIN Last Admin: 09/14/17 09:02 Dose: 50 mg HEENT: [place] and moist mucous membranes. CV: RRR w/o MRG. Respiratory: CTA BL w/o RRW. GI: BS present throughout. Abdominal firmness and fullness appreciated. Tender upon palpation. Extremities: Edema BL. Skin: Diffuse pruritic rash with excoriation. Assessment: This is a 42 yo male with HTN, CAD, CHF, obesity, medical non- compliance, and tobacco and alcohol use who was admitted for a CHF exacerbation. Plan: 1. CHF: Cardiology consulted, pt. denied ICD implantation. Continue plavix, ASA , digoxin, carvedilol, lisinopril, lasix. Continue fluid restriction. 2. Acute cholecystitis: Liver enzymes are continuing to improve. No fever or leukocytosis. Surgery group consulted. Continue abx therapy. 3. DVT Prophylaxis: Heparin SQ. 4. Pruritic rash: Continue antihistamine and hydrocortisone cream. Disposition: Patient continues to feel better and diurese appropriately. Discharge within 1-2 days.
--- NOTE | 2017-09-14 13:16 | PN ---
Subjective Date of Service: 09/14/17 Interval History: Patient reports improvement in edema and abdominal pain. N/v have resolved. No new complaints. Down one more 1kg. Family History: Unchanged from Admission Social History: Unchanged from Admission Past Medical History: Unchanged from Admission Objective Active Medications: Acetaminophen (Tylenol Tab*) 650 mg PO Q6H PRN PRN Reason: FEVER/PAIN Albuterol (Ventolin 2.5 Mg/3 Ml Neb.Janay*) 2.5 mg INH Q2H PRN PRN Reason: SOB/WHEEZING Aspirin (Aspirin Ec Low Dose*) 81 mg PO DAILY [facility] Last Admin: 09/14/17 09:01 Dose: 81 mg Carvedilol (Coreg Tab*) 3.125 mg PO BID [facility] Last Admin: 09/14/17 09:02 Dose: 3.125 mg Clopidogrel Bisulfate (Plavix Tab*) 75 mg PO DAILY [facility] Last Admin: 09/14/17 09:00 Dose: 75 mg Digoxin (Lanoxin Tab*) 0.125 mg PO DAILY [facility] Last Admin: 09/14/17 09:01 Dose: 0.125 mg Docusate Sodium (Colace Cap*) 200 mg PO BID [facility] Last Admin: 09/14/17 09:01 Dose: 200 mg Folic Acid (Folvite Tab*) 1 mg PO DAILY [facility] Last Admin: 09/14/17 09:08 Dose: 1 mg Furosemide (Lasix Iv*) 40 mg IV 0800,1500 [facility] Last Admin: 09/14/17 09:08 Dose: 40 mg Heparin Sodium (Porcine) (Heparin Vial(*)) 5,000 units SUBCUT Q8HR [facility] Last Admin: 09/14/17 06:05 Dose: 5,000 units Hydrocortisone (Hytone Cream 1%*) 1 applic TOPICAL QID [facility] Last Admin: 09/14/17 09:08 Dose: 1 applic Hydroxyzine HCl (Atarax Tab*) 25 mg PO Q4H PRN PRN Reason: itching Last Admin: 09/14/17 09:01 Dose: 25 mg Piperacillin Sod/Tazobactam (Sod 3.375 gm/ Sodium Chloride) 100 mls @ 25 mls/ hr IVPB 0100,0900,1700 [facility] Lisinopril (Prinivil Tab*) 5 mg PO DAILY [facility] Last Admin: 09/14/17 09:02 Dose: 5 mg Melatonin (Melatonin (Nf)) 3 mg PO BEDTIME PRN; Protocol PRN Reason: Sleep Multivitamins/Minerals (Theragran/Minerals Tab*) 1 tab PO DAILY [facility] Last Admin: 09/14/17 09:03 Dose: 1 tab Ondansetron HCl (Zofran Inj*) 4 mg IV Q6H PRN PRN Reason: NAUSEA Last Admin: 09/08/17 23:53 Dose: 4 mg Pantoprazole Sodium (Protonix Tab (Nf)) 40 mg PO BID [facility] Last Admin: 09/14/17 09:03 Dose: 40 mg Pharmacy Consult (Zosyn Per Pharmacy*) 1 note FOLLOW UP .ZOSYN PER PHARMACY [facility] Potassium Chloride (Klor Con Er Tab*) 20 meq PO DAILY [facility] Last Admin: 09/14/17 09:08 Dose: 20 meq Thiamine HCl (Vitamin B-1 Tab*) 100 mg PO DAILY [facility] Last Admin: 09/14/17 09:01 Dose: 100 mg Throat Lozenges (Chloraseptic Usama*) 1 usama PO Q2H PRN PRN Reason: SORE THROAT Tramadol HCl (Ultram*) 50 mg PO Q6H PRN PRN Reason: PAIN Last Admin: 09/14/17 09:02 Dose: 50 mg Vital Signs: Temp Pulse Resp BP Pulse Ox 97.5 F 76 18 112/73 98 09/14/17 08:13 09/14/17 08:13 09/14/17 10:56 09/14/17 08:13 09/14/17 08:13 Oxygen Devices in Use Now: None Appearance: Well appearing, in NAD Respiratory: Symmetrical Chest Expansion and Respiratory Effort, Clear to Auscultation Cardiovascular: NL Sounds; No Murmurs; No JVD, RRR Abdominal: - - mild distention, but softer, still some diffuse TTP Extremities: - - 1-2+ non-pitting edema, improving Skin: - - improving hyperemia Neurological: Alert and Oriented x 3 Result Diagrams: 09/12/17 05:13 09/14/17 06:12 Additional Lab and Data: Lab Results Assess/Plan/Problems-Billing Assessment: Patient is a 42yo male with a PMH significant for obesity, CHF with EF of 20-25 , alcohol and tobacco abuse, medical non-compliance who presents with increasing SOB and LE edema in the setting of paroxysms of N/V closely associated with his medications but continuing after they were discontinued. - Patient Problems (1) Systolic heart failure secondary to coronary artery disease Comment: Acute on chronic Biventricular failure with LVEF 20-25% with moderately reduced RV function Patient declined ICD implantation Appreciate Cardiology consult Now on Coreg, Plavix, Digoxin, and Aspirin Added low dose lisinopril Lungs sounds clear, but there is widespread edema in the LE and abdomen Cont fluid restriction and aggressive diuresis Neg fluid balance for 2d and down 2kg (2) Acute cholecystitis Comment: Improving HIDA positive No fever or leukocytosis Surgery consult appreciated Poor surgical candidate due to current cardiac status Cont Zosyn Transaminitis improving, no need to consider cholecystostomy tube placement at this tme Cont to trend liver enzymes (3) Alcohol abuse Comment: H/o of abuse, reports moderate consumption prior to admission No evidence of withdrawal during hospitalization WAM monitoring discontinued (4) DVT prophylaxis Comment: Heparin SubQ (5) Full code status Status and Disposition: Inpatient. Anticipate additional 2-3d LOS
[2017-09-15] MEDS: Piperacillin/Tazobac ADVAN(*) 3.375 GM in NS 0.9% 100 ML* 100 ML IVPB SCH ×3 (01:53→16:29)
[2017-09-15] MEDS: traMADol TAB* 50 MG PO PRN ×2 (06:00→16:28)
[2017-09-15] MEDS: hydrOXYzine HCL TAB* 25 MG PO PRN ×4 (06:00→21:44)
[2017-09-15] MEDS: Heparin VIAL(*) 5000 UNITS/ML VIAL (FIVE THOUSAND) SUBCUT SCH ×3 (06:02→21:44)
[2017-09-15 06:49] LABS: Albumin 3.6 g/dL (3.2-5.2); BUN/Creatinine Ratio 15.6 (8-20); Calcium 9.2 mg/dL (8.6-10.3); EGFR African American 68.2 (>60); EGFR Non-African American 53.1 (>60); Globulin 2.5 g/dL (2-4); Potassium 3.5 mmol/L (3.5-5.0); Total Bilirubin 1.6 mg/dL (0.2-1.0); Total Protein 6.1 g/dL (6.4-8.9)
[2017-09-15] MEDS: Docusate CAP* 100 MG PO SCH ×2 (09:16→21:44)
[2017-09-15] MEDS: Carvedilol TAB* 3.125 MG PO SCH ×2 (09:16→21:44)
[2017-09-15] MEDS: Potassium Chlor TAB* 20 MEQ TAB.ER PO SCH (09:16)
[2017-09-15] MEDS: Furosemide IV* 10 MG/ML VIAL (40 MG) IV SCH ×2 (09:16→16:28)
[2017-09-15] MEDS: Folic Acid TAB* 1 MG PO SCH (09:17)
[2017-09-15] MEDS: CMCS:Pantoprazole TAB (NF) 40 MG TAB PO SCH ×2 (09:17→21:44)
[2017-09-15] MEDS: Lisinopril TAB* 5 MG PO SCH (09:17)
[2017-09-15] MEDS: Thiamine TAB* 100 MG TAB PO SCH (09:17)
[2017-09-15] MEDS: Digoxin TAB* 0.125 MG PO SCH (09:17)
[2017-09-15] MEDS: Aspirin EC Low Dose* 81 MG TAB.EC PO SCH (09:17)
[2017-09-15] MEDS: Multivitamins/Minerals TAB PO SCH (09:17)
[2017-09-15] MEDS: Clopidogrel TAB* 75 MG PO SCH (09:17)
[2017-09-15] MEDS: Hydrocortisone 1% CREAM* 30 GM TUBE TOPICAL SCH ×4 (09:18→21:46)
--- NOTE | 2017-09-15 11:24 | PN ---
Progress Note - Progress Note Date of Service: 09/15/17 SOAP: Subjective: Patient continues to feel better, and has no new complaints. Patient is down another five lbs. since yesterday. Patient still complains of orthopnea, but denies CP, palpitations, chest tightness, SOB, coughing, wheezing , abdominal pain, N/V/D, Objective: Vital Signs Temp Pulse Resp BP Pulse Ox 97.9 F 80 18 106/78 98 09/15/17 07:57 09/15/17 09:17 09/15/17 09:20 09/15/17 07:57 09/15/17 07:57 Laboratory Last Values WBC 7.7 10^3/ul (3.5-10.8) 09/12/17 05:13 RBC 4.95 10^6/ul (4.0-5.4) 09/12/17 05:13 Hgb 14.0 g/dl (14.0-18.0) 09/12/17 05:13 Hct 42 % (42-52) 09/12/17 05:13 MCV 86 fL (80-94) 09/12/17 05:13 MCH 28 pg (27-31) 09/12/17 05:13 MCHC 33 g/dl (31-36) 09/12/17 05:13 RDW 15 % (10.5-15) 09/12/17 05:13 Plt Count 140 10^3/ul (150-450) L 09/12/17 05:13 MPV 12 um3 (7.4-10.4) H 09/12/17 05:13 Neut % (Auto) 62.9 % (38-83) 09/12/17 05:13 Lymph % (Auto) 19.8 % (25-47) L 09/12/17 05:13 [place] % (Auto) 13.3 % (1-9) H 09/12/17 05:13 Eos % (Auto) 3.4 % (0-6) 09/12/17 05:13 Baso % (Auto) 0.6 % (0-2) 09/12/17 05:13 Absolute Neuts (auto) 4.8 10^3/ul (1.5-7.7) 09/12/17 05:13 Absolute Lymphs (auto) 1.5 10^3/ul (1.0-4.8) 09/12/17 05:13 Absolute Monos (auto) 1.0 10^3/ul (0-0.8) H 09/12/17 05:13 Absolute Eos (auto) 0.3 10^3/ul (0-0.6) 09/12/17 05:13 Absolute Basos (auto) 0 10^3/ul (0-0.2) 09/12/17 05:13 Absolute Nucleated RBC 0.01 10^3/ul 09/12/17 05:13 Nucleated RBC % 0.2 09/12/17 05:13 Platelet Morphology Large 09/10/17 07:25 Normal RBC Morphology Not Reportable 09/10/17 07:25 Polychromasia 1+ 09/10/17 07:25 INR (Anticoag Therapy) 1.21 (0.77-1.02) H 09/07/17 17:09 APTT 29.0 seconds (26.0-36.3) 09/07/17 17:09 Sodium 138 mmol/L (133-145) 09/15/17 05:49 Potassium 3.5 mmol/L (3.5-5.0) 09/15/17 05:49 Chloride 100 mmol/L (101-111) L 09/15/17 05:49 Carbon Dioxide 29 mmol/L (22-32) 09/15/17 05:49 Anion Gap 9 mmol/L (2-11) 09/15/17 05:49 BUN 23 mg/dL (6-24) 09/15/17 05:49 Creatinine 1.47 mg/dL (0.67-1.17) H 09/15/17 05:49 Est GFR ( Amer) 68.2 (>60) 09/15/17 05:49 Est GFR (Non-Af Amer) 53.1 (>60) 09/15/17 05:49 BUN/Creatinine Ratio 15.6 (8-20) 09/15/17 05:49 Glucose 87 mg/dL (70-100) 09/15/17 05:49 Hemoglobin A1c 5.7 % (4.0-5.6) H 09/08/17 15:10 Lactic Acid 1.8 mmol/L (0.5-2.0) 09/07/17 17:09 Calcium 9.2 mg/dL (8.6-10.3) 09/15/17 05:49 Magnesium 2.1 mg/dL (1.9-2.7) 09/13/17 09:59 Total Bilirubin 1.60 mg/dL (0.2-1.0) H 09/15/17 05:49 Direct Bilirubin 0.70 mg/dL (0.03-0.18) H 09/08/17 06:12 Indirect Bilirubin 2.1 mg/dL (0.3-1.0) H 09/08/17 06:12 AST 94 U/L (13-39) H 09/15/17 05:49 ALT 203 U/L (7-52) H 09/15/17 05:49 Alkaline Phosphatase 76 U/L (34-104) 09/15/17 05:49 Total Creatine Kinase 62 U/L (10-223) 09/07/17 17:09 CK-MB (CK-2) 3.3 ng/mL (0.6-6.3) 09/07/17 17:09 Troponin I 0.02 ng/mL (<0.04) 09/07/17 20:42 B-Natriuretic Peptide 639 pg/mL (-100) H 09/07/17 17:09 Total Protein 6.1 g/dL (6.4-8.9) L 09/15/17 05:49 Albumin 3.6 g/dL (3.2-5.2) 09/15/17 05:49 Globulin 2.5 g/dL (2-4) 09/15/17 05:49 Albumin/Globulin Ratio 1.4 (1-3) 09/15/17 05:49 Lipase 29 U/L (11.0-82.0) 09/08/17 15:10 TSH 7.62 mcIU/mL (0.34-5.60) H 09/07/17 17:09 Thyroxine (T4) 8.33 mcg/mL (6.09-12.23) 09/07/17 17:09 Urine Color Straw 09/07/17 19:40 Urine Appearance Clear 09/07/17 19:40 Urine pH 5.0 (5-9) 09/07/17 19:40 Ur Specific [place] 1.003 (1.010-1.030) L 09/07/17 19:40 Urine Protein Negative (Negative) 09/07/17 19:40 Urine Ketones Negative (Negative) 09/07/17 19:40 Urine Blood 1+ (Negative) H 09/07/17 19:40 Urine Nitrate Negative (Negative) 09/07/17 19:40 Urine Bilirubin Negative (Negative) 09/07/17 19:40 Urine Urobilinogen Negative (Negative) 09/07/17 19:40 Ur Leukocyte Esterase Negative (Negative) 09/07/17 19:40 Urine WBC (Auto) Absent (Absent) 09/07/17 19:40 Urine RBC (Auto) Trace(0-2/hpf) (Absent) 09/07/17 19:40 Urine Bacteria Absent (Absent) 09/07/17 19:40 Urine Glucose Negative (Negative) 09/07/17 19:40 Active Medications Acetaminophen (Tylenol Tab*) 650 mg PO Q6H PRN PRN Reason: FEVER/PAIN Albuterol (Ventolin 2.5 Mg/3 Ml Neb.Janay*) 2.5 mg INH Q2H PRN PRN Reason: SOB/WHEEZING Aspirin (Aspirin Ec Low Dose*) 81 mg PO DAILY [facility] Last Admin: 09/15/17 09:17 Dose: 81 mg Carvedilol (Coreg Tab*) 3.125 mg PO BID [facility] Last Admin: 09/15/17 09:16 Dose: 3.125 mg Clopidogrel Bisulfate (Plavix Tab*) 75 mg PO DAILY [facility] Last Admin: 09/15/17 09:17 Dose: 75 mg Digoxin (Lanoxin Tab*) 0.125 mg PO DAILY [facility] Last Admin: 09/15/17 09:17 Dose: 0.125 mg Docusate Sodium (Colace Cap*) 200 mg PO BID [facility] Last Admin: 09/15/17 09:16 Dose: 200 mg Folic Acid (Folvite Tab*) 1 mg PO DAILY [facility] Last Admin: 09/15/17 09:17 Dose: 1 mg Furosemide (Lasix Iv*) 40 mg IV 0800,1500 [facility] Last Admin: 09/15/17 09:16 Dose: 40 mg Heparin Sodium (Porcine) (Heparin Vial(*)) 5,000 units SUBCUT Q8HR [facility] Last Admin: 09/15/17 06:02 Dose: 5,000 units Hydrocortisone (Hytone Cream 1%*) 1 applic TOPICAL QID [facility] Last Admin: 09/15/17 09:18 Dose: 1 applic Hydroxyzine HCl (Atarax Tab*) 25 mg PO Q4H PRN PRN Reason: itching Last Admin: 09/15/17 10:48 Dose: 25 mg Piperacillin Sod/Tazobactam (Sod 3.375 gm/ Sodium Chloride) 100 mls @ 25 mls/ hr IVPB 0100,0900,1700 [facility] Last Admin: 09/15/17 09:17 Dose: 25 mls/hr Lisinopril (Prinivil Tab*) 5 mg PO DAILY [facility] Last Admin: 09/15/17 09:17 Dose: 5 mg Melatonin (Melatonin (Nf)) 3 mg PO BEDTIME PRN; Protocol PRN Reason: Sleep Multivitamins/Minerals (Theragran/Minerals Tab*) 1 tab PO DAILY [facility] Last Admin: 09/15/17 09:17 Dose: 1 tab Ondansetron HCl (Zofran Inj*) 4 mg IV Q6H PRN PRN Reason: NAUSEA Last Admin: 09/08/17 23:53 Dose: 4 mg Pantoprazole Sodium (Protonix Tab (Nf)) 40 mg PO BID [facility] Last Admin: 09/15/17 09:17 Dose: 40 mg Pharmacy Consult (Zosyn Per Pharmacy*) 1 note FOLLOW UP .ZOSYN PER PHARMACY [facility] Potassium Chloride (Klor Con Er Tab*) 20 meq PO DAILY [facility] Last Admin: 09/15/17 09:16 Dose: 20 meq Thiamine HCl (Vitamin B-1 Tab*) 100 mg PO DAILY [facility] Last Admin: 09/15/17 09:17 Dose: 100 mg Throat Lozenges (Chloraseptic Usama*) 1 usama PO Q2H PRN PRN Reason: SORE THROAT Tramadol HCl (Ultram*) 50 mg PO Q6H PRN PRN Reason: PAIN Last Admin: 09/15/17 06:00 Dose: 50 mg General: WDWN male in NAD. HEENT: Moist and pink mucous membranes. CV: RRR w/o MRG. Respiratory: CTA BL w/o RRW. GI: Abdomen is soft, non-distended, and non-tender to palpation. Extremities: Trace edema Assessment: This is a 42 yo male with a history of obesity, CHF, non-compliance with medical therapy, and tobacco and alcohol abuse who has been admitted for a CHF exacerbation likely d/t abrupt cessation of medications as well as acute cholecystitis w/o surgical intervention as he is not a surgical candidate at this time. Plan: 1. Systolic HF: EF is 20-25%, patient declined ICD implantation. Continue carvedilol, plavix, digoxin, ASA, lisinopril. 2. Acute Cholecystitis: Surgery consulted, not a surgical candidate d/t cardiac status. Zosyn initiated, and LFTs have been improving. Pt. asymptomatic at this point. 3. DVT Prophylaxis: Heparin SQ. Disposition: Likely discharge within 1-2 days.
--- NOTE | 2017-09-15 11:59 | PN ---
Subjective Date of Service: 09/15/17 Interval History: Patient continues to diuress well with associated improvement in symptoms. His legs and abd still feel tight, but are improving. No n/v, SOB, CP. Maybe some improvement in orthopnea. Family History: Unchanged from Admission Social History: Unchanged from Admission Past Medical History: Unchanged from Admission Objective Active Medications: Acetaminophen (Tylenol Tab*) 650 mg PO Q6H PRN PRN Reason: FEVER/PAIN Albuterol (Ventolin 2.5 Mg/3 Ml Neb.Janay*) 2.5 mg INH Q2H PRN PRN Reason: SOB/WHEEZING Aspirin (Aspirin Ec Low Dose*) 81 mg PO DAILY [facility] Last Admin: 09/15/17 09:17 Dose: 81 mg Carvedilol (Coreg Tab*) 3.125 mg PO BID [facility] Last Admin: 09/15/17 09:16 Dose: 3.125 mg Clopidogrel Bisulfate (Plavix Tab*) 75 mg PO DAILY [facility] Last Admin: 09/15/17 09:17 Dose: 75 mg Digoxin (Lanoxin Tab*) 0.125 mg PO DAILY [facility] Last Admin: 09/15/17 09:17 Dose: 0.125 mg Docusate Sodium (Colace Cap*) 200 mg PO BID [facility] Last Admin: 09/15/17 09:16 Dose: 200 mg Folic Acid (Folvite Tab*) 1 mg PO DAILY [facility] Last Admin: 09/15/17 09:17 Dose: 1 mg Furosemide (Lasix Iv*) 40 mg IV 0800,1500 [facility] Last Admin: 09/15/17 09:16 Dose: 40 mg Heparin Sodium (Porcine) (Heparin Vial(*)) 5,000 units SUBCUT Q8HR [facility] Last Admin: 09/15/17 06:02 Dose: 5,000 units Hydrocortisone (Hytone Cream 1%*) 1 applic TOPICAL QID [facility] Last Admin: 09/15/17 09:18 Dose: 1 applic Hydroxyzine HCl (Atarax Tab*) 25 mg PO Q4H PRN PRN Reason: itching Last Admin: 09/15/17 10:48 Dose: 25 mg Piperacillin Sod/Tazobactam (Sod 3.375 gm/ Sodium Chloride) 100 mls @ 25 mls/ hr IVPB 0100,0900,1700 [facility] Last Admin: 09/15/17 09:17 Dose: 25 mls/hr Lisinopril (Prinivil Tab*) 5 mg PO DAILY [facility] Last Admin: 09/15/17 09:17 Dose: 5 mg Melatonin (Melatonin (Nf)) 3 mg PO BEDTIME PRN; Protocol PRN Reason: Sleep Multivitamins/Minerals (Theragran/Minerals Tab*) 1 tab PO DAILY [facility] Last Admin: 09/15/17 09:17 Dose: 1 tab Ondansetron HCl (Zofran Inj*) 4 mg IV Q6H PRN PRN Reason: NAUSEA Last Admin: 09/08/17 23:53 Dose: 4 mg Pantoprazole Sodium (Protonix Tab (Nf)) 40 mg PO BID [facility] Last Admin: 09/15/17 09:17 Dose: 40 mg Pharmacy Consult (Zosyn Per Pharmacy*) 1 note FOLLOW UP .ZOSYN PER PHARMACY [facility] Potassium Chloride (Klor Con Er Tab*) 20 meq PO DAILY [facility] Last Admin: 09/15/17 09:16 Dose: 20 meq Thiamine HCl (Vitamin B-1 Tab*) 100 mg PO DAILY [facility] Last Admin: 09/15/17 09:17 Dose: 100 mg Throat Lozenges (Chloraseptic Usama*) 1 usama PO Q2H PRN PRN Reason: SORE THROAT Tramadol HCl (Ultram*) 50 mg PO Q6H PRN PRN Reason: PAIN Last Admin: 09/15/17 06:00 Dose: 50 mg Vital Signs: Temp Pulse Resp BP Pulse Ox 97.9 F 80 18 106/78 98 09/15/17 07:57 09/15/17 09:17 09/15/17 09:20 09/15/17 07:57 09/15/17 07:57 Oxygen Devices in Use Now: None Appearance: 42 yo male who appears chronically ill, but in NAD Respiratory: Symmetrical Chest Expansion and Respiratory Effort, Clear to Auscultation Cardiovascular: NL Sounds; No Murmurs; No JVD, RRR Abdominal: NL Sounds; No Tenderness; No Distention Extremities: - - 1-2+ non-pitting edema Neurological: Alert and Oriented x 3 Result Diagrams: 09/12/17 05:13 09/15/17 05:49 Additional Lab and Data: Lab Results Assess/Plan/Problems-Billing Assessment: Patient is a 42yo male with a PMH significant for obesity, CHF with EF of 20-25 , alcohol and tobacco abuse, medical non-compliance who presents with increasing SOB and LE edema in the setting of paroxysms of N/V closely associated with his medications but continuing after they were discontinued. - Patient Problems (1) Systolic heart failure secondary to coronary artery disease Comment: Acute on chronic Biventricular failure with LVEF 20-25% with moderately reduced RV function Patient declined ICD implantation Appreciate Cardiology consult Now on Coreg, Plavix, Digoxin, and Aspirin Added low dose lisinopril Lungs sounds clear, but there is widespread edema in the LE and abdomen Cont fluid restriction and aggressive diuresis Neg fluid balance for 2d and down 4kg (2) Acute cholecystitis Comment: Improving HIDA positive No fever or leukocytosis Surgery consult appreciated Poor surgical candidate due to current cardiac status Cont Zosyn Transaminitis improving, no need to consider cholecystostomy tube placement at this tme Cont to trend liver enzymes (3) Alcohol abuse Comment: H/o of abuse, reports moderate consumption prior to admission No evidence of withdrawal during hospitalization WAM monitoring discontinued (4) DVT prophylaxis Comment: Heparin SubQ (5) Full code status Status and Disposition: Inpatient. Anticipate additional 2-3d LOS
[2017-09-16] MEDS: Piperacillin/Tazobac ADVAN(*) 3.375 GM in NS 0.9% 100 ML* 100 ML IVPB SCH ×3 (00:39→18:00)
[2017-09-16] MEDS: Heparin VIAL(*) 5000 UNITS/ML VIAL (FIVE THOUSAND) SUBCUT SCH ×3 (06:09→20:08)
[2017-09-16 07:02] LABS: Albumin 3.8 g/dL (3.2-5.2); BUN/Creatinine Ratio 16.2 (8-20); Calcium 9.4 mg/dL (8.6-10.3); EGFR Non-African American 55.2 (>60); Globulin 2.5 g/dL (2-4); Potassium 3.9 mmol/L (3.5-5.0); Total Bilirubin 1.6 mg/dL (0.2-1.0); Total Protein 6.3 g/dL (6.4-8.9)
[2017-09-16] MEDS: Furosemide IV* 10 MG/ML VIAL (40 MG) IV SCH ×2 (09:22→14:12)
[2017-09-16] MEDS: Folic Acid TAB* 1 MG PO SCH (09:25)
[2017-09-16] MEDS: Digoxin TAB* 0.125 MG PO SCH (09:26)
[2017-09-16] MEDS: Clopidogrel TAB* 75 MG PO SCH (09:26)
[2017-09-16] MEDS: Aspirin EC Low Dose* 81 MG TAB.EC PO SCH (09:27)
[2017-09-16] MEDS: Multivitamins/Minerals TAB PO SCH (09:27)
[2017-09-16] MEDS: Docusate CAP* 100 MG PO SCH ×2 (09:27→20:08)
[2017-09-16] MEDS: CMCS:Pantoprazole TAB (NF) 40 MG TAB PO SCH ×2 (09:28→20:08)
[2017-09-16] MEDS: Lisinopril TAB* 5 MG PO SCH (09:28)
[2017-09-16] MEDS: Thiamine TAB* 100 MG TAB PO SCH (09:28)
[2017-09-16] MEDS: Potassium Chlor TAB* 20 MEQ TAB.ER PO SCH (09:29)
[2017-09-16] MEDS: hydrOXYzine HCL TAB* 25 MG PO PRN ×3 (09:29→20:08)
[2017-09-16] MEDS: Carvedilol TAB* 3.125 MG PO SCH ×2 (09:29→20:08)
[2017-09-16] MEDS: traMADol TAB* 50 MG PO PRN ×2 (09:29→18:00)
[2017-09-16] MEDS: Hydrocortisone 1% CREAM* 30 GM TUBE TOPICAL SCH ×4 (10:02→20:17)
--- NOTE | 2017-09-16 15:32 | PN ---
Subjective Date of Service: 09/16/17 Interval History: HOSPITALIST PROGRESS NOTE Patient seen and examined at bedside. He feels a little better today. LE edema is improved, but still severe and legs are sore. Still has abdominal pain, but less intense. Tolerating low fat diet. Family History: Unchanged from Admission Social History: Unchanged from Admission Past Medical History: Unchanged from Admission Objective Active Medications: Acetaminophen (Tylenol Tab*) 650 mg PO Q6H PRN PRN Reason: FEVER/PAIN Albuterol (Ventolin 2.5 Mg/3 Ml Neb.Janay*) 2.5 mg INH Q2H PRN PRN Reason: SOB/WHEEZING Aspirin (Aspirin Ec Low Dose*) 81 mg PO DAILY [facility] Last Admin: 09/16/17 09:27 Dose: 81 mg Carvedilol (Coreg Tab*) 3.125 mg PO BID [facility] Last Admin: 09/16/17 09:29 Dose: 3.125 mg Clopidogrel Bisulfate (Plavix Tab*) 75 mg PO DAILY [facility] Last Admin: 09/16/17 09:26 Dose: 75 mg Digoxin (Lanoxin Tab*) 0.125 mg PO DAILY [facility] Last Admin: 09/16/17 09:26 Dose: 0.125 mg Docusate Sodium (Colace Cap*) 200 mg PO BID [facility] Last Admin: 09/16/17 09:27 Dose: 200 mg Folic Acid (Folvite Tab*) 1 mg PO DAILY [facility] Last Admin: 09/16/17 09:25 Dose: 1 mg Furosemide (Lasix Iv*) 40 mg IV 0800,1500 [facility] Last Admin: 09/16/17 14:12 Dose: 40 mg Heparin Sodium (Porcine) (Heparin Vial(*)) 5,000 units SUBCUT Q8HR [facility] Last Admin: 09/16/17 14:11 Dose: 5,000 units Hydrocortisone (Hytone Cream 1%*) 1 applic TOPICAL QID [facility] Last Admin: 09/16/17 14:13 Dose: 1 applic Hydroxyzine HCl (Atarax Tab*) 25 mg PO Q4H PRN PRN Reason: itching Last Admin: 09/16/17 14:12 Dose: 25 mg Piperacillin Sod/Tazobactam (Sod 3.375 gm/ Sodium Chloride) 100 mls @ 25 mls/ hr IVPB 0100,0900,1700 [facility] Last Admin: 09/16/17 10:00 Dose: 25 mls/hr Lisinopril (Prinivil Tab*) 5 mg PO DAILY [facility] Last Admin: 09/16/17 09:28 Dose: 5 mg Melatonin (Melatonin (Nf)) 3 mg PO BEDTIME PRN; Protocol PRN Reason: Sleep Multivitamins/Minerals (Theragran/Minerals Tab*) 1 tab PO DAILY [facility] Last Admin: 09/16/17 09:27 Dose: 1 tab Ondansetron HCl (Zofran Inj*) 4 mg IV Q6H PRN PRN Reason: NAUSEA Last Admin: 09/08/17 23:53 Dose: 4 mg Pantoprazole Sodium (Protonix Tab (Nf)) 40 mg PO BID [facility] Last Admin: 09/16/17 09:28 Dose: 40 mg Pharmacy Consult (Zosyn Per Pharmacy*) 1 note FOLLOW UP .ZOSYN PER PHARMACY [facility] Potassium Chloride (Klor Con Er Tab*) 20 meq PO DAILY [facility] Last Admin: 09/16/17 09:29 Dose: 20 meq Thiamine HCl (Vitamin B-1 Tab*) 100 mg PO DAILY [facility] Last Admin: 09/16/17 09:28 Dose: 100 mg Throat Lozenges (Chloraseptic Usama*) 1 usama PO Q2H PRN PRN Reason: SORE THROAT Tramadol HCl (Ultram*) 50 mg PO Q6H PRN PRN Reason: PAIN Last Admin: 09/16/17 09:29 Dose: 50 mg Vital Signs - 8 hr 09/16/17 09/16/17 09/16/17 07:59 08:00 09:26 Temperature 98.2 F Pulse Rate 85 80 Respiratory 16 18 Rate Blood Pressure 113/79 (mmHg) O2 Sat by Pulse 96 Oximetry Oxygen Devices in Use Now: None Appearance: Pleasant obese male sitting up in bed in NAD. Eyes: No Scleral Icterus Ears/Nose/Mouth/Throat: Mucous Membranes Moist Neck: Trachea Midline Respiratory: Symmetrical Chest Expansion and Respiratory Effort, Clear to Auscultation Cardiovascular: RRR - Normal S1 and S2 Abdominal: - - Obese, soft, mild RUQ tenderness, ND, BS+ Extremities: - - Bilateral lower extremities moderate edema Neurological: Alert and Oriented x 3 Result Diagrams: 09/12/17 05:13 09/16/17 06:23 Assess/Plan/Problems-Billing Assessment: Mr. Guzman is a 42yo male with a PMH significant for obesity, CHF with EF of 20- 25%, alcohol and tobacco abuse, medical non-compliance who presents with increasing SOB and LE edema in the setting of paroxysms of N/V, found to have acute CHF exacerbation and acute cholecystitis. - Patient Problems (1) Acute systolic CHF (congestive heart failure) Comment: - Acute on chronic systolic CHF. - Echo showed EF 20-25% with moderately reduced RV function. - Patient declined ICD implantation. - Continue Coreg, Plavix, Digoxin, Lisinopril, and Aspirin - Continue fluid restriction and aggressive diuresis - has lost 10lbs so far. (2) Acute cholecystitis Comment: - Improving - pain is less intense, tolerating diet, afebrile, with normal white cell count. - HIDA compatible with acute cholecystitis. - Surgery input appreciated - poor surgical candidate due to current cardiac status. Cholecystostomy not indicated at this time as he's showing signs of improvement. - Continue Zosyn #6. (3) Alcohol abuse Comment: - Completed [facility] protocol. - Continue Thiamine. (4) DVT prophylaxis Comment: - SQ Heparin. (5) Full code status Status and Disposition: Inpatient.
[2017-09-17] MEDS: Piperacillin/Tazobac ADVAN(*) 3.375 GM in NS 0.9% 100 ML* 100 ML IVPB SCH ×3 (02:42→17:03)
[2017-09-17] MEDS: traMADol TAB* 50 MG PO PRN (02:42)
[2017-09-17] MEDS: hydrOXYzine HCL TAB* 25 MG PO PRN (02:43)
[2017-09-17] MEDS: Heparin VIAL(*) 5000 UNITS/ML VIAL (FIVE THOUSAND) SUBCUT SCH (06:48)
[2017-09-17 07:37] LABS: Hematocrit 43 % (42-52); Mean Corpuscular HGB Conc 32 g/dl (31-36); Mean Corpuscular Hemoglobin 28 pg (27-31); Mean Corpuscular Volume 86 fL (80-94); Mean Platelet Volume 11 um3 (7.4-10.4); Red Blood Count 5.03 10^6/ul (4.0-5.4); Red Cell Distribution Width 16 % (10.5-15); White Blood Count 6.3 10^3/ul (3.5-10.8)
[2017-09-17 07:38] LABS: Add Diff/Slide Review? Slide Review Added; Comments Flag Yes
[2017-09-17 07:49] LABS: BUN/Creatinine Ratio 16.1 (8-20); Calcium 9.7 mg/dL (8.6-10.3); EGFR African American 70.4 (>60); EGFR Non-African American 54.8 (>60); Potassium 3.7 mmol/L (3.5-5.0)
[2017-09-17 08:14] LABS: Platelet Morphology Large; RBC Morphology Normal (Normal)
--- NOTE | 2017-09-17 08:36 | PN ---
Subjective Date of Service: 09/17/17 Interval History: HOSPITALIST PROGRESS NOTE Patient seen and examined at bedside. He feels better today. Denies dyspnea, THOMAS wraps to LE helped with pain and edema. Abdominal pain is less intense and he's tolerating diet well. Family History: Unchanged from Admission Social History: Unchanged from Admission Past Medical History: Unchanged from Admission Objective Active Medications: Acetaminophen (Tylenol Tab*) 650 mg PO Q6H PRN PRN Reason: FEVER/PAIN Albuterol (Ventolin 2.5 Mg/3 Ml Neb.Janay*) 2.5 mg INH Q2H PRN PRN Reason: SOB/WHEEZING Aspirin (Aspirin Ec Low Dose*) 81 mg PO DAILY [facility] Last Admin: 09/16/17 09:27 Dose: 81 mg Carvedilol (Coreg Tab*) 3.125 mg PO BID [facility] Last Admin: 09/16/17 20:08 Dose: 3.125 mg Clopidogrel Bisulfate (Plavix Tab*) 75 mg PO DAILY [facility] Last Admin: 09/16/17 09:26 Dose: 75 mg Digoxin (Lanoxin Tab*) 0.125 mg PO DAILY [facility] Last Admin: 09/16/17 09:26 Dose: 0.125 mg Docusate Sodium (Colace Cap*) 200 mg PO BID [facility] Last Admin: 09/16/17 20:08 Dose: 200 mg Folic Acid (Folvite Tab*) 1 mg PO DAILY [facility] Last Admin: 09/16/17 09:25 Dose: 1 mg Furosemide (Lasix Iv*) 40 mg IV 0800,1500 [facility] Last Admin: 09/16/17 14:12 Dose: 40 mg Hydrocortisone (Hytone Cream 1%*) 1 applic TOPICAL QID [facility] Last Admin: 09/16/17 20:17 Dose: 1 applic Hydroxyzine HCl (Atarax Tab*) 25 mg PO Q4H PRN PRN Reason: itching Last Admin: 09/17/17 02:43 Dose: 25 mg Piperacillin Sod/Tazobactam (Sod 3.375 gm/ Sodium Chloride) 100 mls @ 25 mls/ hr IVPB 0100,0900,1700 [facility] Last Admin: 09/17/17 02:42 Dose: 25 mls/hr Lisinopril (Prinivil Tab*) 5 mg PO DAILY [facility] Last Admin: 09/16/17 09:28 Dose: 5 mg Melatonin (Melatonin (Nf)) 3 mg PO BEDTIME PRN; Protocol PRN Reason: Sleep Multivitamins/Minerals (Theragran/Minerals Tab*) 1 tab PO DAILY [facility] Last Admin: 09/16/17 09:27 Dose: 1 tab Ondansetron HCl (Zofran Inj*) 4 mg IV Q6H PRN PRN Reason: NAUSEA Last Admin: 09/08/17 23:53 Dose: 4 mg Pantoprazole Sodium (Protonix Tab (Nf)) 40 mg PO BID [facility] Last Admin: 09/16/17 20:08 Dose: 40 mg Pharmacy Consult (Zosyn Per Pharmacy*) 1 note FOLLOW UP .ZOSYN PER PHARMACY [facility] Potassium Chloride (Klor Con Er Tab*) 20 meq PO DAILY [facility] Last Admin: 09/16/17 09:29 Dose: 20 meq Thiamine HCl (Vitamin B-1 Tab*) 100 mg PO DAILY [facility] Last Admin: 09/16/17 09:28 Dose: 100 mg Throat Lozenges (Chloraseptic Usama*) 1 usama PO Q2H PRN PRN Reason: SORE THROAT Tramadol HCl (Ultram*) 50 mg PO Q6H PRN PRN Reason: PAIN Last Admin: 09/17/17 02:42 Dose: 50 mg Vital Signs - 8 hr 09/17/17 09/17/17 07:14 07:26 Temperature 97.7 F Pulse Rate 80 Respiratory 16 16 Rate Blood Pressure 118/88 (mmHg) O2 Sat by Pulse 99 Oximetry Oxygen Devices in Use Now: None Appearance: Pleasant gentleman sitting up in bed in [facility]. Eyes: No Scleral Icterus Ears/Nose/Mouth/Throat: Mucous Membranes Moist Neck: Trachea Midline Respiratory: Symmetrical Chest Expansion and Respiratory Effort, Clear to Auscultation Cardiovascular: RRR - Normal S1 and S2 Abdominal: - - Obese, soft, mild diffuse tenderness, NG, NR, BS+ Extremities: - - Mild to moderate LE pitting edema Neurological: Alert and Oriented x 3, NL Muscle Strength and Tone Result Diagrams: 09/17/17 07:06 09/17/17 07:06 Assess/Plan/Problems-Billing Assessment: Mr. Guzman is a 42yo male with a PMH significant for obesity, CHF with EF of 20- 25%, alcohol and tobacco abuse, medical non-compliance who presents with increasing SOB and LE edema in the setting of paroxysms of N/V, found to have acute CHF exacerbation and acute cholecystitis. - Patient Problems (1) Acute systolic CHF (congestive heart failure) Comment: - Acute on chronic systolic CHF. - Echo showed EF 20-25% with moderately reduced RV function. - Patient declined ICD implantation. - Continue Coreg, Plavix, Digoxin, Lisinopril, and Aspirin - Continue fluid restriction and aggressive diuresis - has lost almost 20lbs so far. (2) Acute cholecystitis Comment: - Improving - pain is less intense, tolerating diet, afebrile, with normal white cell count. - HIDA compatible with acute cholecystitis. - Surgery input appreciated - poor surgical candidate due to current cardiac status. Cholecystostomy not indicated at this time as he's showing signs of improvement. - Continue Zosyn #7. (3) Alcohol abuse Comment: - Completed [facility] protocol. - Continue Thiamine. (4) Thrombocytopenia Comment: - Platelets down to 138k today, were normal on admission. - Stop heparin and check PF4 Ab. (5) DVT prophylaxis Comment: - Hold Heparin in the setting of progressive thrombocytopenia. - SCDs. (6) Full code status Status and Disposition: Inpatient. Anticipate d/c in 1-2 days to complete 14 days of antibiotics as outpatient.
[2017-09-17] MEDS: Aspirin EC Low Dose* 81 MG TAB.EC PO SCH (08:43)
[2017-09-17] MEDS: Thiamine TAB* 100 MG TAB PO SCH (08:43)
[2017-09-17] MEDS: Multivitamins/Minerals TAB PO SCH (08:43)
[2017-09-17] MEDS: Folic Acid TAB* 1 MG PO SCH (08:44)
[2017-09-17] MEDS: Docusate CAP* 100 MG PO SCH ×2 (08:44→21:00)
[2017-09-17] MEDS: Lisinopril TAB* 5 MG PO SCH (08:44)
[2017-09-17] MEDS: Potassium Chlor TAB* 20 MEQ TAB.ER PO SCH (08:44)
[2017-09-17] MEDS: Clopidogrel TAB* 75 MG PO SCH (08:44)
[2017-09-17] MEDS: Carvedilol TAB* 3.125 MG PO SCH ×2 (08:45→21:00)
[2017-09-17] MEDS: Digoxin TAB* 0.125 MG PO SCH (08:45)
[2017-09-17] MEDS: Furosemide IV* 10 MG/ML VIAL (40 MG) IV SCH ×2 (08:45→15:48)
[2017-09-17] MEDS: Hydrocortisone 1% CREAM* 30 GM TUBE TOPICAL SCH ×4 (08:50→21:00)
[2017-09-17] MEDS: CMCS:Pantoprazole TAB (NF) 40 MG TAB PO SCH ×2 (08:52→21:00)
[2017-09-18] MEDS: Piperacillin/Tazobac ADVAN(*) 3.375 GM in NS 0.9% 100 ML* 100 ML IVPB SCH ×2 (02:16→09:17)
[2017-09-18 07:59] VITALS: BP 114/77
[2017-09-18] MEDS: Furosemide IV* 10 MG/ML VIAL (40 MG) IV SCH (08:00)
[2017-09-18] MEDS: Docusate CAP* 100 MG PO SCH (08:03)
[2017-09-18] MEDS: Clopidogrel TAB* 75 MG PO SCH (08:03)
[2017-09-18] MEDS: Aspirin EC Low Dose* 81 MG TAB.EC PO SCH (08:03)
[2017-09-18] MEDS: CMCS:Pantoprazole TAB (NF) 40 MG TAB PO SCH (08:03)
[2017-09-18] MEDS: Folic Acid TAB* 1 MG PO SCH (08:03)
[2017-09-18] MEDS: Potassium Chlor TAB* 20 MEQ TAB.ER PO SCH (08:03)
[2017-09-18] MEDS: Digoxin TAB* 0.125 MG PO SCH (08:03)
[2017-09-18] MEDS: Multivitamins/Minerals TAB PO SCH (08:03)
[2017-09-18] MEDS: Hydrocortisone 1% CREAM* 30 GM TUBE TOPICAL SCH ×2 (08:03→13:06)
[2017-09-18] MEDS: Carvedilol TAB* 3.125 MG PO SCH (08:03)
[2017-09-18] MEDS: Thiamine TAB* 100 MG TAB PO SCH (08:04)
[2017-09-18] MEDS: Lisinopril TAB* 5 MG PO SCH (08:04)
[2017-09-18 09:51] LABS: Hematocrit 43 % (42-52); Hemoglobin 13.7 g/dl (14.0-18.0); Mean Corpuscular HGB Conc 32 g/dl (31-36); Mean Corpuscular Hemoglobin 28 pg (27-31); Mean Corpuscular Volume 86 fL (80-94); Mean Platelet Volume 11 um3 (7.4-10.4); Red Blood Count 4.98 10^6/ul (4.0-5.4); Red Cell Distribution Width 16 % (10.5-15)
[2017-09-18 09:54] LABS: Add Diff/Slide Review? Slide Review Added; Comments Flag Yes
[2017-09-18 10:04] LABS: Albumin 4.3 g/dL (3.2-5.2); BUN/Creatinine Ratio 18.8 (8-20); Calcium 9.9 mg/dL (8.6-10.3); EGFR African American 73.4 (>60); EGFR Non-African American 57.1 (>60); Globulin 2.9 g/dL (2-4); Potassium 3.6 mmol/L (3.5-5.0); Total Bilirubin 1.5 mg/dL (0.2-1.0); Total Protein 7.2 g/dL (6.4-8.9)
--- NOTE | 2017-09-18 10:20 | PN ---
Subjective Date of Service: 09/18/17 Interval History: . Interviewed and examined patient at bedside; Discussed case with Dr. Salvador ; Reviewed previous notes and radiology results; Patient eager to go home. Sleeping in room with girlfriend as I entered; I rounded with RN. No PCP; saw someone ~4 years ago- no current provider relationship. Was admitted on 09/07 for Acute on Chronic Systolic heart failure Refuses ICD though qualifies given EF. Has been losing substantial weight in setting of IV diuresis. Known medication non-adherence During admission, known LFT increases and HIDA showing cholecystitis; non- surgical treatment opted --> patient improving with antibiotics. But, needs follow up when more stable. I recall him from admission back in 2014 when he had cath and JENNIFER to [facility]...was afflicted by etoh abuse at that time as well. there were also concerns about depression and he was seen by psychiatry before discharge. Family History: Unchanged from Admission Social History: Unchanged from Admission Past Medical History: Unchanged from Admission Objective Active Medications: . Acetaminophen (Tylenol Tab*) 650 mg PO Q6H PRN PRN Reason: FEVER/PAIN Albuterol (Ventolin 2.5 Mg/3 Ml Neb.Janay*) 2.5 mg INH Q2H PRN PRN Reason: SOB/WHEEZING Aspirin (Aspirin Ec Low Dose*) 81 mg PO DAILY [facility] Last Admin: 09/18/17 08:03 Dose: 81 mg Carvedilol (Coreg Tab*) 3.125 mg PO BID [facility] Last Admin: 09/18/17 08:03 Dose: 3.125 mg Clopidogrel Bisulfate (Plavix Tab*) 75 mg PO DAILY [facility] Last Admin: 09/18/17 08:03 Dose: 75 mg Digoxin (Lanoxin Tab*) 0.125 mg PO DAILY [facility] Last Admin: 09/18/17 08:03 Dose: 0.125 mg Docusate Sodium (Colace Cap*) 200 mg PO BID [facility] Last Admin: 09/18/17 08:03 Dose: 200 mg Folic Acid (Folvite Tab*) 1 mg PO DAILY [facility] Last Admin: 09/18/17 08:03 Dose: 1 mg Furosemide (Lasix Iv*) 40 mg IV 0800,1500 [facility] Last Admin: 09/18/17 08:00 Dose: 40 mg Hydrocortisone (Hytone Cream 1%*) 1 applic TOPICAL QID [facility] Last Admin: 09/18/17 08:03 Dose: 1 applic Hydroxyzine HCl (Atarax Tab*) 25 mg PO Q4H PRN PRN Reason: itching Last Admin: 09/17/17 02:43 Dose: 25 mg Piperacillin Sod/Tazobactam (Sod 3.375 gm/ Sodium Chloride) 100 mls @ 25 mls/ hr IVPB 0100,0900,1700 [facility] Last Admin: 09/18/17 09:17 Dose: 25 mls/hr Lisinopril (Prinivil Tab*) 5 mg PO DAILY [facility] Last Admin: 09/18/17 08:04 Dose: 5 mg Melatonin (Melatonin (Nf)) 3 mg PO BEDTIME PRN; Protocol PRN Reason: Sleep Multivitamins/Minerals (Theragran/Minerals Tab*) 1 tab PO DAILY [facility] Last Admin: 09/18/17 08:03 Dose: 1 tab Ondansetron HCl (Zofran Inj*) 4 mg IV Q6H PRN PRN Reason: NAUSEA Last Admin: 09/08/17 23:53 Dose: 4 mg Pantoprazole Sodium (Protonix Tab (Nf)) 40 mg PO BID [facility] Last Admin: 09/18/17 08:03 Dose: 40 mg Pharmacy Consult (Zosyn Per Pharmacy*) 1 note FOLLOW UP .ZOSYN PER PHARMACY [facility] Potassium Chloride (Klor Con Er Tab*) 20 meq PO DAILY [facility] Last Admin: 09/18/17 08:03 Dose: 20 meq Thiamine HCl (Vitamin B-1 Tab*) 100 mg PO DAILY [facility] Last Admin: 09/18/17 08:04 Dose: 100 mg Throat Lozenges (Chloraseptic Usama*) 1 usama PO Q2H PRN PRN Reason: SORE THROAT Tramadol HCl (Ultram*) 50 mg PO Q6H PRN PRN Reason: PAIN Last Admin: 09/17/17 02:42 Dose: 50 mg . Vital Signs - 8 hr 09/18/17 09/18/17 09/18/17 04:02 07:48 08:00 Temperature 98.1 F 97.8 F Pulse Rate 76 87 Respiratory 16 18 16 Rate Blood Pressure 103/68 114/77 (mmHg) O2 Sat by Pulse 100 99 Oximetry 09/18/17 09/18/17 08:03 09:00 Temperature Pulse Rate 90 16 Respiratory 94 Rate Blood Pressure (mmHg) O2 Sat by Pulse 91 Oximetry Oxygen Devices in Use Now: None Appearance: mid-aged, NAD, A&Ox3. Eyes: No Scleral Icterus Ears/Nose/Mouth/Throat: Clear Oropharnyx Neck: NL Appearance and Movements; NL JVP Respiratory: Symmetrical Chest Expansion and Respiratory Effort Cardiovascular: NL Sounds; No Murmurs; No JVD Abdominal: NL Sounds; No Tenderness; No Distention, - - minimal RUQ pain -> fairly benign exam Lymphatic: No Cervical Adenopathy Extremities: - - still edematous but less than reported on previous exams Skin: No Rash or Ulcers Neurological: Alert and Oriented x 3 Lines/Tubes/Other Access: Clean, Dry and Intact Peripheral IV Nutrition: Taking PO's Result Diagrams: 09/18/17 09:36 09/18/17 09:36 Additional Lab and Data: Lab Results Assess/Plan/Problems-Billing . Assessment: Mr. Guzman is a 42yo male with a PMH significant for obesity, CHF with EF of 20- 25%, alcohol and tobacco abuse, medical non-compliance who presents with increasing SOB and LE edema in the setting of paroxysms of N/V, found to have Acute CHF exacerbation and Acute Cholecystitis. Current Medications: - Acetaminophen (Tylenol Tab) 650 mg PO Q6H PRN FEVER/PAIN - Albuterol (Ventolin 2.5 Mg/3 Ml Neb.Janay) 2.5 mg INH Q2H PRN SOB/WHEEZING - Aspirin (Aspirin Ec Low Dose) 81 mg PO DAILY [facility] - Carvedilol (Coreg Tab) 3.125 mg PO BID [facility] - Clopidogrel Bisulfate (Plavix Tab) 75 mg PO DAILY [facility] - Digoxin (Lanoxin Tab) 0.125 mg PO DAILY - Docusate Sodium (Colace Cap) 200 mg PO BID - Folic Acid (Folvite Tab) 1 mg PO DAILY - Furosemide (Lasix Iv) 40 mg IV 0800,1500 - Hydrocortisone (Hytone Cream 1%*) 1 applic TOPICAL QID - Hydroxyzine HCl (Atarax Tab) 25 mg PO Q4H PRN itching - Piperacillin Sod/Tazobactam (Sod 3.375 gm/ Sodium Chloride) 100 mls @ 25 mls/ hr IVPB 0100,0900,1700 - Lisinopril (Prinivil Tab) 5 mg PO DAILY - Melatonin (Melatonin) 3 mg PO BEDTIME PRN; Sleep - Multivitamins/Minerals (Theragran/Minerals Tab) 1 tab PO DAILY - Ondansetron HCl (Zofran Inj) 4 mg IV Q6H PRN NAUSEA - Pantoprazole Sodium (Protonix Tab) 40 mg PO BID - Potassium Chloride (Klor Con Er Tab) 20 meq PO DAILY - Thiamine HCl (Vitamin B-1 Tab) 100 mg PO DAILY - Throat Lozenges (Chloraseptic Usama) 1 usama PO Q2H PRN SORE THROAT - Tramadol HCl (Ultram) 50 mg PO Q6H PRN PAIN - Patient Problems (1) Acute cholecystitis Current Visit: Yes Status: Acute Priority: High Code(s): K81.0 - ACUTE CHOLECYSTITIS Comment: - Improving - pain is less intense, tolerating diet, afebrile, with normal white cell count. - HIDA compatible with acute cholecystitis. - Surgery input appreciated - poor surgical candidate due to current cardiac status. Cholecystostomy not indicated at this time as he's improving. - s/p Zosyn 7 days, complete 14 days total (switch to Augmentin as outpatient) (2) Acute systolic CHF (congestive heart failure) Current Visit: Yes Status: Acute Priority: High Code(s): I50.21 - ACUTE SYSTOLIC (CONGESTIVE) HEART FAILURE Comment: - Acute on chronic systolic CHF. - Echo showed EF 20-25% with moderately reduced RV function (worse than prior) - Patient declined ICD implantation. - Continue Coreg, Plavix, Digoxin, Lisinopril, and Aspirin - Continue fluid restriction and aggressive diuresis - has lost almost 20 lbs so far. - oral lasix 40 mg PO daily --> was on 40 IV BID inpatient. - follow up labs within 5 days at [facility]. - needs PCP! He insists on leaving today, and he is medically stable, but I fear follow-up adequacy. I will implore him to establish care with PCP and follow up with criminalist next week. . (3) Alcohol abuse Current Visit: Yes Status: Acute Code(s): F10.10 - ALCOHOL ABUSE, UNCOMPLICATED SNOMED Code(s): 63763909 Comment: - Completed [place] protocol. - Continue Thiamine. - Encouraged Abstinence directly (4) Systolic heart failure secondary to coronary artery disease Current Visit: Yes Status: Acute Priority: High Code(s): I50.20 - UNSPECIFIED SYSTOLIC (CONGESTIVE) HEART FAILURE; I25.10 - ATHSCL HEART DISEASE OF [place] CORONARY ARTERY W/O ANG PCTRS Comment: - multiple coronary stents in past - ischemic cardiomyopathy noted; on multiple important cardiac meds, importance of each will be stressed by me directly. - contributing direct myocardial damage secondary to etoh abuse. Malnutrition and electrolyte challenges with ETOH use doesn't help...stressed all these points to patient and sig other at bedside. still insists on going home, and clearly undertands there are risks with doing so...mainly around non-compliance ; now he promises to be compliant, though I am not sure...tough spot. (5) Thrombocytopenia Current Visit: Yes Status: Acute Code(s): D69.6 - THROMBOCYTOPENIA, UNSPECIFIED SNOMED Code(s): 567935771 Comment: - Platelets stable in 140K range; doubt HIT-II, cancel PF4 Ab which would only be an issue in HIT-I, with much more profound thrombocytopenia relative to her already-low baseline. (6) Marijuana use Current Visit: No Status: Chronic Priority: Medium Code(s): F12.10 - CANNABIS ABUSE, UNCOMPLICATED Comment: - encouraged abstinence. Status and Disposition: Inpatient. Anticipate d/c in 1-2 days to complete 14 days of antibiotics as outpatient.
--- NOTE | 2017-09-20 06:28 | DS ---
CC: Dr. Salazar * DISCHARGE SUMMARY: DATE OF ADMISSION: 09/07/17 DATE OF DISCHARGE: 09/18/17 STATUS DURING HOSPITALIZATION: Inpatient. OUTPATIENT RISK CONTROL ANALYST/CONSULTING RISK CONTROL ANALYST: Dr. Miri Salazar. PRIMARY CARE PHYSICIAN: [facility] phone number [phone] - [phone]. PRINCIPAL DISCHARGE DIAGNOSES: 1. Acute on chronic systolic heart failure with massive fluid retention and substantial diuresis during hospitalization. 2. Medical noncompliance despite multiple appeals overtime for critical medications to be observed. 3. Acute cholecystitis - resolved without surgical intervention. 4. Ongoing alcohol use/abuse. SECONDARY DIAGNOSES: 1. Right bundle branch block. 2. Cardiac catheterization in December 2014 and January 2017 with drug-eluting stents placed in both times. 3. Ischemic cardiomyopathy, ejection fraction 30% with diminishment this hospitalization documented by echocardiogram. 4. Hypertension. 5. Pure hypercholesterolemia. 6. Obesity/morbid obesity. 7. Tobacco use disorder. DISCHARGE MEDICATION REGIMEN: All these medications were prescribed: 1. Augmentin 875 mg by mouth twice daily - 10 days, then stop (for cholecystitis). 2. Aspirin enteric coated 81 mg by mouth daily. 3. Lipitor 20 mg by mouth q.h.s. 4. Carvedilol/Coreg 3.125 mg by mouth twice daily. 5. Clopidogrel/Plavix 75 mg by mouth daily. 6. Digoxin 0.125 mg by mouth daily. 7. Folic acid 1 mg by mouth daily. 8. Lasix 40 mg by mouth daily. 9. Lisinopril 5 mg by mouth daily. 10. Multivitamin with minerals 1 tab by mouth once daily. 11. Potassium chloride 20 mEq by mouth daily. 12. Thiamine B1 100 mg by mouth daily. HISTORY OF PRESENT ILLNESS AND HOSPITAL COURSE: Please see the H and P by Dr. Chip Bourgeois on 09/07/17 in the late evening as well as the cardiology consultation and surgical consultations on subsequent days. The cardiology consultation was by Dr. Miri Salazar who knows the patient from the outpatient setting. In brief, Mr. Guzman is a morbidly obese white man, who came to the emergency room with bilateral lower extremity swelling and cramping, abdominal swelling, and shortness of breath over the preceding months. The patient admitted to medication nonadherence and dietary sodium indiscretion eating out daily and high-salt containing foods, in particular. The patient was prescribed furosemide with a previous ED visit in July, but he stopped taking it. He stopped taking other medications that were deemed critical because of nauseousness and vomiting. He did not coordinate his cessation of these medications with any medical authority. The patient was admitted to the hospital and aggressively diuresed. He was started on telemetry monitoring. His troponins were trended. He did not rule in for myocardial infarction. The patient was monitored with daily weights, and an echo-cardiogram was done to assess his ejection fraction. In particular , his echocardiogram demonstrated LVEF severely reduced now 20% to 25% down from 30%. The mitral regurgitation was mild instead of trace. The left atrium was still mildly dilated. The right atrium [id number] dilated with mild dilatation of the patient's aortic arch. The patient was seen in consultation by Dr. Miri Salazar of Cardiology, who agreed that compliance is a major issue at this point. He was reinitiated on low-dose beta dustin, low-dose THOMAS, and low-dose Lasix. Digoxin was added for a severe cardiomyopathy and he was watched very closely for electrolytes and renal function. Dr. Salazar had a karl discussion about ventricular arrhythmia, sudden , myocardial infarction, in-stent restenosis (given he had stopped his medications for 2 months). There was a recommendation for ICD implantation but the patient clearly declined. I myself made the same recommendation, making the patient aware of risks and benefits associated with this therapy and the patient declined my request as well. The patient was given smoking cessation counseling by me along with alcohol cessation counseling , and the patient accepted these recommendations. During the hospitalization, the patient described right upper quadrant abdominal pain and right upper quadrant ultrasound was done which showed ascites and cholelithiasis with gallbladder wall thickening. He proceeded with a HIDA scan which showed no tracer in the gallbladder consistent with cystic duct dysfunction/swelling/ infection - the patient was diagnosed with cholecystitis and seen by Surgery, although given his cardiac state was treated medically with antibiotics. He defervesced with a downward trending of his LFTs. He resolved with respect to this problem by the point of admission and I continued antibiotics for a couple of days after admission with instructions to follow up with a primary care doctor and back to the emergency room if he had any worrisome problems. He should be reevaluated when he is optimized from a cardiac standpoint, although I am not sure the patient's outpatient compliance will change given his answers to my appeals for compliance. The patient is stable for discharge at this time. He is eager for discharge. This was the first day I met him following a 10-day hospitalization, so I did my best to review all of the major medical problems and I reviewed them with the patient as best I could. The patient is accompanied by his female significant other who agrees to help him with med compliance and I implored them both to call the hospital back and ask for me in particular if he has any problems filling his medications. All medications were transcribed electronically to his outpatient pharmacy and I spoke directly with the pharmacist to ensure these medications were received. TIME SPENT: Total time taken to discharge Mr. Guzman was 60 minutes, greater than half that time was spent going over the discharge instructions face-to- face with the patient and speaking with him and his significant other. [id number]/CPS #: [id number] MTDD
== END 2017-09-18 13:15 | disposition home or self-care (01) | DRG 194 ==
LOC: ED 16:37 → MED 23:01
PROVIDERS: ADMIT Hospitalist; ATTEND Internal Medicine
DX: I11.0 Hypertensive heart disease with heart failure (principal); R18.8 Other ascites; D69.6 Thrombocytopenia, unspecified; E66.01 Morbid (severe) obesity due to excess calories; K80.01 Calculus of gallbladder with acute cholecystitis with obstruction; Z68.41 Body mass index [BMI] 40.0-44.9, adult; I25.10 Atherosclerotic heart disease of native coronary artery without angina pectoris; I25.5 Ischemic cardiomyopathy; E78.00 Pure hypercholesterolemia, unspecified; F17.210 Nicotine dependence, cigarettes, uncomplicated; F12.90 Cannabis use, unspecified, uncomplicated; I50.23 Acute on chronic systolic (congestive) heart failure; M19.90 Unspecified osteoarthritis, unspecified site; E80.6 Other disorders of bilirubin metabolism; F10.10 Alcohol abuse, uncomplicated; L29.9 Pruritus, unspecified; I34.0 Nonrheumatic mitral (valve) insufficiency; Z56.0 Unemployment, unspecified; Z79.82 Long term (current) use of aspirin; Z79.02 Long term (current) use of antithrombotics/antiplatelets; I25.2 Old myocardial infarction; Z95.5 Presence of coronary angioplasty implant and graft; Z91.11 Patient's noncompliance with dietary regimen; Z91.14 Patient's other noncompliance with medication regimen; Z83.3 Family history of diabetes mellitus; Z82.49 Family history of ischemic heart disease and other diseases of the circulatory system
CPT/HCPCS: 36415; 71010; 74177; 76700; 78226; 80048; 80053; 81003; 81015; 82247; 82248; 82550; 82553; 83036; 83605; 83690; 83735; 83880; 84436; 84443; 84484; 85025; 85610; 85730; 93005; 93306; 99211; A9270-GY; A9537; C8929; G0463; J0696; J1200; J1644; J1940; J2405; J2543; J2997; J3411; Q9967

== ENCOUNTER 2017-10-30 20:33 | Emergency (ER) | payer BC ==
[2017-10-30 21:30] VITALS: BP 0/0
--- NOTE | 2017-10-31 05:29 | ED ---
Ignacio Rico Tecjoon, scribed for Joaquim Daniel MD on 10/30/17 at 2108 . Complex/Multi-Sys Presentation - HPI Summary HPI Summary: This patient is a 42 year old male presenting to [facility] accompanied by with a chief complaint of prescription refill since 10 days or so. Doctor put patient on several medications, but the pharmacy did not refill medication because of problems with his insurance. Other than chief complaint, patient has no other complaints and no significant symptoms, apart from mild pedal edema - History Of Current Complaint Chief Complaint: EDPrescriptionNeeded Time Seen by Provider: 10/30/17 21:01 Hx Obtained From: Patient Onset/Duration: Still Present Timing: Constant Severity Currently: None - Allergies/Home Medications Allergies/Adverse Reactions: Allergies Allergy/AdvReac Type Severity Reaction Status Date / Time No Known Allergies Allergy Verified 09/07/17 23:04 PMH/Surg Hx/FS Hx/Imm Hx Previously Healthy: No Endocrine/Hematology History: Denies: Hx Diabetes Cardiovascular History: Reports: Hx Angina, Hx Cardiac Arrest, Hx Congestive Heart Failure, Hx Coronary Artery Disease, Hx Hypercholesterolemia, Hx Hypertension - W/MEDS PER PT.HASN'T TAKEN MEDS IN QUITE A WHILE, Hx Myocardial Infarction - 2009 Respiratory History: Denies: Hx Asthma, Hx Chronic Obstructive Pulmonary Disease (COPD) GI History: Reports: Hx Hiatal Hernia - maybe History: Denies: Hx Renal Disease Musculoskeletal History: Reports: Hx Arthritis, Hx Back Problems, Hx Orthopedic Injury - R arm, right ankle Sensory History: Denies: Hx Contacts or Glasses, Hx Hearing Aid Opthamlomology History: Denies: Hx Contacts or Glasses Neurological History: Denies: Hx Spinal Cord Injury Psychiatric History: Reports: Hx Depression, Hx Substance Abuse - ETOH - Surgical History Surgery Procedure, Year, and Place: appendectomy, left thumb reattached, left zygomatic bone and occipital bone fractured, repaired. - Immunization History Date of Tetanus Vaccine: 2010 Infectious Disease History: No Infectious Disease History: Denies: Traveled Outside the [place] in Last 30 Days - Family History Known Family History: Positive: Cardiac Disease - early [place], Other - Social History Alcohol Use: states he quit recently Substance Use Type: Reports: Marijuana Substance Use Comment - Amount & Last Used: 07/27/2014 Hx Tobacco Use: Yes Smoking Status (MU): Former Smoker Type: Cigarettes Amount Used/How Often: 1 can a day Length of Time of Smoking/Using Tobacco: 22 years Have You Smoked in the Last Year: No Review of Systems Negative: Fever Negative: Chest Pain Negative: Shortness Of Breath, Cough Negative: Vomiting Positive: Other - lower extremity edema Negative: Headache, Weakness All Other Systems Reviewed And Are Negative: Yes Physical Exam - Summary Physical Exam Summary: Appearance: Well appearing, no pain distress Skin: warm, dry, reflects adequate perfusion Head/face: normal Eyes: EOMI, RUSSELL ENT: normal Neck: supple, non-tender Respiratory: CTA, breath sounds present Cardiovascular: RRR, pulses symmetrical Abdomen: non-tender, soft Bowel: present Musculoskeletal: 1+ lower extremity edema Neuro: normal, sensory motor intact, A&Ox3 Triage Information Reviewed: Yes Vital Signs On Initial Exam: Initial Vitals Temp Pulse Resp BP Pulse Ox 98.3 F 100 16 141/99 99 10/30/17 20:35 10/30/17 20:35 10/30/17 20:35 10/30/17 20:35 10/30/17 20:35 Vital Signs Reviewed: Yes Diagnostics - Vital Signs Vital Signs Temp Pulse Resp BP Pulse Ox 10/30/17 20:35 98.3 F 100 16 141/99 99 - Laboratory Lab Statement: Any lab studies that have been ordered have been reviewed, and results considered in the medical decision making process. Complex Multi-Symp Course/Dx Course Of Treatment: pt unable to refill meds he was Rx out of hospital ~1mo ago. Hasnt been able to get PMD appt. All non-narcotic, non-controlled. All meds refilled. - Diagnoses Provider Diagnoses: Chronic congestive heart failure, Medication refill Discharge - Discharge Plan Condition: Good Disposition: HOME Prescriptions: Aspirin EC Low Dose* [Ecotrin EC Low Dose 81 MG*] 81 mg PO DAILY #30 tab.ec Atorvastatin* [Lipitor 20 MG*] 20 mg PO 1700 #30 tab Carvedilol TAB* [Coreg TAB*] 3.125 mg PO BID #60 tab Clopidogrel TAB* [Plavix TAB*] 75 mg PO DAILY #30 tab Digoxin TAB* [Lanoxin TAB*] 0.125 mg PO DAILY #30 tab Folic Acid TAB* [Folvite TAB*] 1 mg PO DAILY #30 tab Furosemide TAB* [Lasix TAB*] 40 mg PO DAILY #30 tab Lisinopril TAB* [Prinivil TAB 5 MG*] 5 mg PO DAILY #30 tab Multivitamins/Minerals TAB* [Theragran/minerals TAB*] 1 tab PO DAILY #30 tab Potassium Chlor TAB* [Potassium Chlor TAB 20 MEQ*] 20 meq PO DAILY #30 tab.er Thiamine TAB* [Vitamin B-1 TAB 100 MG*] 100 mg PO DAILY #30 tab Patient Education Materials: Medicine Refill (ED) Referrals: [facility] [Outside] Additional Instructions: You must be seen by a primary care doctor. Call the referral line. Return if worse, new symptoms or other concerns. The documentation as recorded by the Ignacio brice Tecjoon accurately reflects the service I personally performed and the decisions made by me, Joaquim Daniel MD.
== END 2017-10-30 21:28 | disposition home or self-care (01) ==
LOC: ED 20:33
DX: I50.23 Acute on chronic systolic (congestive) heart failure (principal); Z76.0 Encounter for issue of repeat prescription
CPT/HCPCS: 99281

== ENCOUNTER 2018-04-18 18:27 | Inpatient (IN) | payer BC ==
[2018-04-18 19:07] LABS: Hematocrit 42 % (42-52); Hemoglobin 14.1 g/dl (14.0-18.0); Mean Corpuscular HGB Conc 34 g/dl (31-36); Mean Corpuscular Hemoglobin 32 pg (27-31); Mean Corpuscular Volume 94 fL (80-94); Mean Platelet Volume 11.6 um3 (7.4-10.4); Platelet Count 171 10^3/ul (150-450); Red Cell Distribution Width 13 % (10.5-15); White Blood Count 10.1 10^3/ul (3.5-10.8)
[2018-04-18 19:08] LABS: ABS Basophils 0.1 10^3/ul (0-0.2); ABS Eosinophils 0.1 10^3/ul (0-0.6); ABS Lymphocytes 1.6 10^3/ul (1.0-4.8); ABS Neutrophils 7.3 10^3/ul (1.5-7.7); ABS Nucleated RBC 0 10^3/ul
[2018-04-18 19:24] LABS: EGFR Non-African American 64.8 (>60)
[2018-04-18] MEDS ORDERED: Diltiazem IV VIAL* 5 MG/ML 10 ML VIAL IV SLOW PU ONE (19:37)
--- NOTE | 2018-04-18 19:39 | RAD ---
INDICATION: Short of breath COMPARISON: September 07, 2017 TECHNIQUE: PA and lateral dual-energy views were obtained. FINDINGS: Bones/Soft Tissues: There are no acute bony findings. Cardiomediastinal: The cardiomediastinal silhouette is mildly enlarged. The central pulmonary vessels are prominent. There is likely a component of mild vascular congestion. Lungs: There are no infiltrates. Pleura: There are no pleural effusions. Other: None IMPRESSION: SUSPECT MILD VASCULAR CONGESTION.
[2018-04-18] MEDS ORDERED: Diltiazem DRIP* 100 MG/100 ML ADDV.BAG IVPB SCH (20:00)
--- NOTE | 2018-04-18 20:19 | ED ---
Shortness of Breath - HPI Summary HPI Summary: Complains of acute on chronic SOB worse in the past 3-4 days with associated chest squeezing, nausea, diaphoresis and sensation of "throat pressure". SOB described as intermittent, worse with exertion and lying flat. States history of PNA 3-1/2 weeks ago, with sx clearing after course of doxycycline. Complains of abdominal pain, states last time he felt this way he was admitted for some unknown abdominal dilated diagnosis with multiple courses of IV antibiotics. No history of this on file. Patient also complains of chronic N/ V daily times months. Denies active CP or SOB here in the ED now. Also denies fever, cough, sore throat, V/D, change in urinary BM. Medical history COPD, CHF , A. fib, CO with 5 stents, HTN. Last stress test unknown. Abdominal/pelvic surgical history is appendectomy. Nonsmoker. States Daily EtOH. Denies illegal stimulants, energy drinks. On Plavix - History of Current Complaint Chief Complaint: EDShortnessOfBreath Time Seen by Provider: 04/18/18 18:53 Hx Obtained From: Patient Onset/Duration: Gradual Onset Timing: Intermittent Episodes Lasting: Current Severity: Moderate Dyspnea At: Orthopena Alleviating Factors: Upright Position Associated Signs & Symptoms: Chest Pain Unrelated to Cough, Diaphoresis - Allergy/Home Medications Allergies/Adverse Reactions: Allergies Allergy/AdvReac Type Severity Reaction Status Date / Time No Known Allergies Allergy Verified 04/18/18 18:37 Home Medications: Home Medications Aspirin EC TAB* [Ecotrin EC Low Dose 81 MG*] 81 mg PO DAILY 04/18/18 [History Confirmed 04/18/18] Atorvastatin* [Lipitor*] 40 mg PO DAILY 04/18/18 [History Confirmed 04/18/18] Carvedilol TAB* [Coreg TAB*] 3.125 mg PO DAILY 04/18/18 [History Confirmed 04/18] Clopidogrel TAB* [Plavix TAB*] 75 mg PO DAILY 04/18/18 [History Confirmed ] Digoxin TAB* [Lanoxin TAB*] 0.125 mg PO DAILY 04/18/18 [History Confirmed ] Folic Acid TAB* [Folvite TAB*] 1 mg PO DAILY 04/18/18 [History Confirmed ] Furosemide TAB* [Lasix TAB*] 40 mg PO DAILY 04/18/18 [History Confirmed 04/18/18 ] Lisinopril TAB* [Prinivil TAB*] 5 mg PO DAILY 04/18/18 [History Confirmed ] Multivitamins/Minerals TAB* [Theragran/minerals TAB*] 1 tab PO DAILY 04/18/18 [ History Confirmed 04/18/18] Potassium Chlor TAB* [Klor Con ER TAB*] 20 meq PO DAILY 04/18/18 [History Confirmed 04/18/18] PMH/Surg Hx/FS Hx/Imm Hx Endocrine/Hematology History: Denies: Hx Diabetes Cardiovascular History: Reports: Hx Angina, Hx Cardiac Arrest, Hx Congestive Heart Failure, Hx Coronary Artery Disease, Hx Hypercholesterolemia, Hx Hypertension - W/MEDS PER PT.HASN'T TAKEN MEDS IN QUITE A WHILE, Hx Myocardial Infarction - 2009 Respiratory History: Denies: Hx Asthma, Hx Chronic Obstructive Pulmonary Disease (COPD) GI History: Reports: Hx Hiatal Hernia - maybe History: Denies: Hx Renal Disease Musculoskeletal History: Reports: Hx Arthritis, Hx Back Problems, Hx Orthopedic Injury - R arm, right ankle Sensory History: Denies: Hx Contacts or Glasses, Hx Hearing Aid Opthamlomology History: Denies: Hx Contacts or Glasses Neurological History: Denies: Hx Spinal Cord Injury Psychiatric History: Reports: Hx Depression, Hx Substance Abuse - ETOH - Surgical History Surgery Procedure, Year, and Place: appendectomy, left thumb reattached, left zygomatic bone and occipital bone fractured, repaired. - Immunization History Date of Tetanus Vaccine: 2010 Infectious Disease History: No Infectious Disease History: Denies: Traveled Outside the US in Last 30 Days - Family History Known Family History: Positive: Cardiac Disease - early [place], Other - Social History Alcohol Use: Occasionally Alcohol Amount: 6-8 beers a week states "all in one night" Substance Use Type: Reports: Marijuana Substance Use Comment - Amount & Last Used: 07/27/2014 Hx Tobacco Use: Yes Smoking Status (MU): Former Smoker Type: Cigarettes Amount Used/How Often: 1 can a day Length of Time of Smoking/Using Tobacco: 22 years Have You Smoked in the Last Year: No Review of Systems Positive: Skin Diaphoresis Eyes: Negative Positive: Sore Throat Positive: Chest Pain Positive: Shortness Of Breath Positive: Abdominal Pain, Nausea Genitourinary: Negative Musculoskeletal: Negative Skin: Negative Neurological: Negative Psychological: Normal All Other Systems Reviewed And Are Negative: Yes Physical Exam Triage Information Reviewed: Yes Vital Signs On Initial Exam: Initial Vitals Temp Pulse Resp BP Pulse Ox 97.8 F 110 28 142/99 100 04/18/18 18:29 04/18/18 18:29 04/18/18 18:29 04/18/18 18:29 04/18/18 18:29 Vital Signs Reviewed: Yes Appearance: Positive: Well-Appearing Skin: Positive: Warm Head/Face: Positive: Normal Head/Face Inspection Eyes: Positive: Normal ENT: Positive: Normal ENT inspection Neck: Positive: Supple Respiratory/Lung Sounds: Positive: Clear to Auscultation Cardiovascular: Positive: IRR Abdomen Description: Positive: Nontender Musculoskeletal: Positive: Normal Neurological: Positive: Normal Psychiatric: Positive: Normal AVPU Assessment: Alert - Leonardo Coma Scale Best Eye Response: 4 - Spontaneous Best Motor Response: 6 - Obeys Commands Best Verbal Response: 5 - Oriented Coma Scale Total: 15 Diagnostics - Vital Signs Vital Signs Temp Pulse Resp BP Pulse Ox 04/18/18 20:01 113 38 108/86 96 04/18/18 20:00 117 34 96 04/18/18 19:54 125 30 137/103 99 04/18/18 19:45 123 18 126/96 98 04/18/18 19:17 129 120/95 100 04/18/18 19:00 208 23 100 04/18/18 18:45 136 35 135/104 100 04/18/18 18:29 97.8 F 110 28 142/99 100 - Laboratory Lab Results: Lab Results 04/18/18 04/18/18 04/18/18 Range/Units 18:51 18:51 18:51 WBC 10.1 (3.5-10.8) 10^3/ul RBC 4.40 (4.00-5.40) 10^6/ul Hgb 14.1 (14.0-18.0) g/dl Hct 42 (42-52) % MCV 94 (80-94) fL MCH 32 H (27-31) pg MCHC 34 (31-36) g/dl RDW 13 (10.5-15) % Plt Count 171 (150-450) 10^3/ul MPV 11.6 H (7.4-10.4) um3 Neut % (Auto) Pending Lymph % (Auto) Pending [place] % (Auto) Pending Eos % (Auto) Pending Baso % (Auto) Pending Absolute Neuts (auto) 7.3 (1.5-7.7) 10^3/ul Absolute Lymphs (auto) 1.6 (1.0-4.8) 10^3/ul Absolute Monos (auto) 1.0 H (0-0.8) 10^3/ul Absolute Eos (auto) 0.1 (0-0.6) 10^3/ul Absolute Basos (auto) 0.1 (0-0.2) 10^3/ul Absolute Nucleated RBC 0 10^3/ul Nucleated RBC % Pending Sodium 139 (135-145) mmol/L Potassium 4.0 (3.5-5.0) mmol/L Chloride 105 (101-111) mmol/L Carbon Dioxide 24 (22-32) mmol/L Anion Gap 10 (2-11) mmol/L BUN 14 (6-24) mg/dL Creatinine 1.23 H (0.67-1.17) mg/dL Est GFR ( Amer) 78.5 (>60) Est GFR (Non-Af Amer) 64.8 (>60) BUN/Creatinine Ratio 11.4 (8-20) Glucose 111 H (70-100) mg/dL Lactic Acid 2.1 H* (0.5-2.0) mmol/L Calcium 9.1 (8.6-10.3) mg/dL Total Bilirubin 1.00 (0.2-1.0) mg/dL AST 32 (13-39) U/L ALT 53 H (7-52) U/L Alkaline Phosphatase 91 (34-104) U/L Troponin I 0.03 (<0.04) ng/mL B-Natriuretic Peptide ( - 100) pg/mL Total Protein 6.8 (6.4-8.9) g/dL Albumin 4.2 (3.2-5.2) g/dL Globulin 2.6 (2-4) g/dL Albumin/Globulin Ratio 1.6 (1-3) /16/18 Range/Units 18:51 WBC (3.5-10.8) 10^3/ul RBC (4.00-5.40) 10^6/ul Hgb (14.0-18.0) g/dl Hct (42-52) % MCV (80-94) fL MCH (27-31) pg MCHC (31-36) g/dl RDW (10.5-15) % Plt Count (150-450) 10^3/ul MPV (7.4-10.4) um3 Neut % (Auto) Lymph % (Auto) [place] % (Auto) Eos % (Auto) Baso % (Auto) Absolute Neuts (auto) (1.5-7.7) 10^3/ul Absolute Lymphs (auto) (1.0-4.8) 10^3/ul Absolute Monos (auto) (0-0.8) 10^3/ul Absolute Eos (auto) (0-0.6) 10^3/ul Absolute Basos (auto) (0-0.2) 10^3/ul Absolute Nucleated RBC 10^3/ul Nucleated RBC % Sodium (135-145) mmol/L Potassium (3.5-5.0) mmol/L Chloride (101-111) mmol/L Carbon Dioxide (22-32) mmol/L Anion Gap (2-11) mmol/L BUN (6-24) mg/dL Creatinine (0.67-1.17) mg/dL Est GFR ( Amer) (>60) Est GFR (Non-Af Amer) (>60) BUN/Creatinine Ratio (8-20) Glucose (70-100) mg/dL Lactic Acid (0.5-2.0) mmol/L Calcium (8.6-10.3) mg/dL Total Bilirubin (0.2-1.0) mg/dL AST (13-39) U/L ALT (7-52) U/L Alkaline Phosphatase (34-104) U/L Troponin I (<0.04) ng/mL B-Natriuretic Peptide 361 H ( - 100) pg/mL Total Protein (6.4-8.9) g/dL Albumin (3.2-5.2) g/dL Globulin (2-4) g/dL Albumin/Globulin Ratio (1-3) Result Diagrams: 04/18/18 18:51 04/18/18 18:51 Lab Statement: Any lab studies that have been ordered have been reviewed, and results considered in the medical decision making process. - Radiology cxr Xray Interpretation: Positive (See Comments) - Mild vascular congestion Radiology Interpretation Completed By: Radiologist - EKG 1 Cardiac Rate: Tachycardia EKG Rhythm: Atrial Fibrillation ST Segment: Non-Specific Ectopy: None Re-Evaluation - Re-Evaluation 1 Re-Evaluation Time: 20:27 Comment: Heart rate was fluctuating 115-130, now down to 80bpm after Cardizem bolus 20 MG IV, and Cardizem 10 mg per hour drip. Course/Dx - Course Course Of Treatment: Complains of acute on chronic SOB worse in the past 3-4 days with associated chest squeezing, nausea, diaphoresis and sensation of "throat pressure". SOB described as intermittent, worse with exertion and lying flat. States history of PNA 3-1/2 weeks ago, with sx clearing after course of doxycycline. Complains of abdominal pain, states last time he felt this way he was admitted for some unknown abdominal dilated diagnosis with multiple courses of IV antibiotics. No history of this on file. Patient also complains of chronic N/V daily times months. Denies active CP or SOB here in the ED now. Also denies fever, cough, sore throat, V/D, change in urinary BM. Medical history COPD, CHF, A. fib, CO with 5 stents, HTN. Last stress test unknown. Abdominal/pelvic surgical history is appendectomy. Nonsmoker. States Daily EtOH. Denies illegal stimulants, energy drinks. On Plavix. Elevated lactic acid. Elevated BNP mild congestion on chest x-ray. A. fib rate controlled with diltiazem IV bolus of 20 mg, and 10 mg per hour drip. Patient states he feels much improved after rate control. Discussed patient with hospitalist. - Diagnoses Provider Diagnoses: Atrial fibrillation, CHF (congestive heart failure) - Physician Notifications Discussed Care of Patient With: Betina Fernandez Discharge - Sign-Out/Discharge Documenting (check all that apply): Patient Departure - Discharge Plan Condition: Stable Disposition: ADMITTED TO [facility] Referrals: No Primary Care Phys,NOPCP [Primary Care Provider] - - Billing Disposition and Condition Condition: STABLE Disposition: Admitted to [facility]
[2018-04-18 20:27] LABS: Lymphocyte % 16.3 % (25-47); Nucleated Red Blood Cells % 0.1
[2018-04-18] MEDS ORDERED: Iodixanol* (CONTRAST) 320 MG/ML 100 ML SDV IV ONE (20:38)
[2018-04-18] MEDS ORDERED: Acetaminophen TAB* 325 MG PO PRN (22:26)
[2018-04-18] MEDS ORDERED: Furosemide IV* 10 MG/ML 2 ML VIAL (20 MG) IV ONE (22:32)
[2018-04-18] MEDS ORDERED: Metoprolol Tartrate IV* 1 MG/ML 5 ML VIAL IV PRN (22:33)
[2018-04-18] MEDS ORDERED: Thiamine IV* 100 MG/ML 2 ML VIAL IM ONE (23:01)
[2018-04-18] MEDS ORDERED: Al Hydrox/Mg Hydrox/Simet LIQ* 30 ML UDC PO PRN (23:08)
[2018-04-18] MEDS: Heparin VIAL(*) 5000 UNITS/ML VIAL (FIVE THOUSAND) SUBCUT SCH (23:33)
[2018-04-18] MEDS: Carvedilol TAB* 3.125 MG PO SCH (23:33)
[2018-04-18] MEDS: LORazepam TAB(*) 1 MG PO SCH (23:55)
[2018-04-19] MEDS: LORazepam TAB(*) 1 MG PO SCH (02:17)
--- NOTE | 2018-04-19 04:23 | HP ---
CC: Dr. Azar; Dr. Stallworth * HISTORY AND PHYSICAL: DATE OF ADMISSION: 04/18/18 PROVIDER: Jadyn Salvador NP. ATTENDING PHYSICIAN: Dr. Betina Fernandez * (dictated by Jadyn Salvador NP). CHIEF COMPLAINT: 1. Shortness of breath. 2. Swelling. HISTORY OF PRESENT ILLNESS: Mr. Guzman is 43-year-old gentleman with past medical history significant for coronary artery disease, DE with stenting, hypertension, ischemic cardiomyopathy with an EF of 20-25% (09/19), hyperlipidemia, obesity, and atrial fibrillation, who presented to the emergency room with increased swelling in his stomach and lower extremities x3- 4 days, increased shortness of breath x3-4 days which is progressively getting worse. He also complains of vomiting that was progressively worse over the past 3 to 4 days; he states it is clear secretions, no food and that he is able to eat meals without difficulty. He does report orthopnea, has been sleeping on 3 to 4 pillows at night and normally sleeps on 2. Due to his increased shortness of breath, he presented to the emergency room for further evaluation. While in the emergency room, he had routine lab work drawn. His BNP was mildly elevated at 361. His troponin was negative at 0.03. The patient denies any fever or chills. Denies any chest pain. He does report bilateral lower extremity edema and swelling to the abdomen and weight gain. He does report productive cough x2 weeks with clear secretions. He does report increased shortness of breath over the past 3 to 4 days. He does report vomiting that has been consistent for 3 months, but worse over the last 3 to 4 days. Denies any diarrhea. Does report abdominal pressure and tightness. Denies any hematuria or dysuria. He also does report some constipation. Denies any focal weakness, sensory loss. Denies any visual complaints. Denies any dysphagia. Denies any arthralgias or myalgias. Denies any rashes or lesions. Denies any psychosis or anxiety. He also reports non compliance with his medications. States that he has missed doses of lasix and other medications. He does report that these symptoms are similar to his previous episodes of congestive heart failure, so he presented to the emergency room for further evaluation. PAST MEDICAL HISTORY: Significant for: 1. Coronary artery disease. 2. DE with stenting. 3. Hypertension. 4. Ischemic cardiomyopathy with EF of 20-25%. 5. Hyperlipidemia. 6. Obesity. 7. Atrial fibrillation. PAST SURGICAL HISTORY: 1. Appendectomy. 2. Cardiac stent placement x5. MEDICATIONS: Home medications include: 1. Aspirin 81 mg p.o. daily. 2. Lipitor 40 mg p.o. daily. 3. Lisinopril 5 mg p.o. daily. 4. Lasix 40 mg p.o. daily. 5. Multivitamin one tablet p.o. daily. 6. Carvedilol 3.125 mg p.o. daily. 7. Potassium 20 mEq p.o. daily. 8. Folic acid 1 mg p.o. daily. 9. Digoxin 0.125 mg p.o. daily. 10. Clopidogrel 75 mg p.o. daily. ALLERGIES: Has no known drug allergies. FAMILY HISTORY: Father with a history of cardiomyopathy, grandmother with a history of an DE in her 80s, diabetes, mother who in her mid 60s of unknown cause, suspected diabetes. No reported history of cancer within the family. SOCIAL HISTORY: Patient quit smoking in January 2017, prior to that he smoked for 22 years, 2 packs per day. He does report daily alcohol use, between 6 and 30 beers per day. He also reports marijuana use. He is disabled. He is single. Surrogate decision maker in the event he is unable to make his own decisions is his cousin, Gabriela. Her phone number is [phone]. He is a full code. REVIEW OF SYSTEMS: There was no documented fever. There has been no significant weight change. There was no double vision. There was no ear drainage. Denies any rhinorrhea. Denies any sore throat. No fever or chills. Denies any chest pain. He does report bilateral lower extremity edema and swelling to his abdomen. He does report productive cough x2 weeks of clear secretions. Denies any hemoptysis. He does report increased shortness of breath , progressively worsening over the past 3 to 4 days and nocturnal dyspnea and orthopnea requiring him to sleep on 3 to 4 pillows instead of 2 pillows at night. He denies any nausea, does report some vomiting of clear secretions that has progressively worsened over the past 3 months, more so on the last 3 to 4 days. Denies any diarrhea. He does report constipation. He does report abdominal pressure. Denies any hematuria, dysuria. Denies any focal weakness or sensory loss. Denies any visual complaints. Denies any dysphagia. Denies any arthralgias or myalgias. Denies any rashes or lesions. Denies any psychosis or anxiety. PHYSICAL EXAMINATION GENERAL: At this time, Mr. Guzman is a 43-year-old male, he appears in no acute distress, sitting on the stretcher in the emergency room. VITAL SIGNS: Blood pressure is 114/89, heart rate is 98, respirations are 18, O2 saturation 97% on room air, temperature was 99.2. HEENT: Head is atraumatic, normocephalic. Eyes: EOMs are intact. Sclerae anicteric and not pale. Oral mucosa appears to be moist. NECK: Supple. LUNGS: Diminished bilaterally. There are no wheezes, rales, or rhonchi. CARDIAC: S1, S2. Irregular rate. There are no rubs or gallops. ABDOMEN: Obese, nontender, soft. Bowel sounds are present x4. EXTREMITIES: Pulses are +2 throughout. He has got +1 pitting edema to bilateral lower extremities. He is able to move all 4 extremities and 5/5 strength. NEUROLOGIC: He is awake, alert, and oriented x3. Speech is clear. There is no gross focal deficit. SKIN: Intact. DIAGNOSTIC STUDIES AND LABORATORY DATA: WBCs are 10.1, RBCs 4.40, hemoglobin is 14.1, hematocrit was 42, platelet count was 171. Sodium 139, potassium 4.0, chloride 105, carbon dioxide was 24, anion gap was 10. BUN was 14, creatinine 1.23 which appears to be slightly lower than his baseline. Glucose is 111. Lactic acid was 2.1. Calcium was 9.1. Magnesium is currently pending. ALTs were 53, ASTs were 32. Troponin was 0.03. BNP was 361. Lipase was 20. Digoxin level was also currently pending. EKG shows atrial fibrillation at a rate of 119. Chest x-ray, radiologist impression, suspected mild vascular congestion. CT of the abdomen and pelvis is pending. ASSESSMENT AND PLAN: Mr. Guzman is a 43-year-old gentleman that presented to the emergency room today with complaints of increased shortness of breath and swelling. We were asked to see and evaluate him due to his congestive heart failure, tachycardia, and increased swelling. He will be admitted under observation status for: 1. Shortness of breath. I suspect this is related to congestive heart failure as the patient reports the need to sleep up on 3 to 4 pillows, increased shortness of breath and increased lower extremity swelling, weight gain, along with abdominal swelling. He also has an elevated BNP at 361. I will give him a dose of Lasix 20 mg IV x1. We will continue his daily Lasix at 40 mg p.o. daily. I will add strict I's and O's and daily weight. He does report he was recently treated for pneumonia with doxycycline and finished a full course of antibiotics. The chest x-ray does not show any signs of infiltrate. I suspect his swelling is related to the congestive heart failure as the patient does have ischemic cardiomyopathy with an EF of 20 to 25%. 2. Atrial fibrillation. He was on Cardizem in the emergency room; this was stopped. We will continue him on his Coreg. He does report some noncompliance with his Coreg. We will continue his digoxin. I will add digoxin level to the lab work, we will give him Lopressor 5 mg q. 6 hours as needed for heart rate greater than 120. We will continue him on Plavix 75 mg p.o. daily. 3. Hypertension. We will continue him on lisinopril 5 mg p.o. daily. 4. Hyperlipidemia. We will continue him on atorvastatin 40 mg p.o. daily. This is an increased dose that he was instructed to start today. 5. Alcohol abuse. The patient will be placed on WA protocol and monitor for withdrawal symptoms as he does report drinking 6 to 30 beers daily. 6. FEN. He will be placed on a heart-healthy, decaf okay diet. 7. Code status. He is a full code. 8. DVT prophylaxis. I will place him on heparin. 9. Disposition. He will be placed on observation. TIME SPENT: Time spent on this admission was approximately 60 minutes, greater than half the time was spent [id number] with the patient obtaining my history and physical, the other half the time was spent going over my plan of care and implementing my plan of care. I have discussed this with my attending, Dr. Betina Fernandez; she is in agreement with my plan. JADYN SALVADOR, [employer] [id number]/[facility] #: [id number] [facility] HOSPITALKobe
[2018-04-19] MEDS: Heparin VIAL(*) 5000 UNITS/ML VIAL (FIVE THOUSAND) SUBCUT SCH ×3 (05:24→22:15)
[2018-04-19 06:07] LABS: ABS Basophils 0.1 10^3/ul (0-0.2); ABS Eosinophils 0.1 10^3/ul (0-0.6); ABS Lymphocytes 1.8 10^3/ul (1.0-4.8); ABS Neutrophils 6.4 10^3/ul (1.5-7.7); ABS Nucleated RBC 0 10^3/ul; Eosinophil % 1.3 % (0-6); Hematocrit 39 % (42-52); Hemoglobin 13.3 g/dl (14.0-18.0); Lymphocyte % 18.6 % (25-47); Mean Corpuscular HGB Conc 34 g/dl (31-36); Mean Corpuscular Hemoglobin 32 pg (27-31); Mean Corpuscular Volume 94 fL (80-94); Mean Platelet Volume 11.4 um3 (7.4-10.4); Nucleated Red Blood Cells % 0; Platelet Count 153 10^3/ul (150-450); Red Blood Count 4.14 10^6/ul (4.00-5.40); Red Cell Distribution Width 13 % (10.5-15); White Blood Count 9.4 10^3/ul (3.5-10.8)
[2018-04-19 06:25] LABS: EGFR Non-African American 68.7 (>60)
--- NOTE | 2018-04-19 07:52 | RAD ---
INDICATION: Abdominal bloating. Post appendectomy. Cardiac disease. COMPARISON: September 07, 2017 TECHNIQUE: Multidetector CT images were obtained from the lung bases to the ischial tuberosities with 141 mL Visipaque 320 IV and oral contrast. Multiplanar reformation. REPORT: Probable RIGHT coronary artery stent noted. Clear lung bases. Unremarkable liver. Normally distended gallbladder with cholelithiasis extending to the neck. Mild soft tissue edema at the kaushal hepatis and around the neck of the gallbladder. Negative for biliary dilatation. Unremarkable pancreas. Small splenule at the hilum of the 16.3 cm cephalocaudal enlarged dominant spleen. Negative for CT abnormality of the upper GI or small bowel. Appendix not visualized consistent with surgical history. Mild colonic diverticulosis primarily at the sigmoid colon without findings of acute diverticulitis. Trace free pelvic fluid. Negative for free air or hernias. Mild edema in the retroperitoneal fat along the LEFT pelvic sidewall of uncertain significance. Normal adrenal glands. Symmetric enhancement of the kidneys. No focal renal lesions or hydronephrosis. Unremarkable nondilated ureters. Largely decompressed urinary bladder limiting assessment without gross abnormality. Symmetric seminal vesicles and unremarkable prostate. Negative for lymphadenopathy. Normal diameter abdominal aorta and iliac arteries. Physiologic distention of the IVC. Negative for suspicious osseous lesions. Mild bilateral hip joint osteoarthritis. IMPRESSION: #. The constellation of findings is concerning for potential acute calculus cholecystitis. Correlate with clinical assessment and consider RIGHT upper quadrant ultrasound is suggested for further evaluation. #. Mild colonic diverticulosis without findings of acute diverticulitis. #. 16.3 cm cephalocaudal enlarged spleen. #. Trace ascites. Negative for free air. Results discussed with charge nurse Radha in the ED 04/19/2018 7:48 AM EDT
[2018-04-19] MEDS ORDERED: Perflutren Lipid Microsphere* 3 ML VIAL ONE (08:11)
[2018-04-19] MEDS ORDERED: Furosemide TAB* 40 MG PO SCH (09:00)
[2018-04-19] MEDS: Multivitamins/Minerals TAB PO SCH (09:19)
[2018-04-19] MEDS: Thiamine TAB* 100 MG TAB PO SCH (09:19)
[2018-04-19] MEDS: Carvedilol TAB* 3.125 MG PO SCH ×2 (09:19→20:45)
[2018-04-19] MEDS: Digoxin TAB* 0.125 MG PO SCH (09:19)
[2018-04-19] MEDS: Clopidogrel TAB* 75 MG PO SCH (09:19)
[2018-04-19] MEDS: Folic Acid TAB* 1 MG PO SCH (09:20)
[2018-04-19] MEDS: Aspirin EC TAB* 81 MG TAB.EC PO SCH (09:20)
[2018-04-19] MEDS: Potassium Chlor TAB* 20 MEQ TAB.ER PO SCH (09:20)
[2018-04-19] MEDS: Lisinopril TAB* 5 MG PO SCH (09:20)
[2018-04-19] MEDS: CMCS: Pantoprazole TAB (NF) 40 MG TAB PO SCH (09:20)
--- NOTE | 2018-04-19 10:26 | ECHO ---
Patient: JONNATHAN VASQUEZ [facility] Rec#: [id number] : 1975 Date: 04/19/2018 Age: 43y Height: 173 cm / 68.1 in Weight: 135 kg / 297.5 lbs Sex: M BSA: 2.42 Room#: [facility] Admit Date#: 04/18/2018 Type: Inpatient Referring: Jadyn Salvador Reading: Wero Vital MD Waste Chopper: [facility] Indication: Edema, dyspnea BP: 113/82 HR: 106 Rhythm: A-Fib Findings History: CAD w/ TN and PCI, HTN, ischemic cardiomyopathy, HLD, obesity, a-fib, former smoker, ETOH use. Technical Comments: The study is technically limited due to patient body habitus. Completed at 0915. Left Ventricle: The left ventricular size is mild to moderately dilated. There is no left ventricular hypertrophy. There are multiple regional wall motion abnormalities. The whole anterior wall, anteroseptal wall, anterolateral wall, and apical region are akinetic. The other areas are hypokinetic. The estimated ejection fraction is 20-25%. There is septal flattening of the interventricular septum consistent with right ventricular volume or pressure overload. The assessment of diastolic function is non-diagnostic. Left Atrium: The left atrium is moderately dilated. Right Ventricle: Moderator Band present. The right ventricle is moderate to severely dilated. The right ventricular global systolic function is severely reduced. Right Atrium: The right atrium is moderately dilated. Aortic Valve: The aortic valve is trileaflet. The aortic valve leaflets are mildly thickened. There is no evidence of aortic regurgitation. There is no evidence of aortic stenosis. Mitral Valve: The mitral valve leaflets are mildly thickened. There is mild to moderate mitral regurgitation. The mitral regurgitant jet is posteriorly directed. There is no evidence of mitral stenosis. Tricuspid Valve: The tricuspid valve leaflets are normal. There is mild tricuspid regurgitation. The right ventricular systolic pressure is estimated at 35 mmHg. There is evidence that pulmonary hypertension may be underestimated. There is no tricuspid stenosis. Pulmonic Valve: The pulmonic valve appears normal. There is a trace pulmonic regurgitation. There is no pulmonic stenosis. Pericardium: There is no significant pericardial effusion. A pericardial fat pad is visualized. Aorta: There is borderline dilatation of the ascending aorta. There is no dilatation of the aortic arch. The aortic root is normal in size. Pulmonary Artery: The main pulmonary artery appears normal. Venous: The inferior vena cava is dilated. There is a greater than 50% respiratory change in the inferior vena cava dimension. Contrast: Definity was used to optimize study. 5 mL of diluted Definity was utilized. Intravenous contrast was used to enhance endocardial border definition. Conclusions The left ventricular size is mild to moderately dilated. The whole anterior wall, anteroseptal wall, anterolateral wall, and apical region are akinetic. The other areas are hypokinetic. The estimated ejection fraction is 20-25%. There is septal flattening of the interventricular septum consistent with right ventricular volume or pressure overload. The left atrium is moderately dilated. The right ventricle is moderate to severely dilated. The right ventricular global systolic function is severely reduced. The right atrium is moderately dilated. There is mild to moderate mitral regurgitation. The mitral regurgitant jet is posteriorly directed. There is mild tricuspid regurgitation. The right ventricular systolic pressure is estimated at 35 mmHg. There is evidence that pulmonary hypertension may be underestimated. There is borderline dilatation of the ascending aorta. Compared to report of study from 09/07/2017the RV, and both atria have increased in size. LVEF is similar. the degree of mitral regurgitation has increased (was mild), the tricuspid regurgitation is new. The patient appears to be in atrial fibrillation during this study. Measurements Name Value Normal Range RVIDd (AP) 2D 4.9 cm (0.9 - 2.6) RVDdMajor (2D) 6.4 cm (2.2 - 4.4) RAd ISD 4CH 6.9 cm (3.4 - 4.9) RA (A4C)W 6.1 cm (2.9 - 4.6) IVSd (2D) 0.8 cm (0.6 - 1) LVPWd (2D) 1 cm (0.6 - 1) LVIDd (2D) 5.9 cm (3.6 - 5.4) LVIDs (2D) 5.2 cm - LV FS (2D) 12 % (25 - 45) Aortic Annulus 2.2 cm (1.4 - 2.6) Ao root diameter (2D) 3.3 cm (2.1 - 3.5) Ascending Ao 3.4 cm (2.1 - 3.4) Aortic arch 2.5 cm (1.8 - 3.4) LA dimension (AP) 2D 4.9 cm (2.3 - 3.8) LAd ISD 4CH 7.4 cm (2.9 - 5.3) LA ISD 4CH W 5.6 cm (2.5 - 4.5) Name Value Normal Range LA ESV BP (A/L) index 50 ml/m2 - Name Value Normal Range MV E-wave Vmax 0.93 m/sec - MV A-wave Vmax 155 m/sec - LV septal e' Vmax 0.05 m/sec - LV lateral e' Vmax 0.09 m/sec - LV E:e' septal ratio 18.6 ratio - LV E:e' lateral ratio 10.33 ratio - Name Value Normal Range AV Vmax 0.81 m/sec - AV VTI 11.4 cm - AV peak gradient 3 mmHg - AV mean gradient 1 mmHg - LVOT Vmax 0.73 m/sec - LVOT VTI 10.4 cm - LVOT peak gradient 2 mmHg - LVOT mean gradient 1 mmHg - PARMJIT Vmax 0.74 m/sec - Name Value Normal Range MR Vmax 4.4 m/sec - MR VTI 124 cm - MR flow (PISA) 49.1 ml/sec - MR ERO 0.11 cm2 - MR PISA radius 0.5 cm - MR alias Vmax 31.3 cm/sec - Name Value Normal Range TR Vmax 2.6 m/sec - TR peak gradient 27 mmHg - RAP 8 mmHg - RVSP 35 mmHg - IVC diameter 3.4 cm - Name Value Normal Range PV Vmax 0.48 m/sec - PV peak gradient 1 mmHg -
--- NOTE | 2018-04-19 12:16 | PN ---
Subjective Date of Service: 04/19/18 Interval History: Pt states he is generally feeling better now than yesterday but his breathing is still quite short compared to baseline. He had to sleep essentially sitting up last night. He does state he has been coughing up some mucous. He denies any abdominal pain but states his pain threshold is high. He does state he has an uncomfortable feeling in his abdomen but it is a bloated feeling. Eating does not seem to make the discomfort worse. Objective Active Medications: Acetaminophen (Tylenol Tab*) 650 mg PO Q4H PRN PRN Reason: FEVER/PAIN Al Hydrox/Mg Hydrox/Simethicone (Maalox Plus*) 30 ml PO Q4H PRN PRN Reason: HEARTBURN Aspirin (Aspirin Ec Tab*) 81 mg PO DAILY [facility] Last Admin: 04/19/18 09:20 Dose: 81 mg Atorvastatin Calcium (Lipitor*) 40 mg PO 2100 [facility] Carvedilol (Coreg Tab*) 3.125 mg PO BID [facility] Clopidogrel Bisulfate (Plavix Tab*) 75 mg PO DAILY [facility] Last Admin: 04/19/18 09:19 Dose: 75 mg Digoxin (Lanoxin Tab*) 0.125 mg PO DAILY [facility] Last Admin: 04/19/18 09:19 Dose: 0.125 mg Folic Acid (Folvite Tab*) 1 mg PO DAILY [facility] Last Admin: 04/19/18 09:20 Dose: 1 mg Furosemide (Lasix Iv*) 40 mg IV DAILY [facility] Heparin Sodium (Porcine) (Heparin Vial(*)) 5,000 units SUBCUT Q8HR [facility] Last Admin: 04/19/18 05:24 Dose: 5,000 units Lisinopril (Prinivil Tab*) 5 mg PO DAILY [facility] Last Admin: 04/19/18 09:20 Dose: 5 mg Lorazepam (Ativan Tab(*)) 0 - 6 mg PO .[facility] PROTOCOL [facility]; Protocol Last Admin: 04/19/18 02:17 Dose: 2 mg Metoprolol Tartrate (Lopressor Iv*) 5 mg IV Q6H PRN PRN Reason: HEART RATE/PULSE GREATER THAN: Multivitamins/Minerals (Theragran/Minerals Tab*) 1 tab PO DAILY [facility] Last Admin: 04/19/18 09:19 Dose: 1 tab Pantoprazole Sodium (Protonix Tab (Nf)) 40 mg PO DAILY [facility] Last Admin: 04/19/18 09:20 Dose: 40 mg Potassium Chloride (Klor Con Er Tab*) 20 meq PO DAILY [facility] Last Admin: 04/19/18 09:20 Dose: 20 meq Thiamine HCl (Vitamin B-1 Tab*) 100 mg PO DAILY [facility] Last Admin: 04/19/18 09:19 Dose: 100 mg Vital Signs - 8 hr 04/19/18 04/19/18 04/19/18 04:20 06:00 06:02 Temperature Pulse Rate 74 Respiratory 16 22 22 Rate Blood Pressure 113/85 (mmHg) O2 Sat by Pulse Oximetry 04/19/18 04/19/18 04/19/18 08:58 09:19 09:54 Temperature 98.2 F 98.7 F Pulse Rate 116 108 113 Respiratory 16 16 Rate Blood Pressure 130/88 138/80 (mmHg) O2 Sat by Pulse 100 97 Oximetry Oxygen Devices in Use Now: None Appearance: Middle aged obese male sitting up in bed, NAD Eyes: No Scleral Icterus Ears/Nose/Mouth/Throat: Mucous Membranes Moist Respiratory: Symmetrical Chest Expansion and Respiratory Effort, Clear to Auscultation Cardiovascular: NL Sounds; No Murmurs; No JVD, - - irregularly irregular, mildly tachycardic, 1-2+ LE edema Abdominal: - - BS+ soft, ND, mildly tender to palpation in the RUQ, negative vera's sign Extremities: No Clubbing, Cyanosis Skin: No Nodules or Sclerosis Neurological: Alert and Oriented x 3 Result Diagrams: 04/19/18 05:51 04/19/18 05:51 Additional Lab and Data: Lab Results 04/18/18 04/18/18 04/18/18 Range/Units 18:51 18:51 18:51 WBC 10.1 (3.5-10.8) 10^3/ul RBC 4.40 (4.00-5.40) 10^6/ul Hgb 14.1 (14.0-18.0) g/dl Hct 42 (42-52) % MCV 94 (80-94) fL MCH 32 H (27-31) pg MCHC 34 (31-36) g/dl RDW 13 (10.5-15) % Plt Count 171 (150-450) 10^3/ul MPV 11.6 H (7.4-10.4) um3 Neut % (Auto) Pending Lymph % (Auto) Pending Walton % (Auto) Pending Eos % (Auto) Pending Baso % (Auto) Pending Absolute Neuts (auto) 7.3 (1.5-7.7) 10^3/ul Absolute Lymphs (auto) 1.6 (1.0-4.8) 10^3/ul Absolute Monos (auto) 1.0 H (0-0.8) 10^3/ul Absolute Eos (auto) 0.1 (0-0.6) 10^3/ul Absolute Basos (auto) 0.1 (0-0.2) 10^3/ul Absolute Nucleated RBC 0 10^3/ul Nucleated RBC % Pending Sodium 139 (135-145) mmol/L Potassium 4.0 (3.5-5.0) mmol/L Chloride 105 (101-111) mmol/L Carbon Dioxide 24 (22-32) mmol/L Anion Gap 10 (2-11) mmol/L BUN 14 (6-24) mg/dL Creatinine 1.23 H (0.67-1.17) mg/dL Est GFR ( Amer) 78.5 (>60) Est GFR (Non-Af Amer) 64.8 (>60) BUN/Creatinine Ratio 11.4 (8-20) Glucose 111 H (70-100) mg/dL Lactic Acid 2.1 H* (0.5-2.0) mmol/L Calcium 9.1 (8.6-10.3) mg/dL Total Bilirubin 1.00 (0.2-1.0) mg/dL AST 32 (13-39) U/L ALT 53 H (7-52) U/L Alkaline Phosphatase 91 (34-104) U/L Troponin I 0.03 (<0.04) ng/mL B-Natriuretic Peptide ( - 100) pg/mL Total Protein 6.8 (6.4-8.9) g/dL Albumin 4.2 (3.2-5.2) g/dL Globulin 2.6 (2-4) g/dL Albumin/Globulin Ratio 1.6 (1-3) /16/18 Range/Units 18:51 WBC (3.5-10.8) 10^3/ul RBC (4.00-5.40) 10^6/ul Hgb (14.0-18.0) g/dl Hct (42-52) % MCV (80-94) fL MCH (27-31) pg MCHC (31-36) g/dl RDW (10.5-15) % Plt Count (150-450) 10^3/ul MPV (7.4-10.4) um3 Neut % (Auto) Lymph % (Auto) Walton % (Auto) Eos % (Auto) Baso % (Auto) Absolute Neuts (auto) (1.5-7.7) 10^3/ul Absolute Lymphs (auto) (1.0-4.8) 10^3/ul Absolute Monos (auto) (0-0.8) 10^3/ul Absolute Eos (auto) (0-0.6) 10^3/ul Absolute Basos (auto) (0-0.2) 10^3/ul Absolute Nucleated RBC 10^3/ul Nucleated RBC % Sodium (135-145) mmol/L Potassium (3.5-5.0) mmol/L Chloride (101-111) mmol/L Carbon Dioxide (22-32) mmol/L Anion Gap (2-11) mmol/L BUN (6-24) mg/dL Creatinine (0.67-1.17) mg/dL Est GFR ( Amer) (>60) Est GFR (Non-Af Amer) (>60) BUN/Creatinine Ratio (8-20) Glucose (70-100) mg/dL Lactic Acid (0.5-2.0) mmol/L Calcium (8.6-10.3) mg/dL Total Bilirubin (0.2-1.0) mg/dL AST (13-39) U/L ALT (7-52) U/L Alkaline Phosphatase (34-104) U/L Troponin I (<0.04) ng/mL B-Natriuretic Peptide 361 H ( - 100) pg/mL Total Protein (6.4-8.9) g/dL Albumin (3.2-5.2) g/dL Globulin (2-4) g/dL Albumin/Globulin Ratio (1-3) Assess/Plan/Problems-Billing Mr Guzman is a 43 yo M who has a h/o severe ischemic cardiomyopathy with an EF of 20-25%, ventricular tachycardia follow STEMI in 01/2017, atrial fibrillation and HLD who presented to the ER with c/o SOB and was admitted for decompensated systolic CHF. - Patient Problems (1) Heart failure, systolic, with acute decompensation Current Visit: Yes Status: Acute Code(s): I50.23 - ACUTE ON CHRONIC SYSTOLIC (CONGESTIVE) HEART FAILURE SNOMED Code(s): 567864446 Comment: The patient's weight is up about 20lb from 09/2017 when he was last admitted here. He has a h/o non-compliance. I will stop his oral lasix and continue IV lasix daily. Monitor electrolytes, renal function, weight and symptoms. He will continue coreg (increase to BID), lisinopril and digoxin. Will try to diurese pt as much as possible. (2) Acute cholecystitis Current Visit: No Status: Acute Priority: High Code(s): K81.0 - ACUTE CHOLECYSTITIS SNOMED Code(s): 82315817 Comment: CT concerning for acute cholecystitis. He was treated for cholecystitis 09/2017 with IV Abx. At that time he had a HIDA scal and surgical evaluation. He was felt to be a poor candidate for cholecystectomy due to his cardiac status. Will get RUQ US now. Pt does have mild pain on exam but no fever , leukocytosis or other features c/w acute cholecystitis. May consider starting zosyn. (3) Atrial fibrillation Current Visit: Yes Status: Acute Code(s): I48.91 - UNSPECIFIED ATRIAL FIBRILLATION SNOMED Code(s): 35295013 Comment: Pt is chronic afib. HR is mildly elevated. Increase coreg to BID to try to achieve improved HR control. Continue digoxin at current dose. Unclear if the patient has been compliant with his medications. He is not on anticoagulation but this should be discussed with him as his CHADS2-VASc score is 2. Will discuss with patient this afternoon. (4) Alcohol abuse Current Visit: No Status: Acute Code(s): F10.10 - ALCOHOL ABUSE, UNCOMPLICATED SNOMED Code(s): 52251003 Comment: Pt reported to Rita Salvador NP on admission that he drinks 6-30 beers/ day. Encourage abstinence. Continue WAM protocol. (5) Tobacco abuse Current Visit: Yes Status: Acute Onset Date: 12/14/14 Code(s): Z72.0 - TOBACCO USE SNOMED Code(s): 917072304 Comment: Pt reportedly quit smoking in 01/2017. He does use marijuana. (6) DVT prophylaxis Current Visit: Yes Status: Acute Onset Date: 12/14/14 Code(s): YRC5917 - SNOMED Code(s): 663688019 Comment: SQ heparin (7) Full code status Current Visit: Yes Status: Acute Onset Date: 12/14/14 Code(s): Z78.9 - OTHER SPECIFIED HEALTH STATUS SNOMED Code(s): 206907265
[2018-04-19] MEDS: Furosemide IV* 10 MG/ML VIAL (40 MG) IV SCH (12:17)
--- NOTE | 2018-04-19 14:28 | RAD ---
Indication: Evaluate for cholecystitis. Real-time sonography of the right upper quadrant was performed. The liver is enlarged measuring 21 cm in length. No focal lesions or intrahepatic ductal dilatation is noted. The gallbladder demonstrates multiple echogenic foci consistent with cholelithiasis. Gallbladder wall thickening measuring up to 5 mm is noted although the gallbladder is partially contracted. Common duct measures 0.3 cm. Trace amount of ascites is noted. The right kidney measures 12.1 x 5.3 x 5.6 cm. No hydronephrosis is noted. The pancreas is limited due to overlying gas. Aorta and inferior vena cava where visualized is unremarkable. IMPRESSION: Cholelithiasis with gallbladder wall thickening measuring up to 0.5 cm in a partially contracted gallbladder. Hepatomegaly. Trace amount of ascites.
[2018-04-19] MEDS: Atorvastatin* 40 MG TAB PO SCH (20:44)
[2018-04-20] MEDS ORDERED: Furosemide IV* 10 MG/ML VIAL (40 MG) IV ONE (00:44)
--- NOTE | 2018-04-20 02:28 | PN ---
Progress Note - Progress Note Date of Service: 04/20/18 Note: Paged for SOB, Tachypnea - ordered Lasix 40 mg IV x 1. On my arrival patient up walking around on room air. NO longer tachypneic or c/o SOB. Lung sounds clear.
[2018-04-20] MEDS: Heparin VIAL(*) 5000 UNITS/ML VIAL (FIVE THOUSAND) SUBCUT SCH ×3 (06:14→21:36)
[2018-04-20] MEDS: Digoxin TAB* 0.125 MG PO SCH (08:25)
[2018-04-20] MEDS: Furosemide IV* 10 MG/ML VIAL (40 MG) IV SCH (08:25)
[2018-04-20] MEDS: Potassium Chlor TAB* 20 MEQ TAB.ER PO SCH (08:25)
[2018-04-20] MEDS: CMCS: Pantoprazole TAB (NF) 40 MG TAB PO SCH (08:26)
[2018-04-20] MEDS: Carvedilol TAB* 3.125 MG PO SCH ×2 (08:26→21:36)
[2018-04-20] MEDS: Aspirin EC TAB* 81 MG TAB.EC PO SCH (08:26)
[2018-04-20] MEDS: Thiamine TAB* 100 MG TAB PO SCH (08:27)
[2018-04-20] MEDS: Lisinopril TAB* 5 MG PO SCH (08:27)
[2018-04-20] MEDS: Clopidogrel TAB* 75 MG PO SCH (08:27)
[2018-04-20] MEDS: Multivitamins/Minerals TAB PO SCH (08:28)
[2018-04-20] MEDS: Folic Acid TAB* 1 MG PO SCH (08:28)
--- NOTE | 2018-04-20 09:36 | PN ---
Subjective Date of Service: 04/20/18 Interval History: Had some chest pain overnight that is now resolved. He still feels short of breath with exertion--felt "horrible" when he walked to the bathroom this morning. No chest pain, no nausea, +orthopnea, + abdominal swelling Family History: Unchanged from Admission Social History: Unchanged from Admission Past Medical History: Unchanged from Admission Objective Active Medications: Acetaminophen (Tylenol Tab*) 650 mg PO Q4H PRN PRN Reason: FEVER/PAIN Al Hydrox/Mg Hydrox/Simethicone (Maalox Plus*) 30 ml PO Q4H PRN PRN Reason: HEARTBURN Aspirin (Aspirin Ec Tab*) 81 mg PO DAILY [facility] Last Admin: 04/20/18 08:26 Dose: 81 mg Atorvastatin Calcium (Lipitor*) 40 mg PO 2100 [facility] Last Admin: 04/19/18 20:44 Dose: 40 mg Carvedilol (Coreg Tab*) 3.125 mg PO BID [facility] Last Admin: 04/20/18 08:26 Dose: 3.125 mg Clopidogrel Bisulfate (Plavix Tab*) 75 mg PO DAILY [facility] Last Admin: 04/20/18 08:27 Dose: 75 mg Digoxin (Lanoxin Tab*) 0.125 mg PO DAILY [facility] Last Admin: 04/20/18 08:25 Dose: 0.125 mg Folic Acid (Folvite Tab*) 1 mg PO DAILY [facility] Last Admin: 04/20/18 08:28 Dose: 1 mg Furosemide (Lasix Iv*) 40 mg IV DAILY [facility] Last Admin: 04/20/18 08:25 Dose: 40 mg Heparin Sodium (Porcine) (Heparin Vial(*)) 5,000 units SUBCUT Q8HR [facility] Last Admin: 04/20/18 06:14 Dose: 5,000 units Lisinopril (Prinivil Tab*) 5 mg PO DAILY [facility] Last Admin: 04/20/18 08:27 Dose: 5 mg Lorazepam (Ativan Tab(*)) 0 - 6 mg PO .PER [facility] PROTOCOL [facility]; Protocol Last Admin: 04/19/18 02:17 Dose: 2 mg Metoprolol Tartrate (Lopressor Iv*) 5 mg IV Q6H PRN PRN Reason: HEART RATE/PULSE GREATER THAN: Last Admin: 04/20/18 00:14 Dose: 5 mg Multivitamins/Minerals (Theragran/Minerals Tab*) 1 tab PO DAILY [facility] Last Admin: 04/20/18 08:28 Dose: 1 tab Pantoprazole Sodium (Protonix Tab (Nf)) 40 mg PO DAILY [facility] Last Admin: 04/20/18 08:26 Dose: 40 mg Potassium Chloride (Klor Con Er Tab*) 20 meq PO DAILY [facility] Last Admin: 04/20/18 08:25 Dose: 20 meq Thiamine HCl (Vitamin B-1 Tab*) 100 mg PO DAILY [facility] Last Admin: 04/20/18 08:27 Dose: 100 mg Vital Signs - 8 hr 04/20/18 04/20/18 04/20/18 02:06 04:04 06:19 Temperature 97.7 F 98.3 F 98.3 F Pulse Rate 79 108 41 Respiratory 24 20 24 Rate Blood Pressure 122/85 126/94 111/92 (mmHg) O2 Sat by Pulse 97 98 95 Oximetry 04/20/18 04/20/18 08:03 08:25 Temperature 98.0 F Pulse Rate 80 115 Respiratory 16 Rate Blood Pressure 122/94 (mmHg) O2 Sat by Pulse 98 Oximetry Oxygen Devices in Use Now: None Appearance: alert, no distress, comfortable and speaking in full sentences but unable to lie flat Eyes: No Scleral Icterus Ears/Nose/Mouth/Throat: NL Teeth, Lips, Gums Neck: - - JVP 14cm Respiratory: Symmetrical Chest Expansion and Respiratory Effort Cardiovascular: - - tachycardic, irregularly irregular Abdominal: NL Sounds; No Tenderness; No Distention, - - distended, nontender, negative vera's sign Lymphatic: No Cervical Adenopathy Extremities: - - 2+ leg edema Skin: No Rash or Ulcers Neurological: Alert and Oriented x 3 Result Diagrams: 04/19/18 05:51 04/20/18 12:34 Additional Lab and Data: Lab Results 04/18/18 04/18/18 04/18/18 Range/Units 18:51 18:51 18:51 WBC 10.1 (3.5-10.8) 10^3/ul RBC 4.40 (4.00-5.40) 10^6/ul Hgb 14.1 (14.0-18.0) g/dl Hct 42 (42-52) % MCV 94 (80-94) fL MCH 32 H (27-31) pg MCHC 34 (31-36) g/dl RDW 13 (10.5-15) % Plt Count 171 (150-450) 10^3/ul MPV 11.6 H (7.4-10.4) um3 Neut % (Auto) Pending Lymph % (Auto) Pending [place]oll[place] % (Auto) Pending Eos % (Auto) Pending Baso % (Auto) Pending Absolute Neuts (auto) 7.3 (1.5-7.7) 10^3/ul Absolute Lymphs (auto) 1.6 (1.0-4.8) 10^3/ul Absolute Monos (auto) 1.0 H (0-0.8) 10^3/ul Absolute Eos (auto) 0.1 (0-0.6) 10^3/ul Absolute Basos (auto) 0.1 (0-0.2) 10^3/ul Absolute Nucleated RBC 0 10^3/ul Nucleated RBC % Pending Sodium 139 (135-145) mmol/L Potassium 4.0 (3.5-5.0) mmol/L Chloride 105 (101-111) mmol/L Carbon Dioxide 24 (22-32) mmol/L Anion Gap 10 (2-11) mmol/L BUN 14 (6-24) mg/dL Creatinine 1.23 H (0.67-1.17) mg/dL Est GFR ( Amer) 78.5 (>60) Est GFR (Non-Af Amer) 64.8 (>60) BUN/Creatinine Ratio 11.4 (8-20) Glucose 111 H (70-100) mg/dL Lactic Acid 2.1 H* (0.5-2.0) mmol/L Calcium 9.1 (8.6-10.3) mg/dL Total Bilirubin 1.00 (0.2-1.0) mg/dL AST 32 (13-39) U/L ALT 53 H (7-52) U/L Alkaline Phosphatase 91 (34-104) U/L Troponin I 0.03 (<0.04) ng/mL B-Natriuretic Peptide ( - 100) pg/mL Total Protein 6.8 (6.4-8.9) g/dL Albumin 4.2 (3.2-5.2) g/dL Globulin 2.6 (2-4) g/dL Albumin/Globulin Ratio 1.6 (1-3) 04/18/18 Range/Units 18:51 WBC (3.5-10.8) 10^3/ul RBC (4.00-5.40) 10^6/ul Hgb (14.0-18.0) g/dl Hct (42-52) % MCV (80-94) fL MCH (27-31) pg MCHC (31-36) g/dl RDW (10.5-15) % Plt Count (150-450) 10^3/ul MPV (7.4-10.4) um3 Neut % (Auto) Lymph % (Auto) [place]oll[place] % (Auto) Eos % (Auto) Baso % (Auto) Absolute Neuts (auto) (1.5-7.7) 10^3/ul Absolute Lymphs (auto) (1.0-4.8) 10^3/ul Absolute Monos (auto) (0-0.8) 10^3/ul Absolute Eos (auto) (0-0.6) 10^3/ul Absolute Basos (auto) (0-0.2) 10^3/ul Absolute Nucleated RBC 10^3/ul Nucleated RBC % Sodium (135-145) mmol/L Potassium (3.5-5.0) mmol/L Chloride (101-111) mmol/L Carbon Dioxide (22-32) mmol/L Anion Gap (2-11) mmol/L BUN (6-24) mg/dL Creatinine (0.67-1.17) mg/dL Est GFR ( Amer) (>60) Est GFR (Non-Af Amer) (>60) BUN/Creatinine Ratio (8-20) Glucose (70-100) mg/dL Lactic Acid (0.5-2.0) mmol/L Calcium (8.6-10.3) mg/dL Total Bilirubin (0.2-1.0) mg/dL AST (13-39) U/L ALT (7-52) U/L Alkaline Phosphatase (34-104) U/L Troponin I (<0.04) ng/mL B-Natriuretic Peptide 361 H ( - 100) pg/mL Total Protein (6.4-8.9) g/dL Albumin (3.2-5.2) g/dL Globulin (2-4) g/dL Albumin/Globulin Ratio (1-3) Microbiology and Other Data: Microbiology 04/18/18 18:51 Aerobic Blood Culture - Preliminary Blood Venous No Growth Day 1 Anaerobic Blood Culture - Preliminary No Growth Day 1 04/18/18 18:51 Aerobic Blood Culture - Preliminary Blood Venous No Growth Day 1 Anaerobic Blood Culture - Preliminary No Growth Day 1 Assess/Plan/Problems-Billing Mr Guzman is a 43 yo M who has a h/o severe ischemic cardiomyopathy with an EF of 20-25%, ventricular tachycardia follow STEMI in 01/2017, atrial fibrillation and HLD who presented to the ER with c/o SOB and was admitted for decompensated systolic CHF. - Patient Problems (1) Heart failure, systolic, with acute decompensation Current Visit: Yes Status: Acute Code(s): I50.23 - ACUTE ON CHRONIC SYSTOLIC (CONGESTIVE) HEART FAILURE SNOMED Code(s): 683027587 Comment: Up 20-30lbs from last admission He is unsure why this happened, reports adherence to outpatient regimen, but also admits he does not monitor his weight at home and does not watch what he eats Coreg doubled at admission, still with tachycardia--he will benefit from improved HR control Continue IV lasix--increase dose today Continue THOMAS He should have an AICD and I discussed this with him today--he cites wanting to weld as a reason he will not agree to one I will continue this discussion with him. He clearly explained to me the risk of sudden due to a fatal arrhythmia without an AICD and still says he does not want one. (2) Atrial fibrillation Current Visit: Yes Status: Acute Code(s): I48.91 - UNSPECIFIED ATRIAL FIBRILLATION SNOMED Code(s): 57918484 Comment: Continue dig and coreg (at increased dose) CHADS2-VASc score is 2 He tells me he is on anticoagulation, but it appears he is not--I suspect misunderstanding on his part and this will need to be discussed with him (3) Hx of coronary artery disease Current Visit: No Status: Chronic Priority: Medium Code(s): Z86.79 - PERSONAL HISTORY OF OTHER DISEASES OF THE CIRCULATORY SYSTEM SNOMED Code(s): 005753300 Comment: continue bb, asa, statin
[2018-04-20 13:10] LABS: EGFR Non-African American 63.7 (>60)
[2018-04-20] MEDS: Furosemide IV* 10 MG/ML VIAL (40 MG) IV ONE ×2 (14:44→14:47)
[2018-04-20] MEDS ORDERED: Potassium Chlor TAB* 20 MEQ TAB.ER PO ONE (15:13)
[2018-04-20] MEDS ORDERED: Magnesium Oxide TAB* 400 MG PO ONE (15:14)
[2018-04-20] MEDS: Atorvastatin* 40 MG TAB PO SCH (21:36)
[2018-04-21] MEDS: Melatonin 3 MG TAB PO PRN ×2 (01:25→22:21)
[2018-04-21] MEDS: Heparin VIAL(*) 5000 UNITS/ML VIAL (FIVE THOUSAND) SUBCUT SCH ×3 (06:05→22:21)
[2018-04-21 06:42] LABS: EGFR Non-African American 68.7 (>60)
[2018-04-21 06:58] LABS: ABS Basophils 0.1 10^3/ul (0-0.2); ABS Eosinophils 0.2 10^3/ul (0-0.6); ABS Lymphocytes 1.8 10^3/ul (1.0-4.8); ABS Neutrophils 6.6 10^3/ul (1.5-7.7); ABS Nucleated RBC 0 10^3/ul; Eosinophil % 1.9 % (0-6); Hematocrit 41 % (42-52); Mean Corpuscular HGB Conc 35 g/dl (31-36); Mean Corpuscular Hemoglobin 32 pg (27-31); Mean Corpuscular Volume 94 fL (80-94); Nucleated Red Blood Cells % 0.1; Platelet Count 128 10^3/ul (150-450); Red Blood Count 4.33 10^6/ul (4.00-5.40); Red Cell Distribution Width 13 % (10.5-15); White Blood Count 9.7 10^3/ul (3.5-10.8)
[2018-04-21] MEDS ORDERED: Furosemide IV* 10 MG/ML VIAL (40 MG) IV SCH (09:00)
[2018-04-21] MEDS: Furosemide IV* 10 MG/ML 10 ML VIAL (100 MG) IV SCH ×2 (09:19→22:20)
[2018-04-21] MEDS: Lisinopril TAB* 5 MG PO SCH (09:20)
[2018-04-21] MEDS: Thiamine TAB* 100 MG TAB PO SCH (09:20)
[2018-04-21] MEDS: Carvedilol TAB* 3.125 MG PO SCH ×2 (09:20→22:21)
[2018-04-21] MEDS: Folic Acid TAB* 1 MG PO SCH (09:20)
[2018-04-21] MEDS: CMCS: Pantoprazole TAB (NF) 40 MG TAB PO SCH (09:20)
[2018-04-21] MEDS: Multivitamins/Minerals TAB PO SCH (09:20)
[2018-04-21] MEDS: Clopidogrel TAB* 75 MG PO SCH (09:20)
[2018-04-21] MEDS: Potassium Chlor TAB* 20 MEQ TAB.ER PO SCH (09:20)
[2018-04-21] MEDS: Digoxin TAB* 0.125 MG PO SCH (09:21)
[2018-04-21] MEDS: Aspirin EC TAB* 81 MG TAB.EC PO SCH (09:21)
--- NOTE | 2018-04-21 16:57 | PN ---
Subjective Date of Service: 04/21/18 Interval History: No overnight events, no tele events. Wants to increase the rate of diuresis. No chest pain, no palpitations. Still very short of breath when he exerts himself. Family History: Unchanged from Admission Social History: Unchanged from Admission Past Medical History: Unchanged from Admission Objective Active Medications: Acetaminophen (Tylenol Tab*) 650 mg PO Q4H PRN PRN Reason: FEVER/PAIN Al Hydrox/Mg Hydrox/Simethicone (Maalox Plus*) 30 ml PO Q4H PRN PRN Reason: HEARTBURN Aspirin (Aspirin Ec Tab*) 81 mg PO DAILY [facility] Last Admin: 04/21/18 09:21 Dose: 81 mg Atorvastatin Calcium (Lipitor*) 40 mg PO 2100 [facility] Last Admin: 04/20/18 21:36 Dose: 40 mg Carvedilol (Coreg Tab*) 3.125 mg PO BID [facility] Last Admin: 04/21/18 09:20 Dose: 3.125 mg Clopidogrel Bisulfate (Plavix Tab*) 75 mg PO DAILY [facility] Last Admin: 04/21/18 09:20 Dose: 75 mg Digoxin (Lanoxin Tab*) 0.125 mg PO DAILY [facility] Last Admin: 04/21/18 09:21 Dose: 0.125 mg Folic Acid (Folvite Tab*) 1 mg PO DAILY [facility] Last Admin: 04/21/18 09:20 Dose: 1 mg Furosemide (Lasix Iv*) 80 mg IV BID [facility] Last Admin: 04/21/18 09:19 Dose: 80 mg Heparin Sodium (Porcine) (Heparin Vial(*)) 5,000 units SUBCUT Q8HR [facility] Last Admin: 04/21/18 14:28 Dose: 5,000 units Lisinopril (Prinivil Tab*) 5 mg PO DAILY [facility] Last Admin: 04/21/18 09:20 Dose: 5 mg Lorazepam (Ativan Tab(*)) 0 - 6 mg PO .PER [facility] PROTOCOL [facility]; Protocol Last Admin: 04/19/18 02:17 Dose: 2 mg Melatonin (Melatonin) 3 mg PO BEDTIME PRN PRN Reason: SLEEP Last Admin: 04/21/18 01:25 Dose: 3 mg Metoprolol Tartrate (Lopressor Iv*) 5 mg IV Q6H PRN PRN Reason: HEART RATE/PULSE GREATER THAN: Last Admin: 04/20/18 00:14 Dose: 5 mg Multivitamins/Minerals (Theragran/Minerals Tab*) 1 tab PO DAILY [facility] Last Admin: 04/21/18 09:20 Dose: 1 tab Pantoprazole Sodium (Protonix Tab (Nf)) 40 mg PO DAILY [facility] Last Admin: 04/21/18 09:20 Dose: 40 mg Potassium Chloride (Klor Con Er Tab*) 20 meq PO DAILY [facility] Last Admin: 04/21/18 09:20 Dose: 20 meq Thiamine HCl (Vitamin B-1 Tab*) 100 mg PO DAILY [facility] Last Admin: 04/21/18 09:20 Dose: 100 mg Vital Signs - 8 hr 04/21/18 04/21/18 04/21/18 09:21 10:43 11:11 Temperature 98.7 F Pulse Rate 98 124 Respiratory 16 18 Rate Blood Pressure 121/99 (mmHg) O2 Sat by Pulse 99 Oximetry Oxygen Devices in Use Now: None Appearance: alert, resting in bed in no distress Eyes: No Scleral Icterus Ears/Nose/Mouth/Throat: NL Teeth, Lips, Gums Neck: - - JVP 14cm Respiratory: Symmetrical Chest Expansion and Respiratory Effort Cardiovascular: - - PMI laterally displaced. irregular rhythm and tachycaric. Abdominal: - - distended, no fluid wave Lymphatic: No Cervical Adenopathy Skin: No Rash or Ulcers Neurological: Alert and Oriented x 3 Result Diagrams: 04/21/18 06:05 04/21/18 06:05 Additional Lab and Data: Lab Results 04/18/18 04/18/18 04/18/18 Range/Units 18:51 18:51 18:51 WBC 10.1 (3.5-10.8) 10^3/ul RBC 4.40 (4.00-5.40) 10^6/ul Hgb 14.1 (14.0-18.0) g/dl Hct 42 (42-52) % MCV 94 (80-94) fL MCH 32 H (27-31) pg MCHC 34 (31-36) g/dl RDW 13 (10.5-15) % Plt Count 171 (150-450) 10^3/ul MPV 11.6 H (7.4-10.4) um3 Neut % (Auto) Pending Lymph % (Auto) Pending [place] % (Auto) Pending Eos % (Auto) Pending Baso % (Auto) Pending Absolute Neuts (auto) 7.3 (1.5-7.7) 10^3/ul Absolute Lymphs (auto) 1.6 (1.0-4.8) 10^3/ul Absolute Monos (auto) 1.0 H (0-0.8) 10^3/ul Absolute Eos (auto) 0.1 (0-0.6) 10^3/ul Absolute Basos (auto) 0.1 (0-0.2) 10^3/ul Absolute Nucleated RBC 0 10^3/ul Nucleated RBC % Pending Sodium 139 (135-145) mmol/L Potassium 4.0 (3.5-5.0) mmol/L Chloride 105 (101-111) mmol/L Carbon Dioxide 24 (22-32) mmol/L Anion Gap 10 (2-11) mmol/L BUN 14 (6-24) mg/dL Creatinine 1.23 H (0.67-1.17) mg/dL Est GFR ( Amer) 78.5 (>60) Est GFR (Non-Af Amer) 64.8 (>60) BUN/Creatinine Ratio 11.4 (8-20) Glucose 111 H (70-100) mg/dL Lactic Acid 2.1 H* (0.5-2.0) mmol/L Calcium 9.1 (8.6-10.3) mg/dL Total Bilirubin 1.00 (0.2-1.0) mg/dL AST 32 (13-39) U/L ALT 53 H (7-52) U/L Alkaline Phosphatase 91 (34-104) U/L Troponin I 0.03 (<0.04) ng/mL B-Natriuretic Peptide ( - 100) pg/mL Total Protein 6.8 (6.4-8.9) g/dL Albumin 4.2 (3.2-5.2) g/dL Globulin 2.6 (2-4) g/dL Albumin/Globulin Ratio 1.6 (1-3) / Range/Units 18:51 WBC (3.5-10.8) 10^3/ul RBC (4.00-5.40) 10^6/ul Hgb (14.0-18.0) g/dl Hct (42-52) % MCV (80-94) fL MCH (27-31) pg MCHC (31-36) g/dl RDW (10.5-15) % Plt Count (150-450) 10^3/ul MPV (7.4-10.4) um3 Neut % (Auto) Lymph % (Auto) [place] % (Auto) Eos % (Auto) Baso % (Auto) Absolute Neuts (auto) (1.5-7.7) 10^3/ul Absolute Lymphs (auto) (1.0-4.8) 10^3/ul Absolute Monos (auto) (0-0.8) 10^3/ul Absolute Eos (auto) (0-0.6) 10^3/ul Absolute Basos (auto) (0-0.2) 10^3/ul Absolute Nucleated RBC 10^3/ul Nucleated RBC % Sodium (135-145) mmol/L Potassium (3.5-5.0) mmol/L Chloride (101-111) mmol/L Carbon Dioxide (22-32) mmol/L Anion Gap (2-11) mmol/L BUN (6-24) mg/dL Creatinine (0.67-1.17) mg/dL Est GFR ( Amer) (>60) Est GFR (Non-Af Amer) (>60) BUN/Creatinine Ratio (8-20) Glucose (70-100) mg/dL Lactic Acid (0.5-2.0) mmol/L Calcium (8.6-10.3) mg/dL Total Bilirubin (0.2-1.0) mg/dL AST (13-39) U/L ALT (7-52) U/L Alkaline Phosphatase (34-104) U/L Troponin I (<0.04) ng/mL B-Natriuretic Peptide 361 H ( - 100) pg/mL Total Protein (6.4-8.9) g/dL Albumin (3.2-5.2) g/dL Globulin (2-4) g/dL Albumin/Globulin Ratio (1-3) Microbiology and Other Data: Microbiology 04/18/18 18:51 Aerobic Blood Culture - Preliminary Blood Venous No Growth Day 1 Anaerobic Blood Culture - Preliminary No Growth Day 1 04/18/18 18:51 Aerobic Blood Culture - Preliminary Blood Venous No Growth Day 1 Anaerobic Blood Culture - Preliminary No Growth Day 1 Assess/Plan/Problems-Billing Mr Guzman is a 43 yo M who has a h/o severe ischemic cardiomyopathy with an EF of 20-25%, ventricular tachycardia follow STEMI in 01/2017, atrial fibrillation and HLD who presented to the ER with c/o SOB and was admitted for decompensated systolic CHF. - Patient Problems (1) Heart failure, systolic, with acute decompensation Current Visit: Yes Status: Acute Code(s): I50.23 - ACUTE ON CHRONIC SYSTOLIC (CONGESTIVE) HEART FAILURE SNOMED Code(s): 785187497 Comment: Up 20-30lbs from last admission He is unsure why this happened, reports adherence to outpatient regimen, but also admits he does not monitor his weight at home and does not watch what he eats Coreg doubled at admission, still with tachycardia--he will benefit from improved HR control Continue IV lasix--increase dose to 80mg BID today Continue THOMAS 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 His partner is present for this conversation. (2) Atrial fibrillation Current Visit: Yes Status: Acute Code(s): I48.91 - UNSPECIFIED ATRIAL FIBRILLATION SNOMED Code(s): 66325780 Comment: Continue dig and coreg (at increased dose) CHADS2-VASc score is 2 He tells me he is on anticoagulation, but it appears he is not--I suspect misunderstanding on his part and this will need to be discussed with him (3) Hx of coronary artery disease Current Visit: No Status: Chronic Priority: Medium Code(s): Z86.79 - PERSONAL HISTORY OF OTHER DISEASES OF THE CIRCULATORY SYSTEM SNOMED Code(s): 983009375 Comment: continue bb, asa, statin
[2018-04-21] MEDS: Atorvastatin* 40 MG TAB PO SCH (22:21)
[2018-04-22] MEDS: Heparin VIAL(*) 5000 UNITS/ML VIAL (FIVE THOUSAND) SUBCUT SCH ×3 (05:44→21:06)
[2018-04-22 06:45] LABS: EGFR Non-African American 70.8 (>60)
[2018-04-22] MEDS: Furosemide IV* 10 MG/ML 10 ML VIAL (100 MG) IV SCH ×2 (09:05→21:06)
[2018-04-22] MEDS: Aspirin EC TAB* 81 MG TAB.EC PO SCH (09:06)
[2018-04-22] MEDS: Folic Acid TAB* 1 MG PO SCH (09:06)
[2018-04-22] MEDS: Potassium Chlor TAB* 20 MEQ TAB.ER PO SCH (09:06)
[2018-04-22] MEDS: Carvedilol TAB* 3.125 MG PO SCH ×2 (09:06→21:06)
[2018-04-22] MEDS: Clopidogrel TAB* 75 MG PO SCH (09:06)
[2018-04-22] MEDS: CMCS: Pantoprazole TAB (NF) 40 MG TAB PO SCH (09:06)
[2018-04-22] MEDS: Thiamine TAB* 100 MG TAB PO SCH (09:06)
[2018-04-22] MEDS: Lisinopril TAB* 5 MG PO SCH (09:06)
[2018-04-22] MEDS: Digoxin TAB* 0.125 MG PO SCH (09:07)
[2018-04-22] MEDS: Multivitamins/Minerals TAB PO SCH (09:07)
--- NOTE | 2018-04-22 15:31 | PN ---
Subjective Date of Service: 04/22/18 Interval History: Feeling a little better today but still complains of feeling congested, bloated , with leg swelling and orthopnea. No chest pain, no palpitations. 4 beats of VT reported this am. Family History: Unchanged from Admission Social History: Unchanged from Admission Past Medical History: Unchanged from Admission Objective Active Medications: Acetaminophen (Tylenol Tab*) 650 mg PO Q4H PRN PRN Reason: FEVER/PAIN Al Hydrox/Mg Hydrox/Simethicone (Maalox Plus*) 30 ml PO Q4H PRN PRN Reason: HEARTBURN Aspirin (Aspirin Ec Tab*) 81 mg PO DAILY [facility] Last Admin: 04/22/18 09:06 Dose: 81 mg Atorvastatin Calcium (Lipitor*) 40 mg PO 2100 [facility] Last Admin: 04/21/18 22:21 Dose: 40 mg Carvedilol (Coreg Tab*) 3.125 mg PO BID [facility] Last Admin: 04/22/18 09:06 Dose: 3.125 mg Clopidogrel Bisulfate (Plavix Tab*) 75 mg PO DAILY [facility] Last Admin: 04/22/18 09:06 Dose: 75 mg Digoxin (Lanoxin Tab*) 0.125 mg PO DAILY [facility] Last Admin: 04/22/18 09:07 Dose: 0.125 mg Folic Acid (Folvite Tab*) 1 mg PO DAILY [facility] Last Admin: 04/22/18 09:06 Dose: 1 mg Furosemide (Lasix Iv*) 80 mg IV BID [facility] Last Admin: 04/22/18 09:05 Dose: 80 mg Heparin Sodium (Porcine) (Heparin Vial(*)) 5,000 units SUBCUT Q8HR [facility] Last Admin: 04/22/18 15:09 Dose: 5,000 units Lisinopril (Prinivil Tab*) 5 mg PO DAILY [facility] Last Admin: 04/22/18 09:06 Dose: 5 mg Lorazepam (Ativan Tab(*)) 0 - 6 mg PO .PER [facility] PROTOCOL [facility]; Protocol Last Admin: 04/19/18 02:17 Dose: 2 mg Melatonin (Melatonin) 3 mg PO BEDTIME PRN PRN Reason: SLEEP Last Admin: 04/21/18 22:21 Dose: 3 mg Metoprolol Tartrate (Lopressor Iv*) 5 mg IV Q6H PRN PRN Reason: HEART RATE/PULSE GREATER THAN: Last Admin: 04/20/18 00:14 Dose: 5 mg Multivitamins/Minerals (Theragran/Minerals Tab*) 1 tab PO DAILY [facility] Last Admin: 04/22/18 09:07 Dose: 1 tab Pantoprazole Sodium (Protonix Tab (Nf)) 40 mg PO DAILY [facility] Last Admin: 04/22/18 09:06 Dose: 40 mg Potassium Chloride (Klor Con Er Tab*) 20 meq PO DAILY [facility] Last Admin: 04/22/18 09:06 Dose: 20 meq Thiamine HCl (Vitamin B-1 Tab*) 100 mg PO DAILY [facility] Last Admin: 04/22/18 09:06 Dose: 100 mg Vital Signs - 8 hr 04/22/18 04/22/18 04/22/18 07:42 08:00 09:07 Temperature 97.4 F Pulse Rate 91 77 Respiratory 18 16 Rate Blood Pressure 114/84 (mmHg) O2 Sat by Pulse 100 Oximetry 04/22/18 10:40 Temperature Pulse Rate Respiratory 16 Rate Blood Pressure (mmHg) O2 Sat by Pulse Oximetry Oxygen Devices in Use Now: None Appearance: alert, comfortable, no accessory respiratory muscles in use Eyes: No Scleral Icterus Ears/Nose/Mouth/Throat: NL Teeth, Lips, Gums Neck: - - JVP 12cm Respiratory: Symmetrical Chest Expansion and Respiratory Effort, Clear to Auscultation Cardiovascular: - - irregular rhythm Abdominal: - - distended but no fluid wave Lymphatic: No Cervical Adenopathy Extremities: - - 2+ edema b/l legs Skin: No Rash or Ulcers Neurological: Alert and Oriented x 3 Result Diagrams: 04/21/18 06:05 04/22/18 06:01 Additional Lab and Data: Lab Results 04/18/18 04/18/18 04/18/18 Range/Units 18:51 18:51 18:51 WBC 10.1 (3.5-10.8) 10^3/ul RBC 4.40 (4.00-5.40) 10^6/ul Hgb 14.1 (14.0-18.0) g/dl Hct 42 (42-52) % MCV 94 (80-94) fL MCH 32 H (27-31) pg MCHC 34 (31-36) g/dl RDW 13 (10.5-15) % Plt Count 171 (150-450) 10^3/ul MPV 11.6 H (7.4-10.4) um3 Neut % (Auto) Pending Lymph % (Auto) Pending [place] % (Auto) Pending Eos % (Auto) Pending Baso % (Auto) Pending Absolute Neuts (auto) 7.3 (1.5-7.7) 10^3/ul Absolute Lymphs (auto) 1.6 (1.0-4.8) 10^3/ul Absolute Monos (auto) 1.0 H (0-0.8) 10^3/ul Absolute Eos (auto) 0.1 (0-0.6) 10^3/ul Absolute Basos (auto) 0.1 (0-0.2) 10^3/ul Absolute Nucleated RBC 0 10^3/ul Nucleated RBC % Pending Sodium 139 (135-145) mmol/L Potassium 4.0 (3.5-5.0) mmol/L Chloride 105 (101-111) mmol/L Carbon Dioxide 24 (22-32) mmol/L Anion Gap 10 (2-11) mmol/L BUN 14 (6-24) mg/dL Creatinine 1.23 H (0.67-1.17) mg/dL Est GFR ( Amer) 78.5 (>60) Est GFR (Non-Af Amer) 64.8 (>60) BUN/Creatinine Ratio 11.4 (8-20) Glucose 111 H (70-100) mg/dL Lactic Acid 2.1 H* (0.5-2.0) mmol/L Calcium 9.1 (8.6-10.3) mg/dL Total Bilirubin 1.00 (0.2-1.0) mg/dL AST 32 (13-39) U/L ALT 53 H (7-52) U/L Alkaline Phosphatase 91 (34-104) U/L Troponin I 0.03 (<0.04) ng/mL B-Natriuretic Peptide ( - 100) pg/mL Total Protein 6.8 (6.4-8.9) g/dL Albumin 4.2 (3.2-5.2) g/dL Globulin 2.6 (2-4) g/dL Albumin/Globulin Ratio 1.6 (1-3) /16/18 Range/Units 18:51 WBC (3.5-10.8) 10^3/ul RBC (4.00-5.40) 10^6/ul Hgb (14.0-18.0) g/dl Hct (42-52) % MCV (80-94) fL MCH (27-31) pg MCHC (31-36) g/dl RDW (10.5-15) % Plt Count (150-450) 10^3/ul MPV (7.4-10.4) um3 Neut % (Auto) Lymph % (Auto) [place] % (Auto) Eos % (Auto) Baso % (Auto) Absolute Neuts (auto) (1.5-7.7) 10^3/ul Absolute Lymphs (auto) (1.0-4.8) 10^3/ul Absolute Monos (auto) (0-0.8) 10^3/ul Absolute Eos (auto) (0-0.6) 10^3/ul Absolute Basos (auto) (0-0.2) 10^3/ul Absolute Nucleated RBC 10^3/ul Nucleated RBC % Sodium (135-145) mmol/L Potassium (3.5-5.0) mmol/L Chloride (101-111) mmol/L Carbon Dioxide (22-32) mmol/L Anion Gap (2-11) mmol/L BUN (6-24) mg/dL Creatinine (0.67-1.17) mg/dL Est GFR ( Amer) (>60) Est GFR (Non-Af Amer) (>60) BUN/Creatinine Ratio (8-20) Glucose (70-100) mg/dL Lactic Acid (0.5-2.0) mmol/L Calcium (8.6-10.3) mg/dL Total Bilirubin (0.2-1.0) mg/dL AST (13-39) U/L ALT (7-52) U/L Alkaline Phosphatase (34-104) U/L Troponin I (<0.04) ng/mL B-Natriuretic Peptide 361 H ( - 100) pg/mL Total Protein (6.4-8.9) g/dL Albumin (3.2-5.2) g/dL Globulin (2-4) g/dL Albumin/Globulin Ratio (1-3) Microbiology and Other Data: Microbiology 04/18/18 18:51 Aerobic Blood Culture - Preliminary Blood Venous No Growth Day 1 Anaerobic Blood Culture - Preliminary No Growth Day 1 04/18/18 18:51 Aerobic Blood Culture - Preliminary Blood Venous No Growth Day 1 Anaerobic Blood Culture - Preliminary No Growth Day 1 Assess/Plan/Problems-Billing Mr Guzman is a 43 yo M who has a h/o severe ischemic cardiomyopathy with an EF of 20-25%, ventricular tachycardia follow STEMI in 01/2017, atrial fibrillation and HLD who presented to the ER with c/o SOB and was admitted for decompensated systolic CHF. - Patient Problems (1) Heart failure, systolic, with acute decompensation Current Visit: Yes Status: Acute Code(s): I50.23 - ACUTE ON CHRONIC SYSTOLIC (CONGESTIVE) HEART FAILURE SNOMED Code(s): 676014943 Comment: Dietary vs. med nonadherence vs. tachycardia mediated vs. etoh abuse ? Diuresing well on lasix 80mg iv bid, continue today Continue THOMAS He needs an AICD but continues to decline it, and doesn't want to talk with cardiology about it. 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 (2) Atrial fibrillation Current Visit: Yes Status: Acute Code(s): I48.91 - UNSPECIFIED ATRIAL FIBRILLATION SNOMED Code(s): 25200796 Comment: Continue dig and coreg (at increased dose) CHADS2-VASc score is 2 I explained that just being on ASA does not completely protect him from a CVA and that he should consider therapeutic anticoagulation. He agrees to think about it but does not want to start one now--he had a nosebleed this morning (3) Hx of coronary artery disease Current Visit: No Status: Chronic Priority: Medium Code(s): Z86.79 - PERSONAL HISTORY OF OTHER DISEASES OF THE CIRCULATORY SYSTEM SNOMED Code(s): 268907873 Comment: continue bb, asa, statin
[2018-04-22] MEDS: Atorvastatin* 40 MG TAB PO SCH (21:06)
[2018-04-23 06:05] LABS: Hematocrit 42 % (42-52); Hemoglobin 14.7 g/dl (14.0-18.0); Mean Corpuscular HGB Conc 35 g/dl (31-36); Mean Corpuscular Hemoglobin 32 pg (27-31); Mean Corpuscular Volume 93 fL (80-94); Mean Platelet Volume 12.4 um3 (7.4-10.4); Platelet Count 133 10^3/ul (150-450); Red Blood Count 4.56 10^6/ul (4.00-5.40); Red Cell Distribution Width 13 % (10.5-15); White Blood Count 10.5 10^3/ul (3.5-10.8)
[2018-04-23] MEDS: Heparin VIAL(*) 5000 UNITS/ML VIAL (FIVE THOUSAND) SUBCUT SCH ×3 (06:12→21:17)
[2018-04-23 06:26] LABS: EGFR Non-African American 63.1 (>60)
[2018-04-23 06:33] LABS: ABS Basophils 0.1 10^3/ul (0-0.2); ABS Eosinophils 0.2 10^3/ul (0-0.6); ABS Lymphocytes 2.1 10^3/ul (1.0-4.8); ABS Neutrophils 7.2 10^3/ul (1.5-7.7); ABS Nucleated RBC 0 10^3/ul; Eosinophil % 1.7 % (0-6); Lymphocyte % 19.9 % (25-47); Nucleated Red Blood Cells % 0.2
[2018-04-23] MEDS: Digoxin TAB* 0.125 MG PO SCH (10:10)
[2018-04-23] MEDS: Clopidogrel TAB* 75 MG PO SCH (10:12)
[2018-04-23] MEDS: CMCS: Pantoprazole TAB (NF) 40 MG TAB PO SCH (10:12)
[2018-04-23] MEDS: Lisinopril TAB* 5 MG PO SCH (10:13)
[2018-04-23] MEDS: Multivitamins/Minerals TAB PO SCH (10:13)
[2018-04-23] MEDS: Folic Acid TAB* 1 MG PO SCH (10:13)
[2018-04-23] MEDS: Aspirin EC TAB* 81 MG TAB.EC PO SCH (10:13)
[2018-04-23] MEDS: Furosemide IV* 10 MG/ML 10 ML VIAL (100 MG) IV SCH ×2 (10:13→21:17)
[2018-04-23] MEDS: Thiamine TAB* 100 MG TAB PO SCH (10:13)
[2018-04-23] MEDS: Carvedilol TAB* 3.125 MG PO SCH ×2 (10:13→21:17)
[2018-04-23] MEDS: Potassium Chlor TAB* 20 MEQ TAB.ER PO SCH (10:13)
--- NOTE | 2018-04-23 14:57 | PN ---
Subjective Date of Service: 04/23/18 Interval History: Believes he is getting better but still feels like he is drowning if he lies down flat. Sleeps almost upright. No chest pain, no palpitations. No tele events. Family History: Unchanged from Admission Social History: Unchanged from Admission Past Medical History: Unchanged from Admission Objective Active Medications: Acetaminophen (Tylenol Tab*) 650 mg PO Q4H PRN PRN Reason: FEVER/PAIN Al Hydrox/Mg Hydrox/Simethicone (Maalox Plus*) 30 ml PO Q4H PRN PRN Reason: HEARTBURN Aspirin (Aspirin Ec Tab*) 81 mg PO DAILY [facility] Last Admin: 04/23/18 10:13 Dose: 81 mg Atorvastatin Calcium (Lipitor*) 40 mg PO 2100 [facility] Last Admin: 04/22/18 21:06 Dose: 40 mg Carvedilol (Coreg Tab*) 3.125 mg PO BID [facility] Last Admin: 04/23/18 10:13 Dose: 3.125 mg Clopidogrel Bisulfate (Plavix Tab*) 75 mg PO DAILY [facility] Last Admin: 04/23/18 10:12 Dose: 75 mg Digoxin (Lanoxin Tab*) 0.125 mg PO DAILY [facility] Last Admin: 04/23/18 10:10 Dose: 0.125 mg Folic Acid (Folvite Tab*) 1 mg PO DAILY [facility] Last Admin: 04/23/18 10:13 Dose: 1 mg Furosemide (Lasix Iv*) 80 mg IV BID [facility] Last Admin: 04/23/18 10:13 Dose: 80 mg Heparin Sodium (Porcine) (Heparin Vial(*)) 5,000 units SUBCUT Q8HR [facility] Last Admin: 04/23/18 14:13 Dose: 5,000 units Lisinopril (Prinivil Tab*) 5 mg PO DAILY [facility] Last Admin: 04/23/18 10:13 Dose: 5 mg Lorazepam (Ativan Tab(*)) 0 - 6 mg PO .PER [facility] PROTOCOL [facility]; Protocol Last Admin: 04/19/18 02:17 Dose: 2 mg Melatonin (Melatonin) 3 mg PO BEDTIME PRN PRN Reason: SLEEP Last Admin: 04/21/18 22:21 Dose: 3 mg Metoprolol Tartrate (Lopressor Iv*) 5 mg IV Q6H PRN PRN Reason: HEART RATE/PULSE GREATER THAN: Last Admin: 04/20/18 00:14 Dose: 5 mg Multivitamins/Minerals (Theragran/Minerals Tab*) 1 tab PO DAILY [facility] Last Admin: 04/23/18 10:13 Dose: 1 tab Pantoprazole Sodium (Protonix Tab (Nf)) 40 mg PO DAILY [facility] Last Admin: 04/23/18 10:12 Dose: 40 mg Potassium Chloride (Klor Con Er Tab*) 20 meq PO DAILY [facility] Last Admin: 04/23/18 10:13 Dose: 20 meq Thiamine HCl (Vitamin B-1 Tab*) 100 mg PO DAILY [facility] Last Admin: 04/23/18 10:13 Dose: 100 mg Vital Signs - 8 hr 04/23/18 04/23/18 04/23/18 08:00 08:27 10:10 Temperature 98.5 F Pulse Rate 85 86 Respiratory 16 16 Rate Blood Pressure 127/83 (mmHg) O2 Sat by Pulse 100 Oximetry 04/23/18 11:58 Temperature 98.5 F Pulse Rate 104 Respiratory 16 Rate Blood Pressure 125/89 (mmHg) O2 Sat by Pulse 99 Oximetry Oxygen Devices in Use Now: None Appearance: comfortable, speaking in full sentences until lying flat, at which point he becomes tachypneic Eyes: No Scleral Icterus Ears/Nose/Mouth/Throat: NL Teeth, Lips, Gums Neck: NL Appearance and Movements; NL JVP Respiratory: Symmetrical Chest Expansion and Respiratory Effort Cardiovascular: - - JVD 12cm sitting upright Lymphatic: No Cervical Adenopathy Skin: - - 2+ edema b/l Neurological: Alert and Oriented x 3 Result Diagrams: 04/23/18 05:38 04/23/18 05:38 Additional Lab and Data: Lab Results 04/18/18 04/18/18 04/18/18 Range/Units 18:51 18:51 18:51 WBC 10.1 (3.5-10.8) 10^3/ul RBC 4.40 (4.00-5.40) 10^6/ul Hgb 14.1 (14.0-18.0) g/dl Hct 42 (42-52) % MCV 94 (80-94) fL MCH 32 H (27-31) pg MCHC 34 (31-36) g/dl RDW 13 (10.5-15) % Plt Count 171 (150-450) 10^3/ul MPV 11.6 H (7.4-10.4) um3 Neut % (Auto) Pending Lymph % (Auto) Pending [place] % (Auto) Pending Eos % (Auto) Pending Baso % (Auto) Pending Absolute Neuts (auto) 7.3 (1.5-7.7) 10^3/ul Absolute Lymphs (auto) 1.6 (1.0-4.8) 10^3/ul Absolute Monos (auto) 1.0 H (0-0.8) 10^3/ul Absolute Eos (auto) 0.1 (0-0.6) 10^3/ul Absolute Basos (auto) 0.1 (0-0.2) 10^3/ul Absolute Nucleated RBC 0 10^3/ul Nucleated RBC % Pending Sodium 139 (135-145) mmol/L Potassium 4.0 (3.5-5.0) mmol/L Chloride 105 (101-111) mmol/L Carbon Dioxide 24 (22-32) mmol/L Anion Gap 10 (2-11) mmol/L BUN 14 (6-24) mg/dL Creatinine 1.23 H (0.67-1.17) mg/dL Est GFR ( Amer) 78.5 (>60) Est GFR (Non-Af Amer) 64.8 (>60) BUN/Creatinine Ratio 11.4 (8-20) Glucose 111 H (70-100) mg/dL Lactic Acid 2.1 H* (0.5-2.0) mmol/L Calcium 9.1 (8.6-10.3) mg/dL Total Bilirubin 1.00 (0.2-1.0) mg/dL AST 32 (13-39) U/L ALT 53 H (7-52) U/L Alkaline Phosphatase 91 (34-104) U/L Troponin I 0.03 (<0.04) ng/mL B-Natriuretic Peptide ( - 100) pg/mL Total Protein 6.8 (6.4-8.9) g/dL Albumin 4.2 (3.2-5.2) g/dL Globulin 2.6 (2-4) g/dL Albumin/Globulin Ratio 1.6 (1-3) 07/16/18 Range/Units 18:51 WBC (3.5-10.8) 10^3/ul RBC (4.00-5.40) 10^6/ul Hgb (14.0-18.0) g/dl Hct (42-52) % MCV (80-94) fL MCH (27-31) pg MCHC (31-36) g/dl RDW (10.5-15) % Plt Count (150-450) 10^3/ul MPV (7.4-10.4) um3 Neut % (Auto) Lymph % (Auto) [place] % (Auto) Eos % (Auto) Baso % (Auto) Absolute Neuts (auto) (1.5-7.7) 10^3/ul Absolute Lymphs (auto) (1.0-4.8) 10^3/ul Absolute Monos (auto) (0-0.8) 10^3/ul Absolute Eos (auto) (0-0.6) 10^3/ul Absolute Basos (auto) (0-0.2) 10^3/ul Absolute Nucleated RBC 10^3/ul Nucleated RBC % Sodium (135-145) mmol/L Potassium (3.5-5.0) mmol/L Chloride (101-111) mmol/L Carbon Dioxide (22-32) mmol/L Anion Gap (2-11) mmol/L BUN (6-24) mg/dL Creatinine (0.67-1.17) mg/dL Est GFR ( Amer) (>60) Est GFR (Non-Af Amer) (>60) BUN/Creatinine Ratio (8-20) Glucose (70-100) mg/dL Lactic Acid (0.5-2.0) mmol/L Calcium (8.6-10.3) mg/dL Total Bilirubin (0.2-1.0) mg/dL AST (13-39) U/L ALT (7-52) U/L Alkaline Phosphatase (34-104) U/L Troponin I (<0.04) ng/mL B-Natriuretic Peptide 361 H ( - 100) pg/mL Total Protein (6.4-8.9) g/dL Albumin (3.2-5.2) g/dL Globulin (2-4) g/dL Albumin/Globulin Ratio (1-3) Microbiology and Other Data: Microbiology 04/18/18 18:51 Aerobic Blood Culture - Preliminary Blood Venous No Growth Day 1 Anaerobic Blood Culture - Preliminary No Growth Day 1 04/18/18 18:51 Aerobic Blood Culture - Preliminary Blood Venous No Growth Day 1 Anaerobic Blood Culture - Preliminary No Growth Day 1 Assess/Plan/Problems-Billing Mr Guzman is a 43 yo M who has a h/o severe ischemic cardiomyopathy with an EF of 20-25%, atrial fibrillation and HLD who presented to the ER with c/o SOB and was admitted for decompensated systolic CHF. - Patient Problems (1) Heart failure, systolic, with acute decompensation Current Visit: Yes Status: Acute Code(s): I50.23 - ACUTE ON CHRONIC SYSTOLIC (CONGESTIVE) HEART FAILURE SNOMED Code(s): 696917883 Comment: Dietary vs. med nonadherence vs. tachycardia mediated vs. etoh abuse ? Diuresing well on lasix 80mg iv bid, continue today Continue THOMAS He needs an AICD but continues to decline it, and doesn't want to talk with cardiology about it. 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 (2) Atrial fibrillation Current Visit: Yes Status: Acute Code(s): I48.91 - UNSPECIFIED ATRIAL FIBRILLATION SNOMED Code(s): 66105362 Comment: Continue dig and coreg (at increased dose) CHADS2-VASc score is 2 I explained that just being on ASA does not completely protect him from a CVA and that he should consider therapeutic anticoagulation. He agrees to think about it but does not want to start one now (3) Hx of coronary artery disease Current Visit: No Status: Chronic Priority: Medium Code(s): Z86.79 - PERSONAL HISTORY OF OTHER DISEASES OF THE CIRCULATORY SYSTEM SNOMED Code(s): 965952073 Comment: continue bb, asa, statin
[2018-04-23] MEDS: Atorvastatin* 40 MG TAB PO SCH (21:16)
[2018-04-24] MEDS: Heparin VIAL(*) 5000 UNITS/ML VIAL (FIVE THOUSAND) SUBCUT SCH ×2 (06:03→14:15)
[2018-04-24 06:57] LABS: EGFR Non-African American 62.5 (>60)
[2018-04-24 09:15] VITALS: BP 118/87
[2018-04-24] MEDS: Carvedilol TAB* 3.125 MG PO SCH (09:15)
[2018-04-24] MEDS: Potassium Chlor TAB* 20 MEQ TAB.ER PO SCH (09:15)
[2018-04-24] MEDS: Multivitamins/Minerals TAB PO SCH (09:15)
[2018-04-24] MEDS: Thiamine TAB* 100 MG TAB PO SCH (09:15)
[2018-04-24] MEDS: Furosemide IV* 10 MG/ML 10 ML VIAL (100 MG) IV SCH (09:15)
[2018-04-24] MEDS: Lisinopril TAB* 5 MG PO SCH (09:15)
[2018-04-24] MEDS: Clopidogrel TAB* 75 MG PO SCH (09:16)
[2018-04-24] MEDS: Digoxin TAB* 0.125 MG PO SCH (09:16)
[2018-04-24] MEDS: Aspirin EC TAB* 81 MG TAB.EC PO SCH (09:16)
[2018-04-24] MEDS: Folic Acid TAB* 1 MG PO SCH (09:16)
[2018-04-24] MEDS: CMCS: Pantoprazole TAB (NF) 40 MG TAB PO SCH (09:16)
--- NOTE | 2018-04-24 13:58 | PN ---
Subjective Date of Service: 04/24/18 Interval History: Mr. Guzman reports feeling much better today. He is now up and ambulating on the unit without hypoxia. He is happy with the plan for discharge to home. Family History: Unchanged from Admission Social History: Unchanged from Admission Past Medical History: Unchanged from Admission Objective Active Medications: Acetaminophen (Tylenol Tab*) 650 mg PO Q4H PRN Al Hydrox/Mg Hydrox/Simethicone (Maalox Plus*) 30 ml PO Q4H PRN Aspirin (Aspirin Ec Tab*) 81 mg PO DAILY [facility] Atorvastatin Calcium (Lipitor*) 40 mg PO 2100 [facility] Carvedilol (Coreg Tab*) 3.125 mg PO BID [facility] Clopidogrel Bisulfate (Plavix Tab*) 75 mg PO DAILY [facility] Digoxin (Lanoxin Tab*) 0.125 mg PO DAILY [facility] Folic Acid (Folvite Tab*) 1 mg PO DAILY [facility] Furosemide (Lasix Iv*) 80 mg IV BID [facility] Heparin Sodium (Porcine) (Heparin Vial(*)) 5,000 units SUBCUT Q8HR [facility] Lisinopril (Prinivil Tab*) 5 mg PO DAILY [facility] Lorazepam (Ativan Tab(*)) 0 - 6 mg PO .PER [facility] PROTOCOL [facility]; Protocol Melatonin (Melatonin) 3 mg PO BEDTIME PRN Metoprolol Tartrate (Lopressor Iv*) 5 mg IV Q6H PRN Multivitamins/Minerals (Theragran/Minerals Tab*) 1 tab PO DAILY [facility] Pantoprazole Sodium (Protonix Tab (Nf)) 40 mg PO DAILY [facility] Potassium Chloride (Klor Con Er Tab*) 20 meq PO DAILY [facility] Thiamine HCl (Vitamin B-1 Tab*) 100 mg PO DAILY [facility] Vital Signs: Temp Pulse Resp BP Pulse Ox 97.5 F 78 16 118/87 94 04/24/18 08:04 04/24/18 09:16 04/24/18 08:04 04/24/18 08:04 04/24/18 08:04 Oxygen Devices in Use Now: None Appearance: Male ambulating in room in NAD Eyes: No Scleral Icterus Ears/Nose/Mouth/Throat: Mucous Membranes Moist Neck: Trachea Midline Respiratory: Symmetrical Chest Expansion and Respiratory Effort, Clear to Auscultation Cardiovascular: NL Sounds; No Murmurs; No JVD, - - Trace edema to LEs Abdominal: NL Sounds; No Tenderness; No Distention Lymphatic: No Cervical Adenopathy Skin: No Rash or Ulcers Neurological: Alert and Oriented x 3, NL Muscle Strength and Tone Nutrition: Taking PO's Result Diagrams: 04/23/18 05:38 04/24/18 05:44 Assess/Plan/Problems-Billing Assessment: Mr Guzman is a 43 yo M who has a h/o severe ischemic cardiomyopathy with an EF of 20-25%, atrial fibrillation and HLD who presented to the ER with c/o SOB and was admitted for decompensated systolic CHF. - Patient Problems (1) Heart failure, systolic, with acute decompensation Comment: - Resolving. Weight down 6 lbs since admission. - Dietary vs. med nonadherence vs. tachycardia mediated vs. etoh abuse? - Diuresing well on lasix 80mg iv bid, switch to lasix 40mg po BID until follow up with PCP this week. - Continue THOMAS - He needs an AICD but continues to decline it, and doesn't want to talk with cardiology about it. 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 (2) Atrial fibrillation Comment: - Continue dig and coreg (at increased dose) - CHADS2-VASc score is 2. Patient aware that ASA does not completely protect him from a CVA and that he should consider therapeutic anticoagulation. He agrees to think about it but does not want to start one now (3) Acute cholecystitis Current Visit: No Status: Acute Comment: - Ruled out with RUQ US. (4) Alcohol abuse Comment: - Pt reported to Rita Salvador NP on admission that he drinks 6-30 beers/day. Encourage abstinence. (5) Thrombocytopenia Comment: - Chronic, near baseline. (6) Hx of coronary artery disease Comment: - continue bb, asa, statin (7) DVT prophylaxis Comment: - SQ heparin (8) Full code status Comment: Status and Disposition: Inpatient. Discharge to home.
--- NOTE | 2018-04-24 22:56 | DS ---
CC: Dr. Azar; Dr. Stallworth * [facility] MEDICINE DISCHARGE SUMMARY: DATE OF ADMISSION: 04/18/18 DATE OF DISCHARGE: 04/24/18 ATTENDING PROVIDER: Alexandra Roberts MD * (DICTATED BY JUNIOR SU NP) PRIMARY CARE PHYSICIAN: Dr. Azar. CLINICAL THERAPIST: Dr. Stallworth. PRIMARY DIAGNOSIS: Acute-on chronic systolic congestive heart failure. SECONDARY DIAGNOSES: 1. History of coronary artery disease with NE and stents. 2. Hypertension. 3. Ischemic cardiomyopathy with an ejection fraction of 20 to 25%. 4. Hyperlipidemia. 5. Obesity. 6. Atrial fibrillation. PAST SURGICAL HISTORY: 1. Appendectomy. 2. Cardiac stent placement x5. MEDICATIONS AT TIME OF DISCHARGE: 1. Furosemide 40 mg p.o. b.i.d. (to continue until the patient follows up with primary care physician this week). 2. Aspirin 81 mg p.o. daily. 3. Lipitor 40 mg p.o. daily. 4. Lisinopril 5 mg p.o. daily. 5. Multivitamin 1 tablet p.o. daily. 6. Carvedilol 3.125 mg p.o. daily. 7. Potassium chloride 20 mEq p.o. daily. 8. Folic acid 1 mg p.o. daily. 9. Digoxin 0.125 mg p.o. daily. 10. Clopidogrel 75 mg p.o. daily. HOSPITAL COURSE: Mr. Guzman is a 43-year-old male with past medical history of chronic systolic congestive heart failure secondary to ischemic cardiomyopathy with an ejection fraction of 20 to 25% who presented to the hospital on 04/18/18, with concern for shortness of breath and abdominal and lower extremity swelling. Please see dictated H and P from Jadyn Salvador NP for complete details. In brief, the patient reported that he had been having worsening shortness of breath for about a week, but that it has become much more significant over the past 2 weeks prior to admission. He ultimately came to the emergency room when he felt he could hardly withstand without becoming very, very dyspneic. In the emergency room, he had labs, which showed a lactic acid of 2.1. His BUN and creatinine were at baseline with a BUN of 14, creatinine 1.23. He had no leukocytosis. His ESR was 8. He is afebrile. He was tachycardic with a heart rate of 136. His blood pressure was stable with blood pressure of 142/99. He had a chest x-ray, which showed "suspect mild basilar congestion" and abdomen and pelvis CT as he was also complaining of some nausea and abdominal bloating. That read shows "the constellation of findings concerning for potential, acute calculous cholecystitis, correlate with clinical assessment and consider right upper quadrant ultrasound as suggested for further evaluation. Mild colonic diverticulosis without findings of acute diverticulitis, 16.3 cm cephalocaudal, enlarged spleen, trace ascites, negative for free air." For this, the patient did have a gallbladder ultrasound , which confirmed that he did not have cholecystitis and it was read as "cholelithiasis with gallbladder wall thickening measuring up to 0.5 cm and a partially contracted gallbladder." Mr. Guzman was suspected to have acute-on chronic systolic congestive heart failure exacerbation. He was treated with 80 mg of Lasix IV b.i.d. He thinks he has lost about 20 pounds, but per our record, we are currently showing that he may have lost about 10 to 15 pounds. Regardless, he is feeling quite well. He is not hypoxic. He feels that his abdomen is much less swollen. He is able to ambulate in the unit without any shortness of breath or chest pain. The lower extremity edema is greatly resolved. We did have a lengthy discussion with Mr. Guzman about his overall health and other opportunities to improve that. I counseled him extensively about avoiding salt diet, but he states that he is much more interested in having a good quality of life rather than extending his life at the sacrifice of quality. 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 I have also spoken to him about the recommendation for anticoagulation given his atrial fibrillation history, but he is also not interested in that at this point. Mr. Guzman is feeling much better today and he is happy with the plan for discharge to home. For now, we would like to continue with an increased dose of Lasix at 40 mg twice daily until he follows up with his primary care physician, which he intends to do this week. He will have a basic metabolic panel checked on Wednesday, which can be forwarded to Dr. Azar. Finally, he will be seeing Dr. Stallworth on 05/13/18. Mr. Guzman is medically stable. DISPOSITION: To home. DIET: Low-fat, low-salt. ACTIVITY: As tolerated. FOLLOWUP PLANS: 1. Please follow up with the basic metabolic panel on Wednesday of this week. 2. Please follow up with Dr. Azar by the end of this week. 3. Please follow up with Dr. Stallworth with a previously scheduled appointment for 05/13/18. TIME SPENT: Approximately 60 minutes were spent in the discharge of this patient, more than half the time was spent with the patient at the bedside reviewing the events leading up to this hospitalization, performing the physical examination, and reviewing my plan of care. JUNIOR SU NP [id number]/CPS #: [id number] BRI
== END 2018-04-24 17:42 | disposition home or self-care (01) | DRG 194 ==
LOC: ED 18:27 → MEDTELE 22:26 → OBSVTOIN 04-20 12:00
PROVIDERS: ADMIT Pediatrics; ATTEND Internal Medicine
DX: I11.0 Hypertensive heart disease with heart failure (principal); Z68.41 Body mass index [BMI] 40.0-44.9, adult; I50.23 Acute on chronic systolic (congestive) heart failure; I25.10 Atherosclerotic heart disease of native coronary artery without angina pectoris; D69.6 Thrombocytopenia, unspecified; I25.5 Ischemic cardiomyopathy; E78.5 Hyperlipidemia, unspecified; E66.9 Obesity, unspecified; F10.10 Alcohol abuse, uncomplicated; I48.91 Unspecified atrial fibrillation; Z79.82 Long term (current) use of aspirin; Z79.899 Other long term (current) drug therapy; Z82.49 Family history of ischemic heart disease and other diseases of the circulatory system; Z87.891 Personal history of nicotine dependence; Z95.5 Presence of coronary angioplasty implant and graft
CPT/HCPCS: 36415; 71046; 74177; 76705; 80048; 80053; 80076; 80162; 83605; 83690; 83735; 83880; 84484; 85025; 85652; 86140; 87040; 93005; 93306; 99284; A9270-GY; C8929; G0378; J1644; J1940; J3411; J3490; Q9967

== ENCOUNTER 2018-05-08 19:35 | Inpatient (IN) | payer BC ==
[2018-05-08] MEDS ORDERED: Furosemide IV* 10 MG/ML VIAL (40 MG) IV SLOW PU ONE (20:11)
--- NOTE | 2018-05-08 20:13 | ED ---
Shortness of Breath - HPI Summary HPI Summary: This is babs French documenting for Dr. Juliana Miller MD. Pt is a 43 y/o who presents to ED c/o SOB. The SOB started a few weeks ago and he was seen here in the ED for it. He says a couple days ago the SOB worsened even though he has been taking his medications. Notes pain when he moves in his stomach, when he stands in his feet and ankles, and when he walks in his calf muscles. Cant rate his pain intensity due to high pain tolerance. Notes legs and feet are swollen. Denies a lot of salt intake. - History of Current Complaint Chief Complaint: EDShortnessOfBreath Time Seen by Provider: 05/08/18 19:55 Hx Obtained From: Patient Onset/Duration: Lasting Weeks, Worse Since - few days ago Dyspnea At: Rest Associated Signs & Symptoms: Calf Pain/Swelling, Edema - Allergy/Home Medications Allergies/Adverse Reactions: Allergies Allergy/AdvReac Type Severity Reaction Status Date / Time No Known Allergies Allergy Verified 05/08/18 19:41 PMH/Surg Hx/FS Hx/Imm Hx Endocrine/Hematology History: Denies: Hx Diabetes Cardiovascular History: Reports: Hx Angina, Hx Cardiac Arrest, Hx Congestive Heart Failure, Hx Coronary Artery Disease, Hx Hypercholesterolemia, Hx Hypertension - W/MEDS PER PT.HASN'T TAKEN MEDS IN QUITE A WHILE, Hx Myocardial Infarction - 2009 Respiratory History: Denies: Hx Asthma, Hx Chronic Obstructive Pulmonary Disease (COPD) GI History: Reports: Hx Hiatal Hernia - maybe History: Denies: Hx Renal Disease Musculoskeletal History: Reports: Hx Arthritis, Hx Back Problems, Hx Orthopedic Injury - R arm, right ankle Sensory History: Denies: Hx Contacts or Glasses, Hx Hearing Aid Opthamlomology History: Denies: Hx Contacts or Glasses Neurological History: Denies: Hx Spinal Cord Injury Psychiatric History: Reports: Hx Depression, Hx Substance Abuse - ETOH - Surgical History Surgery Procedure, Year, and Place: appendectomy, left thumb reattached, left zygomatic bone and occipital bone fractured, repaired. - Immunization History Date of Tetanus Vaccine: 2010 Infectious Disease History: No Infectious Disease History: Denies: Traveled Outside the [place] in Last 30 Days - Family History Known Family History: Positive: Cardiac Disease - early SC, Other - Social History Alcohol Use: Occasionally Alcohol Amount: 6-8 beers a week states "all in one night" Substance Use Type: Reports: Marijuana Substance Use Comment - Amount & Last Used: 07/27/2014 Hx Tobacco Use: Yes Smoking Status (MU): Former Smoker Type: Cigarettes Amount Used/How Often: 1 can a day Length of Time of Smoking/Using Tobacco: 22 years Have You Smoked in the Last Year: No Review of Systems Positive: Other - legs and feet swelling Positive: Shortness Of Breath Positive: Abdominal Pain Positive: Edema, Other - Pain in feet, ankles, and calves All Other Systems Reviewed And Are Negative: Yes Physical Exam - Summary Physical Exam Summary: VITAL SIGNS: Reviewed. GENERAL: Patient is a well-developed and nourished male who is lying comfortable in the stretcher. Patient is not in any acute respiratory distress. HEAD AND FACE: No signs of trauma. No ecchymosis, hematomas or skull depressions. No sinus tenderness. EYES: PERRLA, EOMI x 2, No injected conjunctiva, no nystagmus. EARS: Hearing grossly intact. Ear canals and tympanic membranes are within normal limits. MOUTH: Oropharynx within normal limits. NECK: Supple, trachea is midline, no adenopathy, no JVD, no carotid bruit, no c- spine tenderness, neck with full ROM. CHEST: Symmetric, no tenderness at palpation LUNGS: Decreased breath sounds bilaterally. Clear to auscultation bilaterally. No wheezing or crackles. CVS: Irregularly tachycardic, S1 and S2 present, no murmurs or gallops appreciated. ABDOMEN: Soft, non-tender. No signs of distention. No rebound no guarding, and no masses palpated. Bowel sounds are normal. EXTREMITIES: Bilateral pedal edema 2+. FROM in all major joints, no cyanosis or clubbing. NEURO: Alert and oriented x 3. No acute neurological deficits. Speech is normal and follows commands. SKIN: Dry and warm Triage Information Reviewed: Yes Vital Signs On Initial Exam: Initial Vitals Temp Pulse Resp BP Pulse Ox 97.4 F 149 30 144/111 99 05/08/18 19:39 05/08/18 19:39 05/08/18 19:39 05/08/18 19:39 05/08/18 19:39 Vital Signs Reviewed: Yes Diagnostics - Vital Signs Vital Signs Temp Pulse Resp BP Pulse Ox 05/08/18 19:39 97.4 F 149 30 144/111 99 - Laboratory Result Diagrams: 05/08/18 20:26 05/08/18 20:26 Lab Statement: Any lab studies that have been ordered have been reviewed, and results considered in the medical decision making process. - Radiology CXR Radiology Interpretation Completed By: ED Physician - Cardiomegaly and bilateral venous congestion, pending official report. - EKG 07:52 Cardiac Rate: Tachycardia - 129 bpm EKG Rhythm: Atrial Fibrillation EKG Interpretation: Non specific ST wave changes Course/Dx - Course Course Of Treatment: Pt is a 43 y/o who presents to ED c/o SOB. The SOB started a few weeks ago and he was seen here in the ED for it. He says a couple days ago the SOB worsened even though he has been taking his medications. Notes pain when he moves in his stomach, when he stands in his feet and ankles, and when he walks in his calf muscles. Notes legs and feet are swollen. PMHx of CHF and A fib and has multiple admissions for them. Physical exam revealed decreased breath sounds bilaterally, irregularly tachycardic, and bilateral pedal edema 2+ . EKG taken at 07:52 showed tachycardia at 129 bpm with A fib and non-specific ST wave changes. CXR showed cardiomegaly and bilateral venous congestion. In ED course pt was given Reglan, Lasix, Digoxin, and Cardizem. Spoke with Dr. Bourgeois who agreed to admit pt. Pt is diagnosed with CHF and rapid A Fib and admitted to [facility]. Pt is agreeable with this plan. - Diagnoses Provider Diagnoses: CHF (congestive heart failure), Rapid atrial fibrillation - Physician Notifications Discussed Care of Patient With: Chip Bourgeois Time Discussed With Above Provider: 21:45 Instructed by Provider To: Admit As Inpatient Discharge - Sign-Out/Discharge Documenting (check all that apply): Patient Departure - Admit - Discharge Plan Condition: Fair Disposition: ADMITTED TO [facility] Referrals: No Primary Care Phys,NOPCP [Medical Doctor] -
[2018-05-08 20:41] LABS: ABS Basophils 0.1 10^3/ul (0-0.2); ABS Eosinophils 0.1 10^3/ul (0-0.6); ABS Lymphocytes 1.6 10^3/ul (1.0-4.8); ABS Monocytes 1.3 10^3/ul (0-0.8); ABS Neutrophils 9.8 10^3/ul (1.5-7.7); ABS Nucleated RBC 0 10^3/ul; Eosinophil % 0.7 % (0-6); Hematocrit 44 % (42-52); Hemoglobin 14.3 g/dl (14.0-18.0); Lymphocyte % 12.3 % (25-47); Mean Corpuscular HGB Conc 33 g/dl (31-36); Mean Corpuscular Hemoglobin 31 pg (27-31); Mean Corpuscular Volume 93 fL (80-94); Mean Platelet Volume 11.9 um3 (7.4-10.4); Nucleated Red Blood Cells % 0.1; Platelet Count 196 10^3/ul (150-450); Red Blood Count 4.66 10^6/ul (4.00-5.40); Red Cell Distribution Width 13 % (10.5-15); White Blood Count 12.9 10^3/ul (3.5-10.8)
[2018-05-08 20:49] LABS: INR 1.19 (0.77-1.02)
[2018-05-08 20:53] LABS: EGFR Non-African American 54.1 (>60)
[2018-05-08] MEDS ORDERED: Diltiazem IV VIAL* 5 MG/ML 10 ML VIAL IV SLOW PU ONE (21:02)
[2018-05-08] MEDS ORDERED: Digoxin IV* 0.5 MG/2 ML AMP (0.25 MG/ML) IV SLOW PU ONE (21:02)
[2018-05-08] MEDS ORDERED: Metoclopramide IV* 5 MG/ML 2 ML VIAL IV SLOW PU ONE (21:04)
[2018-05-08] MEDS ORDERED: Diltiazem IV* 5 MG/ML 5 ML VIAL (for loading dose/IV Push) (25 MG) IV PUSH STA (21:30)
--- NOTE | 2018-05-08 22:20 | HP ---
H&P (Free Text) History and Physical: PCP: ZACARIAS Puentes Date/Time: 05/08/2018 2200 CC: SOB HPI: Mr Guzman is a 43YO male HX CAD/NH/stent, ischemic cardiomyopathy EF 20-25% , AFIB, HTN, & HLD who presents with increasing SOB and orthopnea over the past week associated with increased BLE swelling. He denies F/C, sweats, chest pain, or other issues. He states he has been following a low sodium diet and clarifies his diet over the past week as consisting primarily of Bar-B-Q. ED evaluation has identified AFIB RVR and CHF for which he has received 20mg IV diltiazem and 40mg IV furosemide. He was questioned as to whether he has ever been recommended to be on anticoagulation for his AFIB (as his [id number] score is 3), but is very vague in his response claiming that he is on other meds that thin his blood, referring to aspirin & clopidogrel. As such, I advised starting him on heparin GTT and having cardiology weigh in on the matter to which he agreed. PMedHx CAD/NH/stent x2 ischemic cardiomyopathy EF 20-25% AFIB HTN pure hypercholesterolemia alcoholism w/ HX withdrawal w/o seizure morbid obesity Ambulatory Orders Nursing to reconcile. Aspirin EC TAB* [Ecotrin EC Low Dose 81 MG*] 81 mg PO DAILY 04/18/18 Atorvastatin* [Lipitor 40 MG*] 40 mg PO DAILY 04/18/18 Carvedilol TAB* [Coreg TAB*] 3.125 mg PO DAILY 04/18/18 Clopidogrel TAB* [Plavix TAB*] 75 mg PO DAILY 04/18/18 Digoxin TAB* [Lanoxin TAB*] 0.125 mg PO DAILY 04/18/18 Folic Acid TAB* [Folvite TAB*] 1 mg PO DAILY 04/18/18 Lisinopril TAB* [Prinivil TAB 5 MG*] 5 mg PO DAILY 04/18/18 Multivitamins/Minerals TAB* [Theragran/minerals TAB*] 1 tab PO DAILY 04/18/18 Potassium Chlor TAB* [Potassium Chlor TAB 20 MEQ*] 20 meq PO DAILY 04/18/18 Furosemide TAB* [Lasix TAB*] 40 mg PO BID #10 tab 04/24/18 Allergies No Known Allergies Allergy (Verified 05/08/18 19:41) PSurgHx cardiac stent x2 (LAD & RCA) appendectomy SocHx: quit smoking 01/2017 2/ >40PYHX, alcoholism actively drinking 6 - 8 beers /day, marijuana; disabled; single; full code status FamHx: Mother: passed mid-60s, unknown cause, DM2; Father: alive, pacer, early onset CAD, cardiomyopathy; otherwise positive for DM, HTN, HLD ROS: as above, otherwise reviewed and all were negative vitals: Vital Signs Temp 36.3 C 05/08/18 19:39 Pulse 132 05/08/18 21:21 Resp 25 05/08/18 21:21 BP 136/112 05/08/18 21:21 Pulse Ox 98 05/08/18 21:21 Intake & Output 05/07/18 05/08/18 05/08/18 23:59 11:59 23:59 Output Total 1400 Balance -1400 Weight 127.913 kg Output: Urine 1400 Constitutional: NAD, normally developed, morbidly obese white male HEENM: atraumatic; sclera/conjunctiva: anicteric/clear; hearing: clinically intact; oropharynx: clear, mucosa moist Neck: soft tissue: non-tender; thyroid: normal Pulmonary: scant bibasilar cellophane crackles, good aeration, no accessory muscle use CV: TR/IR, normal S1S2, no carotid bruit, no jugular venous distention, 2+ B DP/ PT, 2+ BLE edema Abdominal: soft, non-distended, non-tender, no rebound/guarding/rigidity, normoactive bowel sounds, no hepatosplenomegaly or masses, no costovertebral angle tenderness Musculoskeletal: general: grossly intact, non-tender Integumental: normal appearance and texture of exposed skin Psychiatric orientation: AA&O to PPS affect: calm mood: cooperative eye contact: fair to good content: seemingly reliable responses: timely insight: poor Testing: Lab Results 05/08/18 05/08/18 05/08/18 Range/Units 20:26 20:26 20:26 WBC 12.9 H (3.5-10.8) 10^3/ul RBC 4.66 (4.00-5.40) 10^6/ul Hgb 14.3 (14.0-18.0) g/dl Hct 44 (42-52) % MCV 93 (80-94) fL MCH 31 (27-31) pg MCHC 33 (31-36) g/dl RDW 13 (10.5-15) % Plt Count 196 (150-450) 10^3/ul MPV 11.9 H (7.4-10.4) um3 Neut % (Auto) 75.9 (38-83) % Lymph % (Auto) 12.3 L (25-47) % [place] % (Auto) 10.1 H (0-7) % Eos % (Auto) 0.7 (0-6) % Baso % (Auto) 1.0 (0-2) % Absolute Neuts (auto) 9.8 H (1.5-7.7) 10^3/ul Absolute Lymphs (auto) 1.6 (1.0-4.8) 10^3/ul Absolute Monos (auto) 1.3 H (0-0.8) 10^3/ul Absolute Eos (auto) 0.1 (0-0.6) 10^3/ul Absolute Basos (auto) 0.1 (0-0.2) 10^3/ul Absolute Nucleated RBC 0 10^3/ul Nucleated RBC % 0.1 INR (Anticoag Therapy) 1.19 H (0.77-1.02) APTT 26.5 (26.0-36.3) seconds Sodium 139 (135-145) mmol/L Potassium 4.0 (3.5-5.0) mmol/L Chloride 105 (101-111) mmol/L Carbon Dioxide 23 (22-32) mmol/L Anion Gap 11 (2-11) mmol/L BUN 17 (6-24) mg/dL Creatinine 1.44 H (0.67-1.17) mg/dL Est GFR ( Amer) 65.4 (>60) Est GFR (Non-Af Amer) 54.1 (>60) BUN/Creatinine Ratio 11.8 (8-20) Glucose 102 H (70-100) mg/dL Calcium 9.3 (8.6-10.3) mg/dL Total Bilirubin 2.10 H (0.2-1.0) mg/dL AST 46 H (13-39) U/L ALT 69 H (7-52) U/L Alkaline Phosphatase 102 (34-104) U/L Troponin I 0.03 (<0.04) ng/mL B-Natriuretic Peptide ( - 100) pg/mL Total Protein 6.8 (6.4-8.9) g/dL Albumin 4.1 (3.2-5.2) g/dL Globulin 2.7 (2-4) g/dL Albumin/Globulin Ratio 1.5 (1-3) Digoxin 0.6 L (0.8-2.0) ng/ml 05/08/18 Range/Units 20:26 WBC (3.5-10.8) 10^3/ul RBC (4.00-5.40) 10^6/ul Hgb (14.0-18.0) g/dl Hct (42-52) % MCV (80-94) fL MCH (27-31) pg MCHC (31-36) g/dl RDW (10.5-15) % Plt Count (150-450) 10^3/ul MPV (7.4-10.4) um3 Neut % (Auto) (38-83) % Lymph % (Auto) (25-47) % [place] % (Auto) (0-7) % Eos % (Auto) (0-6) % Baso % (Auto) (0-2) % Absolute Neuts (auto) (1.5-7.7) 10^3/ul Absolute Lymphs (auto) (1.0-4.8) 10^3/ul Absolute Monos (auto) (0-0.8) 10^3/ul Absolute Eos (auto) (0-0.6) 10^3/ul Absolute Basos (auto) (0-0.2) 10^3/ul Absolute Nucleated RBC 10^3/ul Nucleated RBC % INR (Anticoag Therapy) (0.77-1.02) APTT (26.0-36.3) seconds Sodium (135-145) mmol/L Potassium (3.5-5.0) mmol/L Chloride (101-111) mmol/L Carbon Dioxide (22-32) mmol/L Anion Gap (2-11) mmol/L BUN (6-24) mg/dL Creatinine (0.67-1.17) mg/dL Est GFR ( Amer) (>60) Est GFR (Non-Af Amer) (>60) BUN/Creatinine Ratio (8-20) Glucose (70-100) mg/dL Calcium (8.6-10.3) mg/dL Total Bilirubin (0.2-1.0) mg/dL AST (13-39) U/L ALT (7-52) U/L Alkaline Phosphatase (34-104) U/L Troponin I (<0.04) ng/mL B-Natriuretic Peptide 474 H ( - 100) pg/mL Total Protein (6.4-8.9) g/dL Albumin (3.2-5.2) g/dL Globulin (2-4) g/dL Albumin/Globulin Ratio (1-3) Digoxin (0.8-2.0) ng/ml ECG, personally reviewed: AFIB rate 129, T-wave inversions, V5-6, T-wave flattening I/II/II/AVF CXR, personally reviewed: cephalization with mild pulmonary edema Impression: 43M HX CAD/NH/stent, ischemic cardiomyopathy EF 20-25%, AFIB, HTN, HLD, & alcoholism presenting with SOB 2nd AFIB/RVR and mild CHF DIAGNOSIS & PLAN Primary AFIB/RVR and mild CHF : [id number] 3 (HTN, CHF, & vascular HX), recommend anticoagulation : heparin GTT : consider cardiology consult in AM to address long-term anticoagulation : rate control diltiazem PO/IV : continue carvedilol & digoxin : furosemide diuresis : strict I&Os : daily weights : low sodium diet : supplemental oxygen : supportive care Secondary CAD/NH/stent x2 ischemic cardiomyopathy EF 20-25% : continue lisinopril & carvedilol : continue aspirin & clopidogrel HTN : continue lisinopril, carvedilol HLD : continue atorvastatin alcoholism : WAM protocol Admission Rational: observation for AFIB RVR w/ 2nd CHF DVTp: heparin SQ Code Status: full HCP: cousinGabriela [phone]
[2018-05-08] MEDS ORDERED: Acetaminophen TAB* 325 MG PO PRN (22:21)
[2018-05-08] MEDS ORDERED: Melatonin 3 MG TAB PO PRN (22:23)
[2018-05-08] MEDS ORDERED: Heparin DRIP 25,000 UNITS(*) 25,000 UNITS/500 ML BAG IVPB SCH (22:45)
[2018-05-08] MEDS ORDERED: Diltiazem CD CAP* 120 MG PO ONE (22:46)
[2018-05-08] MEDS ORDERED: Thiamine IV* 100 MG/ML 2 ML VIAL IM ONE (22:59)
[2018-05-08] MEDS ORDERED: LORazepam INJ* 2 MG/ML 1 ML VIAL IM SCH (23:00)
[2018-05-08] MEDS: Heparin VIAL(*) 5000 UNITS/ML VIAL (FIVE THOUSAND) IV SCH (23:48)
[2018-05-09 06:28] LABS: Hematocrit 41 % (42-52); Mean Corpuscular HGB Conc 34 g/dl (31-36); Mean Corpuscular Hemoglobin 32 pg (27-31); Mean Corpuscular Volume 93 fL (80-94); Mean Platelet Volume 11.8 um3 (7.4-10.4); Platelet Count 162 10^3/ul (150-450); Red Blood Count 4.42 10^6/ul (4.00-5.40); Red Cell Distribution Width 13 % (10.5-15); White Blood Count 10.5 10^3/ul (3.5-10.8)
[2018-05-09 06:32] LABS: ABS Basophils 0.1 10^3/ul (0-0.2); ABS Eosinophils 0.1 10^3/ul (0-0.6); ABS Lymphocytes 1.9 10^3/ul (1.0-4.8); ABS Neutrophils 7.3 10^3/ul (1.5-7.7); ABS Nucleated RBC 0 10^3/ul
[2018-05-09 06:43] LABS: EGFR Non-African American 66.7 (>60)
[2018-05-09 06:56] LABS: Eosinophil % 0.9 % (0-6); Lymphocyte % 18.5 % (25-47); Nucleated Red Blood Cells % 0
[2018-05-09] MEDS: Heparin VIAL(*) 5000 UNITS/ML VIAL (FIVE THOUSAND) IV SCH (06:59)
--- NOTE | 2018-05-09 07:23 | RAD ---
Indication: Shortness of breath. Single frontal view of the chest performed at 2021 hours was reviewed. Comparison is made with previous exam dated April 18, 2018. Cardiomegaly is noted. Lung clarke demonstrate no pleural fluid, pneumonia or pneumothorax. There may be mild interstitial edema noted. IMPRESSION: CARDIOMEGALY WITH MILD INTERSTITIAL EDEMA. R0
[2018-05-09] MEDS: Folic Acid TAB* 1 MG PO SCH (08:13)
[2018-05-09] MEDS: Multivitamins/Minerals TAB PO SCH (08:13)
[2018-05-09] MEDS: Digoxin TAB* 0.125 MG PO SCH (08:14)
[2018-05-09] MEDS: Lisinopril TAB* 5 MG PO SCH (08:14)
[2018-05-09] MEDS: Atorvastatin* 40 MG TAB PO SCH (08:15)
[2018-05-09] MEDS: Aspirin EC TAB* 81 MG TAB.EC PO SCH (08:15)
[2018-05-09] MEDS: Thiamine TAB* 100 MG TAB PO SCH (08:15)
[2018-05-09] MEDS ORDERED: Furosemide TAB* 40 MG PO SCH (09:00)
[2018-05-09] MEDS ORDERED: Potassium Chlor TAB* 20 MEQ TAB.ER PO SCH (09:00)
[2018-05-09] MEDS ORDERED: Carvedilol TAB* 3.125 MG PO SCH (09:00)
[2018-05-09] MEDS ORDERED: Clopidogrel TAB* 75 MG PO SCH (09:00)
[2018-05-09] MEDS: Metoprolol Succinate XL TAB* 50 MG PO SCH (10:14)
[2018-05-09] MEDS: Spironolactone TAB* 25 MG PO SCH (10:14)
[2018-05-09] MEDS: Apixaban* 5 MG TAB PO SCH ×2 (10:14→20:57)
--- NOTE | 2018-05-09 10:23 | CONSULT ---
Subjective Date of Service: 05/09/18 Interval History: Date of admission 05/08/2018 Date of consult 05/09/2018 PCP: ZACARIAS Puentes Instructor Private: Dr Stallworth CC: dyspnea Reason for consult: CHF, Atrial fibrillation HPIDemetria Guzman is a 53 year old man with a history as below with recent admission for atrial fibrillation and decompensated heart failure. He states he had atrial fibrillation several years ago. He has been taking medications as prescribed. He does have a history of medication non-adherence and was admitted with HF exacerbation 09/2017 due to this. His digoxin level this admission is 0.6 suggesting he has been adherent. He is now re-admitted with dyspnea and found with ADHF in the setting of rapid atrial fibrillation. His symptoms are of increased fatigue, dyspnea, orthopnea GI upset and edema. He also feels pressure in his chest and neck when laying flat which has been an ongoing issue. There is no evidence of ACS. He denies any palpitations or syncope. He has declined a primary prevention ICD in the past and again declines this again today. He has an appointment with his client advisor, Dr. Stallworth 05/13/2018. He does have a history of alcohol misuse drinking about 6 beer day on average but has only drank 1 beer since recent discharge. Allergies: No Known Drug Allergy 02/05/17 allergy list reviewed on 03/22/2017 PMH: Medical Problems: Hyperlipidemia Obesity Alcoholism SC/CAD Ischemic cardiomyopathy/systolic HF FH:mother: passed mid-60s, unknown cause, DM2; Father: alive, pacer, early onset CAD, cardiomyopathy; otherwise positive for DM, HTN, HLD SH: Marital: Single.Lives With: Alone.Occupation: Unemployed Unemployed - currently not working due to medical disease Personal Habits: Smoking: Patient is a former smoker.Cigarette Use: Former Cigarette Smoker 1 Pack Daily quit 01/2017, .Alcohol: on average 6 beers a day, occasional marijuana Medications Active Medications: Acetaminophen (Tylenol Tab*) 650 mg PO Q6H PRN PRN Reason: FEVER/PAIN Apixaban (Eliquis*) 5 mg PO BID [facility] Last Admin: 05/09/18 10:14 Dose: 5 mg Aspirin (Aspirin Ec Tab*) 81 mg PO DAILY [facility] Last Admin: 05/09/18 08:15 Dose: 81 mg Atorvastatin Calcium (Lipitor*) 40 mg PO DAILY [facility] Last Admin: 05/09/18 08:15 Dose: 40 mg Digoxin (Lanoxin Tab*) 0.125 mg PO DAILY [facility] Last Admin: 05/09/18 08:14 Dose: 0.125 mg Folic Acid (Folvite Tab*) 1 mg PO DAILY [facility] Last Admin: 05/09/18 08:13 Dose: 1 mg Lisinopril (Prinivil Tab*) 5 mg PO DAILY [facility] Last Admin: 05/09/18 08:14 Dose: 5 mg Lorazepam (Ativan Inj*) 0 - 6 mg IM .PER [place] PROTOCOL [facility]; Protocol Melatonin (Melatonin) 3 mg PO BEDTIME PRN; Protocol PRN Reason: Sleep Metoprolol Succinate (Toprol Xl Tab*) 50 mg PO DAILY [facility] Last Admin: 05/09/18 10:14 Dose: 50 mg Multivitamins/Minerals (Theragran/Minerals Tab*) 1 tab PO DAILY [facility] Last Admin: 05/09/18 08:13 Dose: 1 tab Spironolactone (Aldactone Tab*) 25 mg PO DAILY [facility] Last Admin: 05/09/18 10:14 Dose: 25 mg Thiamine HCl (Vitamin B-1 Tab*) 100 mg PO DAILY [facility] Last Admin: 05/09/18 08:15 Dose: 100 mg Torsemide (Demadex*) 100 mg PO DAILY [facility] Home Medications: Aspirin EC TAB* [Ecotrin EC Low Dose 81 MG*] 81 mg PO DAILY 04/18/18 [History Confirmed 05/08/18] Atorvastatin* [Lipitor 40 MG*] 40 mg PO DAILY 04/18/18 [History Confirmed ] Carvedilol TAB* [Coreg TAB*] 3.125 mg PO DAILY 04/18/18 [History Confirmed 05/08] Clopidogrel TAB* [Plavix TAB*] 75 mg PO DAILY 04/18/18 [History Confirmed ] Digoxin TAB* [Lanoxin TAB*] 0.125 mg PO DAILY 04/18/18 [History Confirmed ] Folic Acid TAB* [Folvite TAB*] 1 mg PO DAILY 04/18/18 [History Confirmed ] Lisinopril TAB* [Prinivil TAB 5 MG*] 5 mg PO DAILY 04/18/18 [History Confirmed 05/08/18] Multivitamins/Minerals TAB* [Theragran/minerals TAB*] 1 tab PO DAILY 04/18/18 [ History Confirmed 05/08/18] Potassium Chlor TAB* [Potassium Chlor TAB 20 MEQ*] 20 meq PO DAILY 04/18/18 [ History Confirmed 05/08/18] Furosemide TAB* [Lasix TAB*] 40 mg PO BID #10 tab 04/24/18 [Rx Confirmed ] Review of Systems - Measurements Intake and Output: Intake and Output Last 24 Hours 05/07/18 05/08/18 05/09/18 05/10/18 06:59 06:59 06:59 06:59 Intake Total 960 612 Output Total 1400 Balance -440 612 Weight 293 lb 14.4 oz Intake: IV Fluids 252 Oral 960 360 Output: Urine 1400 Other: # Bowel Movements 0 # Voids 0 - Review of Systems Constitutional Symptoms: Positive: Weight Gain, Weakness, Fatigue Dermatology: Negative: Rash, Skin Lesions HEENT: Negative: Change in Hearing, Vertigo Eyes: Negative: Change in Vision, Double Vision Thyroid: Positive: Weight Gain Negative: Primary Hypothyroidism, Primary Hyperthyroidism, Change in Menstration, Radiation Exposure Pulmonary: Positive: Respiratory Distress, Shortness of Breath, Exercise Intolerance Negative: Cough, Sputum, Hemoptysis, COPD, Asthma, Home Oxygen Cardiology: Positive: Shortness of Breath, Swelling of Ankles, Edema, Orthopnea Negative: Chest Pain, Palpitations, Peripheral Vascular Dis, Faintness, Syncope, Claudication Gastroenterology: Negative: Vomiting, Anorexia, Constipation, Diarrhea Genital - Urinary: Positive: Normal Negative: Dysuria, Hematuria, Polyuria Musculoskeletal: Negative: Joint Pain, Joint Stiffness Endocrinology: Positive: Obesity Negative: Hirsutism, Menstrual Abnormalities Hematologic/Lymphatic: Positive: Use of Antiplatelet Drugs Negative: Hx Leukemia, Hx Lymphoma Neurology: Negative: Headaches, Migraines, Change in Speech, Change in Sphincter Function, Hx of Stroke\TIA Psychiatry: Negative: Unusual Anxiety, Suicidal Ideation Allergic/Immunologic: Negative: Hx HIV, Immunocompromise Review of Systems Statement: All other review of systems negative, unless stated above. Objective Vital Signs: Temp Pulse Resp BP Pulse Ox 98.7 F 80 20 111/71 98 05/09/18 07:53 05/09/18 08:14 05/09/18 07:53 05/09/18 07:53 05/09/18 07:53 Oxygen Devices in Use Now: None Appearance: obese, nad Ears/Nose/Mouth/Throat: Clear Oropharnyx, Mucous Membranes Moist Neck: Trachea Midline, - - uncertain jvp Respiratory: Symmetrical Chest Expansion and Respiratory Effort, Clear to Auscultation Cardiovascular: - - irregularly irregular, distant sounds Abdominal: - - obese, soft Extremities: No Clubbing, Cyanosis, - - 2+ pitting edema peripherally Skin: No Rash or Ulcers Neurological: Alert and Oriented x 3 Laboratory Results: 05/09/18 06:17 05/09/18 06:17 INR (Anticoag Therapy) 1.19 (0.77-1.02) H 05/08/18 20:26 APTT 47.3 seconds (26.0-36.3) H 05/09/18 06:17 Total Bilirubin 2.10 mg/dL (0.2-1.0) H 05/08/18 20:26 AST 46 U/L (13-39) H 05/08/18 20:26 ALT 69 U/L (7-52) H 05/08/18 20:26 Alkaline Phosphatase 102 U/L (34-104) 05/08/18 20:26 B-Natriuretic Peptide 474 pg/mL (-100) H 05/08/18 20:26 Total Protein 6.8 g/dL (6.4-8.9) 05/08/18 20:26 Albumin 4.1 g/dL (3.2-5.2) 05/08/18 20:26 Globulin 2.7 g/dL (2-4) 05/08/18 20:26 Albumin/Globulin Ratio 1.5 (1-3) 05/08/18 20:26 05/08/18 20:26 Troponin I 0.03 dig level 0.6 Diagnostic Imagin04/2018 echo: LVEF mild-moderately dilated, LVEF 20-25%, LA moderately dilated, RV dilated and dysfunctional, mild-mod MR, mild pHTN 01/2017 cardiac catheterization: Large anterior wall SC: s/p PCI to subtotal occluded pLAD, stents patent in RCA, intermediate CAD elsewhere 12/2014: NSTEMI: s/p PCI to ISR of RCA EKG Data: EKG admission: AFib rate 130 bpm, Poor r wave progression, diffuse non-specific st/t changes ekg 09/2017: NSR ekg 04/18/2018: Afib Assessment/Plan Moses Guzman is a 43 year old man with a history as above including but not limited to past medication nonadherence and excessive alcohol use (both of which he states are not currently an issue), obesity admitted with acute on chronic systolic (ischemic CM) HF in part likely secondary to atrial fibrillation, chads2-vasc score at least 3 - Continue aspirin 81 mg po daily - Change plavix to eliquis 5 mg po bid (ordered), - Continue statin. - Change oral furosemide to 100 mg of torsemide daily (ordered) for now, trend bmp, i/o, weights. May not need nearly this much torsemide at discharge - d/c potassium and start spironlactone 25 mg po daily (ordered) - Continue lisinopril 5 mg po daily (ordered) - Continue digoxin 0.125 mg po daily - Change coreg 3.125 mg po bid to toprol 50 mg po daily for better rate control (ordered). Would leave on this dosing in case converts back to atrial fibrillation will help rate control After discussing risks and benefits of HO/cardioversion for heart failure management patient is agreeable to proceed. He understands failure to take anti -coagulation as prescribed may lead to a stroke in the short term. He has a follow with his regular client advisor, Dr. Stallworth on 05/13, anti-arrhythmic medication can be considered at that time. Thank you for allowing me to participate in the cardiovascular care of this patient. Please do not hesitate to contact me with questions or concerns.
[2018-05-09] MEDS: Torsemide TAB* 100 MG PO SCH (10:37)
[2018-05-09] MEDS ORDERED: Flumazenil* 0.1 MG/ML 5 ML MDV ONE (13:24)
[2018-05-09] MEDS ORDERED: Naloxone* 0.4 MG/ML 1 ML VIAL ONE (13:24)
[2018-05-09] MEDS ORDERED: fentaNYL* 50 MCG/ML 2 ML VIAL (100 MCG VIAL) ONE ×2 (13:24→14:20)
[2018-05-09] MEDS ORDERED: Midazolam* 1 MG/ML 10 ML VIAL (10 MG) ONE (13:24)
[2018-05-09] MEDS ORDERED: Lidocaine 2% VISCOUS* 15 ML UDC ONE (13:25)
[2018-05-09] MEDS ORDERED: Ondansetron INJ* 2 MG/ML VIAL ONE (14:08)
[2018-05-09] MEDS ORDERED: diPHENhydraMINE IV* 50 MG/ML 1 ml VIAL (BENADRYL) ONE (14:08)
[2018-05-09] MEDS ORDERED: Perflutren Lipid Microsphere* 3 ML VIAL ONE (14:20)
--- NOTE | 2018-05-09 14:47 | PROCNOTE ---
Cardiology Procedure Note Limited HO/cardioversion 05/09/2018 Risks, benefits alternatives discussed and patient wished to proceed Patient received eliquis 5 mg this AM Limited HO with definity with spontaneous echo contrast in CALLUM without LA/CALLUM thrombus Total sedation 9 mg IV versed, 75 mcg IV fentanyl, 50 mg IV benadryl Patient successfully cardioverted from atrial fibrillation to NSR with 120 J external electrical sync x 1 Patient counseled on risk of medication non-adherence specifically anticoagulation with risk of things including but not limited to stroke and . He expressed understanding of this. Patient has cardiology follow up 05/13/2018 to consider ? anti-arrhythmic therapy and/or ablation attempt
--- NOTE | 2018-05-09 16:32 | TEE ---
Patient: JONNATHAN VASQUEZ [facility] Rec#: [id number] : 1975 Date: 05/09/2018 Age: 43y Height: 173 cm / 68.1 in Weight: 133.3 kg / 293.8 lbs Sex: M BSA: 2.41 Room#: 441 Admit Date#: 05/08/2018 Type: Inpatient Referring: Jean Marie Ku DO Performing: Jean Marie Ku DO Reading: Jean Marie Ku DO Wastewater Technician: Jocelyne Mayes RDCS Nurse: Trudy Christianson Nurse: Maeve Patricia Transesophageal Echocardiogram Indication: A-fib BP: 116/86 HR: 102 Rhythm: A-Fib Findings History: HLD,obesity,ETOH use,DM,AR/CAD,former smoker,COPD. Technical Comments: The study quality is fair. Completed at 1618. This is a limited HO pre-cardioversion. Left Atrium: The left atrium is severely dilated. There is no thrombus visualized in the left atrial appendage. Right Atrium: The right atrium is moderately dilated. HO Procedures: History and physical as well as labs were reviewed. The patient was in a fasting state. Risks and benefits of the procedure, including alternatives, were discussed and written informed consent was obtained. The patient and/or their health care civil rights representative expressed understanding of the procedure, risks and benefits. Baseline and continuous monitoring of blood pressure, heart rate, pulse oximetry and heart rhythm was performed throughout the procedure. The appropriate time-out procedure was performed as per [facility] protocol. The patient was placed in the left lateral decubitus position. The patient's posterior pharynx was anesthetized with 20ml of 2% viscous lidocaine. The patient received IV Midazolam with a total dose of9 mg. The patient received IV Fentanyl with a total dose of 75mcg. Benadryl 50mg IV. 4 mg Zofran IV. An oral bite block was inserted for protection of oral dentition. The multiplane transesophageal echocardiogram probe was inserted through the posterior oropharynx and advanced into the esophagus without difficulty. Multiple 2D images were obtained of the heart and its related structures. Color flow Doppler was used for evaluation. Spectral Doppler was also used. The atrial septum was interrogated with color flow Doppler. At the conclusion of the procedure the probe was removed with continuous suction without complications. Contrast: Definity was used to optimize study. A total of 4 ml used. Conclusions No RA thrombus noted. The left atrium is severely dilated. There is no thrombus visualized in the LA/left atrial appendage. There was spontaneous echo contrast noted in the mid to distal CALLUM. The CALLUM emptying velocity was reduced at 0.15 m/s. Definity was used to exclude a thrombus. Study was followed by cardioversion from atrial fibrillation to sinus rhythm. This was a limited study due to patient tenuous cardiac status.
--- NOTE | 2018-05-09 17:43 | PN ---
Subjective Date of Service: 05/09/18 Interval History: Patient seen and examined. Seems despondent about being hospitalized again but he feels improved from yesterday. Still with edema and SOB and PND. Objective Active Medications: Acetaminophen (Tylenol Tab*) 650 mg PO Q6H PRN PRN Reason: FEVER/PAIN Apixaban (Eliquis*) 5 mg PO BID [facility] Last Admin: 05/09/18 10:14 Dose: 5 mg Aspirin (Aspirin Ec Tab*) 81 mg PO DAILY [facility] Last Admin: 05/09/18 08:15 Dose: 81 mg Atorvastatin Calcium (Lipitor*) 40 mg PO DAILY [facility] Last Admin: 05/09/18 08:15 Dose: 40 mg Digoxin (Lanoxin Tab*) 0.125 mg PO DAILY [facility] Last Admin: 05/09/18 08:14 Dose: 0.125 mg Folic Acid (Folvite Tab*) 1 mg PO DAILY [facility] Last Admin: 05/09/18 08:13 Dose: 1 mg Lisinopril (Prinivil Tab*) 5 mg PO DAILY [facility] Last Admin: 05/09/18 08:14 Dose: 5 mg Lorazepam (Ativan Inj*) 0 - 6 mg IM .PER [place] PROTOCOL [facility]; Protocol Melatonin (Melatonin) 3 mg PO BEDTIME PRN; Protocol PRN Reason: Sleep Metoprolol Succinate (Toprol Xl Tab*) 50 mg PO DAILY [facility] Last Admin: 05/09/18 10:14 Dose: 50 mg Multivitamins/Minerals (Theragran/Minerals Tab*) 1 tab PO DAILY [facility] Last Admin: 05/09/18 08:13 Dose: 1 tab Spironolactone (Aldactone Tab*) 25 mg PO DAILY [facility] Last Admin: 05/09/18 10:14 Dose: 25 mg Thiamine HCl (Vitamin B-1 Tab*) 100 mg PO DAILY [facility] Last Admin: 05/09/18 08:15 Dose: 100 mg Torsemide (Demadex*) 100 mg PO DAILY [facility] Last Admin: 05/09/18 10:37 Dose: 100 mg Vital Signs - 8 hr 05/09/18 05/09/18 11:21 16:10 Temperature 98.5 F 98 F Pulse Rate 101 94 Respiratory 24 18 Rate Blood Pressure 116/86 116/86 (mmHg) O2 Sat by Pulse 100 99 Oximetry Oxygen Devices in Use Now: None Appearance: Alert, NAD Ears/Nose/Mouth/Throat: NL Teeth, Lips, Gums, Mucous Membranes Moist Neck: NL Appearance and Movements; NL JVP, Trachea Midline Respiratory: Symmetrical Chest Expansion and Respiratory Effort, Clear to Auscultation, - - exertional dyspnea noted Cardiovascular: - - irregular, afib on tele with periods of RVR Abdominal: NL Sounds; No Tenderness; No Distention Extremities: - - bilateral pitting LE edema Skin: No Rash or Ulcers Neurological: Alert and Oriented x 3, NL Sensation, NL Gait Nutrition: Taking PO's Result Diagrams: 05/09/18 06:17 05/09/18 06:17 Assess/Plan/Problems-Billing Assessment: This is a 43 year old male with complex cardiac history including [place], stents, acute on chronic HF, CKD and HTN that presented with persistent SOB, afib with RVR. - Patient Problems (1) Atrial fibrillation Code(s): I48.91 - UNSPECIFIED ATRIAL FIBRILLATION SNOMED Code(s): 74230538 Comment: - Cardiology consult appreciated, will be cardioverted today - Ca+ channel dustin will be switched to BB given extensive heart failure - Continue digoxin - CHADS2-VASc score is 2, started on eliquis BID - Heparin drip DC'd (2) Alcohol abuse Code(s): F10.10 - ALCOHOL ABUSE, UNCOMPLICATED SNOMED Code(s): 93925162 Comment: - Pt reported to Rita [facility] [employer] on admission that he drinks 6-30 beers/day. Encourage abstinence. (3) Chest pain Code(s): R07.9 - CHEST PAIN, UNSPECIFIED SNOMED Code(s): 71692555 Comment: - Likely 2/2 to his heart failure and fluid overload - Needs follow up diagnostics with his primary canvas cutter, may need outpatient cath (4) Heart failure, systolic, with acute decompensation Code(s): I50.23 - ACUTE ON CHRONIC SYSTOLIC (CONGESTIVE) HEART FAILURE SNOMED Code(s): 289226866 Comment: - Changed to aldactone and torsemide - Counseled extensively on need for AICD placement which he is considering, he needs to discuss this with his canvas cutter - follow daily weights, I&O and diet (5) CKD (chronic kidney disease) Code(s): N18.9 - CHRONIC KIDNEY DISEASE, UNSPECIFIED SNOMED Code(s): 071951089 Comment: - At baseline - Avoid nephrotoxic meds (6) Full code status Code(s): Z78.9 - OTHER SPECIFIED HEALTH STATUS SNOMED Code(s): 668118365 Comment: (7) DVT prophylaxis Current Visit: No Status: Acute Onset Date: 12/14/14 Code(s): KZB7364 - SNOMED Code(s): 176798879 Comment: - Eliquis Status and Disposition: Remain inpatient for diuresis. Dispo to home
[2018-05-10 07:35] LABS: EGFR Non-African American 61.4 (>60)
[2018-05-10] MEDS: Thiamine TAB* 100 MG TAB PO SCH (08:03)
[2018-05-10] MEDS: Multivitamins/Minerals TAB PO SCH (08:03)
[2018-05-10] MEDS: Torsemide TAB* 100 MG PO SCH (08:04)
[2018-05-10] MEDS: Metoprolol Succinate XL TAB* 50 MG PO SCH (08:04)
[2018-05-10] MEDS: Digoxin TAB* 0.125 MG PO SCH (08:04)
[2018-05-10] MEDS: Folic Acid TAB* 1 MG PO SCH (08:04)
[2018-05-10] MEDS: Atorvastatin* 40 MG TAB PO SCH (08:04)
[2018-05-10] MEDS: Spironolactone TAB* 25 MG PO SCH (08:04)
[2018-05-10] MEDS: Apixaban* 5 MG TAB PO SCH ×2 (08:04→20:23)
[2018-05-10] MEDS: Aspirin EC TAB* 81 MG TAB.EC PO SCH (08:04)
[2018-05-10] MEDS: Lisinopril TAB* 5 MG PO SCH (08:04)
--- NOTE | 2018-05-10 13:26 | PN ---
Subjective Date of Service: 05/10/18 Interval History: Patient seen and examined. States he had SOB overnight, still unable to lie flat. Denies chest pain. Still with edema of feet and lower extremities. He feels some improvement over the last 48 hours, but still "not great". Objective Active Medications: Acetaminophen (Tylenol Tab*) 650 mg PO Q6H PRN PRN Reason: FEVER/PAIN Apixaban (Eliquis*) 5 mg PO BID [facility] Last Admin: 05/10/18 08:04 Dose: 5 mg Aspirin (Aspirin Ec Tab*) 81 mg PO DAILY [facility] Last Admin: 05/10/18 08:04 Dose: 81 mg Atorvastatin Calcium (Lipitor*) 40 mg PO DAILY [facility] Last Admin: 05/10/18 08:04 Dose: 40 mg Digoxin (Lanoxin Tab*) 0.125 mg PO DAILY [facility] Last Admin: 05/10/18 08:04 Dose: 0.125 mg Folic Acid (Folvite Tab*) 1 mg PO DAILY [facility] Last Admin: 05/10/18 08:04 Dose: 1 mg Lisinopril (Prinivil Tab*) 5 mg PO DAILY [facility] Last Admin: 05/10/18 08:04 Dose: 5 mg Melatonin (Melatonin) 3 mg PO BEDTIME PRN; Protocol PRN Reason: Sleep Metoprolol Succinate (Toprol Xl Tab*) 50 mg PO DAILY [facility] Last Admin: 05/10/18 08:04 Dose: 50 mg Multivitamins/Minerals (Theragran/Minerals Tab*) 1 tab PO DAILY [facility] Last Admin: 05/10/18 08:03 Dose: 1 tab Spironolactone (Aldactone Tab*) 25 mg PO DAILY [facility] Last Admin: 05/10/18 08:04 Dose: 25 mg Thiamine HCl (Vitamin B-1 Tab*) 100 mg PO DAILY [facility] Last Admin: 05/10/18 08:03 Dose: 100 mg Torsemide (Demadex*) 100 mg PO DAILY [facility] Last Admin: 05/10/18 08:04 Dose: 100 mg Vital Signs - 8 hr 05/10/18 05/10/18 05/10/18 07:15 08:04 11:05 Temperature 98 F 97.6 F Pulse Rate 90 90 101 Respiratory 20 16 Rate Blood Pressure 114/83 126/86 (mmHg) O2 Sat by Pulse 94 98 Oximetry Oxygen Devices in Use Now: None Appearance: alert, NAD Eyes: PERRLA Ears/Nose/Mouth/Throat: NL Teeth, Lips, Gums, Clear Oropharnyx, Mucous Membranes Moist Neck: NL Appearance and Movements; NL JVP, Trachea Midline Respiratory: Symmetrical Chest Expansion and Respiratory Effort, - - diminished bases with fine crackles, exertional dyspnea and PND Cardiovascular: NL Sounds; No Murmurs; No JVD, - - bilateral LE edema +2, RSR on tele with periods of tachycardia Extremities: No Clubbing, Cyanosis Skin: No Rash or Ulcers Neurological: Alert and Oriented x 3, NL Gait, NL Muscle Strength and Tone Nutrition: Taking PO's Result Diagrams: 05/09/18 06:17 05/10/18 06:48 Microbiology and Other Data: Microbiology 05/08/18 20:26 Aerobic Blood Culture - Preliminary Blood Venous No Growth Day 1 Anaerobic Blood Culture - Preliminary No Growth Day 1 05/08/18 20:26 Aerobic Blood Culture - Preliminary Blood Venous No Growth Day 1 Anaerobic Blood Culture - Preliminary No Growth Day 1 Diagnostic Imaging: Patient: JONNATHAN VASQUEZ [facility] Rec#: [id number] : 1975 Date: 05/09/2018 Age: 43y Height: 173 cm / 68.1 in Weight: 133.3 kg / 293.8 lbs Sex: M BSA: 2.41 Room#: [facility] Admit Date#: 05/08/2018 Type: Inpatient Referring: Jean Marie Ku DO Performing: Jean Marie Ku DO Reading: Jean Marie Ku DO Cattle Killer: Jocelyne Mayes RDCS Nurse: Trudy Christianson Nurse: Maeve Patricia Transesophageal Echocardiogram Indication: A-fib BP: 116/86 HR: 102 Rhythm: A-Fib Findings History: HLD,obesity,ETOH use,DM,AL/CAD,former smoker,COPD. Technical Comments: The study quality is fair. Completed at 1618. This is a limited HO pre-cardioversion. Left Atrium: The left atrium is severely dilated. There is no thrombus visualized in the left atrial appendage. Right Atrium: The right atrium is moderately dilated. HO Procedures: History and physical as well as labs were reviewed. The patient was in a fasting state. Risks and benefits of the procedure, including alternatives, were discussed and written informed consent was obtained. The patient and/or their health care appeals representative expressed understanding of the procedure, risks and benefits. Baseline and This report is only to be considered final once signed by the Provider(s) as displayed in the "<Electronically Signed by >" field (s). Absence of a signature indicates the report is in a draft status and still needs to be finalized. In the event this document was created by someone other than the signing Provider, the individual initiating the document will be listed in the "Entered by:" or "Dictated by:" clarke. continuous monitoring of blood pressure, heart rate, pulse oximetry and heart rhythm was performed throughout the procedure. The appropriate time-out procedure was performed as per [facility] protocol. The patient was placed in the left lateral decubitus position. The patient's posterior pharynx was anesthetized with 20ml of 2% viscous lidocaine. The patient received IV Midazolam with a total dose of9 mg. The patient received IV Fentanyl with a total dose of 75mcg. Benadryl 50mg IV. 4 mg Zofran IV. An oral bite block was inserted for protection of oral dentition. The multiplane transesophageal echocardiogram probe was inserted through the posterior oropharynx and advanced into the esophagus without difficulty. Multiple 2D images were obtained of the heart and its related structures. Color flow Doppler was used for evaluation. Spectral Doppler was also used. The atrial septum was interrogated with color flow Doppler. At the conclusion of the procedure the probe was removed with continuous suction without complications. Contrast: Definity was used to optimize study. A total of 4 ml used. Conclusions No RA thrombus noted. The left atrium is severely dilated. There is no thrombus visualized in the LA/left atrial appendage. There was spontaneous echo contrast noted in the mid to distal CALLUM. The CALLUM emptying velocity was reduced at 0.15 m/s. Definity was used to exclude a thrombus. Study was followed by cardioversion from atrial fibrillation to sinus rhythm. This was a limited study due to patient tenuous cardiac status. Assess/Plan/Problems-Billing Assessment: This is a 43 year old male with complex cardiac history including AL, stents, acute on chronic HF, CKD and HTN that presented with persistent SOB, afib with RVR. - Patient Problems (1) Atrial fibrillation Code(s): I48.91 - UNSPECIFIED ATRIAL FIBRILLATION SNOMED Code(s): 66335811 Comment: - s/p successful cardioversion 05/09/18 - Ca+ channel dustin has been switched to BB given extensive heart failure - Continue digoxin - CHADS2-VASc score is 2, continue on eliquis BID (2) Alcohol abuse Code(s): F10.10 - ALCOHOL ABUSE, UNCOMPLICATED SNOMED Code(s): 25536872 Comment: - Pt reported to Rita Salvador NP on admission that he drinks 6-30 beers/day - Encourage abstinence. (3) Chest pain Code(s): R07.9 - CHEST PAIN, UNSPECIFIED SNOMED Code(s): 46690251 Comment: - Likely 2/2 to his heart failure and fluid overload - Needs follow up diagnostics with his primary tie loader, may need outpatient cath to assess for new lesions and/or restenosis of stent (4) Heart failure, systolic, with acute decompensation Code(s): I50.23 - ACUTE ON CHRONIC SYSTOLIC (CONGESTIVE) HEART FAILURE SNOMED Code(s): 693210390 Comment: - Changed to aldactone and torsemide - Counseled extensively on need for AICD placement which he is considering, he needs to discuss this with his tie loader - follow daily weights, I&O and diet - Does not appear euvolemic today, BNP up again >500 today, only down 1lb from yesterday with -300ml balance, continue to diurese (5) CKD (chronic kidney disease) Code(s): N18.9 - CHRONIC KIDNEY DISEASE, UNSPECIFIED SNOMED Code(s): 808571208 Comment: - At baseline - Avoid nephrotoxic meds (6) Full code status Code(s): Z78.9 - OTHER SPECIFIED HEALTH STATUS SNOMED Code(s): 845122898 Comment: (7) DVT prophylaxis Current Visit: No Status: Acute Onset Date: 12/14/14 Code(s): OWF8616 - SNOMED Code(s): 540087051 Comment: - Eliquis Status and Disposition: Remain inpatient for diuresis. Dispo to home
[2018-05-10] MEDS: Potassium Chlor TAB* 20 MEQ TAB.ER PO SCH (20:23)
[2018-05-11 08:12] LABS: EGFR Non-African American 60.8 (>60)
[2018-05-11] MEDS: Atorvastatin* 40 MG TAB PO SCH (08:28)
[2018-05-11] MEDS: Multivitamins/Minerals TAB PO SCH (08:28)
[2018-05-11] MEDS: Thiamine TAB* 100 MG TAB PO SCH (08:28)
[2018-05-11] MEDS: Potassium Chlor TAB* 20 MEQ TAB.ER PO SCH (08:28)
[2018-05-11] MEDS: Folic Acid TAB* 1 MG PO SCH (08:28)
[2018-05-11] MEDS: Aspirin EC TAB* 81 MG TAB.EC PO SCH (08:28)
[2018-05-11] MEDS: Digoxin TAB* 0.125 MG PO SCH (08:28)
[2018-05-11] MEDS: Metoprolol Succinate XL TAB* 50 MG PO SCH (08:28)
[2018-05-11] MEDS: Apixaban* 5 MG TAB PO SCH (08:28)
[2018-05-11] MEDS: Lisinopril TAB* 5 MG PO SCH (08:29)
[2018-05-11] MEDS: Spironolactone TAB* 25 MG PO SCH (08:29)
[2018-05-11] MEDS ORDERED: Torsemide TAB* 20 MG PO SCH (15:00)
[2018-05-11] MEDS ORDERED: Magnesium Chloride EC TAB* 64 MG PO SCH (15:00)
[2018-05-11 15:40] VITALS: BP 113/87
--- NOTE | 2018-05-12 03:09 | DS ---
CC: Dr. Kim; ZACARIAS Ramos; Dr. Stallworth; Dr. Isai Miller * DISCHARGE SUMMARY: DATE OF ADMISSION: 05/08/18 DATE OF DISCHARGE: 05/11/18 PRIMARY CARE PROVIDER: ZACARIAS Ramos PRIMARY KILN CAR REPAIRER: Dr. Cornel Stallworth in [place]. ATTENDING FOR THIS ADMISSION: Dr. Isai Millre. MY ATTENDING FOR TODAY: Dr. Riki Kim.* (DICTATED BY NORBERTO PADRON NP) HOSPITAL COURSE: This is a 43-year-old male patient with a complicated cardiac history. He had a recent hospitalization and was discharged from the hospital on 04/24/18 for congestive heart failure. The patient returned to the emergency department on 05/08/18 with complaint of shortness of breath and inability to lie flat, general malaise, fatigue, and exertional dyspnea. The patient was found to be in atrial fibrillation with a rapid ventricular response. He initially had received Cardizem and was started on heparin drip as the patient is not on anticoagulation. He did state that he has had rapid AFib in the past, but again has not been on anticoagulation. He was taking diltiazem at home for rate control, but no systemic blood thinners. The patient was seen by Cardiology, Dr. Ku, who evaluated his case and changed him to metoprolol as opposed to the diltiazem. The patient's rate was controlled on the diltiazem, but he did not convert. Dr. Ku adjusted the medications and then brought him to transesophageal echo for a cardioversion, which he underwent on 05/09/18. The patient was successfully cardioverted into sinus rhythm. He did have some ventricular irritability postprocedure. He had 2 short runs of V-tach that were nonsustained and asymptomatic. He has since been in regular sinus rhythm. The patient was also noted to be in acutely decompensated heart failure likely secondary to his uncontrolled atrial fibrillation. He was not responding to his normal diuretic routine. As such, medications were adjusted. He was placed on Aldactone and high dose torsemide for 2 days. He is currently at a negative fluid balance of approximately 2500 mL and down 6 pounds over the last 48 hours. The patient has diuresed rather well over the last 24 hours, not as much today, but he is actually able to lay down in the prone position with his head on a pillow on his stomach, which he was not able to do before without becoming short of breath. It is still difficult for him to lie flat on his back, but the patient states that it is significantly better than when he had arrived. The patient's issue primarily is that AICD has been recommended since his myocardial infarction last year. He does have a greatly reduced ejection fraction of approximately 20% and has refused an AICD up to this point. 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 Explained the seriousness of the nature of his cardiac status right now and explained that his ventricular arrhythmias may at some point cause cardiac arrest. The patient states he is willing to take that risk and still refuses to have AICD placed. At this point, he was medically optimized and diuresed. He is ready for home. The patient has told that he has a followup appointment with Dr. Stallworth this 05/13/18, which he will keep. We will also have him follow up with his primary care provider, [facility], and would also likely benefit from nutritional consult and lifestyle changes. DISCHARGE DIAGNOSES: 1. Atrial fibrillation with rapid ventricular response, status post cardioversion. 2. Acutely decompensated heart failure, currently stable. 3. History of alcohol use. Encouraged abstinence. No signs of detox or withdrawal symptoms during this admission. 4. Chest pain likely secondary to his heart failure, on fluid overload, now resolved. 5. Chronic kidney disease. Renal function is at baseline. DISCHARGE MEDICATIONS: New medications are: 1. Apixaban 5 mg p.o. b.i.d. 2. mg daily. 3. Metoprolol succinate XL 50 mg daily. 4. Spironolactone 25 mg daily. 5. Torsemide 40 mg daily. Remaining medications: 1. Lisinopril 5 mg p.o. daily. 2. Folic acid 1 mg daily. 3. Digoxin 0.125 mg daily. 4. Atorvastatin 40 mg daily. 5. Aspirin 81 mg daily. 6. Thiamine 100 mg daily. 7. K-Chlor 20 mEq 2 times a day. 8. Multivitamin 1 tablet daily. REVIEW OF SYSTEMS: Today, the patient denies any fever, fatigue or chills. No chest pain. He does have exertional dyspnea that is improved and does complain of paroxysmal nocturnal dyspnea as well, which is also improved. The patient denies any acute shortness of breath at rest. Denies any nausea or vomiting. He does have some foot pain secondary to his edema with no further constitutional complaints. PHYSICAL EXAMINATION: The patient is alert, in no acute distress. Vital Signs : Blood pressure 114/83, heart rate 89, respiratory rate 16, O2 saturation 100% on room air, temperature is 98.0. HEENT: The patient is atraumatic, normocephalic. PERRLA with nonicteric sclerae. Neck is supple, nontender. No JVD noted. No carotid bruit auscultated. Cardiovascular: S1, S2 present. Rate and rhythm are currently regular. He is in regular sinus rhythm with no ectopy on telemetry. No murmurs, gallops or rubs noted. Lungs are clear bilaterally at the apices and approximately half way down the bases and diminished at the bases with no rales or rhonchi noted. Abdomen is soft, nontender, nondistended. Obese. No organomegaly noted. He has positive bowel sounds in all 4 quadrants. is deferred. Musculoskeletal: There is no clubbing and no cyanosis. He has bilateral lower extremity edema and half way up to the rodríguez +2, which is down from +4 pitting edema at admission. He does have palpable pulses and brisk cap refill. Neurologic: He is grossly intact with no focal deficits. Psychiatric: He is calm, cooperative, and appropriate. LABORATORY DATA: WBC is 10.5, RBC is 4.42, hemoglobin 14, hematocrit 41, platelets 162. Sodium 137, potassium 3.6, chloride 100, CO2 28, BUN 27, creatinine 1.30, GFR 60.8, glucose 102, calcium 9.0, magnesium 2.1, total bilirubin 1.10, AST 30, ALT 48, alk phos 85, BNP 588, protein 6.0, albumin 3.6, globulin 2.4, INR is 1.19, APTT is 47.3. Chest x-ray at admission on 05/08/18 showed cardiomegaly with mild interstitial edema. Transesophageal echo dated 05/09/18 shows no right atrial thrombus noted. The left atrium is severely dilated. There is no thrombus visualized in the left atrium with left atrial appendage. There was spontaneous echo contrast noted in the mid to distal CALLUM. The CALLUM emptying velocity was reduced. Study was followed by cardioversion from atrial fibrillation to sinus rhythm and this was a limited study due to the patient's tenuous cardiac status. DISPOSITION: The patient will be discharged to home. New medications have been explained to him. The followups again have been explained to the patient. Our office will call him to coordinate office followup with his primary care provider. He already has an appointment with Dr. Stallworth on Wednesday and at [facility] will call to coordinate him also for outpatient heart failure management. DIET: The patient should have a 1.5 g sodium diet, heart healthy. His glucose is borderline. He should consider weight management as well as the patient is obese. ACTIVITY: As tolerated. DISCHARGE INSTRUCTIONS: I did instruct the patient no heavy lifting or strenuous activity given the severely decompensated heart failure. Again, I stressed with the patient that he should have a discussion with his sheet rock nailer about an outpatient cardiac cath to ensure that his stents have not restenosed and he does not have advancing lesions and new cardiac disease and also stressed the fact that an AICD may save his life. The patient states he understands all that; however, his compliance with those requests and recommendations, I am not sure that he will be comfortable with pursuing. At this point, the patient is medically optimized for discharge. I told the patient to return to the emergency room if he had any other further symptoms that he was not able to manage at home. Otherwise, he should follow up immediately with sheet rock nailer on Wednesday. NORBERTO PADRON NP [id number]/[facility] #: [id number] BRI
== END 2018-05-11 16:24 | disposition home or self-care (01) | DRG 201 ==
LOC: ED 19:35 → MEDTELE 22:01 → OBSVTOIN 05-09 13:00
PROVIDERS: ADMIT Hospitalist; ATTEND Internal Medicine
PROC: 5A2204Z Restoration of Cardiac Rhythm, Single (ICD-10-PCS; 2018-05-09)
PROC: B24BZZ4 Ultrasonography of Heart with Aorta, Transesophageal (ICD-10-PCS; principal; 2018-05-09 13:00)
DX: I48.91 Unspecified atrial fibrillation (principal); I50.23 Acute on chronic systolic (congestive) heart failure; I13.0 Hypertensive heart and chronic kidney disease with heart failure and stage 1 through stage 4 chronic kidney disease, or unspecified chronic kidney disease; Z68.41 Body mass index [BMI] 40.0-44.9, adult; E78.00 Pure hypercholesterolemia, unspecified; M19.90 Unspecified osteoarthritis, unspecified site; I25.10 Atherosclerotic heart disease of native coronary artery without angina pectoris; F32.9 Major depressive disorder, single episode, unspecified; F12.90 Cannabis use, unspecified, uncomplicated; I27.20 Pulmonary hypertension, unspecified; E11.22 Type 2 diabetes mellitus with diabetic chronic kidney disease; I34.0 Nonrheumatic mitral (valve) insufficiency; E66.01 Morbid (severe) obesity due to excess calories; N18.9 Chronic kidney disease, unspecified; I25.5 Ischemic cardiomyopathy; F10.20 Alcohol dependence, uncomplicated; Y90.9 Presence of alcohol in blood, level not specified; Z82.49 Family history of ischemic heart disease and other diseases of the circulatory system; Z72.89 Other problems related to lifestyle; Z87.891 Personal history of nicotine dependence; Z95.5 Presence of coronary angioplasty implant and graft; Z86.74 Personal history of sudden cardiac arrest; I25.2 Old myocardial infarction; Z79.01 Long term (current) use of anticoagulants; Z79.82 Long term (current) use of aspirin
CPT/HCPCS: 36415; 71045; 80048; 80053; 80162; 83735; 83880; 84484; 85025; 85610; 85730; 87040; 92960; 93005; 93312; 93325; 99156; 99157; 99284; A9270-GY; J1160; J1200; J1644; J1940; J2250; J2310; J2405; J2765; J3010; J3411; J3490

== ENCOUNTER 2020-10-12 21:20 | Inpatient (IN) ==
[2020-10-12] MEDS ORDERED: Furosemide 20 mg/2 ml IV VIAL IV SLOW PU ONE (21:54)
[2020-10-12] MEDS ORDERED: Furosemide 40 mg/4 ml IV VIAL ONE (21:55)
[2020-10-12] MEDS ORDERED: Furosemide 40 mg/4 ml IV VIAL IV SLOW PU ONE (22:16)
[2020-10-12 22:33] LABS: ABS Basophils 0.1 10^3/ul (0-0.2); ABS Lymphocytes 1.4 10^3/ul (1.0-4.8); ABS Monocytes 1.1 10^3/ul (0-0.8); ABS Neutrophils 7.2 10^3/ul (1.5-7.7); Eosinophil % 0.5 %; Hematocrit 49 % (42-52); Lymphocyte % 13.9 %; Mean Corpuscular HGB Conc 33 g/dL (31-36); Mean Corpuscular Hemoglobin 30 pg (27-31); Mean Corpuscular Volume 91 fL (80-94); Mean Platelet Volume 11.8 fL (7.4-10.4); Platelet Count 212 10^3/uL (150-450); Red Blood Count 5.42 10^6 /uL (4.18-5.48); Red Cell Distribution Width 15 % (10-15); White Blood Count 9.8 10^3/uL (3.5-10.8)
[2020-10-12 22:37] LABS: INR 2.59 (0.82-1.09)
[2020-10-12 22:49] LABS: ALT 30 U/L (7-52); AST 37 U/L (13-39); Albumin/Globulin Ratio 1.7 (1-3); Alkaline Phosphatase 95 U/L (34-104); Anion Gap 10 mmol/L (2-11); BUN/Creatinine Ratio 14.9 (8-20); Blood Urea Nitrogen 23 mg/dL (6-24); CO2 Carbon Dioxide 25 mmol/L (22-32); Calcium 9.5 mg/dL (8.6-10.3); Chloride 99 mmol/L (101-111); EGFR Non-African American 49.6 (>60); Globulin 2.3 g/dL (2-4); Glucose 112 mg/dL (70-100); Potassium 4.2 mmol/L (3.5-5.0); Sodium 134 mmol/L (135-145); Total Protein 6.3 g/dL (6.4-8.9)
[2020-10-12] MEDS ORDERED: Furosemide 20 mg/2 ml IV VIAL ONE (23:16)
[2020-10-12 23:40] LABS: Troponin I 0.04 ng/mL (<0.03)
[2020-10-13] MEDS ORDERED: Ondansetron 4 mg VIAL 2 MG/ML 2 ml VIAL IV PRN (01:02)
[2020-10-13] MEDS ORDERED: Digoxin IV 0.5 MG/2 ML AMP (0.25 MG/ML) IV SLOW PU ONE ×3 (01:02→10:23)
[2020-10-13] MEDS ORDERED: Albuterol 2.5mg/3 ml (0.083%) NEB.SOLN INH PRN (01:02)
[2020-10-13 02:10] LABS: Troponin I 0.04 ng/mL (<0.03)
[2020-10-13 02:29] LABS: ALT 35 U/L (7-52); AST 42 U/L (13-39); Albumin 4.2 g/dL (3.2-5.2); Albumin/Globulin Ratio 1.8 (1-3); Alkaline Phosphatase 98 U/L (34-104); Globulin 2.3 g/dL (2-4); Indirect Bilirubin 2.2 mg/dL (0.3-1.0); Total Protein 6.5 g/dL (6.4-8.9)
[2020-10-13 02:52] LABS: Magnesium 2.1 mg/dL (1.9-2.7)
[2020-10-13] MEDS ORDERED: diPHENhydraMINE 25 mg TAB PO PRN (02:57)
[2020-10-13 06:19] LABS: Hematocrit 51 % (42-52); Hemoglobin 17.1 g/dL (14.0-18.0); Mean Corpuscular HGB Conc 33 g/dL (31-36); Mean Corpuscular Hemoglobin 30 pg (27-31); Mean Corpuscular Volume 90 fL (80-94); Mean Platelet Volume 11.2 fL (7.4-10.4); Platelet Count 201 10^3/uL (150-450); Red Cell Distribution Width 16 % (10-15); White Blood Count 10.4 10^3/uL (3.5-10.8)
[2020-10-13 06:21] LABS: ABS Eosinophils 0.1 10^3/ul (0-0.6); ABS Lymphocytes 1.8 10^3/ul (1.0-4.8); ABS Neutrophils 7.5 10^3/ul (1.5-7.7); Eosinophil % 0.6 %; Lymphocyte % 17.4 %
[2020-10-13 06:26] LABS: INR 2.18 (0.82-1.09)
[2020-10-13 06:42] LABS: Troponin I 0.03 ng/mL (<0.03)
[2020-10-13] MEDS ORDERED: Perflutren Lipid Microsphere 3 ML VIAL ONE (07:08)
[2020-10-13] MEDS: Aspirin EC 81 mg TAB.EC (enteric coated) PO SCH (08:31)
[2020-10-13] MEDS: Multivitamins/Minerals TAB PO SCH (08:33)
[2020-10-13] MEDS: Furosemide 40 mg/4 ml IV VIAL IV SLOW PU SCH ×2 (08:33→16:56)
[2020-10-13 11:33] LABS: Calcium 9.6 mg/dL (8.6-10.3); Potassium 4.3 mmol/L (3.5-5.0)
[2020-10-13 11:39] LABS: BUN/Creatinine Ratio 18.1 (8-20); EGFR Non-African American 56.2 (>60)
[2020-10-13] MEDS ORDERED: Milrinone 20,000 MCG/100 ML BAG IV SCH ×3 (12:00→14:03)
[2020-10-13] MEDS ORDERED: Midazolam 2 mg/2 ml VIAL 1 mg/ml 2 ml VIAL (2 mg) ONE (13:30)
[2020-10-13] MEDS ORDERED: Phenylephrine 40 mcg/mL 10mL (400mcg) SYRINGE ONE (13:30)
[2020-10-13 15:20] LABS: Anion Gap 9 mmol/L (2-11); Blood Urea Nitrogen 23 mg/dL (6-24); CO2 Carbon Dioxide 22 mmol/L (22-32); Calcium 7.2 mg/dL (8.6-10.3); Chloride 108 mmol/L (101-111); EGFR African American 79.2 (>60); EGFR Non-African American 65.4 (>60); Glucose 67 mg/dL (70-100); Sodium 139 mmol/L (135-145)
[2020-10-13 15:25] LABS: Troponin I 0.03 ng/mL (<0.03)
[2020-10-13] MEDS ORDERED: Potassium Chlor 20 meq TAB.ER PO ONE ×2 (15:40→17:00)
[2020-10-13 20:23] LABS: BUN/Creatinine Ratio 18.1 (8-20); Blood Urea Nitrogen 28 mg/dL (6-24); CO2 Carbon Dioxide 23 mmol/L (22-32); Calcium 8.3 mg/dL (8.6-10.3); Chloride 101 mmol/L (101-111); EGFR African American 59.5 (>60); EGFR Non-African American 49.2 (>60); Glucose 96 mg/dL (70-100); Sodium 135 mmol/L (135-145)
[2020-10-13 20:34] LABS: Anion Gap 11 mmol/L (2-11)
[2020-10-14 05:07] LABS: ABS Basophils 0.1 10^3/ul (0-0.2); ABS Eosinophils 0.2 10^3/ul (0-0.6); ABS Lymphocytes 1.8 10^3/ul (1.0-4.8); ABS Monocytes 1.4 10^3/ul (0-0.8); Eosinophil % 1.8 %; Hematocrit 46 % (42-52); Hemoglobin 14.9 g/dL (14.0-18.0); Lymphocyte % 17.4 %; Mean Corpuscular HGB Conc 33 g/dL (31-36); Mean Corpuscular Hemoglobin 30 pg (27-31); Mean Corpuscular Volume 91 fL (80-94); Mean Platelet Volume 11.5 fL (7.4-10.4); Platelet Count 183 10^3/uL (150-450); Red Blood Count 5.03 10^6 /uL (4.18-5.48); Red Cell Distribution Width 15 % (10-15); White Blood Count 10.4 10^3/uL (3.5-10.8)
[2020-10-14 05:22] LABS: Blood Urea Nitrogen 28 mg/dL (6-24); CO2 Carbon Dioxide 24 mmol/L (22-32); Calcium 8.2 mg/dL (8.6-10.3); Chloride 100 mmol/L (101-111); EGFR African American 63.3 (>60); EGFR Non-African American 52.3 (>60); Glucose 102 mg/dL (70-100); Magnesium 1.8 mg/dL (1.9-2.7); Sodium 133 mmol/L (135-145)
[2020-10-14 05:48] LABS: Anion Gap 9 mmol/L (2-11)
[2020-10-14 05:49] LABS: TSH Ultra Thyroid Stim Horm 2.71 mcIU/mL (0.34-5.60)
[2020-10-14 05:51] LABS: Free T4 1.43 ng/dL (0.61-1.12)
[2020-10-14] MEDS ORDERED: Magnesium Sulfate IV 1GM/100ML 1 GM/100 ML BAG IV ONE (05:54)
[2020-10-14] MEDS: Furosemide 40 mg/4 ml IV VIAL IV SLOW PU SCH (08:10)
[2020-10-14] MEDS: Aspirin EC 81 mg TAB.EC (enteric coated) PO SCH (08:11)
[2020-10-14] MEDS: Multivitamins/Minerals TAB PO SCH (08:11)
[2020-10-14] MEDS ORDERED: Furosemide 40 mg/4 ml IV VIAL IV SLOW PU ONE (22:51)
[2020-10-15 07:01] LABS: BUN/Creatinine Ratio 21.9 (8-20); Calcium 8.6 mg/dL (8.6-10.3); EGFR African American 59.5 (>60); EGFR Non-African American 49.2 (>60); Magnesium 2.2 mg/dL (1.9-2.7); Potassium 4.3 mmol/L (3.5-5.0)
[2020-10-15 09:38] LABS: INR 2.12 (0.82-1.09)
[2020-10-15] MEDS: Multivitamins/Minerals TAB PO SCH (09:43)
[2020-10-15] MEDS: Aspirin EC 81 mg TAB.EC (enteric coated) PO SCH (09:47)
[2020-10-15] MEDS ORDERED: Bumetanide IV 0.25 MG/ML 4 ml VIAL (1 mg) SLOW PUSH SCH (10:00)
[2020-10-15] MEDS: Bumetanide IV 0.25 MG/ML 4 ml VIAL (1 mg) SLOW PUSH SCH (15:50)
[2020-10-16 06:30] LABS: CO2 Carbon Dioxide 23 mmol/L (22-32); Calcium 8.7 mg/dL (8.6-10.3); Chloride 103 mmol/L (101-111); Sodium 135 mmol/L (135-145)
[2020-10-16 06:34] LABS: Anion Gap 9 mmol/L (2-11)
[2020-10-16 06:35] LABS: BUN/Creatinine Ratio 24.3 (8-20); Blood Urea Nitrogen 37 mg/dL (6-24); EGFR African American 60.9 (>60); EGFR Non-African American 50.3 (>60); Glucose 98 mg/dL (70-100)
[2020-10-16 07:43] LABS: Magnesium 2.3 mg/dL (1.9-2.7)
[2020-10-16 07:56] LABS: Potassium Redraw 4.3 mmol/L (3.5-5.0)
[2020-10-16] MEDS: Bumetanide IV 0.25 MG/ML 4 ml VIAL (1 mg) SLOW PUSH SCH ×2 (08:43→14:37)
[2020-10-16] MEDS: Multivitamins/Minerals TAB PO SCH (08:43)
[2020-10-16] MEDS: Aspirin EC 81 mg TAB.EC (enteric coated) PO SCH (08:44)
[2020-10-16 10:12] LABS: Calcium 8.8 mg/dL (8.6-10.3); EGFR African American 64.8 (>60); EGFR Non-African American 53.5 (>60); Potassium 4.1 mmol/L (3.5-5.0)
[2020-10-16 13:06] LABS: Indirect Bilirubin 1.2 mg/dL (0.3-1.0); Total Bilirubin 1.6 mg/dL (0.2-1.0)
[2020-10-16 18:41] LABS: BUN/Creatinine Ratio 23.4 (8-20); Calcium 8.7 mg/dL (8.6-10.3); EGFR African American 66.4 (>60); EGFR Non-African American 54.9 (>60); Potassium 4.2 mmol/L (3.5-5.0)
[2020-10-16 19:32] LABS: Potassium 4.5 mmol/L (3.5-5.0)
[2020-10-17 07:02] LABS: Anion Gap 12 mmol/L (2-11); BUN/Creatinine Ratio 22.1 (8-20); Blood Urea Nitrogen 33 mg/dL (6-24); CO2 Carbon Dioxide 25 mmol/L (22-32); Calcium 8.7 mg/dL (8.6-10.3); Chloride 99 mmol/L (101-111); EGFR African American 62.3 (>60); EGFR Non-African American 51.5 (>60); Glucose 101 mg/dL (70-100); Magnesium 1.9 mg/dL (1.9-2.7); Potassium 3.7 mmol/L (3.5-5.0); Sodium 136 mmol/L (135-145)
[2020-10-17] MEDS: Aspirin EC 81 mg TAB.EC (enteric coated) PO SCH (08:38)
[2020-10-17] MEDS: Multivitamins/Minerals TAB PO SCH (08:38)
[2020-10-17] MEDS: Bumetanide IV 0.25 MG/ML 4 ml VIAL (1 mg) SLOW PUSH SCH ×2 (08:41→15:53)
[2020-10-17] MEDS ORDERED: Potassium Chlor 20 meq TAB.ER PO ONE (09:14)
[2020-10-17] MEDS ORDERED: Magnesium Sulfate IV 1GM/100ML 1 GM/100 ML BAG IV ONE (10:34)
[2020-10-17] MEDS ORDERED: Potassium Chloride LIQUID 20 MEQ/15 ML LIQUID PO ONE (10:35)
[2020-10-17 17:27] LABS: ALT 45 U/L (7-52); AST 33 U/L (13-39)
[2020-10-17 21:45] LABS: % Iron Saturation 8 % (15-55); Iron 39 ug/dL (50-212); Total Iron Binding Capacity 512 mcg/dL (250-450); Transferrin 366 mg/dL (203-362); Unsaturated Iron Binding < 497 ug/dL
[2020-10-17 22:05] LABS: Ferritin 42.6 ng/mL (24-336)
[2020-10-18 06:33] LABS: INR 1.56 (0.82-1.09)
[2020-10-18 06:35] LABS: BUN/Creatinine Ratio 21.1 (8-20); Calcium 9.2 mg/dL (8.6-10.3); EGFR African American 60.9 (>60); EGFR Non-African American 50.3 (>60); Magnesium 2.3 mg/dL (1.9-2.7); Potassium 4.1 mmol/L (3.5-5.0)
[2020-10-18] MEDS: Bumetanide IV 0.25 MG/ML 4 ml VIAL (1 mg) SLOW PUSH SCH ×2 (08:04→15:11)
[2020-10-18] MEDS: Aspirin EC 81 mg TAB.EC (enteric coated) PO SCH (08:05)
[2020-10-18] MEDS: Multivitamins/Minerals TAB PO SCH (08:06)
[2020-10-18 22:59] VITALS: BP 116/81
== END 2020-10-18 22:57 | disposition short-term general hospital (02) | DRG 194 ==
LOC: ED 21:20 → MEDTELE 10-13 00:55 → ICU 10-13 12:21 → MEDTELE 10-14 20:18
PROVIDERS: ADMIT Internal Medicine; ATTEND Internal Medicine